=== PATIENT | female | born 1980 | race Caucasian/White ===

== ENCOUNTER 2023-06-18 09:52 | Outpatient (OUT) | payer BC, SELFPAY ==
[2023-06-18 10:30] LABS: Basophils Absolute Auto 0.1 10^3/uL (0.0-0.1); Basophils Percent Auto 0.7 % (0.2-2.0); Eosinophils Absolute Auto 0.2 10^3/uL (0.0-0.7); Eosinophils Percent Auto 1.9 % (0.9-7.0); Hematocrit 39.7 % (36.0-48.0); Immature Granulocytes Abs Auto 0.02 10^3/uL (0.00-0.03); Immature Granulocytes Pct Auto 0.2 % (0.0-0.5); Lymphocytes Absolute Auto 2.4 10^3/uL (1.2-3.8); Lymphocytes Percent Auto 27.5 % (20.5-60.0); Mean Corpuscular HGB Conc 32.7 g/dL (29.9-35.2); Mean Corpuscular Hemoglobin 30.2 pg (26.7-34.0); Mean Corpuscular Volume 92.1 fL (81.0-99.0); Mean Platelet Volume 9.2 fL (9.5-13.5); Monocytes Absolute Auto 0.5 10^3/uL (0.3-0.8); Monocytes Percent Auto 5.1 % (1.7-12.0); Neutrophils Absolute Auto 5.7 10^3/uL (1.4-6.5); Neutrophils Percent Auto 64.6 % (43.0-75.0); Platelet Count 315 10^3/uL (150-450); Red Blood Count 4.31 10^6/uL (4.20-5.40); Red Cell Distribution Width 12.8 % (11.0-15.0); White Blood Count 8.8 10^3/uL (4.0-11.0)
[2023-06-18 12:39] LABS: Estimated Average Glucose 126 mg/dL
[2023-06-18 12:45] LABS: Alanine Aminotransferase 23 U/L (14-59); Albumin Level 3.9 g/dL (3.4-5.0); Alkaline Phosphatase 63 U/L (46-116); Anion Gap 11.8; Aspartate Amino Transferase 15 U/L (15-37); BUN Creatinine Ratio 12.2; Bilirubin Total 0.3 mg/dL (0.2-1.0); Calcium 9.1 mg/dL (8.5-10.1); Carbon Dioxide 27.3 mmol/L (21.0-32.0); Chloride 104 mmol/L (98-107); Chol HDL Ratio 3.2; Cholesterol 210 mg/dL (<=200); Estimated GFR (African America >60 (>=60); Estimated GFR (Non-African Ame >60 (>=60); Globulin 3.8 g/dL; Glucose 105 mg/dL (74-106); HDL Cholesterol 66 mg/dL (40-60); Potassium 4.1 mmol/L (3.5-5.1); Sodium 139 mmol/L (136-145); Thyroid Stimulating Hormone 1.239 uIU/mL (0.358-3.740); Total Protein 7.7 g/dL (6.4-8.2); Triglycerides 95 mg/dL (<=150)
== END 2023-06-18 09:53 | disposition home or self-care (01) ==
PROVIDERS: PCP Family Medicine; Visit Provider Obstetrics & Gynecology
DX: Z00.00 Encounter for general adult medical examination without abnormal findings (principal)
CPT/HCPCS: 36415; 80053; 80061; 83036; 84443; 85025

== ENCOUNTER 2023-08-31 19:23 | Outpatient (REF) | payer BC, SELFPAY ==
[2023-09-04 19:07] LABS: Age Gdln ACOG Testing Note (.); HPV Aptima Negative (Negative); IGP, Aptima HPV, rfx 16/18,45 Note (.)
== END 2023-08-31 19:24 | disposition home or self-care (01) ==
LOC: LAB 19:23
PROVIDERS: PCP Family Medicine; Visit Provider Obstetrics & Gynecology
DX: Z01.419 Encounter for gynecological examination (general) (routine) without abnormal findings (principal)
CPT/HCPCS: 87624; G0145

== ENCOUNTER 2023-09-02 09:44 | Outpatient (OUT) | payer BC, SELFPAY ==
[2023-09-02 10:27] LABS: Estimated Average Glucose 120 mg/dL; Glycohemoglobin A1C 5.8 % (4.5-6.2)
== END 2023-09-02 09:45 | disposition home or self-care (01) ==
PROVIDERS: PCP Family Medicine; Visit Provider Obstetrics & Gynecology
DX: E08.9 Diabetes mellitus due to underlying condition without complications (principal)
CPT/HCPCS: 36415; 83036

== ENCOUNTER 2023-09-06 07:32 | Outpatient (OUT) | payer BC, SELFPAY ==
--- NOTE | 2023-09-06 07:36 | MM_ITS ---
Patient Name: PIOTR FREEMAN MR#: [id number] : 1980 Exam Date: 09/06/2023 Ordering Doctor: DR Mando Back . RADIOLOGY REPORT PROCEDURE: MM TOMOSYNTHESIS SCREENING BI COMPARISON: MG MAMM SCREEN 3D AMIRA CAD, 08/27/2021. MG MAMM SCREEN 3D AMIRA CAD, 09/02/2022. INDICATIONS: Screening Calculator Name NCI Breast Cancer Risk Assessment Tool 5 Year Breast Cancer Risk 1.50% Lifetime Breast Cancer Risk 11.10% Personal Breast Cancer No Personal Ovarian Cancer No Treatments None Family Cancers Grandmother-maternal with breast cancer at age ~63. LOCATION: [facility] BREAST COMPOSITION: Heterogeneously dense,which may obscure small masses. FINDINGS: DIAGNOSTIC CATEGORY 1--NEGATIVE. NO CHANGE FROM COMPARISON ASSESSMENT. Scattered benign-appearing calcifications are present. Scattered benign-appearing lymph nodes are present. RIGHT BREAST: No significant suspicious finding. LEFT BREAST: No significant suspicious finding. RECOMMENDATIONS: ROUTINE MAMMOGRAM AND CLINICAL EVALUATION IN 12 MONTHS. PLEASE NOTE: A NORMAL MAMMOGRAM DOES NOT EXCLUDE THE POSSIBILITY OF BREAST CANCER. A CLINICALLY SUSPICIOUS PALPABLE LUMP SHOULD BE BIOPSIED. Dictated by: Bam Deshpande MD on 09/06/2023 at 08:26 Approved by: Bam Deshpande MD on 09/06/2023 at 08:27
== END 2023-09-06 07:33 | disposition home or self-care (01) ==
LOC: MAMMO 07:32
PROVIDERS: PCP Family Medicine; Visit Provider Obstetrics & Gynecology
DX: Z12.31 Encounter for screening mammogram for malignant neoplasm of breast (principal); Z80.3 Family history of malignant neoplasm of breast
CPT/HCPCS: 77063; 77067

== ENCOUNTER 2024-02-15 09:34 | Outpatient (OUT) | payer BC, SELFPAY ==
[2024-02-15 11:03] LABS: Basophils Absolute Auto 0.1 10^3/uL (0.0-0.1); Basophils Percent Auto 0.6 % (0.2-2.0); Eosinophils Absolute Auto 0.3 10^3/uL (0.0-0.7); Eosinophils Percent Auto 3.8 % (0.9-7.0); Hematocrit 38.6 % (36.0-48.0); Hemoglobin 12.9 g/dL (12.0-16.0); Immature Granulocytes Abs Auto 0.05 10^3/uL (0.00-0.03); Immature Granulocytes Pct Auto 0.6 % (0.0-0.5); Lymphocytes Absolute Auto 2.8 10^3/uL (1.2-3.8); Mean Corpuscular HGB Conc 33.4 g/dL (29.9-35.2); Mean Corpuscular Hemoglobin 29.9 pg (26.7-34.0); Mean Corpuscular Volume 89.6 fL (81.0-99.0); Mean Platelet Volume 9.3 fL (9.5-13.5); Monocytes Absolute Auto 0.4 10^3/uL (0.3-0.8); Monocytes Percent Auto 5.1 % (1.7-12.0); Neutrophils Percent Auto 57.9 % (43.0-75.0); Platelet Count 365 10^3/uL (150-450); Red Blood Count 4.31 10^6/uL (4.20-5.40); Red Cell Distribution Width 12.9 % (11.0-15.0); White Blood Count 8.7 10^3/uL (4.0-11.0)
[2024-02-15 11:19] LABS: Estimated Average Glucose 131 mg/dL; Glycohemoglobin A1C 6.2 % (4.5-6.2)
[2024-02-15 11:57] LABS: Free T3 2.56 pg/mL (2.18-3.98)
[2024-02-15 12:31] LABS: Free T4 0.65 ng/dL (0.76-1.46)
[2024-02-16 04:09] LABS: FSH 7.5 mIU/mL (.); Luteinizing Hormone(LH) 11.1 mIU/mL (.); Prolactin 7.1 ng/mL (4.8-33.4)
== END 2024-02-15 09:35 | disposition home or self-care (01) ==
PROVIDERS: PCP Family Medicine; Visit Provider Obstetrics & Gynecology
DX: R53.83 Other fatigue (principal); R00.2 Palpitations; N64.52 Nipple discharge
CPT/HCPCS: 36415; 83001; 83002; 83036; 84146; 84439; 84481; 85025

== ENCOUNTER 2024-03-31 15:35 | Emergency (ER) | payer BC, SELFPAY ==
[2024-03-31 15:39] VITALS: BP 132/86; PULSE 108; TEMP 36.8; O2SAT 98; BMI 30.2
--- OUTSIDE RECORDS SUMMARY | 2024-03-31 15:43 | XMS_ITS | CCD ---
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 Graphics Designer Name Role Phone Bjorn BARBOSA Rudy Flores Primary Care Provider Terra Singh MD Unavailable MELITA RODRÍGUEZ Attending Unavailable HOY ., DR ELLISON Admitting Unavailable HOY ., DR ELLISON Primary Care Unavailable HOY ., DR ELLISON Consulting Unavailable HOY ., DR ELLISON Attending Unavailable KEVIN PAUL Attending Unavailable KEVIN PAUL Admitting Unavailable HOY ., DR ELLISON Primary Care Unavailable YAMILETH ., DR TOM Consulting Unavailable YAMILETH ., DR TOM Attending Unavailable HOY ., DR ELLISON Primary Care Unavailable YAMILETH ., DR TOM Admitting Unavailable YAMILETH ., DR TOM Admitting Unavailable YAMILETH ., DR TOM Consulting Unavailable YAMILETH ., DR TOM Attending Unavailable HOY ., DR ELLISON Primary Care Unavailable HOY ., DR ELLISON Admitting Unavailable HOY ., DR ELLISON Primary Care Unavailable HOY ., DR ELILSON Consulting Unavailable HOY ., DR ELLISON Attending Unavailable POLICARO, ANN MARIE Consulting Unavailable HOY ., DR ELLISON Primary Care Unavailable YAMILETH ., DR TOM Consulting Unavailable YAMILETH ., DR TOM Attending Unavailable YAMILETH ., DR TOM Admitting Unavailable HOY ., DR ELLISON Primary Care Unavailable YAMILETH ., DR TOM Attending Unavailable YAMILETH ., DR TOM Admitting Unavailable ALIA, DR BRANDY Staton Consulting Unavailable YAMILETH ., DR TOM Consulting Unavailable YAMILETH ., DR TOM Consulting Unavailable YAMILETH ., DR TOM Attending Unavailable YAMILETH ., DR TOM Admitting Unavailable HOY ., DR ELLISON Primary Care Unavailable KEVIN PAUL Attending Unavailable KEVIN PAUL Admitting Unavailable KEVIN PAUL Consulting Unavailable AMADEO ., DR ELLISON Primary Care Unavailable DOUG LOMAX Consulting Unavailable KEVIN PAUL Attending Unavailable KEVIN PAUL Admitting Unavailable AMADEO ., DR ELLISON Primary Care Unavailable RAMESH, DR JOB Santamaria Consulting Unavailable KEVIN PAUL Consulting Unavailable NEGRO CARSON Attending Unavailable Allergies Allergy Classification Reported Allergen(s) Allergy Type Date of Onset Reaction(s) Facility (4 sources) Amoxicillin; Translations: [AMOXICILLIN] Drug Allergy 7 Hives [facility] (3 sources) Benzalkonium Drug Allergy 7 Rash [facility] (3 sources) Meperidine Drug Allergy 7 Shortness of Breath [facility] (1 source) Meperidine; Translations: [MEPERIDINE] Drug Allergy 7 [facility] Repository (1 source) NEOMYCIN-BACITRA CNZN-POLYMYXNB; Translations: [NEOMYCIN-BACITR ACNZN-POLYMYXNB] Propensity to adverse reactions to drug (disorder) 3 [facility] Repository (1 source) Amoxicillin Drug Allergy 6 [facility] (1 source) Bacitracin / Neomycin / Polymyxin B Drug Allergy 6 [facility] (1 source) Meperidine Drug Allergy 6 [facility] Medications Completed/Discontinued Medications Medication Drug Class(es) Dates Sig (Normalized) Sig (Original) [id number] 200 actuat albuterol 0.09 mg/actuat metered dose inhaler (3 sources) beta2-Adrenergic Agonist albuterol HFA (PROVENTIL HFA, VENTOLIN HFA) 90 mcg/actuation inhaler albuterol sulfate HFA 90 mcg/actuation aerosol inhaler 0 Active Comment on above: albuterol sulfate HF A 90 mcg/actuation aerosol inhaler ascorbic acid 500 mg extended release oral capsule (3 sources) Vitamin C Ascorbic Acid (VITAMIN C) 500 mg cpER atorvastatin 20 mg oral tablet (3 sources) HMG-CoA Reductase Inhibitor Start: 09-01-2021 take 1 tablet by mouth once daily atorvastatin (LIPITOR) 20 mg tablet atorvastatin 20 mg tablet Take 1 tablet every day by oral route. 0 09/01/2021 Active Comment on above: atorvastatin 20 mg t ablet Take 1 tablet every day by oral route. citalopram 20 mg oral tablet (3 sources) Serotonin Reuptake Inhibitor Start: 10-06-2020 citalopram (CELEXA) 20 mg tablet q 24 HR. 0 10/06/2020 Active Comment on above: q 24 HR. 24 hr metoprolol succinate 25 mg extended release oral tablet (2 sources) beta-Adrenergic Manjula Start: 12-18-2021 take 1 tablet by mouth twice daily metoprolol succinate ER (TOPROL XL) 25 mg 24 hr tablet TAKE 1 TABLET BY MOUTH TWICE A DAY 60 tablet 11 12/18/2021 Active Comment on above: TAKE 1 TABLET BY ELY TH TWICE A DAY Problems Active Problems Problem Classification Problem Date Documented Da te Episodic/Chronic Abdominal pain (7 sources) Right upper quadrant pain; Translations: [Right upper quadrant pain] Onset: 03-03-2017 03-03-2017 Episodic Cardiac dysrhythmias (2 sources) Tachycardia, unspecified; Translations: [Tachycardia, unspecified] Onset: 12-16-2022 Episodic Conditions associated with dizziness or vertigo (1 source) Dizziness and giddiness; Translations: [DIZZINESS AND GIDDINESS] Onset: 02-03-2023 Episodic Congestive heart failure; nonhypertensive (1 source) Unspecified diastolic (congestive) heart failure; Translations: [UNSPECIFIED DIASTOLIC HEART FAILURE] Onset: 02-17-2022 Chronic Disorders of lipid metabolism (2 sources) Mixed hyperlipidemia; Translations: [Mixed hyperlipidemia] Onset: 12-16-2022 Chronic Hypertension with complications and secondary hypertension (1 source) Hypertensive heart disease with heart failure; Translations: [HTN HEART DISEASE W/HEART FAIL] Onset: 02-17-2022 Chronic Nonspecific chest pain (2 sources) Other chest pain; Translations: [Other chest pain] Onset: 12-16-2022 Episodic Other acquired deformities (1 source) Contracture, left foot; Translations: [CONTRACTURE LEFT FOOT] Onset: 07-20-2022 Chronic Other acquired deformities (1 source) Contracture, right foot; Translations: [CONTRACTURE RIGHT FOOT] Onset: 07-20-2022 Chronic Other lower respiratory disease (2 sources) Other forms of dyspnea; Translations: [Other forms of dyspnea] Onset: 12-16-2022 Episodic Unclassified (1 source) Personal history of COVID-19; Translations: [Personal history of COVID-19] Onset: 12-16-2022 Unclassified (3 sources) POST COVID-19 CONDITION UNSPECIFIED; Translations: [POST COVID-19 CONDITION UNSPECIFIED] Onset: 05-08-2022 Past or Other Problems Problem Classification Problem Date Documented Da te Episodic/Chronic Immunizations and screening for infectious disease (1 source) Encounter for screening for human papillomavirus (HPV); Translations: [ENC SCREENING HUMAN PAPILLOMAVIRUS] Onset: 08-29-2022 Episodic Other connective tissue disease (4 sources) Plantar fascial fibromatosis; Translations: [PLANTAR FASCIAL FIBROMATOSIS] Onset: 08-26-2022 Episodic Other connective tissue disease (1 source) Achilles tendinitis, right leg; Translations: [ACHILLES TENDINITIS RIGHT LEG] Onset: 08-29-2022 Episodic Other connective tissue disease (4 sources) Pain in right foot; Translations: [PAIN IN RIGHT FOOT] Onset: 06-30-2022 Episodic Other connective tissue disease (1 source) Pain in left foot; Translations: [PAIN IN LEFT FOOT] Onset: 07-02-2022 Episodic Other gastrointestinal disorders (3 sources) Diarrhea; Translations: [Diarrhea, unspecified] Onset: 03-03-2017 03-03-2017 Episodic Other lower respiratory disease (4 sources) Dyspnea, unspecified; Translations: [DYSPNEA UNSPECIFIED] Onset: 02-11-2022 Episodic Other screening for suspected conditions (not mental disorders or infectious disease) (8 sources) Encounter for screening mammogram for malignant neoplasm of breast; Translations: [Encounter for screening for malignant neoplasm of cervix] Onset: 08-27-2022 Episodic Residual codes; unclassified (1 source) Family history of malignant neoplasm of breast; Translations: [FAMILY HX MALIG NEOPLASM OF BREAST] Onset: 09-14-2022 Episodic Unclassified (1 source) Personal history of COVID-19; Translations: [Personal history of COVID-19] Onset: 12-16-2022 Unclassified (1 source) POST COVID-19 CONDITION UNSPECIFIED; Translations: [POST COVID-19 CONDITION UNSPECIFIED] Onset: 04-30-2022 Results Test Name Value Interpretation Reference Range Facility BUNon 01-28-2023 Urea nitrogen [Mass/Vol] 7.0 mg/dL Normal 7.0-18.0 [facility] Comment on above: Performed By: #### U AMIC #### [facility] [address] [place] [address] Dr. Jorge Sierra CALCIUMon 01-28-2023 Calcium [Mass/Vol] 9.4 mg/dL Normal 8.5-10.1 [facility] Comment on above: Performed By: #### U AMIC #### [facility] [address] [place] [address] Dr. Jorge Sierra CBC AUTO DIFFon 01-28-2023 BASO # 0.1 103/ul Normal 0.0-0.1 [facility] Comment on above: Performed By: #### C BC #### [facility] [address] [place] [address] Dr. Jorge Sierra Basophils/100 WBC (Bld) 0.5 % Normal 0.2-2.0 [facility] Comment on above: Performed By: #### C BC #### [facility] [address] [place] [address] Dr. Jorge Sierra EO # 0.2 103/ul Normal 0.0-0.7 [facility] Comment on above: Performed By: #### C BC #### [facility] [address] [place] [address] Dr. Jorge Sierra Eosinophils/100 WBC (Bld) 2.1 % Normal 0.9-7.0 [facility] Comment on above: Performed By: #### C BC #### [facility] [address] [place] [address] Dr. Jorge Sierra Erythrocyte distribution width (RBC) [Ratio] 13.1 % Normal 11.0-15.0 [facility] Comment on above: Performed By: #### C BC #### [facility] [address] [place] [address] Dr. Jorge Sierra Hematocrit (Bld) [Volume fraction] 39.9 % Normal 36.0-48.0 [facility] Comment on above: Performed By: #### C BC #### [facility] [address] [place] [address] Dr. Jorge Sierra Hemoglobin (Bld) [Mass/Vol] 13.4 g/dL Normal 12.0-16.0 [facility] Comment on above: Performed By: #### C BC #### [facility] [address] [place] [address] Dr. Jorge Sierra IG # 0.03 10e3/ul Normal 0.00-0.03 [facility] Comment on above: Performed By: #### C BC #### [facility] [address] [place] [address] Dr. Jorge Sierra IG % 0.3 % Normal 0.0-0.5 [facility] Comment on above: Performed By: #### C BC #### [facility] [address] [place] [address] Dr. Jorge Sierra LYMPH # 3.1 103/ul Normal 1.2-3.8 [facility] Comment on above: Performed By: #### C BC #### [facility] [address] [place] [address] Dr. Jorge Sierra Lymphocytes/100 WBC (Bld) 31.4 % Normal 20.5-60.0 [facility] Comment on above: Performed By: #### C BC #### [facility] [address] [place] [address] Dr. Jorge Sierra MANUAL DIFF REQ NO Normal [facility] Comment on above: Performed By: #### C BC #### [facility] [address] [place] [address] Dr. Jorge Sierra MCH (RBC) [Entitic mass] 30.4 pg Normal 26.7-34.0 [facility] Comment on above: Performed By: #### C BC #### [facility] [address] [place] [address] Dr. Jorge Sierra MCHC (RBC) [Mass/Vol] 33.6 g/dL Normal 29.9-35.2 [facility] Comment on above: Performed By: #### C BC #### [facility] [id number] Jorge Sierra MCV (RBC) [Entitic vol] 90.5 fL Normal 81.0-99.0 [facility] Comment on above: Performed By: #### C BC #### [facility] [address] [address] [address] Jorge Sierra MONO # 0.5 103/ul Normal 0.3-0.8 [facility] Comment on above: Performed By: #### C BC #### [facility] [address] [address] [address] Jorge Sierra Monocytes/100 WBC (Bld) 5.3 % Normal 1.7-12.0 [facility] Comment on above: Performed By: #### C BC #### [facility] [address] [place] [address] Dr. Jorge Sierra NEUT # 5.9 103/ul Normal 1.4-6.5 [facility] Comment on above: Performed By: #### C BC #### [facility] [address] [place] [address] Dr. Jorge Sierra Neutrophils/100 WBC (Bld) 60.4 % Normal 43.0-75.0 [facility] Comment on above: Performed By: #### C BC #### [facility] [address] [place] [address] Dr. Jorge Sierra Platelet mean volume (Bld) [Entitic vol] 8.9 fL Critically low 9.5-13.5 [facility] Comment on above: Performed By: #### C BC #### [facility] [address] [place] [address] Dr. Jorge Sierra PLT 340 103/ul Normal 150-450 [facility] Comment on above: Performed By: #### C BC #### [facility] [address] [place] [address] Dr. Jorge Sierra RBC 4.41 106/ul Normal 4.20-5.40 [facility] Comment on above: Performed By: #### C BC #### [facility] [address] [address] [address] Jorge Sierra WBC 9.8 103/ul Normal 4.0-11.0 [facility] Comment on above: Performed By: #### C BC #### [facility] [address] [place] [address] Dr. Jorge Sierra CREATININEon 01-28-2023 Creatinine [Mass/Vol] 0.81 mg/dL Normal 0.55-1.02 [facility] Comment on above: Performed By: #### C BC #### [facility] [address] [place] [address] Dr. Jorge Sierra EGFR-AF [place] >60 Normal >=60 [facility] Comment on above: Performed By: #### C BC #### [facility] [address] [place] [address] Dr. Jorge Sierra EGFR-NON AF [place] >60 Normal >=60 [facility] Comment on above: Performed By: #### C BC #### [facility] [address] [place] [address] Dr. Jorge Sierra ELECTROLYTESon 01-28-2023 Anion gap [Moles/Vol] 11.2 mmol/L Normal [facility] Comment on above: Performed By: #### U AMIC #### [facility] [address] [place] [address] Dr. Jorge Sierra Chloride [Moles/Vol] 103 mmol/L Normal 98-107 [facility] Comment on above: Performed By: #### U AMIC #### [facility] [address] [place] [address] Dr. Jorge Sierra CO2 [Moles/Vol] 27.4 mmol/L Normal 21.0-32.0 [facility] Comment on above: Performed By: #### U AMIC #### [facility] [address] [place] [address] Dr. Jorge Sierra Potassium [Moles/Vol] 3.6 mmol/L Normal 3.5-5.1 [facility] Comment on above: Performed By: #### U AMIC #### [facility] [address] [place] [address] Dr. Jorge Sierra Sodium [Moles/Vol] 138 mmol/L Normal 136-[address] [facility] Comment on above: Performed By: #### U AMIC #### [facility] [address] [place] [address] Dr. Jorge Sierra MAGNESIUMon 01-28-2023 Magnesium [Mass/Vol] 1.9 mg/dL Normal 1.8-2.4 [facility] Comment on above: Performed By: #### U AMIC #### [facility] [address] [place] [address] Dr. Jorge Sierra UA RANDOM W/MICROSCOPICon BACTERIA TRACE Abnormal NONE SEEN [facility] Comment on above: Performed By: #### U AMIC #### [facility] [address] [place] [address] Dr. Jorge Sierra Bilirubin Ql (U) Negative Normal NEGATIVE [facility] Comment on above: Performed By: #### U AMIC #### [facility] [address] [place] [address] Dr. Jorge Sierra CAST NONE SEEN Normal NONE SEEN [facility] Comment on above: Performed By: #### U AMIC #### [facility] [address] [place] [address] Dr. Jorge Sierra Clarity (U) CLEAR Normal CLEAR [facility] Comment on above: Performed By: #### U AMIC #### [facility] [address] [place] [address] Dr. Jorge Sierra Color (U) YELLOW Normal YELLOW [facility] Comment on above: Performed By: #### U AMIC #### [facility] [address] [place] [address] Dr. Jorge Sierra Crystals LM Nom (Urine sed) NONE SEEN Normal NONE SEEN [facility] Comment on above: Performed By: #### U AMIC #### [facility] [address] [place] [address] Dr. Jorge Sierra Epithelial cells LM Ql (Urine sed) MODERATE Abnormal NONE SEEN /RARE [facility] Comment on above: Performed By: #### U AMIC #### [facility] [address] [address] [address] Jorge Sierra Glucose Ql (U) Negative Normal NEGATIVE [facility] Comment on above: Performed By: #### U AMIC #### [facility] [address] [address] [address] Jorge Sierra Hemoglobin Ql (U) Negative Normal NEGATIVE [facility] Comment on above: Performed By: #### U AMIC #### [facility] [address] [address] [address] Jorge Sierra Ketones Ql (U) TRACE Abnormal NEGATIVE [facility] Comment on above: Performed By: #### U AMIC #### [facility] [address] [address] [address] Jorge Sierra LEUKOCYTES Negative Normal NEGATIVE [facility] Comment on above: Performed By: #### U AMIC #### [facility] [address] [place] [address] Dr. Jorge Sierra MUCOUS TRACE Abnormal NONE SEEN [facility] Comment on above: Performed By: #### U AMIC #### [facility] [address] [address] [address] Jorge Sierra Nitrite Ql (U) Negative Normal NEGATIVE [facility] Comment on above: Performed By: #### U AMIC #### [facility] [address] [place] [address] Dr. Jorge Sierra pH (U) 5.5 [pH] Normal 5-9 [facility] Comment on above: Performed By: #### U AMIC #### [facility] [address] [place] [address] Dr. Jorge Sierra RBC 0-2 Normal 0-2 [facility] Comment on above: Performed By: #### U AMIC #### [facility] [address] [place] [address] Dr. Jorge Sierra SPEC GRAVITY >=1.030 Abnormal 1.005-<=1.025 [facility] Comment on above: Performed By: #### U AMIC #### [facility] [address] [place] [address] Dr. Jorge Sierra UA PROTEIN TRACE Normal NEGATIVE/ TRACE [facility] Comment on above: Performed By: #### U AMIC #### [facility] [address] [address] [address] Jorge Sierra Urobilinogen Qn (U) 1.0 {Nya'U}/dL Normal 0.2 - 1. 0 [facility] Comment on above: Performed By: #### U AMIC #### [facility] [address] [address] [address] Jorge Sierra WBC NONE SEEN Normal NONE SEEN [facility] Comment on above: Performed By: #### U AMIC #### [facility] [address] [address] [address] Jorge Sierra Office Visiton 12-16-2022 Follow-up visit [id number] Piotr Freeman 1980 F Date Provider Department Center 12/16/2022 MELITA ELIZABETH [facility] No family history on file Level of Service:34076 CO OFFICE/OUTPATIENT ESTABLISHED MOD MDM 30-39 MIN Reason for Visit and Comments: Chest Pain [580163] Shortness of Breath [780702] Hyperlipidemia [182] sinus tachycardia [Other] Normal [facility] PAP ACOG PANEL 2: 30 to 65on 09-05-2022 . . Normal [facility] Comment on above: Result Comment: Perf ormed at: BA Performed By: #### U AMIC #### [facility] [address] [place] [address] Dr. Jorge Sierra Age Gdln ACOG Testing 30-65 Normal [facility] Comment on above: Performed By: #### U AMIC #### [facility] [id number] Jorge Sierra DIAGNOSIS: Comment Normal [facility] Comment on above: Result Comment: NEGA TIVE FOR INTRAEPITHELIAL LESION OR MALIGNANCY. FUNGAL ORGANISMS MORPHOLOGICALLY CONSISTENT WITH STONEY SPECIES ARE PRESENT. THIS SPECIMEN WAS RESCREENED PART OF OUR [employer] PROGRAM. Performed at: BA Performed By: #### U AMIC #### [facility] [address] [address] [address] Jorge Sierra HPV Aptima Negative Normal Negative [facility] Comment on above: Result Comment: This nucleic acid amplification test detects fourteen high-risk HPV types (16,18,31,33,35,39,45,51,52,56,58,59,66,68) without differentiation. Performed at: =G Performed By: #### U AMIC #### [facility] [address] [address] [address] Jorge Sierra HPV Genotype Reflex Comment Normal [facility] Comment on above: Result Comment: Crit ermuna not met, HPV Genotype not performed. Performed at: BA Performed By: #### U AMIC #### [facility] [address] [place] [address] Dr. Jorge Sierra Methodology: Comment Normal [facility] Comment on above: Result Comment: This liquid based ThinPrep(R) pap test was screened with the use of an image guided system. Performed at: WB Performed By: #### U AMIC #### [facility] [address] [place] [address] Dr. Jorge Sierra Note: Comment Normal [facility] Comment on above: Result Comment: The Pap smear is a screening test designed to aid in the detection of premalignant and malignant conditions of the uterine cervix. It is not a diagnostic procedure and should not be used as the sole means of detecting cervical cancer. Both false-positive and false-negative reports do occur. . Performed at: WB Performed By: #### U AMIC #### [facility] [address] [place] [address] Dr. Jorge Sierra Performed by: Comment Normal [facility] Comment on above: Result Comment: Trey Phillips, Feller Hand Performed at: BA Performed By: #### U AMIC #### [facility] [address] [place] [address] Dr. Jorge Sierra QC reviewed by: Comment Normal [facility] Comment on above: Result Comment: Anabela Bettencourt, Feller Hand (ASCP) Performed at: BA Performed By: #### U AMIC #### [facility] [address] [place] [address] Dr. Jorge Sierra Specimen adequacy: Comment Normal [facility] Comment on above: Result Comment: Sati sfactory for evaluation. No endocervical component is identified. The absence of an endocervical component was confirmed by an additional screening evaluation. Performed at: Performed By: #### U [facility] #### [facility] [address] [address] [address] Jorge Sierra MG MAMM SCREEN 3D AMIRA CADon 09-02-2022 MG MAMM SCREEN 3D AMIRA CAD Patient: PIOTR FREEMAN Exam Date: 09/02/2022 : 1980 Gender:F Ordering : DR NEGRO CARSON . Admission #: [id number] Family : Order #: [id number] CLICK HERE TO VIEW EXAM RADIOLOGY REPORT PROCEDURE: MAMMOGRAM SCREENING 3D BILATERAL CAD COMPARISON: MG MAMM LT DIAG FU, 03/06/2021. MG MAMM SCREEN 3D AMIRA CAD, 08/27/2021. INDICATIONS: Screening mammography Calculator Name NCI Breast Cancer Risk Assessment Tool 5 Year Breast Cancer Risk 1.40% Lifetime Breast Cancer Risk 11.30% Personal Breast Cancer No Personal Ovarian Cancer No Treatments None Family Cancers Grandmother-maternal with breast cancer at age 63. LOCATION: The [facility] BREAST COMPOSITION: Heterogeneously dense,which may obscure small masses. FINDINGS: DIAGNOSTIC CATEGORY 2--BENIGN FINDING. NO CHANGE FROM COMPARISON. Scattered benign-appearing calcifications are present. Scattered benign-appearing lymph nodes are present. RIGHT BREAST: No significant suspicious finding. LEFT BREAST: No significant suspicious finding. Asymmetrically small, stable. Micro clip marker posterior breast seen only on the MLO projection, stable RECOMMENDATIONS: ROUTINE MAMMOGRAM AND CLINICAL EVALUATION IN 12 MONTHS. PLEASE NOTE: A NORMAL MAMMOGRAM DOES NOT EXCLUDE THE POSSIBILITY OF BREAST CANCER. A CLINICALLY SUSPICIOUS PALPABLE LUMP SHOULD BE BIOPSIED. Dictated by: Brandy Deshpande MD on 09/02/2022 at 08:04 Approved by: Brandy Deshpande MD on 09/02/2022 at 09:22 Normal [facility] MRI ANKLE RT WO CONon 2021 MRI ANKLE RT WO CON EXAM: MRI ANKLE RT W O CON REASON FOR EXAM: Plantar fascial fibromatosis. TECHNIQUE: Multiplanar, multisequence imaging of the right ankle was performed without contrast COMPARISON: Plain radiograph 06/30/2022. FINDINGS: There is mild fusiform thickening and intermediate signal involving the Achilles tendon consistent with tendinosis. No definite tear identified. Trace amount of fluid is present in the retrocalcaneal bursa. There is thickening and intermediate signal involving the plantar fascia with possible mild reactive edema involving the subjacent calcaneus. There is a small focal low-grade tear of the medial cord at the calcaneus (series 14, image 9). Small inferior calcaneal spur is noted. No masslike thickening of the plantar fascia to suggest fibromatosis. Laterally, the peroneal tendons demonstrate normal thickness and signal without tendinosis or tear. The superficial peroneal retinaculum is intact. Mild thickening and intermediate signal involving the anterior talofibular and calcaneofibular ligament suggests prior lateral ligamentous injury. No evidence of acute lateral ligamentous injury identified. Medially, the medial flexor tendons demonstrate normal thickness and signal without tendinosis or tear. The deep deltoid ligament is intact. The spring ligament is intact. The partially imaged Lisfranc ligament is grossly intact. Anteriorly, the anterior extensor tendons demonstrate normal thickness and signal without tendinosis or tear. The bone marrow signal is without fracture or osteonecrosis. The talar dome is congruent. The subtalar joints intact. The sinus tarsi is nonedematous. The midfoot is congruent. Thickening and intermediate signal as well as a well-corticated ossific body along the dorsal margin of the talonavicular joint is consistent with prior capsular ligament sprain/ununited fracture. The plantar musculature demonstrates normal bulk and signal. Remaining soft tissues are unremarkable. IMPRESSION: 1. Acute plantar fasciitis with small focal low-grade partial tear of the medial cord at the level the calcaneus. 2. No masslike thickening of the plantar fascia to suggest fibromatosis. 3. Achilles tendinosis without tear. 4. Sequela of prior lateral ligamentous injury. 5. 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 Electronically authenticated by: DOUG LOMAX Date: 2022-08-27 13:28 Normal [facility] XR FOOT AMIRA MIN 3 VIEWSon XR FOOT AMIRA MIN 3 VIEWS EXAMINATION: XR FOOT AMIRA MIN 3 VIEWS HISTORY: Pain COMPARISON: No relevant comparison available. FINDINGS: RIGHT FINDINGS: BONES: No significant arthropathy or acute abnormality. SOFT TISSUES: No visible soft tissue swelling. OTHER: Negative. LEFT FINDINGS: BONES: No significant arthropathy or acute abnormality. SOFT TISSUES: No visible soft tissue swelling. OTHER: Negative. IMPRESSION: RIGHT CONCLUSION: No acute abnormality or significant degenerative changes. LEFT CONCLUSION: No acute abnormality or significant degenerative changes. Electronically authenticated by: JOB CHANDLER Date: 2022-06-30 16:22 Normal [facility] CBC AUTO DIFFon 05-21-2022 BASO # 0.0 103/ul Normal 0.0-0.1 [facility] Comment on above: Performed By: #### U AMIC #### [facility] [address] [address] [address] Jorge Sierra Basophils/100 WBC (Bld) 0.3 % Normal 0.2-2.0 [facility] Comment on above: Performed By: #### U AMIC #### [facility] [address] [address] [address] Jorge Sierra EO # 0.2 103/ul Normal 0.0-0.7 [facility] Comment on above: Performed By: #### U AMIC #### [facility] [address] [address] [address] Jorge Sierra Eosinophils/100 WBC (Bld) 2.2 % Normal 0.9-7.0 [facility] Comment on above: Performed By: #### U AMIC #### [facility] [address] [address] [address] Jorge Sierra Erythrocyte distribution width (RBC) [Ratio] 13.0 % Normal 11.0-15.0 [facility] Comment on above: Performed By: #### U AMIC #### [facility] [address] [address] [address] Jorge Sierra Hematocrit (Bld) [Volume fraction] 37.5 % Normal 36.0-48.0 [facility] Comment on above: Performed By: #### U AMIC #### [facility] [address] [place] [address] Dr. Jorge Sierra Hemoglobin (Bld) [Mass/Vol] 12.3 g/dL Normal 12.0-16.0 [facility] Comment on above: Performed By: #### U AMIC #### [facility] [address] [address] [address] Jorge Sierra IG # 0.04 10e3/ul Critically high 0.00-0.03 [facility] Comment on above: Performed By: #### U AMIC #### [facility] [address] [place] [address] Dr. Jorge Sierra IG % 0.4 % Normal 0.0-0.5 [facility] Comment on above: Performed By: #### U AMIC #### [facility] [address] [place] [address] Dr. Jorge Sierra LYMPH # 2.6 103/ul Normal 1.2-3.8 [facility] Comment on above: Performed By: #### U AMIC #### [facility] [address] [place] [address] Dr. Jorge Sierra Lymphocytes/100 WBC (Bld) 25.9 % Normal 20.5-60.0 [facility] Comment on above: Performed By: #### U AMIC #### [facility] [address] [place] [address] Dr. Jorge Sierra MANUAL DIFF REQ NO Normal [facility] Comment on above: Performed By: #### U AMIC #### [facility] [address] [address] [address] Jorge Sierra MCH (RBC) [Entitic mass] 30.2 pg Normal 26.7-34.0 [facility] Comment on above: Performed By: #### U AMIC #### [facility] [address] [place] [address] Dr. Jorge Sierra MCHC (RBC) [Mass/Vol] 32.8 g/dL Normal 29.9-35.2 [facility] Comment on above: Performed By: #### U AMIC #### [facility] [address] [place] [address] Dr. Jorge Sierra MCV (RBC) [Entitic vol] 92.1 fL Normal 81.0-99.0 [facility] Comment on above: Performed By: #### U AMIC #### [facility] [address] [address] [address] Jorge Sierra MONO # 0.6 103/ul Normal 0.3-0.8 [facility] Comment on above: Performed By: #### U AMIC #### [facility] [address] [address] [address] Jorge Sierra Monocytes/100 WBC (Bld) 5.7 % Normal 1.7-12.0 [facility] Comment on above: Performed By: #### U AMIC #### [facility] [address] [address] [address] Jorge Sierra NEUT # 6.6 103/ul Critically high 1.4-6.5 [facility] Comment on above: Performed By: #### U AMIC #### [facility] [address] [place] [address] Dr. Jorge Sierra Neutrophils/100 WBC (Bld) 65.5 % Normal 43.0-75.0 [facility] Comment on above: Performed By: #### U AMIC #### [facility] [address] [place] [address] Dr. Jorge Sierra Platelet mean volume (Bld) [Entitic vol] 8.7 fL Critically low 9.5-13.5 [facility] Comment on above: Performed By: #### U AMIC #### [facility] [address] [address] [address] Jorge Sierra PLT 292 103/ul Normal 150-450 [facility] Comment on above: Performed By: #### U AMIC #### [facility] [id number] Jorge Sierra RBC 4.07 106/ul Critically low 4.20-5.40 [facility] Comment on above: Performed By: #### U AMIC #### [facility] [address] [place] [address] Dr. Jorge Sierra WBC 10.1 103/ul Normal 4.0-11.0 [facility] Comment on above: Performed By: #### U AMIC #### [facility] [address] [address] [address] Jorge Sierra GLYCOHEMOGLOBIN A1Con 2021 ADA RECOMMENDATION SEE BELOW Normal [facility] Comment on above: Result Comment: ADA RECOMMENDED LIMIT 4.0 - 6.0 ADA THERAPEUTIC TARGET < 7.0 ACTION SUGGESTED > 7.0 Performed By: #### U AMIC #### [facility] [address] [address] [address] Jorge Sierra Glucose [Mass/Vol] 128 mg/dL Normal [facility] Comment on above: Performed By: #### U AMIC #### [facility] [address] [address] [address] Jorge Sierra HbA1c (Bld) [Mass fraction] 6.1 % Normal 4.5-6.2 [facility] Comment on above: Performed By: #### U AMIC #### [facility] [address] [address] [address] Jorge Sierra LIPID PROFILEon 05-21-2022 CHOL-HDL RATIO NORM SEE BELOW Normal [facility] Comment on above: Result Comment: 3.3 - 4.4 LOW RISK 4.4 - 7.1 AVERAGE RISK 7.1 - 11.0 MODERATE RISK >11.0 HIGH RISK Performed By: #### U AMIC #### [facility] [address] [address] [address] Jorge Sierra Cholesterol [Mass/Vol] 184 mg/dL Normal <=200 [facility] Comment on above: Performed By: #### U AMIC #### [facility] [address] [address] [address] Jorge Sierra Cholesterol in HDL [Mass/Vol] 53 mg/dL Normal 40-60 [facility] Comment on above: Performed By: #### U AMIC #### [facility] [address] [address] [address] Jorge Sierra Cholesterol in LDL [Mass/Vol] 101.8 mg/dL Normal [facility] Comment on above: Performed By: #### U AMIC #### [facility] [address] [address] [address] Jorge Sierra Cholesterol.total/Ch olesterol in HDL [Mass ratio] 3.5 {ratio} Normal [facility] Comment on above: Performed By: #### U AMIC #### [facility] [address] [address] [address] Jorge Sierra HDL NORMAL > or = 60 mg/dl - LO W CARDIOVASCULAR RISK <40 mg/dl - HIGH CARDIOVASCULAR RISK Normal [facility] Comment on above: Performed By: #### U AMIC #### [facility] [address] [address] [address] Jorge Sierra LDL CALC NORMAL SEE BELOW Normal [facility] Comment on above: Result Comment: <100 mg/dl OPTIMAL 100 - 129 mg/dl NEAR OR ABOVE OPTIMAL 130 - 159 mg/dl BORDERLINE HIGH 160 - 189 mg/dl HIGH >190 mg/dl VERY HIGH Performed By: #### U AMIC #### [facility] [address] [address] [address] Jorge Sierra Triglyceride [Mass/Vol] 146 mg/dL Normal <=150 [facility] Comment on above: Performed By: #### U AMIC #### [facility] [address] [address] [address] Jorge Sierra VLDL CALC 29.2 mg/dL Normal [facility] Comment on above: Performed By: #### U AMIC #### [facility] [address] [address] [address] Jorge Sierra PROF 14(COMP METB)on 022 Albumin [Mass/Vol] 3.7 g/dL Normal 3.4-5.0 [facility] Comment on above: Performed By: #### U AMIC #### [facility] [address] [address] [address] Jorge Sierra Albumin/Globulin [Mass ratio] 1.1 {ratio} Normal [facility] Comment on above: Performed By: #### U AMIC #### [facility] [address] [address] [address] Jorge Sierra ALP [Catalytic activity/Vol] 70 U/L Normal 46-116 [facility] Comment on above: Performed By: #### U AMIC #### [facility] [address] [place] [address] Dr. Jorge Sierra ALT [Catalytic activity/Vol] 29 U/L Normal 14-59 [facility] Comment on above: Performed By: #### U AMIC #### [facility] [address] [address] [address] Jorge Sierra Anion gap [Moles/Vol] 13.1 mmol/L Normal [facility] Comment on above: Performed By: #### U AMIC #### [facility] [address] [place] [address] Dr. Jorge Sierra AST [Catalytic activity/Vol] 18 U/L Normal 15-37 [facility] Comment on above: Performed By: #### U AMIC #### [facility] [address] [place] [address] Dr. Jorge Sierra Bilirubin [Mass/Vol] 0.3 mg/dL Normal 0.2-1.0 [facility] Comment on above: Performed By: #### U AMIC #### [facility] [address] [place] [address] Dr. Jorge Sierra Calcium [Mass/Vol] 9.2 mg/dL Normal 8.5-10.1 [facility] Comment on above: Performed By: #### U AMIC #### [facility] [address] [place] [address] Dr. Jorge Sierra Chloride [Moles/Vol] 104 mmol/L Normal 98-107 [facility] Comment on above: Performed By: #### U AMIC #### [facility] [address] [address] [address] Jorge Sierra CO2 [Moles/Vol] 27.7 mmol/L Normal 21.0-32.0 [facility] Comment on above: Performed By: #### U AMIC #### [facility] [address] [place] [address] Dr. Jorge Sierra Creatinine [Mass/Vol] 0.80 mg/dL Normal 0.55-1.02 [facility] Comment on above: Performed By: #### U AMIC #### [facility] [address] [address] [address] Jorge Sierra EGFR-AF S[place]TH [place] >60 Normal >=60 [facility] Comment on above: Performed By: #### U AMIC #### [facility] [address] [address] [address] Jorge Sierra EGFR-NON AF [place] >60 Normal >=60 [facility] Comment on above: Performed By: #### U AMIC #### [facility] [address] [address] [address] Jorge Sierra Globulin (S) [Mass/Vol] 3.4 g/dL Normal [facility] Comment on above: Performed By: #### U AMIC #### [facility] [address] [address] [address] Jorge Sierra Glucose [Mass/Vol] 124 mg/dL Critically high 74-106 [facility] Comment on above: Performed By: #### U AMIC #### [facility] [address] [address] [address] Jorge Sierra Potassium [Moles/Vol] 4.8 mmol/L Normal 3.5-5.1 [facility] Comment on above: Performed By: #### U AMIC #### [facility] [address] [address] [address] Jorge Sierra Protein [Mass/Vol] 7.1 g/dL Normal 6.4-8.[address] [facility] Comment on above: Performed By: #### U AMIC #### [facility] [address] [address] [address] Jorge Sierra Sodium [Moles/Vol] 140 mmol/L Normal 136-145 [facility] Comment on above: Performed By: #### U AMIC #### [facility] [address] [address] [address] Jorge Sierra Urea nitrogen [Mass/Vol] 10.0 mg/dL Normal 7.0-18.0 [facility] Comment on above: Performed By: #### U AMIC #### [facility] [address] [address] [address] Jorge Sierra Urea nitrogen/Creatinine [Mass ratio] 12.5 mg/mg Normal [facility] Comment on above: Performed By: #### U AMIC #### [facility] [address] [place], [place] [id number] Dr. Jorge Sierra TSHon 05-21-2022 TSH 1.454 uIU/mL Normal 0.358-3.740 [facility] Comment on above: Performed By: #### U AMIC #### [facility] [address] [place] [address] Dr. Jorge Sierra CORTISOL 24HR URINEon 2021 Cortisol,F,ug/24hr,U 18 ug/24 hr Normal 6-42 [facility] Comment on above: Performed By: #### C ORT24 #### [facility] [address] [place] [address] Dr. Jorge Sierra Cortisol,F,ug/L,U 6 ug/L Normal Undefined [facility] Comment on above: Performed By: #### C ORT24 #### [facility] [address] [place] [address] Dr. Jorge Sierra CORTISOL FREE, SERUMon 05-07 Cortisol, Free Dialysis, LCMS 0.695 ug/dL Normal [facility] Comment on above: Result Comment: Thes e tests were developed and their performance characteristics determined by [employer]. They have not been cleared or approved by the Food and Drug Administration. Reference Range: 8 AM 0.10 - 1.20 4 PM 0.042 - 0.872 Performed By: #### F RECORT #### [facility] [address] [place] [address] Dr. Jorge Barrera 02-13-2022 NATALIE Telephone ([employer]) PIOTR FREEMAN ([id number]) 1980 F Date Time Provider Department 02/13/22 BENY CHILDRESS During your visit today, we recorded the following information about you: Leon Lomax 02/13/2022 4:48 PM Signed On 02/13 fax was sent to [facility] [phone] for referral with office notes and lab results. Leon Lomax Allergies As of Date: 02/13/2022 Noted Allergy Reaction AMOXICILLIN 03/03/2017 4 - Hives DEMEROL (MEPERIDINE HCL) 03/03/2017 12 - Shortness of Breath NEOSPORIN (BENZALKONIUM CHLORIDE) 03/03/2017 2 - Rash Date Reviewed: 03/03/2017 Reviewed by: Love Matta - Fully Assessed Reason for Visit: Forms [913] Prescriptions as of 02/13/2022 - metoprolol succinate ER (TOPROL XL) 25 mg 24 hr tablet TAKE 1 TABLET BY MOUTH TWICE A DAY - albuterol HFA (PROVENTIL HFA, VENTOLIN HFA) 90 mcg/actuation inhaler albuterol sulfate HFA 90 mcg/actuation aerosol inhaler - Ascorbic Acid (VITAMIN C) 500 mg cpER - atorvastatin (LIPITOR) 20 mg tablet atorvastatin 20 mg tablet Take 1 tablet every day by oral route. - citalopram (CELEXA) 20 mg tablet q 24 HR. Problem List As Of Date 02/13/2022 Noted Resolved RUQ pain [R10.11] 03/03/2017 Diarrhea [R19.7] 03/03/2017 Encounter Status:Closed by LEON LOMAX on 02/13/22 [facility] Natriuretic peptide B (Bld) [Mass/Vol] 10.0 pg/mL Normal <=450.0 [facility] Comment on above: Performed By: #### C MP, BNP, CRP, CMADM #### [facility] [address] [place] [address] Dr. Jorge Sierra CARDIAC ADAM ADMITon 05-18-2 022 CK [Catalytic activity/Vol] 125 U/L Normal 26-192 [facility] Comment on above: Performed By: #### C MP, BNP, CRP, CMADM #### [facility] [address] [place] [address] Dr. Jorge Sierra CK.MB [Mass/Vol] ng/mL Normal <=3.60 [facility] Comment on above: Performed By: #### C MP, BNP, CRP, CMADM #### [facility] [address] [place] [address] Dr. Jorge Sierra HSTROP <4.0 Normal 4.0-51.3 [facility] Comment on above: Result Comment: CUT- OFF POINTS HAVE BEEN ESTABLISHED BASED ON THE FOURTH UNIVERSAL DEFINITIONS OF MYOCARDIAL INFARCTION. THE UPPER REFERENCE LIMIT (URL) OF TROPONIN, DEFINED THE 99TH PERCENTILE OF cTnI DISTRIBUTION IN A REFERENCE POPULATION, HAS BEEN CONFIRMED THE DECISION THRESHOLD FOR [place] DIAGNOSIS. Performed By: #### C MP, BNP, CRP, CMADM #### [facility] [address] [place] [address] Dr. Jorge Sierra EMERY 30 ng/mL Normal 9-82 [facility] Comment on above: Performed By: #### C MP, BNP, CRP, CMADM #### [facility] [address] [place] [address] Dr. Jorge Sierra CBC AUTO DIFFon 02-11-2022 BASO # 0.0 103/ul Normal 0.0-0.1 [facility] Comment on above: Performed By: #### C BC #### [facility] [address] [place] [address] Dr. Jorge Sierra Basophils/100 WBC (Bld) 0.4 % Normal 0.2-2.0 [facility] Comment on above: Performed By: #### C BC #### [facility] [address] [place] [address] Dr. Jorge Sierra EO # 0.2 103/ul Normal 0.0-0.7 [facility] Comment on above: Performed By: #### C BC #### [facility] [address] [place] [address] Dr. Jorge Sierra Eosinophils/100 WBC (Bld) 2.2 % Normal 0.9-7.0 [facility] Comment on above: Performed By: #### C BC #### [facility] [address] [place] [address] Dr. Jorge Sierra Erythrocyte distribution width (RBC) [Ratio] 12.3 % Normal 11.0-15.0 [facility] Comment on above: Performed By: #### C BC #### [facility] [address] [place] [address] Dr. Jorge Sierra Hematocrit (Bld) [Volume fraction] 39.2 % Normal 36.0-48.0 [facility] Comment on above: Performed By: #### C BC #### [facility] [address] [place] [address] Dr. Jorge Sierra Hemoglobin (Bld) [Mass/Vol] 12.9 g/dL Normal 12.0-16.0 [facility] Comment on above: Performed By: #### C BC #### [facility] [address] [place] [address] Dr. Jorge Sierra IG # 0.04 10e3/ul Critically high 0.00-0.03 [facility] Comment on above: Performed By: #### C BC #### [facility] [address] [place] [address] Dr. Jorge Sierra IG % 0.5 % Normal 0.0-0.5 [facility] Comment on above: Performed By: #### C BC #### [facility] [address] [place] [address] Dr. Jorge Sierra LYMPH # 2.2 103/ul Normal 1.2-3.8 [facility] Comment on above: Performed By: #### C BC #### [facility] [address] [place] [address] Dr. Jorge Sierra Lymphocytes/100 WBC (Bld) 27.5 % Normal 20.5-60.0 [facility] Comment on above: Performed By: #### C BC #### [facility] [address] [place] [address] Dr. Jorge Sierra MANUAL DIFF REQ NO Normal [facility] Comment on above: Performed By: #### C BC #### [facility] [address] [place] [address] Dr. Jorge Sierra MCH (RBC) [Entitic mass] 29.7 pg Normal 26.7-34.0 [facility] Comment on above: Performed By: #### C BC #### [facility] [address] [place] [address] Dr. Jorge Sierra MCHC (RBC) [Mass/Vol] 32.9 g/dL Normal 29.9-35.2 [facility] Comment on above: Performed By: #### C BC #### [facility] [address] [place] [address] Dr. Jorge Sierra MCV (RBC) [Entitic vol] 90.3 fL Normal 81.0-99.0 [facility] Comment on above: Performed By: #### C BC #### [facility] [address] [place] [address] Dr. Jorge Sierra MONO # 0.5 103/ul Normal 0.3-0.8 [facility] Comment on above: Performed By: #### C BC #### [facility] [address] [place] [address] Dr. Jorge Sierra Monocytes/100 WBC (Bld) 6.6 % Normal 1.7-12.0 [facility] Comment on above: Performed By: #### C BC #### [facility] [address] [place] [address] Dr. Jorge Sierra NEUT # 5.1 103/ul Normal 1.4-6.5 [facility] Comment on above: Performed By: #### C BC #### [facility] [address] [place] [address] Dr. Jorge Sierra Neutrophils/100 WBC (Bld) 62.8 % Normal 43.0-75.0 [facility] Comment on above: Performed By: #### C BC #### [facility] [address] [place] [address] Dr. Jorge Sierra Platelet mean volume (Bld) [Entitic vol] 8.6 fL Critically low 9.5-13.5 [facility] Comment on above: Performed By: #### C BC #### [facility] [address] [place] [address] Dr. Jorge Sierra PLT 331 103/ul Normal 150-450 [facility] Comment on above: Performed By: #### C BC #### [facility] [address] [place] [address] Dr. Jorge Sierra RBC 4.34 106/ul Normal 4.20-5.40 [facility] Comment on above: Performed By: #### C BC #### [facility] [address] [address] [address] Jorge Sierra WBC 8.1 103/ul Normal 4.0-11.0 [facility] Comment on above: Performed By: #### C BC #### [facility] [address] [place] [address] Dr. Jorge Sierra CRPon 02-11-2022 CRP [Mass/Vol] mg/L Normal <=1.0 [facility] Comment on above: Performed By: #### C MP, BNP, CRP, CMADM #### [facility] [address] [place] [address] Dr. Jorge Sierra CTA CHEST WO W CONon CTA CHEST WO W CON CTA OF THE CHEST HISTORY: Dyspnea COMPARISON: None. TECHNIQUE: CT angiography of the pulmonary arteries following the administration of intravenous contrast. Coronal and sagittal MIP images were performed. Dose reduction techniques were achieved by using automated exposure control and/or adjustment of mA and/or kV according to patient size and/or use of iterative reconstruction technique. FINDINGS: There is no acute pulmonary embolism. There is no evidence of aortic dissection. There are no enlarged mediastinal or hilar lymph nodes. There is no pericardial effusion. The lungs are clear. There are no pleural effusions. There is no pneumothorax. There are no acute bony abnormalities. IMPRESSION: No acute pulmonary embolism. No acute pulmonary disease. Electronically authenticated by: ANN MARIE JORDAN Date: 2022-02-11 18:56 Normal [facility] PROF 14(COMP METB)on Albumin [Mass/Vol] 3.6 g/dL Normal 3.4-5.0 [facility] Comment on above: Performed By: #### C MP, BNP, CRP, CMADM #### [facility] [address] [place] [address] Dr. Jorge Sierra Albumin/Globulin [Mass ratio] 1.0 {ratio} Normal [facility] Comment on above: Performed By: #### C MP, BNP, CRP, CMADM #### [facility] [address] [place] [address] Dr. Jorge Sierra ALP [Catalytic activity/Vol] 71 U/L Normal 46-116 [facility] Comment on above: Performed By: #### C MP, BNP, CRP, CMADM #### [facility] [address] [place] [address] Dr. Jorge Sierra ALT [Catalytic activity/Vol] 28 U/L Normal 14-59 [facility] Comment on above: Performed By: #### C MP, BNP, CRP, CMADM #### [facility] [address] [place] [address] Dr. Jorge Sierra Anion gap [Moles/Vol] 9.5 mmol/L Normal [facility] Comment on above: Performed By: #### C MP, BNP, CRP, CMADM #### [facility] [address] [place] [address] Dr. Jorge Sierra AST [Catalytic activity/Vol] 29 U/L Normal 15-37 [facility] Comment on above: Performed By: #### C MP, BNP, CRP, CMADM #### [facility] [address] [place] [address] Dr. Jorge Sierra Bilirubin [Mass/Vol] 0.5 mg/dL Normal 0.2-1.0 [facility] Comment on above: Performed By: #### C MP, BNP, CRP, CMADM #### [facility] [address] [place] [address] Dr. Jorge Sierra Calcium [Mass/Vol] 9.3 mg/dL Normal 8.5-10.[address] [facility] Comment on above: Performed By: #### C MP, BNP, CRP, CMADM #### [facility] [address] [address] [address] Jorge Sierra Chloride [Moles/Vol] 96 mmol/L Critically low 98-107 [facility] Comment on above: Performed By: #### C MP, BNP, CRP, CMADM #### [facility] [address] [address] [address] Jorge Sierra CO2 [Moles/Vol] 32.5 mmol/L Critically high 21.0-32.0 [facility] Comment on above: Performed By: #### C MP, BNP, CRP, CMADM #### [facility] [address] [address] [address] Jorge Sierra Creatinine [Mass/Vol] 0.73 mg/dL Normal 0.55-1.02 [facility] Comment on above: Performed By: #### C MP, BNP, CRP, CMADM #### [facility] [address] [place] [address] Dr. Jorge Sierra EGFR-AF SOUTH SUDANESE >60 Normal >=60 [facility] Comment on above: Performed By: #### C MP, BNP, CRP, CMADM #### [facility] [address] [place] [address] Dr. Jorge Sierra EGFR-NON AF SOU[place]UDANESE >60 Normal >=60 [facility] Comment on above: Performed By: #### C MP, BNP, CRP, CMADM #### [facility] [address] [address] [address] Jorge Sierra Globulin (S) [Mass/Vol] 3.6 g/dL Normal [facility] Comment on above: Performed By: #### C MP, BNP, CRP, CMADM #### [facility] [address] [address] [address] Jorge Sierra Glucose [Mass/Vol] 102 mg/dL Normal 74-106 [facility] Comment on above: Performed By: #### C MP, BNP, CRP, CMADM #### [facility] [address] [place] [address] Dr. Jorge Sierra Potassium [Moles/Vol] 4.0 mmol/L Normal 3.5-5.1 [facility] Comment on above: Performed By: #### C MP, BNP, CRP, CMADM #### [facility] [address] [place] [address] Dr. Jorge Sierra Protein [Mass/Vol] 7.2 g/dL Normal 6.4-8.2 [facility] Comment on above: Performed By: #### C MP, BNP, CRP, CMADM #### [facility] [address] [place] [address] Dr. Jorge Sierra Sodium [Moles/Vol] 134 mmol/L Critically low 136-145 [facility] Comment on above: Performed By: #### C MP, BNP, CRP, CMADM #### [facility] [address] [place] [address] Dr. Jorge Sierra Urea nitrogen [Mass/Vol] 13.0 mg/dL Normal 7.0-18.0 [facility] Comment on above: Performed By: #### C MP, BNP, CRP, CMADM #### [facility] [address] [place] [address] Dr. Jorge Sierra Urea nitrogen/Creatinine [Mass ratio] 17.8 mg/mg Normal [facility] Comment on above: Performed By: #### C MP, BNP, CRP, CMADM #### [facility] [address] [place] [address] Dr. Jorge Sierra SED RATE [facility] 2021 SED RATE 4 mm/hr Normal <=20 [facility] Comment on above: Performed By: #### S EDR #### [facility] [address] [place] [address] Dr. Jorge Barrera 12-31-2021 NATALIE Telephone ([facility]) PIOTR FREEMAN ([id number]) 1980 F Date Time Provider Department 12/31/21 FRANCIA YOUNG [facility] During your visit today, we recorded the following information about you: Francia Young MD 12/31/2021 8:56 AM Signed I spoke to the patient by telephone 12/30/2021 and reviewed her Home Sleep Test done 12/17/2021. ?Time ? JAMAL/AHI Supine ?246.5 min ? ?19.0 Off-Supine ? ?152.0 min ? ?6.3 Total ? 398.5 min ? ?14.2 With 1.7 minutes at oxygen saturation measured at or less than 88% (0.4% of recording time). It is consistent with mild if not moderate sleep apnea. Plan: Will ask Dr. Melodie Rosas's office to arrange for a consultation (virtual visit if possible) to determine next steps. Allergies As of Date: 12/31/2021 Noted Allergy Reaction AMOXICILLIN 03/03/2017 4 - Hives DEMEROL (MEPERIDINE HCL) 03/03/2017 12 - Shortness of Breath NEOSPORIN (BENZALKONIUM CHLORIDE) 03/03/2017 2 - Rash Date Reviewed: 03/03/2017 Reviewed by: Love Matta - Fully Assessed Reason for Visit: Results [95] Prescriptions as of 12/31/2021 - metoprolol succinate ER (TOPROL XL) 25 mg 24 hr tablet TAKE 1 TABLET BY MOUTH TWICE A DAY - albuterol HFA (PROVENTIL HFA, VENTOLIN HFA) 90 mcg/actuation inhaler albuterol sulfate HFA 90 mcg/actuation aerosol inhaler - Ascorbic Acid (VITAMIN C) 500 mg cpER - atorvastatin (LIPITOR) 20 mg tablet atorvastatin 20 mg tablet Take 1 tablet every day by oral route. - citalopram (CELEXA) 20 mg tablet q 24 HR. Problem List As Of Date 12/31/2021 Noted Resolved RUQ pain [R10.11] 03/03/2017 Diarrhea [R19.7] 03/03/2017 Encounter Status:Closed by FRANCIA YOUNG on 12/31/21 [facility] 11-04-2021 [facility] PIOTR FREEMAN ([id number]) 1980 F Date Time Provider Department 11/04/21 JEROME MONTANA During your visit today, we recorded the following information about you: Colt Cross 11/04/2021 7:44 AM Signed Uploaded CD images to pt chart Allergies As of Date: 11/04/2021 Noted Allergy Reaction AMOXICILLIN 03/03/2017 4 - Hives DEMEROL (MEPERIDINE HCL) 03/03/2017 12 - Shortness of Breath NEOSPORIN (BENZALKONIUM CHLORIDE) 03/03/2017 2 - Rash Date Reviewed: 03/03/2017 Reviewed by: Love Matta - Fully Assessed Reason for Visit: Received Outside Medical Records [[id number]] Prescriptions as of 11/04/2021 - COLESTIPOL HCL (COLESTIPOL ORAL) Take 200 mg by mouth. - sucralfate (CARAFATE) 1 gram tablet Take 1 g by mouth three times daily. - LACTOBACILLUS RHAMNOSUS GG (CULTURELLE ORAL) Take by mouth. - amitriptyline (ELAVIL) 25 mg tablet Take 1 tablet by mouth daily at bedtime. Problem List As Of Date 11/04/2021 Noted Resolved RUQ pain [R10.11] 03/03/2017 Diarrhea [R19.7] 03/03/2017 Encounter Status:Closed [facility] PIOTR FREEMAN ([id number]) 1980 F Date Time Provider Department 10/20/21 JEROME MONTANA During your visit today, we recorded the following information about you: Colt Cross 10/20/2021 1:21 PM Signed Uploaded scanned med recs pt faxed over into their chart and routed to Dr. Jermain Cruz As of Date: 10/20/2021 Noted Allergy Reaction AMOXICILLIN 03/03/2017 4 - Hives DEMEROL (MEPERIDINE HCL) 03/03/2017 12 - Shortness of Breath NEOSPORIN (BENZALKONIUM CHLORIDE) 03/03/2017 2 - Rash Date Reviewed: 03/03/2017 Reviewed by: Lvoe Matta - Fully Assessed Reason for Visit: Received Outside Medical Records [[id number]] Prescriptions as of 10/20/2021 - COLESTIPOL HCL (COLESTIPOL ORAL) Take 200 mg by mouth. - sucralfate (CARAFATE) 1 gram tablet Take 1 g by mouth three times daily. - LACTOBACILLUS RHAMNOSUS GG (CULTURELLE ORAL) Take by mouth. - amitriptyline (ELAVIL) 25 mg tablet Take 1 tablet by mouth daily at bedtime. Problem List As Of Date 10/20/2021 Noted Resolved RUQ pain [R10.11] 03/03/2017 Diarrhea [R19.7] 03/03/2017 Encounter Status:Closed by COLT CROSS on 10/20/21 [facility] 10-06-2021 NATALIE Telephone ([facility]) PIOTR FREEMAN ([id number]) 1980 F Date Time Provider Department 10/06/21 JEROME MONTANA During your visit today, we recorded the following information about you: Colt Cross 10/06/2021 11:04 AM Signed Put in req to change to VV as pt is covid positive Allergies As of Date: 10/06/2021 Noted Allergy Reaction AMOXICILLIN 03/03/2017 4 - Hives DEMEROL (MEPERIDINE HCL) 03/03/2017 12 - Shortness of Breath NEOSPORIN (BENZALKONIUM CHLORIDE) 03/03/2017 2 - Rash Date Reviewed: 03/03/2017 Reviewed by: Love Matta - Fully Assessed Reason for Visit: Appointment [186] Prescriptions as of 10/06/2021 - COLESTIPOL HCL (COLESTIPOL ORAL) Take 200 mg by mouth. - sucralfate (CARAFATE) 1 gram tablet Take 1 g by mouth three times daily. - LACTOBACILLUS RHAMNOSUS GG (CULTURELLE ORAL) Take by mouth. - amitriptyline (ELAVIL) 25 mg tablet Take 1 tablet by mouth daily at bedtime. Problem List As Of Date 10/06/2021 Noted Resolved RUQ pain [R10.11] 03/03/2017 Diarrhea [R19.7] 03/03/2017 Encounter Status:Closed by TAY COLT on 10/06/21 Normal [facility] Cardiovascular Lab Reporton 09-17-2021 Cardiovascular Lab Report [facility] Patient Name: Piotr Freeman [facility] MR #: [id number] Physician: Mark Waterman M.D. Medicine Service Date: 09/17/2021 Division of Birthdate: 1980 Cardiology Room #: Adult Cardiovascular Services [address] [address] Cardiovascular Laboratory Report INDICATION: The patient is a 41-year-old woman who was evaluated in Cardiology Clinic because of symptoms of chest pain and shortness of breath. A stress test showed ischemia by ECG, but no perfusion abnormalities by nuclear imaging. Because of that, she was referred for cardiac catheterization. PROCEDURE: 1. Right heart catheterization. 2. Access into right internal jugular vein under ultrasound guidance. 3. Bilateral selective coronary angiography from the left radial access. 4. Access into left radial artery under ultrasound guidance. METHODS: Procedure was explained to the patient with risks and benefits. She signed informed consent. She was brought to medical lab technologist in a fasting state. The right neck area was prepped and draped in usual fashion. A micropuncture technique and ultrasound guidance was used for access in the right internal jugular vein. A 6-Gibraltarian x 11 cm sheath was placed. A 6-Gibraltarian Chinchilla catheter was used for right heart catheterization with measurement pressures and calculation of cardiac output using the estimated Valorie method. Chinchilla catheter was removed. Modified Adrian's test was favorable on the left. Access in the left radial artery was obtained using micropuncture technique and ultrasound guidance. A 6-Gibraltarian x 11 cm Hydrophilic sheath was advanced. Verapamil was given through the sheath and heparin was administered intravenously. Bilateral selective coronary angiography was then performed using 6-Gibraltarian JL3.5 and JR4 diagnostic catheters. Catheters were removed. Procedure was concluded. A TR band was used for hemostasis in the left radial artery. Manual compression was used for hemostasis in the right internal jugular vein. She tolerated the procedure well. She will be observed for 2-3 hours and then discharged to home. TOTAL SEDATION TIME: 36 minutes. TOTAL FLUORO TIME: 4.17 minutes. TOTAL AIR KERMA: 163 mGy. TOTAL CONTRAST VOLUME: 18 mL. HEMODYNAMICS: RA 4, RV 27/2, 9, PA 23/9, mean 15. Pulmonary capillary wedge pressure 9. AO 110/68, mean 88. Cardiac output 5.14, cardiac index 2.9. PA saturation 69%, AO saturation 96%. CORONARY ANGIOGRAPHY: This is a right dominant circulation. Left main: This arises from left coronary cusp. It is a very short vessel. It is free of disease. Left anterior descending: This is angiographically normal. Circumflex vessel: This is angiographically normal. Right coronary artery: This arises from the right coronary cusp. It is a large and dominant vessel. It is angiographically normal. SUMMARY OF FINDINGS: 1. Normal coronary angiogram. 2. Normal filling pressures. 3. Normal pulmonary arterial pressures. 4. Preserved cardiac output and cardiac index. RECOMMENDATIONS: 1. Continue risk factor control with atorvastatin due to hyperlipidemia. 2. The patient may stop aspirin and metoprolol. 3. Follow up in Cardiology Clinic. Electronically Signed by: Mark Johnson M.D. 09/18/2021 05:47 P Mark Johnson M.D. Date Dict: 09/17/2021/11:59 A/Mark Johnson M.D. Date Trans: 09/17/2021 12:37 P/mmo [id number] cc: Terra Singh M.D. [address], [facility] [address] [facility] Encounters Encounter Date Encounter Type Care Provider Facility Start: 08-31-2023 End: 08-31-2023 ambulatory NEGRO CARSON Not Available Start: 01-28-2023 End: 01-29-[address] TERRA SINGH . Facility:[facility] Start: 12-16-2022 End: 12-18-2022 ambulatory MELITA [facility] Start: 09-02-2022 End: 09-03-[address] TERRA SINGH . Facility[facility] Start: 08-27-2022 End: 08-27-[address] NEGRO CARSON . Facility:[facility] Start: 08-26-2022 End: 08-27-2022 ambulatory KEVIN PAUL Facility:[facility] Start: 07-17-2022 End: 08-18-2022 ambulatory KEVIN PAUL Facility:[facility] Start: 06-30-2022 End: 07-01-2022 ambulatory KEVIN PAUL Facility:[facility] Start: 05-22-2022 Encounter for genera l adult medical examination without abnormal findings DR TERRA SINGH . [facility] Start: 05-21-2022 End: 05-22-[address] TERRA SINGH . Facility:[facility] Start: 05-21-2022 End: 05-22-2022 Encounter for general adult medical examination without abnormal findings DR TERRA SINGH . Facility:[facility] Start: 04-30-2022 End: 04-30-[address] NEGRO CARSON . Facility:[facility] Start: 04-29-2022 End: 04-30-[address] NEGRO CARSON . Facility:[facility] Start: 02-13-2022 Telephone encounter Beny styles MD Work Phone: Endocrinology Comment on above: Forms Start: 02-11-2022 End: 02-12-[address] TERRA SINGH . Facility:[facility] Start: 12-31-2021 Telephone encounter Francia soriano MD Work Phone: Pulmonary Medicine Comment on above: Results Start: 11-21-2021 [facility] Work Phone: Neurology Comment on above: HSAT Check In (Adult ) Plan of Treatment Date Care Activity Detail Author Start: 05-28-2022 Influenza vaccination INFLUENZA (Sea son Ended) [facility] Start: 05-28-2021 Influenza vaccination INFLUENZA (#1) [facility] Start: 03-30-2021 COVID-19 VACCINE (3 - Booster for Moderna series) COVID-19 VACCINE (3 - Booster for Moderna series) [facility] Start: 2019 Mammography MAMMOGRAM [facility] Start: 2009 HPV TESTING HPV TESTING [facility] Start: 2000 PAP TESTING PAP TESTING [facility] Start: 1998 Urine microalbumin profile DTAP,TDAP ,TD (1 - Tdap) [facility] Start: 1997 HEPATITIS C SCREENING HEPATITIS C SC REENING [facility] Start: 1997 HIV SCREENING HIV SCREENING [facility] Start: 1991 Adult depression scr eening assessment DEPRESSION SCREENING [facility] Payers Date Payer Category Payer Unknown [id number] 2020 Unknown MMO MMO [employer] [id number] 2020-Present [phone] [address] [place] [address] PPO [id number] 2019 Unknown [id number] 1980 Unknown [id number] 1980 Unknown [id number] 1980 Unknown [id number] 1980 Unknown [id number] 1980 Unknown [id number] 1980 Unknown [id number] 1980 Unknown [id number] 1980 Unknown [id number] 1980 Unknown [id number] 1980 Unknown [id number] 1980 Unknown [id number] Social History Date Type Detail Facility Start: 03-03-2017 Tobacco smoking stat NHIS Never smoked tobacco [facility] Start: 03-03-2017 Tobacco use and exposure Smoke less tobacco non-user [facility] Start: 1980 Sex Assigned At Not on file C [facility] Clinical Notes 10-08-2021 to 12-16-2022 Telephone Encounter - Leon Lomax - 02/13/2022 4:45 PM EDTTelephone Encounter - Francia Young MD - 12/31/2021 8:49 AM Carlita Davis - 12/22/2021 3:55 PM EDT Note Date & Type Note Facility 12-16-2022 Note [facility]ovascular [facility] SUBJECTIVE Chief Complaint Patient presents with Chest Pain Shortness of Breath Hyperlipidemia sinus tachycardia Piotr Freeman is a 42 y.o. female here for follow-up. HPI She denies any changes since last seen. She still gets elevated heart rates when she tries to exercise or exert herself. HR will elevate in the 180s and she gets palpitations, chest pain, dyspnea, dizziness/LH. She is not currently taking metoprolol. She notes her resting HR at times will be in the mid 50s. At times her HR will elevate to 110s at rest. Last HPI per Dr. Johnson: Piotr is seen in follow-up. 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 In June 2020 she was admitted to the [facility] with the COVID-19 infection. At that time she had significant shortness of breath and chest pain. Her initial evaluation showed a normal ventricular and valvular function by echocardiogram. She was having episodes of bradycardia and tachycardia. Following discharge she was seen in our office on August 15, 2020 and she had persistent symptoms of shortness of breath on mild exertion and atypical right-sided chest pain. She also had episodes of tachycardia. Follow-up cardiac testing included a limited echocardiogram that showed preserved left ventricular systolic function, a normal BNP level, and a Holter monitor that showed sinus tachycardia but no arrhythmias. I saw her on December 30, 2020. She continues to have the same symptoms of shortness of breath on mild exertion. She initially had right-sided sharp chest pain. Currently she reports chest pressure has started to happen on the left side of the chest. She reports that the symptoms have accelerated and now they're happening on minimal exertion. Recently she was investigated by an echocardiogram and an EKG both were normal. A stress test showed evidence of ischemia by ECG but nuclear perfusion was normal. Visit of 12/08/2021: Following last visit I proceeded with cardiac catheterization. This was performed on 09/17/2021 and showed normal coronary arteries with normal filling and pulmonary trigger pressures and preserved cardiac output and cardiac index. Today she reports that she has been doing better. She did have Covid another time after the cardiac catheterization but this time it was less severe than the first episode. She reports that she did have the vaccine after the first time she got Covid. After the cardiac authorization I recommended stopping aspirin and stopping metoprolol. However she reports that she continued metoprolol since she felt better on it. Today she reports that she still has occasional chest discomfort and shortness of breath. No significant symptoms compared to before. Patient Active Problem List Diagnosis Bradycardia Chest pain Diarrhea Dyspnea History of severe acute respiratory syndrome coronavirus 2 (SARS-CoV-2) disease RUQ pain Sinus tachycardia No past medical history on file. No family history on file. Allergies Allergen Reactions Meperidine Shortness of breath and Unknown Amoxicillin Hives Rrtfslex-Bvqfekyiygi-Oerjtscgi ROS Cardiovascular: Positive for chest pain, dyspnea on exertion and palpitations. Neurological: Positive for light-headedness. All other systems reviewed and are negative. OBJECTIVE Visit Vitals BP 116/84 (BP Location: Right arm, Patient Position: Sitting) Pulse 78 Ht 1.575 m (5' 2 ) Wt 77.6 kg (171 lb) SpO2 98% BMI 31.28 kg/m??? BSA 1.84 m??? Medications: Current Outpatient Medications: albuterol 90 mcg/actuation inhaler, Inhale 1 puff every 4 (four) hours if needed., Disp: , Rfl: atorvastatin (Lipitor) 20 mg tablet, TAKE 1 TABLET BY MOUTH EVERY DAY, Disp: 90 tablet, Rfl: 3 citalopram (CeleXA) 20 mg tablet, Take 20 mg by mouth at bedtime., Disp: , Rfl: semaglutide (Ozempic) 1 mg/dose (4 mg/3 mL) pen injector, as directed Subcutaneous, Disp: , Rfl: metoprolol tartrate (Lopressor) 25 mg tablet, Take 1 tablet (25 mg) by mouth if needed in the morning and at bedtime (as needed before planned exercise/exertion)., Disp: 60 tablet, Rfl: 11 Physical Exam Vitals reviewed. Constitutional: Appearance: Normal appearance. She is normal weight. HENT: Head: Normocephalic and atraumatic. Right Ear: External ear normal. Left Ear: External ear normal. Eyes: Extraocular Movements: Extraocular movements intact. Conjunctiva/sclera: Conjunctivae normal. Pupils: Pupils are equal, round, and reactive to light. Neck: Vascular: No carotid bruit. Comments: No JVD Cardiovascular: Rate and Rhythm: Normal rate and regular rhythm. Pulses: Normal pulses. Heart sounds: Normal heart sounds. Pulmonary: Effort: Pulmonary effort is normal. Breath sounds: Normal breath sounds. Abdominal: Gen (more content not included)... [facility] 12-16-2022 Note Patient here for 1 y ear follow up sinus tachycardia, chest pain, GARCIA, and palpitations s/p Covid-19 infection in Jun 2020. Still has symptoms with exertion. Sometimes HR does go up to 110 at rest. Review of Systems Cardiovascular: Positive for chest pain, dyspnea on exertion and palpitations. Neurological: Positive for light-headedness. All other systems reviewed and are negative. [facility] 02-13-2022 Miscellaneous Notes On 02/13 fax was sent to [facility] [phone] for referral with office notes and lab results. Leon Lomax documented in this encounter [facility] 12-31-2021 Miscellaneous Notes I spoke to the patient by telephone 12/30/2021 and reviewed her Home Sleep Test done 12/17/2021. Time JAMAL/AHI Supine 246.5 min 19.0 Off-Supine 152.0 min 6.3 Total 398.5 min 14.2 With 1.7 minutes at oxygen saturation measured at or less than 88% (0.4% of recording time). It is consistent with mild if not moderate sleep apnea. Plan: Will ask Dr. Melodie Rsoas's office to arrange for a consultation (virtual visit if possible) to determine next steps. documented in this encounter [facility] 12-22-2021 Note HNO ID: [id number] Author: Ina Davis Service: ? Author Type: ? Type: Progress Notes Filed: 12/22/2021 3:55 PM Note Text: Sleep Study Check-In Documentation Date: December 22, 2021 Name: Piotr Freeman Comments: HST was returned in working order with all sleep questionnaires Ina Davis [facility] 12-22-2021 History of Presen t illness Narrative Sleep Study Check-In Documentation Date: December 22, 2021 Name: Piotr Freeman Comments: HST was returned in working order with all sleep questionnaires Ina Davis Nomad: [id number] Date: 12/16/21 [employer] Mailout Tracking Number: [id number] [employer] Return Tracking Number: [id number] November 24, 2021 Standing PSG Orders signed in the last 90 days None Future PSG Orders signed in the last 90 days Ordered Auth. provider HOME SLEEP APNEA TEST (HSAT) [[id number]] 11/18/21 Francia Young MD Assoc. diagnoses: Hypersomnolence [G47.10], Snores [R06.83] Q: Indications: A: Obstructive sleep apnea Q: STOP-BANG conditions - Select All That Apply: A: SNORING that is loud or disruptive A2: TIREDNESS, fatigue or sleepiness during the day Q: Current use of supplemental oxygen during sleep period?: A: No Comment: The patient snores and has hypersomnolence. She also is post Covid 19. All Prior Sleep Studies (past 365 days) Some values may be hidden. Unless noted otherwise, only the newest values recorded on each date are displayed. Sleep Studies HOME SLEEP APNEA TEST (HSAT) Future Expected: Expires: 11/18/22 BMI Readings from Last 2 Encounters: 03/03/17 : 27.44 kg/m PAST MEDICAL HISTORY Diagnosis Date Cholelithiasis The medical record was reviewed to determine if the proposed sleep study conforms to the AASM Practice Parameters for the Indications for Polysomnography and Related Procedures, or if the sleep study is indicated for other reasons. Indications for study: VLADIMIR suspected without comorbid medical or sleep disorders Sleep study to be performed: Home Sleep Apnea Test (HSAT) Special instructions: None-follow laboratory protocol Abhishek Rogershart Poly-T --- Sleep Medicine Staff Note: I have read the above protocol, edited as needed, and agree to the plan. Howard Ware III, PhD 1:37 PM, 11/24/2021 November 21, 2021 An order has been received for Home Sleep Apnea Test (HSAT) from Dr. Francia Young MD, a B. [facility] Staff. Visit prep complete. Comments :No The sleep study is scheduled for 12/17. Insurance: Payor: MMO / Plan: MMO SUPERMED PLUS / Product Type: PPO / Payor/Plan Subscr Sex Relation Sub. Ins. ID Effective Group Num 1. MMO - MMO SUP* PAMELA FREEMAN* 1980 Female Self [id number] [birth year] [address] Hernán Cronin documented in this encounter [facility] 12-16-2021 Note HNO ID: [id number] Author: Ina Davis Service: ? Author Type: ? Type: Progress Notes Filed: 12/22/2021 3:55 PM Note Text: Nomad: [id number] Date: 12/16/21 [employer] Mailout Tracking Number: [id number] [employer] Return Tracking Number: [id number] [facility] 11-24-2021 Note HNO ID: [id number] Author: Howard Ware III, PhD Service: ? Author Type: Physician Type: Progress Notes Filed: 12/22/2021 3:55 PM Note Text: November 24, 2021 Standing PSG Orders signed in the last 90 days None Future PSG Orders signed in the last 90 days Ordered Auth. provider HOME SLEEP APNEA TEST (HSAT) [[id number]] 11/18/21 Francia Young MD Assoc. diagnoses: Hypersomnolence [G47.10], Snores [R06.83] Q: Indications: A: Obstructive sleep apnea Q: STOP-BANG conditions - Select All That Apply: A: SNORING that is loud or disruptive A2: TIREDNESS, fatigue or sleepiness during the day Q: Current use of supplemental oxygen during sleep period?: A: No Comment: The patient snores and has hypersomnolence. She also is post Covid 19. All Prior Sleep Studies (past 365 days) Some values may be hidden. Unless noted otherwise, only the newest values recorded on each date are displayed. Sleep Studies HOME SLEEP APNEA TEST (HSAT) Future Expected: Expires: 11/18/22 BMI Readings from Last 2 Encounters: 03/03/17 : 27.44 kg/m? PAST MEDICAL HISTORY Diagnosis Date - Cholelithiasis The medical record was reviewed to determine if the proposed sleep study conforms to the AASM Practice Parameters for the Indications for Polysomnography and Related Procedures, or if the sleep study is indicated for other reasons. Indications for study: VLADIMIR suspected without comorbid medical or sleep disorders Sleep study to be performed: Home Sleep Apnea Test (HSAT) Special instructions: None-follow laboratory protocol Abhishek Ling Poly-T --- Sleep Medicine Staff Note: I have read the above protocol, edited as needed, and agree to the plan. Howard Ware III, PhD 1:37 PM, 11/24/2021 [facility] 11-21-2021 Note HNO ID: [id number] Author: Hernán Cronin Service: ? Author Type: ? Type: Progress Notes Filed: 12/22/2021 3:55 PM Note Text: November 21, 2021 An order has been received for Home Sleep Apnea Test (HSAT) from Dr. Francia Young MD, a B. [facility] Staff. Visit prep complete. Comments :No The sleep study is scheduled for 12/17. Insurance: Payor: MMO / Plan: MMO SUPERMED PLUS / Product Type: PPO / Payor/Plan Subscr Sex Relation Sub. Ins. ID Effective Group Num 1. MMO - MMO SUP* PAMELA FREEMAN* 1980 Female Self [id number] [birth year] [address] Hernán Cronin [facility] 11-18-2021 Note HNO ID: [id number] Author: Francia Young MD Service: ? Author Type: Physician Type: Progress Notes Filed: 11/21/2021 11:12 AM Note Text: VIRTUAL VISIT PROGRESS NOTE November 18, 2021 This is a virtual visit using [employer] video visit. The patient is a 41-year-old female who is a non-smoker. The patient has been previously seen in the pulmonary department by Dr. Jerome Montana. She was diagnosed with COVID-19 infection in June 2020 but also had similar symptoms in November 2019. The patient continues to have big swings in her heart rate with exertion however this has improved somewhat. Her resting heart rate is between 60-70. When she stands up it can go up to anywhere between 90-100. She does not have dizziness when she stands up. Her heart rate with walking on a treadmill does not go as high as 180 or 190 as it did before. She also has found it beneficial to take metoprolol twice a day. She is running out of her prescription. Overall she is feeling a little more energetic since starting a vitamin regimen. The patient continues to complain of exhaustion described as fatigue in addition to brain fog. She has hypersomnolence. She tells me that she falls asleep while she is helping her daughter with her homework in the evening. Her reports that she snores. These are all symptoms that have started after her COVID-19 infection. She does have shortness of breath with activities and uses the example of going upstairs. She walks on a treadmill for 30 minutes but slows down if she is feeling dizzy or if her heart rate increases. The patient has a cough which will awaken her from sleep 5 nights a week. There is no phlegm. It started in June 2020. It has been treated with steroids and inhalers to little benefit. She will use albuterol when it is severe. She does not hear herself wheezing. The patient's current airways regimen is: Albuterol 2 x prn HISTORY REVIEWED (electronic chart updated): PAST MEDICAL HISTORY Diagnosis Date - Cholelithiasis PAST SURGICAL HISTORY Procedure Laterality Date - CHOLECYSTECTOMY 1998 lap gail - ERCP 06/1999 for CBD stone after lap gail - PAST SURGICAL HISTORY OF C-sections x2 - TUBAL LIGATION HX 2007 ALLERGIES Allergen Reactions - Amoxicillin Hives - Demerol [Meperidine* Shortness of Breath - Neosporin [Benzalko* Rash ROS GENERAL: No weight loss, malaise or fevers. DERM:No rash, no pruritis HEENT: No nasal congestion, post nasal drip, no headaches RESPIRATORY: See HPI CARDIOVASCULAR: Negative for chest pain, leg swelling, orthopnea or palpitations. GI: Negative for nausea, vomiting, diarrhea, blood in stools or black stools or change in bowel habits : No dysuria, nocturia or hematuria MUSCULOSKELETAL: Negative for joint pain or swelling, back pain or muscle pain. BEHAV: no anxiety NEURO: no headache, no weakness The remainder of the review of systems is negative VIDEO EXAM: (performed via video enabled technology) General: alert and appropriate, in no distress Skin: no rash noted Head: normocephalic, no abnormality or lesion noted Eyes: visual acuity is grossly normal Ears: normal outward appearance Nose: external nose normal without rhinorrhea Respiratory: breathing non-labored and no grunting/flaring/retractions Chest: equal chest rise with normal respiratory effort Neurologic: no obvious deficit DATA: Chest x-ray 08/30/2020 No opacities reported VQ scan 08/30/[address] chest 07/20/2020 Negative for PE No pulmonary infiltrate reported CT chest 01/19/2020 Negative for pulmonary emboli A few faint small patchy opacities within the posterior right lower lobe Echocardiogram 07/18/2020 EF 55 to 60% Spirometry: 08/26/2020 measured % pred % ch FVC 3.05 87 FEV1 2.71 94 FEV1/FVC 82 TLC - 4.25 87 DLco 21 95 Normal flow volume loop on my review ASSESSMENT: Hypersomnia, snores; rule out sleep apnea (incidence about 7% post Covid) Postural and exertional tachycardia - autonomic dysfunction 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 Montana [facility] 10-08-2021 Note HNO ID: [id number] Author: Jerome Montana MD Service: ? 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 However, during November 2019 she suffered with similar symptoms; high grade fever, fatigue, chest pressure, difficulty in communication etc. Her symtoms lasted for a month and had to stay off the work. Incidentally her CoVID-PCR was negative during the episode. During June 2020, she also experienced sinus pressure, loss of taste and smell, chest pain and dry cough. She also experienced low heart rate as well as palpitations and tachycardia with slightest exertion. Her heart rate could go as high as 190 within 5 min on a treadmill. She was admitted to the hospital 10 days later with cardiac arrythmias She was hospitalized for 4 days. She was treated with Remdesivir, Torodol, Albuterol and Flovent inhalers and oral steroids at [facility] near [place], [place] CXR revealed RLL pneumonia. Her D-Dimers were elevated but there was no evidence of PE. Normal V-Q scan. PFTS performed during Aug 2020 were unremarkable. 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 She had a thorough cardiac evaluation including cardiac catheterization and it was all unremarkable yet, her EKG revealed ST abnormalities. Metoprolol was bit beneficial but it was discontinued following the cath. [2020] ECHO was unremarkable. There was no evidence of PAH. She was placed on Lipitor. Incidentally, CoVID-PCR was once again positive on Oct 01, 2021! Does 30 min of walking on Qvolve Able to climb a flight of stairs. REVIEW OF SYSTEMS: PAIN ASSESSMENT: Negative for pain, history of chronic pain, or current treatment for a chronic pain condition. GENERAL: No weight loss, malaise or fevers HEENT: Negative for frequent or significant headaches, No changes in hearing or vision, no nose bleeds or other nasal problems NECK: Negative for lumps, goiter, pain and significant neck swelling CARDIOVASCULAR: Negative for chest pain, leg swelling, hypertension, CHF or palpitations GI: No nausea, vomiting, or diarrhea SKIN: Negative for lesions, rash, and itching PSYCH: Negative for sleep disturbance, mood disorder and recent psychosocial stressors HEMATOLOGY/LYMPHOLOGY: Negative for prolonged bleeding, bruising easily or swollen nodes ENDOCRINE: Negative for cold or heat intolerance, polyuria, polydipsia and goiter NEURO: No history of headaches, syncope, paralysis, seizures or tremors PAST MEDICAL HISTORY Diagnosis Date - Cholelithiasis PAST SURGICAL HISTORY Procedure Laterality Date - CHOLECYSTECTOMY 1998 lap gail - ERCP 06/1999 for CBD stone after lap gail - PAST SURGICAL HISTORY OF C-sections x2 - TUBAL LIGATION HX 2007 [place] at 51 with cardiac illness, lung Ca Grand Mother: (m)- Breast cancer Grand Mother: (p)- Colon cancer Social History Tobacco Use - Smoking status: Never Smoker - Smokeless tobacco: Never Used Substance Use Topics - Alcohol use: Not on file - Drug use: Not on file RN: 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 5 mg BID, skip the dose below 50. Patient to mail me PFTs and a CD of the CT of the chest. Continue to do as much physical activity as possible. VV in 4 weeks, if there is no improvement, she will pito face to face visit. Reassured Total time > 45 min Jerome Montana MD [facility] Summary Purpose Family History No Family History Records FoundNo Family History Records FoundNo Family History Records FoundNo Family History Records FoundNo Family History Records Found Advance Directives No Advanced Directives Records FoundNo Advanced Directives Records FoundNo Advanced Directives Records FoundNo Advanced Directives Records FoundNo Advanced Directives Records Found Additional Source Comments INFORMATION SOURCE (unrecogn ized section and content) DATE CREATED AUTHOR 09/24/2021 [facility] [place] [facility] DATE CREATED AUTHOR AUTHOR'S ORGANIZ ATION 02/15/2022 [facility] DATE CREATED AUTHOR AUTHOR'S ORGANIZ ATION 12/19/2022 [facility] DATE CREATED AUTHOR AUTHOR'S ORGANIZ ATION 02/04/2023 [facility] DATE CREATED AUTHOR AUTHOR'S ORGANIZ ATION 09/02/2023 [facility] EPIC Source Comments (unrecognize d section and content) In the event this informatio n is protected by the Federal Confidentiality of Alcohol and Drug Abuse Patient Records regulations: The Federal rules restrict any use of the information to criminally investigate or prosecute any alcohol or drug abuse patient[facility] the event this information is protected by the Federal Confidentiality of Alcohol and Drug Abuse Patient Records regulations: The Federal rules restrict any use of the information to criminally investigate or prosecute any alcohol or drug abuse patient.[facility] the event this information is protected by the Federal Confidentiality of Alcohol and Drug Abuse Patient Records regulations: The Federal rules restrict any use of the information to criminally investigate or prosecute any alcohol or drug abuse patient.[facility] Reason for Visit (unrecogniz ed section and content) Reason Comments HSAT Check In (Adult) Reason Comments Results Reason Comments Forms Care Teams (unrecognized sec tion and content) 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 This clinical summary was aggregated from multiple sources. Caution should be exercised in using it in the provision of clinical care. This summary normalizes information from multiple sources, and as a consequence, information in this document may materially change the coding, format and clinical context of patient data. In addition, data may be omitted in some cases. CLINICAL DECISIONS SHOULD BE BASED ON THE PRIMARY CLINICAL RECORDS. [facility]. provides no warranty or guarantee of the accuracy or completeness of information in this document.
[2024-03-31 15:52] LABS: Glucometer 146 mg/dL (74-106)
--- NOTE | 2024-03-31 15:57 | CT_ITS ---
The [address] [address] Patient Name: PIOTR FREEMAN MRN: [id number] date: 1980 Sex: F Assigned Patient Location: ER Current Patient Location: Accession/Order Number: [id number] Exam Date: 03/31/2024 16:10 Report Date: 03/31/2024 16:25 At the request of: MABEL BOWERS Procedure: CT head/brain wo con EXAM: CT scan of the head without contrast. Dose reduction technique used: Automated exposure control and/or adjustment of the mA and/or kV according to patient size and/or use of iterative reconstruction technique. REASON FOR EXAM: Left facial arm and leg paresthesias COMPARISON: CT scan dated 07/20/2020 FINDINGS: No intracranial hemorrhage, mass effect, midline shift, fractures or evidence of acute ischemic infarct. No hydrocephalus. Paranasal sinuses and mastoid air cells are clear. Remainder unremarkable. CT/CT head/brain wo con IMPRESSION: Negative head CT. Electronically authenticated by: LUPIS LOPEZ Date: 03/31/2024 16:25
--- NOTE | 2024-03-31 15:57 | ED.NEUROSD1 ---
HPI - Neuro Symptoms/Deficit General Chief Complaint: Neuro Symptoms/Deficit Stated Complaint: Left side Numbness Time Seen by Provider: 03/31/24 15:37 Source: patient Mode of arrival: walk-in Limitations: no limitations History of Present Illness HPI Narrative: 43-year-old here with left facial arm and leg numbness and tingling. She has not noticed any motor or strength problems. She has a low-grade headache. The symptoms been developing over the last couple days. She has had a heart cath in the past that was normal. They believe that she has had some sequela I of long COVID with history of tachycardia. She is not known to have any atrial fibrillation. She is not known to have any carotid disease, connective tissue disease or vertebral disease. She has not had a recent head or neck trauma or injury. She does not have diplopia dysarthria or dysphagia. She has no visual field loss. Does not have any neck pain or fever. She was recently told that her hemoglobin A1c is mildly elevated. She is also on a statin. Has not noticed any muscle weakness per se. No confusion or altered mental status. Related Data Home Medications ?Medication ?Instructions ?Recorded ?Confirmed atorvastatin 20 mg tablet 20 mg PO DAILY 03/31/24 03/31/24 citalopram 20 mg tablet 20 mg PO DAILY 03/31/24 03/31/24 semaglutide 0.25 mg or 0.5 mg (2 0.25 mg subcut .weekly 03/31/24 03/31/24 mg/1.5 mL) subcutaneous pen injector (Ozempic) Allergies Allergy/AdvReac Type Severity Reaction Status Date / Time amoxicillin AdvReac Mild Rash Verified 03/31/24 15:45 meperidine [From Demerol] AdvReac Mild shortness Verified 03/31/24 15:45 of breath Exam Narrative Exam Narrative: Patient was seen shortly after arrival she is awake alert normal cognition no evidence of memory loss, she is not repeating herself. GCS is 15. Neurological examination shows no neurological deficits with NIH stroke score 0. Specifically cranial nerves II through XII are normal. Finger-nose is normal proprioception is normal sensory examination light touch and pinprick are normal. There is no nuchal rigidity or meningeal irritation. Motor strength in the upper and lower limbs is normal. Her neck examination shows no carotid bruits. Heart examination shows no arrhythmia or murmur. Joint examination shows no evidence of arthropathy or connective tissue disease or symptomatology. Constitutional Vital Signs, click to edit/add: Last Vital Signs Temp 98.3 F 03/31/24 15:39 Pulse 108 H 03/31/24 15:39 Resp 18 03/31/24 15:39 BP 132/86 03/31/24 15:39 Pulse Ox 98 03/31/24 15:39 O2 Del Method Room Air 03/31/24 15:39 Course Vital Signs Vital signs: Vital Signs Temperature 98.3 F 03/31/24 15:39 Pulse Rate 108 H 03/31/24 15:39 Respiratory Rate 18 03/31/24 15:39 Blood Pressure 132/86 03/31/24 15:39 Pulse Oximetry 98 03/31/24 15:39 Oxygen Delivery Method Room Air 03/31/24 15:39 Temperature 98.3 F 03/31/24 15:39 Pulse Rate 108 H 03/31/24 15:39 Respiratory Rate 18 03/31/24 15:39 Blood Pressure 132/86 03/31/24 15:39 Pulse Oximetry 98 03/31/24 15:39 Oxygen Delivery Method Room Air 03/31/24 15:39 MDM - Neuro Symptoms/Deficit MDM Narrative Medical decision making narrative: Patient did have CT imaging without IV contrast initially. It is a normal study. The patient has no objective findings and symptomatology consistent with a migraine variant. I discussed this with her primary care physician. We agreed mutually that she does not need contrast imaging or CTA. 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 I have asked her if she wants any treatment at this stage for the headache and she says she would just rather go home and rest. Lab Data Labs: Lab Results 03/31/24 Range/Units 15:41 POC Glucose 146 H (74-106) mg/dL Discharge Plan Discharge Stand Alone Forms: Portal Instructions Chief Complaint: Neuro Symptoms/Deficit Clinical Impression: Headache, variant migraine Patient Disposition: Home, Self-Care Time of Disposition Decision: 17:05 Prescriptions / Home Meds: No Action atorvastatin 20 mg tablet 20 mg PO DAILY citalopram 20 mg tablet 20 mg PO DAILY Ozempic 0.25 mg or 0.5 mg(2 mg/1.5 mL) pen injector 0.25 mg SUBCUT .weekly Print Language: Hungarian Additional Instructions: Referre return to ER for any change in her symptoms. Follow-up with Dr. Singh as needed Referrals: Micky Singh MD [Primary Care Provider] - 1 week
[2024-03-31 16:10] LABS: Basophils Absolute Auto 0.1 10^3/uL (0.0-0.1); Basophils Percent Auto 0.5 % (0.2-2.0); Eosinophils Absolute Auto 0.2 10^3/uL (0.0-0.7); Eosinophils Percent Auto 1.5 % (0.9-7.0); Hematocrit 39.3 % (36.0-48.0); Hemoglobin 13.5 g/dL (12.0-16.0); Immature Granulocytes Abs Auto 0.02 10^3/uL (0.00-0.03); Immature Granulocytes Pct Auto 0.2 % (0.0-0.5); Lymphocytes Absolute Auto 3.3 10^3/uL (1.2-3.8); Lymphocytes Percent Auto 31.2 % (20.5-60.0); Mean Corpuscular HGB Conc 34.4 g/dL (29.9-35.2); Mean Corpuscular Volume 90.3 fL (81.0-99.0); Mean Platelet Volume 9.1 fL (9.5-13.5); Monocytes Absolute Auto 0.6 10^3/uL (0.3-0.8); Monocytes Percent Auto 5.2 % (1.7-12.0); Neutrophils Absolute Auto 6.5 10^3/uL (1.4-6.5); Neutrophils Percent Auto 61.4 % (43.0-75.0); Platelet Count 338 10^3/uL (150-450); Red Blood Count 4.35 10^6/uL (4.20-5.40); Red Cell Distribution Width 12.6 % (11.0-15.0); White Blood Count 10.6 10^3/uL (4.0-11.0)
[2024-03-31 16:13] LABS: Anion Gap 9.3; Calcium 9.8 mg/dL (8.5-10.1); Chloride 102 mmol/L (98-107); Estimated GFR (African America >60 (>=60); Estimated GFR (Non-African Ame >60 (>=60); Glucose 129 mg/dL (74-106); Potassium 3.3 mmol/L (3.5-5.1); Sodium 138 mmol/L (136-145)
--- NOTE | 2024-03-31 16:26 | ECG_ITS ---
[facility] Test Date: 2024-03-31 Pat Name: PIOTR FREEMAN Department: Room: - Gender: Female [employer]: : 1980 Requested By: [id number] Order Number: [id number] Reading MD: TERRA CHILDS Measurements Intervals [place] Rate: 102 P: 44 [place]: 126 QRS: 45 QRSD: 76 T: 38 QT: 316 QTc: 375 Interpretive Statements 1120 Sinus tachycardia 4068 Nonspecific [place] abnormality 9140 abnormal rhythm ECG Compared to ECG 07/16/2020 04:59:50 Sinus rhythm no longer present Short [place] interval no longer present ST (T wave) deviation no longer present Electronically Signed On 04-03-2024 7:45:28 EDT by TERRA CHILDS
[2024-03-31 16:28] LABS: Erythrocyte Sedimentation Rate 34 mm/hr (<=20)
== END 2024-03-31 17:14 | disposition home or self-care (01) ==
PROVIDERS: Emergency Provider Emergency Medicine Emergency Medical Services; PCP Family Medicine
DX: G43.909 Migraine, unspecified, not intractable, without status migrainosus (principal); Z79.899 Other long term (current) drug therapy
CPT/HCPCS: 36415; 70450; 80048; 85025; 85652; 93005; 99285

== ENCOUNTER 2024-08-01 09:32 | Outpatient (OUT) | payer BC, SELFPAY ==
--- OUTSIDE RECORDS SUMMARY | 2024-08-01 09:46 | XMS_ITS | CCD ---
Author Organization [facility] Care Team Providers Care Delivery Driver Name Role Phone Bjorn BARBOSA Rudy Flores [...] ELLISON Primary Care Unavailable HOY ., DR ELLIOSN Consulting Unavailable HOY ., DR ELLISON Attending [...] Primary Care Unavailable DOUG LOMAX Consulting Unavailable KVEIN PAUL Attending Unavailable KEVIN PAUL Admitting Unavailable AMADEO ., DR ELLISON Primary Care Unavailable RAMESH, DR JOB Santamaria Consulting Unavailable KEVIN PAUL Consulting Unavailable NEGRO CARSON Attending Unavailable Allergies Allergy Classification Reported Allergen(s) Allergy Type Date of Onset Reaction(s) Facility (4 sources) Amoxicillin; Translations: [AMOXICILLIN] Drug Allergy 7 Hives [facility] (3 sources) Benzalkonium Drug Allergy 7 Rash [facility] (3 sources) Meperidine Drug Allergy 7 Shortness of Breath [facility] (1 source) Meperidine; Translations: [MEPERIDINE] Drug Allergy 7 [facility] Repository (1 source) NEOMYCIN-BACITRA CNZN-POLYMYXNB; Translations: [NEOMYCIN-BACITR ACNZN-POLYMYXNB] Propensity to adverse reactions to drug (disorder) 3 [facility] Repository (1 source) Amoxicillin Drug Allergy 6 [facility] (1 source) Bacitracin / Neomycin / Polymyxin B Drug Allergy 6 [facility] (1 source) Meperidine Drug Allergy 6 [facility] Rep[facility] Medications Completed/Discontinued Medications Medication Drug Class(es) Dates Sig (Normalized) Sig (Original) [id number] 200 actuat albuterol 0.09 mg/actuat metered dose [...] Urea nitrogen [Mass/Vol] 7.0 mg/dL Normal 7.0-18.0 [facility] Comment on above: Performed By: #### U AMIC #### [facility] [address] [place] [address] Dr. Jorge Sierra CALCIUMon 01-28-2023 Calcium [Mass/Vol] 9.4 mg/dL Normal 8.5-10.1 [facility] Comment on above: Performed By: #### U AMIC #### [facility] [address] [place] [address] Dr. Jorge Sierra CBC AUTO DIFFon 01-28-2023 BASO # 0.1 103/ul Normal 0.0-0.1 [facility] Comment on above: Performed By: #### C BC #### [facility] [address] [place] [address] Dr. Jorge Sierra Basophils/100 WBC (Bld) 0.5 % Normal 0.2-2.0 [facility] Comment on above: Performed By: #### C BC #### [facility] [address] [place] [address] Dr. Jorge Sierra EO # 0.2 103/ul Normal 0.0-0.7 [facility] Comment on above: Performed By: #### C BC #### [facility] [address] [place] [address] Dr. Jorge Sierra Eosinophils/100 WBC (Bld) 2.1 % Normal 0.9-7.0 [facility] Comment on above: Performed By: #### C BC #### [facility] [address] [place] [address] Dr. Jorge Sierra Erythrocyte distribution width (RBC) [Ratio] 13.1 % Normal 11.0-15.0 [facility] Comment on above: Performed By: #### C BC #### [facility] [address] [place] [address] Dr. Jorge Sierra Hematocrit (Bld) [Volume fraction] 39.9 % Normal 36.0-48.0 [facility] Comment on above: Performed By: #### C BC #### [facility] [address] [place] [address] Dr. Jorge Sierra Hemoglobin (Bld) [Mass/Vol] 13.4 g/dL Normal 12.0-16.0 [facility] Comment on above: Performed By: #### C BC #### [facility] [address] [place] [address] Dr. Jorge Sierra IG # 0.03 10e3/ul Normal 0.00-0.03 [facility] Comment on above: Performed By: #### C BC #### [facility] [address] [place] [address] Dr. Jorge Sierra IG % 0.3 % Normal 0.0-0.5 [facility] Comment on above: Performed By: #### C BC #### [facility] [address] [place] [address] Dr. Jorge Sierra LYMPH # 3.1 103/ul Normal 1.2-3.8 [facility] Comment on above: Performed By: #### C BC #### [facility] [address] [place] [address] Dr. Jorge Sierra Lymphocytes/100 WBC (Bld) 31.4 % Normal 20.5-60.0 [facility] Comment on above: Performed By: #### C BC #### [facility] [address] [place] [address] Dr. Jorge Sierra MANUAL DIFF REQ NO Normal [facility] Comment on above: Performed By: #### C BC #### [facility] [address] [place] [address] Dr. Jorge Sierra MCH (RBC) [Entitic mass] 30.4 pg Normal 26.7-34.0 [facility] Comment on above: Performed By: #### C BC #### [facility] [address] [place] [address] Dr. Jorge Sierra MCHC (RBC) [Mass/Vol] 33.6 g/dL Normal 29.9-35.2 [facility] Comment on above: Performed By: #### C BC #### [facility] [address] [id number] Jorge Sierra MCV (RBC) [Entitic vol] 90.5 fL Normal 81.0-99.0 [facility] Comment on above: Performed By: #### C BC #### [facility] [address] [address] [address] Jorge Sierra MONO # 0.5 103/ul Normal 0.3-0.8 [facility] Comment on above: Performed By: #### C BC #### [facility] [address] [address] [address] Jorge Sierra Monocytes/100 WBC (Bld) 5.3 % Normal 1.7-12.0 [facility] Comment on above: Performed By: #### C BC #### [facility] [address] [place] [address] Dr. Jorge Sierra NEUT # 5.9 103/ul Normal 1.4-6.5 [facility] Comment on above: Performed By: #### C BC #### [facility] [address] [place] [address] Dr. Jorge Sierra Neutrophils/100 WBC (Bld) 60.4 % Normal 43.0-75.0 [facility] Comment on above: Performed By: #### C BC #### [facility] [address] [place] [address] Dr. Jorge Sierra Platelet mean volume (Bld) [Entitic vol] 8.9 fL Critically low 9.5-13.5 [facility] Comment on above: Performed By: #### C BC #### [facility] [address] [place] [address] Dr. Jorge Sierra PLT 340 103/ul Normal 150-450 [facility] Comment on above: Performed By: #### C BC #### [facility] [address] [place] [address] Dr. Jorge Sierra RBC 4.41 106/ul Normal 4.20-5.40 [facility] Comment on above: Performed By: #### C BC #### [facility] [address] [address] [address] Jorge Sierra WBC 9.8 103/ul Normal 4.0-11.0 [facility] Comment on above: Performed By: #### C BC #### [facility] [address] [place] [address] Dr. Jroge Sierra CREATININEon 01-28-2023 Creatinine [Mass/Vol] 0.81 mg/dL Normal 0.55-1.02 [facility] Comment on above: Performed By: #### C BC #### [facility] [address] [place] [address] Dr. Jorge Sierra EGFR-AF SALVADOREAN >60 Normal >=60 [facility] Comment on above: Performed By: #### C BC #### [facility] [address] [place] [address] Dr. Jorge Sierra EGFR-NON AF SALVADOREAN >60 Normal >=60 [facility] Comment on above: Performed By: #### C BC #### [facility] [address] [place] [address] Dr. Jorge Sierra ELECTROLYTESon 01-28-2023 Anion gap [Moles/Vol] 11.2 mmol/L Normal [facility] Comment on above: Performed By: #### U AMIC #### [facility] [address] [place] [address] Dr. Jorge Sierra Chloride [Moles/Vol] 103 mmol/L Normal 98-107 [facility] Comment on above: Performed By: #### U AMIC #### [facility] [address] [place] [address] Dr. Jorge Sierra CO2 [Moles/Vol] 27.4 mmol/L Normal 21.0-32.0 [facility] Comment on above: Performed By: #### U AMIC #### [facility] [address] [place] [address] Dr. Jorge Sierra Potassium [Moles/Vol] 3.6 mmol/L Normal 3.5-5.1 [facility] Comment on above: Performed By: #### U AMIC #### [facility] [address] [place] [address] Dr. Jorge Sierra Sodium [Moles/Vol] 138 mmol/L Normal 136-145 [facility] Comment on above: Performed By: #### U AMIC #### [facility] [address] [place] [address] Dr. Jorge Sierra MAGNESIUMon 01-28-2023 Magnesium [Mass/Vol] 1.9 mg/dL Normal 1.8-2.4 [facility] Comment on above: Performed By: #### U AMIC #### [facility] [address] [place] [address] Dr. Jorge Sierra UA RANDOM W/MICROSCOPICon BACTERIA TRACE Abnormal NONE SEEN [facility] Comment on above: Performed By: #### U AMIC #### [facility] [address] [place] [address] Dr. Jorge Sierra Bilirubin Ql (U) Negative Normal NEGATIVE [facility] Comment on above: Performed By: #### U AMIC #### [facility] [address] [place] [address] Dr. Jorge Sierra CAST NONE SEEN Normal NONE SEEN [facility] Comment on above: Performed By: #### U AMIC #### [facility] [address] [place] [address] Dr. Jorge Sierra Clarity (U) CLEAR Normal CLEAR [facility] Comment on above: Performed By: #### U AMIC #### [facility] [address] [place] [address] Dr. Jorge Sierra Color (U) YELLOW Normal YELLOW [facility] Comment on above: Performed By: #### U AMIC #### [facility] [address] [place] [address] Dr. Jorge Sierra Crystals LM Nom (Urine sed) NONE SEEN Normal NONE SEEN [facility] Comment on above: Performed By: #### U AMIC #### [facility] [address] [place] [address] Dr. Jorge Sierra Epithelial cells LM Ql (Urine sed) MODERATE Abnormal NONE SEEN /RARE [facility] Comment on above: Performed By: #### U AMIC #### [facility] [address] [address] [address] Jorge Sierra Glucose Ql (U) Negative Normal NEGATIVE [facility] Comment on above: Performed By: #### U AMIC #### [facility] [address] [address] [address] Jorge Sierra Hemoglobin Ql (U) Negative Normal NEGATIVE [facility] Comment on above: Performed By: #### U AMIC #### [facility] [address] [address] [address] Jorge Sierra Ketones Ql (U) TRACE Abnormal NEGATIVE [facility] Comment on above: Performed By: #### U AMIC #### [facility] [address] [address] [address] Jorge Sierra LEUKOCYTES Negative Normal NEGATIVE [facility] Comment on above: Performed By: #### U AMIC #### [facility] [address] [place] [address] Dr. Jorge Sierra MUCOUS TRACE Abnormal NONE SEEN [facility] Comment on above: Performed By: #### U AMIC #### [facility] [address] [address] [address] Jorge Sierra Nitrite Ql (U) Negative Normal NEGATIVE [facility] Comment on above: Performed By: #### U AMIC #### [facility] [address] [place] [address] Dr. Jorge Sierra pH (U) 5.5 [pH] Normal 5-9 [facility] Comment on above: Performed By: #### U AMIC #### [facility] [address] [place] [address] Dr. Jorge Sierra RBC 0-2 Normal 0-2 [facility] Comment on above: Performed By: #### U AMIC #### [facility] [address] [place] [address] Dr. Jorge Sierra SPEC GRAVITY >=1.030 Abnormal 1.005-<=1.025 [facility] Comment on above: Performed By: #### U AMIC #### [facility] [address] [place] [address] Dr. Jorge Sierra UA PROTEIN TRACE Normal NEGATIVE/ TRACE [facility] Comment on above: Performed By: #### U AMIC #### [facility] [address] [address] [address] Jorge Sierra Urobilinogen Qn (U) 1.0 {Nya'U}/dL Normal 0.2 - 1. 0 [facility] Comment on above: Performed By: #### U AMIC #### [facility] [address] [address] [address] Jorge Sierra WBC NONE SEEN Normal NONE SEEN [facility] Comment on above: Performed By: #### U AMIC #### [facility] [address] [address] [address] Jorge Sierra Office Visiton 12-16-2022 Follow-up visit [id number] Piotr Freeman 1980 F Date Provider Department Center 12/16/2022 MELITA ELIZABETH [facility] No family history on file Level of Service:00671 IN OFFICE/OUTPATIENT ESTABLISHED MOD MDM 30-39 MIN Reason for Visit and Comments: Chest Pain [304763] Shortness of Breath [616102] Hyperlipidemia [182] sinus tachycardia [Other] Normal [facility] PAP ACOG PANEL 2: 30 to 65on 09-05-2022 . . Normal [facility] Comment on above: Result Comment: Perf ormed at: BA Performed By: #### U AMIC #### [facility] [address] [place] [address] Dr. Jorge Sierra Age Gdln ACOG Testing 30-65 Normal [facility] Comment on above: Performed By: #### U AMIC #### [facility] [address] [id number] Jorge Sierra DIAGNOSIS: Comment Normal [facility] Comment on above: Result Comment: NEGA TIVE FOR INTRAEPITHELIAL LESION OR MALIGNANCY. FUNGAL ORGANISMS MORPHOLOGICALLY CONSISTENT WITH STONEY SPECIES ARE PRESENT. THIS SPECIMEN WAS RESCREENED PART OF OUR UNDERWRITING INTERN PROGRAM. Performed at: BA Performed By: #### U AMIC #### [facility] [address] [address] [address] Jorge Sierra HPV Aptima Negative Normal Negative [facility] Comment on above: Result Comment: This nucleic acid amplification test detects fourteen high-risk HPV types (16,18,31,33,35,39,45,51,52,56,58,59,66,68) without differentiation. Performed at: =G Performed By: #### U AMIC #### [facility] [address] [address] [address] Jorge Sierra HPV Genotype Reflex Comment Normal [facility] Comment on above: Result Comment: Crit ermuna not met, HPV Genotype not performed. Performed at: BA Performed By: #### U AMIC #### [facility] [address] [place] [address] Dr. Jorge Sierra Methodology: Comment Normal [facility] Comment on above: Result Comment: This liquid based ThinPrep(R) pap test was screened with the use of an image guided system. Performed at: WB Performed By: #### U AMIC #### [facility] [address] [place] [address] Dr. Jroge Sirera Note: Comment Normal [facility] Comment on above: Result Comment: The [...] WB Performed By: #### U AMIC #### [facility] [address] [place] [address] Dr. Jorge Sierra Performed by: Comment Normal [facility] Comment on above: Result Comment: Trey Phillips, Side Sawyer Performed at: BA Performed By: #### U AMIC #### [facility] [address] [place] [address] Dr. Jorge Sierra QC reviewed by: Comment Normal [facility] Comment on above: Result Comment: Anabela Bettencourt, Side Sawyer (ASCP) Performed at: BA Performed By: #### U AMIC #### [facility] [address] [place] [address] Dr. Jorge Sierra Specimen adequacy: Comment Normal [facility] Comment on above: Result Comment: Sati sfactory for evaluation. No endocervical component is identified. The absence of an endocervical component was confirmed by an additional screening evaluation. Performed at: Performed By: #### U [facility] #### [facility] [address] [address] [address] Jorge Sierra MG MAMM SCREEN 3D AMIRA CADon 09-02-2022 MG MAMM SCREEN 3D AMIRA CAD Patient: PIOTR FREEMAN Exam Date: 09/02/2022 : 1980 Gender:F Ordering : DR NEGRO CARSON . Admission #: [id number] Family : Order #: [id number] CLICK HERE TO VIEW EXAM RADIOLOGY REPORT [...] breast cancer at age 62. LOCATION: [facility] BREAST COMPOSITION: Heterogeneously dense,which may obscure small [...] Deshpande MD on 09/02/2022 at 09:22 Normal [facility] MRI ANKLE RT WO CONon 2021 [...] by: DOUG LOMAX Date: 2022-08-27 13:28 Normal [facility] XR FOOT AMIRA MIN 3 VIEWSon [...] JOB CHANDLER Date: 2022-06-30 16:22 Normal [facility] CBC AUTO DIFFon 05-21-2022 BASO # 0.0 103/ul Normal 0.0-0.1 [facility] Comment on above: Performed By: #### U AMIC #### [facility] [address] [address] [address] Jorge Sierra Basophils/100 WBC (Bld) 0.3 % Normal 0.2-2.0 [facility] Comment on above: Performed By: #### U AMIC #### [facility] [address] [address] [address] Jorge Sierra EO # 0.2 103/ul Normal 0.0-0.7 [facility] Comment on above: Performed By: #### U AMIC #### [facility] [address] [address] [address] Jorge Sierra Eosinophils/100 WBC (Bld) 2.2 % Normal 0.9-7.0 [facility] Comment on above: Performed By: #### U AMIC #### [facility] [address] [address] [address] Jorge Sierra Erythrocyte distribution width (RBC) [Ratio] 13.0 % Normal 11.0-15.0 [facility] Comment on above: Performed By: #### U AMIC #### [facility] [address] [address] [address] Jorge Sierra Hematocrit (Bld) [Volume fraction] 37.5 % Normal 36.0-48.0 [facility] Comment on above: Performed By: #### U AMIC #### [facility] [address] [place] [address] Dr. Jorge Sierra Hemoglobin (Bld) [Mass/Vol] 12.3 g/dL Normal 12.0-16.0 [facility] Comment on above: Performed By: #### U AMIC #### [facility] [address] [address] [address] Jorge Sierra IG # 0.04 10e3/ul Critically high 0.00-0.03 [facility] Comment on above: Performed By: #### U AMIC #### [facility] [address] [place] [address] Dr. Jorge Sierra IG % 0.4 % Normal 0.0-0.5 [facility] Comment on above: Performed By: #### U AMIC #### [facility] [address] [place] [address] Dr. Jorge Sierra LYMPH # 2.6 103/ul Normal 1.2-3.8 [facility] Comment on above: Performed By: #### U AMIC #### [facility] [address] [place] [address] Dr. Jorge Sierra Lymphocytes/100 WBC (Bld) 25.9 % Normal 20.5-60.0 [facility] Comment on above: Performed By: #### U AMIC #### [facility] [address] [place] [address] Dr. Jorge Sierra MANUAL DIFF REQ NO Normal [facility] Comment on above: Performed By: #### U AMIC #### [facility] [address] [address] [address] Jorge Sierra MCH (RBC) [Entitic mass] 30.2 pg Normal 26.7-34.0 [facility] Comment on above: Performed By: #### U AMIC #### [facility] [address] [place] [address] Dr. Jorge Sierra MCHC (RBC) [Mass/Vol] 32.8 g/dL Normal 29.9-35.2 [facility] Comment on above: Performed By: #### U AMIC #### [facility] [address] [place] [address] Dr. Jorge Sierra MCV (RBC) [Entitic vol] 92.1 fL Normal 81.0-99.0 [facility] Comment on above: Performed By: #### U AMIC #### [facility] [address] [address] [address] Jorge Sierra MONO # 0.6 103/ul Normal 0.3-0.8 [facility] Comment on above: Performed By: #### U AMIC #### [facility] [address] [address] [address] Jorge Sierra Monocytes/100 WBC (Bld) 5.7 % Normal 1.7-12.0 [facility] Comment on above: Performed By: #### U AMIC #### [facility] [address] [address] [address] Jorge Sierra NEUT # 6.6 103/ul Critically high 1.4-6.5 [facility] Comment on above: Performed By: #### U AMIC #### [facility] [address] [place] [address] Dr. Jorge Sierra Neutrophils/100 WBC (Bld) 65.5 % Normal 43.0-75.0 [facility] Comment on above: Performed By: #### U AMIC #### [facility] [address] [place] [address] Dr. Jorge Sierra Platelet mean volume (Bld) [Entitic vol] 8.7 fL Critically low 9.5-13.5 [facility] Comment on above: Performed By: #### U AMIC #### [facility] [address] [address] [address] Jorge Sierra PLT 292 103/ul Normal 150-450 [facility] Comment on above: Performed By: #### U AMIC #### [facility] [address] [id number] Jorge Sierra RBC 4.07 106/ul Critically low 4.20-5.40 [facility] Comment on above: Performed By: #### U AMIC #### [facility] [address] [place] [address] Dr. Jorge Sierra WBC 10.1 103/ul Normal 4.0-11.0 [facility] Comment on above: Performed By: #### U AMIC #### [facility] [address] [address] [address] Jorge Sierra GLYCOHEMOGLOBIN A1Con 2021 ADA RECOMMENDATION SEE BELOW Normal [facility] Comment on above: Result Comment: ADA RECOMMENDED LIMIT 4.0 - 6.0 ADA THERAPEUTIC TARGET < 7.0 ACTION SUGGESTED > 7.0 Performed By: #### U AMIC #### [facility] [address] [address] [address] Jorge Sierra Glucose [Mass/Vol] 128 mg/dL Normal [facility] Comment on above: Performed By: #### U AMIC #### [facility] [address] [address] [address] Jorge Sierra HbA1c (Bld) [Mass fraction] 6.1 % Normal 4.5-6.2 [facility] Comment on above: Performed By: #### U AMIC #### [facility] [address] [address] [address] Jorge Sierra LIPID PROFILEon 05-21-2022 CHOL-HDL RATIO NORM SEE BELOW Normal [facility] Comment on above: Result Comment: 3.3 - 4.4 LOW RISK 4.4 - 7.1 AVERAGE RISK 7.1 - 11.0 MODERATE RISK >11.0 HIGH RISK Performed By: #### U AMIC #### [facility] [address] [address] [address] Jorge Sierra Cholesterol [Mass/Vol] 184 mg/dL Normal <=200 [facility] Comment on above: Performed By: #### U AMIC #### [facility] [address] [address] [address] Jorge Sierra Cholesterol in HDL [Mass/Vol] 53 mg/dL Normal 40-60 [facility] Comment on above: Performed By: #### U AMIC #### [facility] [address] [address] [address] Jorge Sierra Cholesterol in LDL [Mass/Vol] 101.8 mg/dL Normal [facility] Comment on above: Performed By: #### U AMIC #### [facility] [address] [address] [address] Jorge Sierra Cholesterol.total/Ch olesterol in HDL [Mass ratio] 3.5 {ratio} Normal [facility] Comment on above: Performed By: #### U AMIC #### [facility] [address] [address] [address] Jorge Sierra HDL NORMAL > or = 60 mg/dl - LO W CARDIOVASCULAR RISK <40 mg/dl - HIGH CARDIOVASCULAR RISK Normal [facility] Comment on above: Performed By: #### U AMIC #### [facility] [address] [address] [address] Jorge Sierra LDL CALC NORMAL SEE BELOW Normal [facility] Comment on above: Result Comment: <100 mg/dl OPTIMAL 100 - 129 mg/dl NEAR OR ABOVE OPTIMAL 130 - 159 mg/dl BORDERLINE HIGH 160 - 189 mg/dl HIGH >190 mg/dl VERY HIGH Performed By: #### U AMIC #### [facility] [address] [address] [address] Jorge Sierra Triglyceride [Mass/Vol] 146 mg/dL Normal <=150 [facility] Comment on above: Performed By: #### U AMIC #### [facility] [address] [address] [address] Jorge Sierra VLDL CALC 29.2 mg/dL Normal [facility] Comment on above: Performed By: #### U AMIC #### [facility] [address] [address] [address] Jroge Sierra PROF 14(COMP METB)on 022 Albumin [Mass/Vol] 3.7 g/dL Normal 3.4-5.0 [facility] Comment on above: Performed By: #### U AMIC #### [facility] [address] [address] [address] Jorge Sierra Albumin/Globulin [Mass ratio] 1.1 {ratio} Normal [facility] Comment on above: Performed By: #### U AMIC #### [facility] [address] [address] [address] Jorge Sierra ALP [Catalytic activity/Vol] 70 U/L Normal 46-116 [facility] Comment on above: Performed By: #### U AMIC #### [facility] [address] [place] [address] Dr. Jorge Sierra ALT [Catalytic activity/Vol] 29 U/L Normal 14-59 [facility] Comment on above: Performed By: #### U AMIC #### [facility] [address] [address] [address] Jorge Sierra Anion gap [Moles/Vol] 13.1 mmol/L Normal [facility] Comment on above: Performed By: #### U AMIC #### [facility] [address] [place] [address] Dr. Jorge Sierra AST [Catalytic activity/Vol] 18 U/L Normal 15-37 [facility] Comment on above: Performed By: #### U AMIC #### [facility] [address] [place] [address] Dr. Jorge Sierra Bilirubin [Mass/Vol] 0.3 mg/dL Normal 0.2-1.0 [facility] Comment on above: Performed By: #### U AMIC #### [facility] [address] [place] [address] Dr. Jorge Sierra Calcium [Mass/Vol] 9.2 mg/dL Normal 8.5-10.1 [facility] Comment on above: Performed By: #### U AMIC #### [facility] [address] [place] [address] Dr. Jorge Sierra Chloride [Moles/Vol] 104 mmol/L Normal 98-107 [facility] Comment on above: Performed By: #### U AMIC #### [facility] [address] [address] [address] Jorge Sierra CO2 [Moles/Vol] 27.7 mmol/L Normal 21.0-32.0 [facility] Comment on above: Performed By: #### U AMIC #### [facility] [address] [place] [address] Dr. Jorge Sierra Creatinine [Mass/Vol] 0.80 mg/dL Normal 0.55-1.02 [facility] Comment on above: Performed By: #### U AMIC #### [facility] [address] [address] [address] Jorge Sierra EGFR-AF SALVADOREAN >60 Normal >=60 [facility] Comment on above: Performed By: #### U AMIC #### [facility] [address] [address] [address] Jorge Sierra EGFR-NON AF SALVADOREAN >60 Normal >=60 [facility] Comment on above: Performed By: #### U AMIC #### [facility] [address] [address] [address] Jorge Sierra Globulin (S) [Mass/Vol] 3.4 g/dL Normal [facility] Comment on above: Performed By: #### U AMIC #### [facility] [address] [address] [address] Jorge Sierra Glucose [Mass/Vol] 124 mg/dL Critically high 74-106 [facility] Comment on above: Performed By: #### U AMIC #### [facility] [address] [address] [address] Jorge Sierra Potassium [Moles/Vol] 4.8 mmol/L Normal 3.5-5.1 [facility] Comment on above: Performed By: #### U AMIC #### [facility] [address] [address] [address] Jorge Sierra Protein [Mass/Vol] 7.1 g/dL Normal 6.4-8.2 [facility] Comment on above: Performed By: #### U AMIC #### [facility] [address] [address] [address] Jorge Sierra Sodium [Moles/Vol] 140 mmol/L Normal 136-145 [facility] Comment on above: Performed By: #### U AMIC #### [facility] [address] [address] [address] Jorge Sierra Urea nitrogen [Mass/Vol] 10.0 mg/dL Normal 7.0-18.0 [facility] Comment on above: Performed By: #### U AMIC #### [facility] [address] [address] [address] Jorge Sierra Urea nitrogen/Creatinine [Mass ratio] 12.5 mg/mg Normal [facility] Comment on above: Performed By: #### U AMIC #### [facility] [address] [place], [place] [address] Dr. Jorge Sierra TSHon 05-21-2022 TSH 1.454 uIU/mL Normal 0.358-3.740 [facility] Comment on above: Performed By: #### U AMIC #### [facility] [address] [place] [address] Dr. Jorge Sierra CORTISOL 24HR URINEon 2021 Cortisol,F,ug/24hr,U 18 ug/24 hr Normal 6-42 [facility] Comment on above: Performed By: #### C ORT24 #### [facility] [address] [place] [address] Dr. Jorge Sierra Cortisol,F,ug/L,U 6 ug/L Normal Undefined [facility] Comment on above: Performed By: #### C ORT24 #### [facility] [address] [place] [address] Dr. Jorge Sierra CORTISOL FREE, SERUMon 05-07 Cortisol, Free Dialysis, LCMS 0.695 ug/dL Normal [facility] Comment on above: Result Comment: Thes e tests were developed and their performance characteristics determined by [employer]. They have not been cleared or approved by the Food and Drug Administration. Reference Range: 8 AM 0.10 - 1.20 4 PM 0.042 - 0.872 Performed By: #### F RECORT #### [facility] [address] [place] [address] Dr. Jorge Barrera 02-13-2022 NATALIE Telephone ([facility]) PIOTR FREEMAN ([id number]) 1980 F Date Time Provider Department 02/13/22 BENY CHILDRESS During your visit today, we recorded the following information about you: Leon Lomax 02/13/2022 4:48 PM Signed On 02/13 fax was sent to [facility] [phone] for referral with office notes and lab [...] Status:Closed by LEON LOMAX on 02/13/22 [facility]22 Natriuretic peptide B (Bld) [Mass/Vol] 10.0 pg/mL Normal <=450.0 [facility] Comment on above: Performed By: #### C MP, BNP, CRP, CMADM #### [facility] [address] [place] [address] Dr. Jorge Sierra CARDIAC ADAM ADMITon 05-18-2 022 CK [Catalytic activity/Vol] 125 U/L Normal 26-192 [facility] Comment on above: Performed By: #### C MP, BNP, CRP, CMADM #### [facility] [address] [place] [address] Dr. Jorge Sierra CK.MB [Mass/Vol] ng/mL Normal <=3.60 [facility] Comment on above: Performed By: #### C MP, BNP, CRP, CMADM #### [facility] [address] [place] [address] Dr. Jorge Sierra HSTROP <4.0 Normal 4.0-51.3 [facility] Comment on above: Result Comment: CUT- OFF POINTS HAVE BEEN ESTABLISHED BASED ON THE FOURTH UNIVERSAL DEFINITIONS OF MYOCARDIAL INFARCTION. THE UPPER REFERENCE LIMIT (URL) OF TROPONIN, DEFINED THE 99TH PERCENTILE OF cTnI DISTRIBUTION IN A REFERENCE POPULATION, HAS BEEN CONFIRMED THE DECISION THRESHOLD FOR MS DIAGNOSIS. Performed By: #### C MP, BNP, CRP, CMADM #### [facility] [address] [place] [address] Dr. Jorge Sierra EMERY 30 ng/mL Normal 9-82 [facility] Comment on above: Performed By: #### C MP, BNP, CRP, CMADM #### [facility] [address] [place] [address] Dr. Jorge Sierra CBC AUTO DIFFon 02-11-2022 BASO # 0.0 103/ul Normal 0.0-0.1 [facility] Comment on above: Performed By: #### C BC #### [facility] [address] [place] [address] Dr. Jorge Sierra Basophils/100 WBC (Bld) 0.4 % Normal 0.2-2.0 [facility] Comment on above: Performed By: #### C BC #### [facility] [address] [place] [address] Dr. Jorge Sierra EO # 0.2 103/ul Normal 0.0-0.7 [facility] Comment on above: Performed By: #### C BC #### [facility] [address] [place] [address] Dr. Jorge Sierra Eosinophils/100 WBC (Bld) 2.2 % Normal 0.9-7.0 [facility] Comment on above: Performed By: #### C BC #### [facility] [address] [place] [address] Dr. Jorge Sierra Erythrocyte distribution width (RBC) [Ratio] 12.3 % Normal 11.0-15.0 [facility] Comment on above: Performed By: #### C BC #### [facility] [address] [place] [address] Dr. Jorge Sierra Hematocrit (Bld) [Volume fraction] 39.2 % Normal 36.0-48.0 [facility] Comment on above: Performed By: #### C BC #### [facility] [address] [place] [address] Dr. Jorge Sierra Hemoglobin (Bld) [Mass/Vol] 12.9 g/dL Normal 12.0-16.0 [facility] Comment on above: Performed By: #### C BC #### [facility] [address] [place] [address] Dr. Jorge Sierra IG # 0.04 10e3/ul Critically high 0.00-0.03 [facility] Comment on above: Performed By: #### C BC #### [facility] [address] [place] [address] Dr. Jorge Sierra IG % 0.5 % Normal 0.0-0.5 [facility] Comment on above: Performed By: #### C BC #### [facility] [address] [place] [address] Dr. Jorge Sierra LYMPH # 2.2 103/ul Normal 1.2-3.8 [facility] Comment on above: Performed By: #### C BC #### [facility] [address] [place] [address] Dr. Jorge Sierra Lymphocytes/100 WBC (Bld) 27.5 % Normal 20.5-60.0 [facility] Comment on above: Performed By: #### C BC #### [facility] [address] [place] [address] Dr. Jorge Sierra MANUAL DIFF REQ NO Normal [facility] Comment on above: Performed By: #### C BC #### [facility] [address] [place] [address] Dr. Jorge Sierra MCH (RBC) [Entitic mass] 29.7 pg Normal 26.7-34.0 [facility] Comment on above: Performed By: #### C BC #### [facility] [address] [place] [address] Dr. Jorge Sierra MCHC (RBC) [Mass/Vol] 32.9 g/dL Normal 29.9-35.2 [facility] Comment on above: Performed By: #### C BC #### [facility] [address] [place] [address] Dr. Jorge Sierra MCV (RBC) [Entitic vol] 90.3 fL Normal 81.0-99.0 [facility] Comment on above: Performed By: #### C BC #### [facility] [address] [place] [address] Dr. Jorge Sierra MONO # 0.5 103/ul Normal 0.3-0.8 [facility] Comment on above: Performed By: #### C BC #### [facility] [address] [place] [address] Dr. Jorge Sierra Monocytes/100 WBC (Bld) 6.6 % Normal 1.7-12.0 [facility] Comment on above: Performed By: #### C BC #### [facility] [address] [place] [address] Dr. Jorge Sierra NEUT # 5.1 103/ul Normal 1.4-6.5 [facility] Comment on above: Performed By: #### C BC #### [facility] [address] [place] [address] Dr. Jorge Sierra Neutrophils/100 WBC (Bld) 62.8 % Normal 43.0-75.0 [facility] Comment on above: Performed By: #### C BC #### [facility] [address] [place] [address] Dr. Jorge Sierra Platelet mean volume (Bld) [Entitic vol] 8.6 fL Critically low 9.5-13.5 [facility] Comment on above: Performed By: #### C BC #### [facility] [address] [place] [address] Dr. Jorge Sierra PLT 331 103/ul Normal 150-450 [facility] Comment on above: Performed By: #### C BC #### [facility] [address] [place] [address] Dr. Jorge Sierra RBC 4.34 106/ul Normal 4.20-5.40 [facility] Comment on above: Performed By: #### C BC #### [facility] [address] [address] [address] Jorge Sierra WBC 8.1 103/ul Normal 4.0-11.0 [facility] Comment on above: Performed By: #### C BC #### [facility] [address] [place] [address] Dr. Jorge Sierra CRPon 02-11-2022 CRP [Mass/Vol] mg/L Normal <=1.0 [facility] Comment on above: Performed By: #### C MP, BNP, CRP, CMADM #### [facility] [address] [place] [address] Dr. Jorge Sierra CTA CHEST WO W [...] MARIE JORDAN Date: 2022-02-11 18:56 Normal [facility] 14(COMP METB)on Albumin [Mass/Vol] 3.6 g/dL Normal 3.4-5.0 [facility] Comment on above: Performed By: #### C MP, BNP, CRP, CMADM #### [facility] [address] [place] [address] Dr. Jorge Sierra Albumin/Globulin [Mass ratio] 1.0 {ratio} Normal [facility] Comment on above: Performed By: #### C MP, BNP, CRP, CMADM #### [facility] [address] [place] [address] Dr. Jorge Sierra ALP [Catalytic activity/Vol] 71 U/L Normal 46-116 [facility] Comment on above: Performed By: #### C MP, BNP, CRP, CMADM #### [facility] [address] [place] [address] Dr. Jorge Sierra ALT [Catalytic activity/Vol] 28 U/L Normal 14-59 [facility] Comment on above: Performed By: #### C MP, BNP, CRP, CMADM #### [facility] [address] [place] [address] Dr. Jorge Sierra Anion gap [Moles/Vol] 9.5 mmol/L Normal [facility] Comment on above: Performed By: #### C MP, BNP, CRP, CMADM #### [facility] [address] [place] [address] Dr. Jorge Sierra AST [Catalytic activity/Vol] 29 U/L Normal 15-37 [facility] Comment on above: Performed By: #### C MP, BNP, CRP, CMADM #### [facility] [address] [place] [address] Dr. Jorge Sierra Bilirubin [Mass/Vol] 0.5 mg/dL Normal 0.2-1.0 [facility] Comment on above: Performed By: #### C MP, BNP, CRP, CMADM #### [facility] [address] [place] [address] Dr. Jorge Sierra Calcium [Mass/Vol] 9.3 mg/dL Normal 8.5-10.1 [facility] Comment on above: Performed By: #### C MP, BNP, CRP, CMADM #### [facility] [address] [address] [address] Jorge Sierra Chloride [Moles/Vol] 96 mmol/L Critically low 98-107 [facility] Comment on above: Performed By: #### C MP, BNP, CRP, CMADM #### [facility] [address] [address] [address] Jorge Sierra CO2 [Moles/Vol] 32.5 mmol/L Critically high 21.0-32.0 [facility] Comment on above: Performed By: #### C MP, BNP, CRP, CMADM #### [facility] [address] [address] [address] Jorge Sierra Creatinine [Mass/Vol] 0.73 mg/dL Normal 0.55-1.02 [facility] Comment on above: Performed By: #### C MP, BNP, CRP, CMADM #### [facility] [address] [place] [address] Dr. Jorge Sierra EGFR-AF SALVADOREAN >60 Normal >=60 [facility] Comment on above: Performed By: #### C MP, BNP, CRP, CMADM #### [facility] [address] [place] [address] Dr. Jorge Sierra EGFR-NON AF SALVADOREAN >60 Normal >=60 [facility] Comment on above: Performed By: #### C MP, BNP, CRP, CMADM #### [facility] [address] [address] [address] Jorge Sierra Globulin (S) [Mass/Vol] 3.6 g/dL Normal [facility] Comment on above: Performed By: #### C MP, BNP, CRP, CMADM #### [facility] [address] [address] [address] Jorge Sierra Glucose [Mass/Vol] 102 mg/dL Normal 74-106 [facility] Comment on above: Performed By: #### C MP, BNP, CRP, CMADM #### [facility] [address] [place] [address] Dr. Jorge Sierra Potassium [Moles/Vol] 4.0 mmol/L Normal 3.5-5.1 [facility] Comment on above: Performed By: #### C MP, BNP, CRP, CMADM #### [facility] [address] [place] [address] Dr. Jorge Sierra Protein [Mass/Vol] 7.2 g/dL Normal 6.4-8.2 [facility] Comment on above: Performed By: #### C MP, BNP, CRP, CMADM #### [facility] [address] [place] [address] Dr. Jorge Sierra Sodium [Moles/Vol] 134 mmol/L Critically low 136-145 [facility] Comment on above: Performed By: #### C MP, BNP, CRP, CMADM #### [facility] [address] [place] [address] Dr. Jorge Sierra Urea nitrogen [Mass/Vol] 13.0 mg/dL Normal 7.0-18.0 [facility] Comment on above: Performed By: #### C MP, BNP, CRP, CMADM #### [facility] [address] [place] [address] Dr. Jorge Sierra Urea nitrogen/Creatinine [Mass ratio] 17.8 mg/mg Normal [facility] Comment on above: Performed By: #### C MP, BNP, CRP, CMADM #### [facility] [address] [place] [address] Dr. Jorge Sierra SED RATE [facility] 2021 SED RATE 4 mm/hr Normal <=20 [facility] Comment on above: Performed By: #### S EDR #### [facility] [address] [place] [address] Dr. Jorge Barrera 12-31-2021 NATALIE Telephone ([facility]) PIOTR FREEMAN ([id number]) 1980 F Date Time Provider Department 12/31/21 FRANCIA YOUNG [facility] During your visit today, we recorded [...] Encounter Status:Closed by FRANCIA YOUNG on 12/31/21 [facility] 11-04-2021 [facility] PIOTR FREEMAN ([id number]) 1980 F Date Time Provider Department 11/04/21 [...] Encounter Status:Closed [facility]) PIOTR FREEMAN ([id number]) 1980 F Date Time Provider Department 10/20/21 [...] Encounter Status:Closed by COLT CROSS on 10/20/21 [facility] 10-06-2021 NATALIE Telephone ([facility]) PIOTR FREEMAN ([id number]) 1980 F Date Time Provider Department 10/06/21 [...] Status:Closed by TAY COLT on 10/06/21 Normal [facility] Lab Reporton 09-17-2021 Cardiovascular Lab Report [facility] Patient Name: Piotr [facility] MR #: [id number] Physician: Mark Waterman M.D. Medicine Service Date: 09/17/2021 Division of Birthdate: 1980 Cardiology Room #: Adult Cardiovascular Services [address] [address] Cardiovascular Laboratory Report INDICATION: The patient is [...] signed informed consent. She was brought to dentures lab technician in a fasting state. The right neck area was prepped and draped in usual fashion. A micropuncture technique and ultrasound guidance was used for access in the right internal jugular vein. A 6-Malian x 11 cm sheath was placed. A 6-Malian Chinchilla catheter was used for right heart catheterization with measurement pressures and calculation of cardiac output using the estimated Valorie method. Chinchilla catheter was removed. Modified Adrian's test was favorable on the left. Access in the left radial artery was obtained using micropuncture technique and ultrasound guidance. A 6-Malian x 11 cm Hydrophilic sheath was advanced. Verapamil was given through the sheath and heparin was administered intravenously. Bilateral selective coronary angiography was then performed using 6-Malian JL3.5 and JR4 diagnostic catheters. Catheters were [...] Johnson M.D. Date Trans: 09/17/2021 12:37 P/mmo [id number] cc: Terra Singh M.D. [address], [facility] [id number] [facility] Encounters Encounter Date Encounter Type Care Provider Facility Start: 08-31-2023 End: 08-31-2023 ambulatory NEGRO CARSON Not Available Start: 01-28-2023 End: 01-29-[address] TERRA SINGH . Facility:[facility] Start: 12-16-2022 End: 12-18-2022 ambulatory MELITA [facility] Start: 09-02-2022 End: 09-03-[address] TERRA SINGH . Facility:[facility] Start: 08-27-2022 End: 08-27-[address] NEGRO CARSON . Facility:[facility] Start: 08-26-2022 End: 08-27-2022 ambulatory KEVIN PAUL Facility:[facility] Start: 07-17-2022 End: 08-18-2022 ambulatory KEVIN PAUL Facility:[facility] Start: 06-30-2022 End: 07-01-2022 ambulatory KEVIN PAUL Facility:[facility] Start: 05-22-2022 Encounter for genera l adult medical examination without abnormal findings DR TERRA SINGH . [facility] Start: 05-21-2022 End: 05-22-[address] [...] 05-28-2022 Influenza vaccination INFLUENZA (Sea son Ended) [facility] Start: 05-28-2021 Influenza vaccination INFLUENZA (#1) [facility] Start: 03-30-2021 COVID-19 VACCINE (3 - Booster for Moderna series) COVID-19 VACCINE (3 - Booster for Moderna series) [facility] Start: 2019 Mammography MAMMOGRAM [facility] Start: 2009 HPV TESTING HPV TESTING [facility] Start: 2000 PAP TESTING PAP TESTING [facility] Start: 1998 Urine microalbumin profile DTAP,TDAP ,TD (1 - Tdap) [facility] Start: 1997 HEPATITIS C SCREENING HEPATITIS C SC REENING [facility] Start: 1997 HIV SCREENING HIV SCREENING [facility] Start: 1991 Adult depression scr eening assessment DEPRESSION SCREENING [facility] Payers Date Payer Category Payer Unknown [id number] 2020 Unknown MMO MMO [employer] PLUS [id number] 2020-Present [phone] [address] [place] [address] PPO [id number] 2019 Unknown [id number] 1980 Unknown [id number] 1980 Unknown [id number] 1980 Unknown [id number] 1980 Unknown [id number] 1980 Unknown [id number] 1979 Unknown [id number] [id number] 1980 Unknown [id number] [id number] 1980 Unknown [id number] [id number] 1980 Unknown [id number] 1980 Unknown [id number] [id number] 1980 Unknown [id number] Social History Date Type Detail Facility Start: 03-03-2017 Tobacco smoking stat NHIS Never smoked tobacco [facility] Start: 03-03-2017 Tobacco use and exposure Smoke less tobacco non-user [facility] Start: 1980 Sex Assigned At Not on file [facility] Clinical Notes 10-08-2021 to 12-16-2022 Telephone Encounter - Leon Lomax - 02/13/2022 4:45 PM EDTTelephone Encounter - Francia Young MD - 12/31/2021 8:49 AM Carlita Davis - 12/22/2021 3:55 PM EDT Note Date & Type Note Facility 12-16-2022 Note Cardiovascular Medic [facility] SUBJECTIVE Chief Complaint Patient presents with [...] 41-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 In June 2020 she was admitted to the [facility] with the COVID-19 infection. At that time [...] Shortness of breath and Unknown Amoxicillin Hives Svztztkm-Oledtfypoaw-Jlnxiyxgm ROS Cardiovascular: Positive for chest pain, dyspnea [...] sounds. Abdominal: Gen (more content not included)... [facility] 12-16-2022 Note Patient here for 1 y ear follow up sinus tachycardia, chest pain, GARCIA, and palpitations s/p Covid-19 infection in Jun 2020. Still has symptoms with exertion. Sometimes HR does go up to 110 at rest. Review of Systems Cardiovascular: Positive for chest pain, dyspnea on exertion and palpitations. Neurological: Positive for light-headedness. All other systems reviewed and are negative. [facility] 02-13-2022 Miscellaneous Notes On 02/13 fax was sent to [facility] [phone] for referral with office notes and lab results. Leon Lomax documented in this encounter [facility] 12-31-2021 Miscellaneous Notes I spoke to the [...] determine next steps. documented in this encounter [facility] 12-22-2021 Note HNO ID: [id number] Author: Ina Davis Service: ? Author Type: ? Type: Progress Notes Filed: 12/22/2021 3:55 PM Note Text: Sleep Study Check-In Documentation Date: December 22, 2021 Name: Piotr Freeman Comments: HST was returned in working order with all sleep questionnaires Ina Davis [facility] 12-22-2021 History of Presen t illness Narrative Sleep Study Check-In Documentation Date: December 22, 2021 Name: Piotr Freeman Comments: HST was returned in working order with all sleep questionnaires Ina Davis Nomad: [id number] Date: 12/16/21 [employer] Mailout Tracking Number: [id number] [employer] Return Tracking Number: [id number] November 24, 2021 Standing PSG Orders signed in the last 90 days None Future PSG Orders signed in the last 90 days Ordered Auth. provider HOME SLEEP APNEA TEST (HSAT) [[id number]] 11/18/21 Francia Young MD Assoc. diagnoses: Hypersomnolence [...] from Dr. Francia Young MD, a [facility] Staff. Visit prep complete. Comments :No The sleep study is scheduled for 12/17. Insurance: Payor: MMO / Plan: MMO [employer]US / Product Type: PPO / Payor/Plan Subscr Sex Relation Sub. Ins. ID Effective Group Num 1. MMO - MMO SUP* PAMELA FREEMAN* 1980 Female Self [id number] 09/[birth year]20 [address] Hernán Cronin documented in this encounter [facility] 12-16-2021 Note HNO ID: [id number] Author: Ina Davis Service: ? Author Type: ? Type: Progress Notes Filed: 12/22/2021 3:55 PM Note Text: Nomad: [id number] Date: 12/16/21 [employer] Mailout Tracking Number: [id number] [employer] Return Tracking Number: [id number] [facility] 11-24-2021 Note HNO ID: [id number] Author: Howard Ware III, PhD Service: ? Author Type: Physician Type: Progress Notes Filed: 12/22/2021 3:55 PM Note Text: November 24, 2021 Standing PSG Orders signed in the last 90 days None Future PSG Orders signed in the last 90 days Ordered Auth. provider HOME SLEEP APNEA TEST (HSAT) [[id number]] 11/18/21 Francia Young MD Assoc. diagnoses: Hypersomnolence [...] Howard Ware III, PhD 1:37 PM, 11/24/2021 [facility] 11-21-2021 Note HNO ID: [id number] Author: Hernán Cronin Service: ? Author Type: ? Type: Progress Notes Filed: 12/22/2021 3:55 PM Note Text: November 21, 2021 An order has been received for Home Sleep Apnea Test (HSAT) from Dr. Francia Young MD, a [facility] Staff. Visit prep complete. Comments :No The sleep study is scheduled for 12/17. Insurance: Payor: MMO / Plan: MMO [employer]US / Product Type: PPO / Payor/Plan Subscr Sex Relation Sub. Ins. ID Effective Group Num 1. MMO - MMO SUP* PAMELA FREEMAN* 1980 Female Self [id number] 09[birth year]20 [address] Hernán Cronin [facility] 11-18-2021 Note HNO ID: [id number] Author: Francia Young MD Service: ? Author Type: Physician Type: Progress Notes Filed: 11/21/2021 11:12 AM Note Text: VIRTUAL VISIT PROGRESS NOTE November 18, 2021 This is a virtual visit using [employer] video visit. The patient is a 41-year-old [...] patient after the visit with Dr. Montana [facility] 10-08-2021 Note HNO ID: [id number] Author: Jerome Montana MD Service: ? Author [...] and Flovent inhalers and oral steroids at [facility] near [place], [place] CXR revealed RLL pneumonia. Her D-Dimers [...] 2021! Does 30 min of walking on [employer] Able to climb a flight of stairs. [...] visit] No CXR or PFTs available. 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 Doubt PAH [...] time > 45 min Jerome Montana MD [facility] Summary Purpose Family History No Family History Records FoundNo Family History Records FoundNo Family History Records FoundNo Family History Records FoundNo Family History Records Found Advance Directives No Advanced Directives Records FoundNo Advanced Directives Records FoundNo Advanced Directives Records FoundNo Advanced Directives Records FoundNo Advanced Directives Records Found Additional Source Comments INFORMATION SOURCE (unrecogn ized section and content) DATE CREATED AUTHOR 09/24/2021 [facility] DATE CREATED AUTHOR AUTHOR'S ORGANIZ ATION 02/15/2022 [facility] DATE CREATED AUTHOR AUTHOR'S ORGANIZ ATION 12/19/2022 [facility] DATE CREATED AUTHOR AUTHOR'S ORGANIZ ATION 02/04/2023 [facility] DATE CREATED AUTHOR AUTHOR'S ORGANIZ ATION 09/02/2023 [facility] EPIC Source Comments (unrecognize d section and content) In the event this informatio n is protected by the Federal Confidentiality of Alcohol and Drug Abuse Patient Records regulations: The Federal rules restrict any use of the information to criminally investigate or prosecute any alcohol or drug abuse patient.[facility] event this information is protected by the Federal Confidentiality of Alcohol and Drug Abuse Patient Records regulations: The Federal rules restrict any use of the information to criminally investigate or prosecute any alcohol or drug abuse patient.[facility] the event this information is protected by the Federal Confidentiality of Alcohol and Drug Abuse Patient Records regulations: The Federal rules restrict any use of the information to criminally investigate or prosecute any alcohol or drug abuse patient.[facility] Reason for Visit (unrecogniz ed section and content) Reason Comments HSAT Check In (Adult) Reason Comments Results Reason Comments Forms Care Teams (unrecognized sec tion and content) Delivery Driver Relationship Specialty Start Date End Date Rudy Milan DO PCP - General Internal Medicine 01/28/17 Terra Singh MD [address] [place] [address] Referring [facility] 07/30/21 Delivery Driver Relationship Specialty Start Date End Date Rudy Milan DO PCP - General Internal Medicine 01/28/17 Terra Singh MD [address] [place] [address] Referring [facility] 07/30/21 FOR RECORDS PERTAINING TO PATIENTS [...] BE BASED ON THE PRIMARY CLINICAL RECORDS. [employer] [facility]. provides no warranty or guarantee of the accuracy or completeness of information in this document.
[2024-08-01 09:52] LABS: Basophils Percent Auto 0.5 % (0.2-2.0); Eosinophils Absolute Auto 0.2 10^3/uL (0.0-0.7); Hematocrit 40.3 % (36.0-48.0); Hemoglobin 13.3 g/dL (12.0-16.0); Immature Granulocytes Abs Auto 0.01 10^3/uL (0.00-0.03); Immature Granulocytes Pct Auto 0.1 % (0.0-0.5); Lymphocytes Absolute Auto 2.7 10^3/uL (1.2-3.8); Lymphocytes Percent Auto 32.3 % (20.5-60.0); Mean Corpuscular Hemoglobin 29.7 pg (26.7-34.0); Mean Platelet Volume 9.1 fL (9.5-13.5); Monocytes Absolute Auto 0.5 10^3/uL (0.3-0.8); Monocytes Percent Auto 6.3 % (1.7-12.0); Neutrophils Absolute Auto 4.9 10^3/uL (1.4-6.5); Neutrophils Percent Auto 58.8 % (43.0-75.0); Platelet Count 337 10^3/uL (150-450); Red Blood Count 4.48 10^6/uL (4.20-5.40); Red Cell Distribution Width 12.4 % (11.0-15.0); White Blood Count 8.4 10^3/uL (4.0-11.0)
[2024-08-01 11:56] LABS: Alanine Aminotransferase 16 U/L (14-59); Albumin Globulin Ratio 1.1; Albumin Level 3.8 g/dL (3.4-5.0); Alkaline Phosphatase 62 U/L (46-116); Anion Gap 14.1; Aspartate Amino Transferase 14 U/L (15-37); BUN Creatinine Ratio 8.2; Bilirubin Total 0.6 mg/dL (0.2-1.0); Calcium 9.9 mg/dL (8.5-10.1); Carbon Dioxide 28.3 mmol/L (21.0-32.0); Chloride 103 mmol/L (98-107); Chol HDL Ratio 3.8; Cholesterol 219 mg/dL (<=200); Estimated GFR (African America >60 (>=60 mL/min/1.73m^2); Estimated GFR (Non-African Ame >60 (>=60 mL/min/1.73m^2); Globulin 3.5 g/dL; Glucose 103 mg/dL (74-106); HDL Cholesterol 58 mg/dL (40-60); Potassium 4.4 mmol/L (3.5-5.1); Sodium 141 mmol/L (136-145); Thyroid Stimulating Hormone 1.172 uIU/mL (0.358-3.740); Total Protein 7.3 g/dL (6.4-8.2); Triglycerides 121 mg/dL (<=150); VLDL CHOLESTEROL 24.2 mg/dL
[2024-08-02 02:16] LABS: Estimated Average Glucose 103 mg/dL; Glycohemoglobin A1C 5.2 % (4.5-6.2)
== END 2024-08-01 09:33 | disposition home or self-care (01) ==
LOC: LAB 09:33
PROVIDERS: PCP Family Medicine; Visit Provider Obstetrics & Gynecology
DX: Z00.00 Encounter for general adult medical examination without abnormal findings (principal)
CPT/HCPCS: 36415; 80053; 80061; 83036; 84443; 85025

== ENCOUNTER 2024-09-07 15:01 | Outpatient (OUT) | payer BC, SELFPAY ==
--- NOTE | 2024-09-07 15:25 | MM_ITS ---
Patient Name: PIOTR FREEMAN MR#: [id number] : 1980 Exam Date: 09/07/2024 Ordering Doctor: DR Mando Back . RADIOLOGY REPORT PROCEDURE: MM TOMOSYNTHESIS SCREENING BI COMPARISON: MG MAMM SCREEN 3D AMIRA CAD, 09/02/2022. MM TOMOSYNTHESIS SCREENING BI, 09/06/2023. INDICATIONS: Screening Calculator Name NCI Breast Cancer Risk Assessment Tool 5 Year Breast Cancer Risk 1.60% Lifetime Breast Cancer Risk 11.00% Personal Breast Cancer No Personal Ovarian Cancer No Treatments None Family Cancers Grandmother-maternal with breast cancer at age ~63. LOCATION: [facility] BREAST COMPOSITION: The breasts are heterogeneously dense,which may obscure small masses. FINDINGS: DIAGNOSTIC CATEGORY 1--NEGATIVE. NO CHANGE FROM COMPARISON ASSESSMENT. Scattered benign-appearing lymph nodes are present. RIGHT BREAST: No significant suspicious finding. LEFT BREAST: No significant suspicious finding. Micro clip marker upper outer quadrant, posterior breast, stable RECOMMENDATIONS: ROUTINE MAMMOGRAM AND CLINICAL EVALUATION IN 12 MONTHS. PLEASE NOTE: A NORMAL MAMMOGRAM DOES NOT EXCLUDE THE POSSIBILITY OF BREAST CANCER. A CLINICALLY SUSPICIOUS PALPABLE LUMP SHOULD BE BIOPSIED. Dictated by: Bam Deshpande MD on 09/08/2024 at 10:08 Approved by: Bam Deshpande MD on 09/08/2024 at 10:09
== END 2024-09-07 15:02 | disposition home or self-care (01) ==
LOC: MAMMO 15:01
PROVIDERS: PCP Obstetrics & Gynecology; Visit Provider Obstetrics & Gynecology
DX: Z12.31 Encounter for screening mammogram for malignant neoplasm of breast (principal); Z80.3 Family history of malignant neoplasm of breast
CPT/HCPCS: 77063; 77067

== ENCOUNTER 2024-09-14 19:01 | Outpatient (REF) | payer BC, SELFPAY ==
--- OUTSIDE RECORDS SUMMARY | 2024-09-14 19:05 | XMS_ITS | CCD ---
Author Organization [facility] Care Team Providers Care Valve Technician Name Role Phone Rudy Milan DO Primary Care Provider Terra Singh MD Unavailable MELITA RODRÍGUEZ Attending Unavailable HOY ., DR ELLISON Admitting Unavailable HOY ., DR ELLISON Primary Care Unavailable HOY ., DR ELLISON Consulting Unavailable HOY ., DR ELLISON Attending Unavailable BEVERLY, KEVIN Attending Unavailable BEVERLY, KEVIN Admitting Unavailable HOY ., DR ELLISON Primary Care Unavailable NAZANIN ., DR TOM Consulting Unavailable NAZANIN ., DR TOM Attending Unavailable HOY ., DR ELLISON Primary Care Unavailable NAZANIN ., DR TOM Admitting Unavailable NAZANIN ., DR TOM Admitting Unavailable NAZANIN ., DR TOM Consulting Unavailable NAZANIN ., DR TOM Attending Unavailable HOY ., DR ELLISON Primary Care Unavailable HOY ., DR ELLISON Admitting Unavailable HOY ., DR ELLISON Primary Care Unavailable HOY ., DR ELLISON Consulting Unavailable HOY ., DR ELLISON Attending Unavailable POLICARO, ANN MARIE Consulting Unavailable HOY ., DR ELLISON Primary Care Unavailable NAZANIN ., DR TOM Consulting Unavailable NAZANIN ., DR TOM Attending Unavailable NAZNAIN ., DR TOM Admitting Unavailable HOY ., DR ELLISON Primary Care Unavailable NAZANIN ., DR TOM Attending Unavailable NAZANIN ., DR TOM Admitting Unavailable BOSS, DR BRANDY Stat[place] Consulting Unavailable NAZANIN ., DR TOM Consulting Unavailable NAZANIN ., DR TOM Consulting Unavailable NAZANIN ., DR TOM Attending Unavailable NAZANIN ., DR TOM Admitting Unavailable HOY ., DR ELLISON Primary Care Unavailable BEVERLY, KEVIN Attending Unavailable BEVERLY, KEVIN Admitting Unavailable BEVERLY, KEVIN Consulting Unavailable DR TERRA PRITCHARD Primary Care Unavailable DOUG LOMAX Consulting Unavailable KEVIN PAUL Attending Unavailable KEVIN PAUL Admitting Unavailable DR TERRA PRITCHARD Primary Care Unavailable DR JOB CHANDLER Consulting Unavailable KEVIN PAUL Consulting Unavailable NEGRO BACK Attending Unavailable Terra Singh MD Primary Care Provider [phone] Allergies Allergy Classification Reported Allergen(s) Allergy Type Date of Onset Reaction(s) Facility (4 sources) Amoxicillin; Translations: [AMOXICILLIN] Drug Allergy 7 Hives [facility] (3 sources) Benzalkonium Drug Allergy 7 Rash [facility] (4 sources) Meperidine Drug Allergy 7 Shortness of Breath, Other, Unknown [facility] (2 sources) Meperidine; Translations: [MEPERIDINE] Drug Allergy 7 Shortness of breath, Unknown [facility] (1 source) NEOMYCIN-BACITRA CNZN-POLYMYXNB; Translations: [NEOMYCIN-BACITR ACNZN-POLYMYXNB] Propensity to adverse reactions to drug (disorder) 3 [facility] (1 source) Amoxicillin Drug Allergy 6 [facility] (1 source) Bacitracin / Neomycin / Polymyxin B Drug Allergy 6 [facility] (1 source) Meperidine Drug Allergy 6 [facility] (1 source) Bacitracin / Polymyxin B Drug Allergy 3 Rash, Unknown [facility] (1 source) Benzalkonium Drug Allergy 7 Rash [facility] (1 source) Other Allergy to substance 3 [facility] Medications Current Medications Medication Drug Class(es) Dates Sig (Normalized) Sig (Original) [id number] 200 actuat albuterol 0.09 mg/actuat metered dose inhaler (4 sources) beta2-Adrenergic Agonist albuterol HFA 90 mcg/act inhaler Active albuterol HFA (P ROVENTIL HFA, VENTOLIN HFA) 90 mcg/actuation inhaler albuterol sulfate HFA 90 mcg/actuation aerosol inhaler 0 Active Comment on above: albuterol sulfate HF A 90 mcg/actuation aerosol inhaler ascorbic acid 500 mg extended release oral capsule (4 sources) Vitamin C ascorbic acid (V itamin C) 500 MG ER capsule Active Ascorbic Acid (V ITAMIN C) 500 mg cpER cholecalciferol 0.05 mg oral capsule (1 source) Vitamin D cholecalciferol (Vitamin D-3) 50 MCG (2000 UT) capsule Vitamin D Active citalopram 20 mg oral tablet (5 sources) Serotonin Reuptake Inhibitor Start: 03-09-20 take 1 tablet by mouth once daily citalopram (CeleXA) 20 MG tablet Indications: Mood changes TAKE 1 TABLET BY MOUTH EVERY DAY 90 tablet 1 03/09/2024 Active Start: 08-31-2023 End: 08-30-2024 take 1 tablet by mouth in the morning citalopram (CeleXA) 10 MG tablet Indications: Mood changes Take 1 tablet (10 mg) by mouth in the morning. Pt combining 10mg and 20 mg for a 30mg celexa. 30 tablet 11 08/31/2023 08/30/2024 Active Start: 10-06-2020 citalopram (CE TOO) 20 mg tablet q 24 HR. 0 10/06/2020 Active Comment on above: q 24 HR. 0.25 mg, 0.5 mg dose 1.5 ml semaglutide 1.34 mg/ml pen injector (3 sources) Start: 02-17-2024 inject 0.5 mg by subcutaneous injection every week semaglutide (Ozempic) 2 MG/1.5ML solution pen-injector Indications: Diabetes mellitus due to underlying condition without complication, unspecified whether emt intermediate insulin use (CMS/HCC) , Type II diabetes mellitus with complication (CMS/[facility]) inject 0.5 mg under the skin 1 (one) time per week for 4 doses 1 each 1 02/17/2024 Active Start: 02-01-2024 semaglutide (O zempic) 2 MG/1.5ML solution pen-injector Indications: Insulin resistance Inject 0.63mL (2.268mg) once weekly as directed. 2.52 mL 02/01/2024 Active Start: 08-31-2023 inject 1 mg by subcu taneous injection every week semaglutide (Ozempic, 0.25 or 0.5 MG/DOSE,) 2 MG/1.5ML solution pen-injector Indications: Diabetes mellitus due to underlying condition without complication, unspecified whether fpc insulin use ([facility]) Inject 1 mg under the skin 1 (one) time per week 4 mL 1 08/31/2023 Active zinc gluconate 77 mg oral lo zenge (1 source) Zinc 10 MG lozen ge Zinc Active Completed/Discontinued Medications Medication Drug Class(es) Dates Sig (Normalized) Sig (Original) atorvastatin 20 mg oral tablet (4 sources) HMG-CoA Reductase Inhibitor Start: 09-01-2021 take 1 tablet by mouth once daily atorvastatin (LIPITOR) 20 mg tablet atorvastatin 20 mg tablet Take 1 tablet every day by oral route. 0 09/01/2021 Active Comment on above: atorvastatin 20 mg t ablet Take 1 tablet every day by oral route. 24 hr metoprolol succinate 25 mg extended [...] Test Name Value Interpretation Reference Range Facility ALL CBC WITH AUTO DIFFon BASOPHILS ABSOLUTE AUTO 0 [facility] Basophils/100 WBC (Bld) 0.5 % 0.2 - 2.0 % [facility] Eosinophils/100 WBC (Bld) 2 % 0.9 - 7.0 % [facility] Erythrocyte distribution width (RBC) [Ratio] 12.4 % 11.0 - 15.0 % [facility] Hematocrit (Bld) [Volume fraction] 40.3 % 36.0 - 48.0 % [facility] Hemoglobin (Bld) [Mass/Vol] 13.3 g/dL 12.0 - 16.0 g/dL [facility] IMMATURE GRANULOCYTES ABS AUTO 0.01 [facility] Immature granulocytes/100 WBC (Bld) 0.1 % 0.0 - 0.5 % [facility] Interpretation and review of laboratory results Abnormal [facility] LYMPHOCYTES ABSOLUTE AUTO 2.7 [facility] Lymphocytes/100 WBC (Bld) 32.3 % 20.5 - 60.0 % [facility] MCH (RBC) [Entitic mass] 29.7 pg 26.7 - 34.0 pg [facility] MCHC (RBC) [Mass/Vol] 33 g/dL 29.9 - 35.2 g/dL [facility] MCV (RBC) [Entitic vol] 90 fL 81.0 - 99.0 fL [facility] MONOCYTES ABSOLUTE AUTO 0.5 [facility] Monocytes/100 WBC (Bld) 6.3 % 1.7 - 12.0 % [facility] NEUTROPHILS ABSOLUTE AUTO 4.9 [facility] Neutrophils/100 WBC (Bld) 58.8 % 43.0 - 75.0 % [facility] Platelet mean volume (Bld) [Entitic vol] 9.1 fL Low 9.5 - 13.5 fL [facility] TBH EO # 0.2 [facility] TB PLT [address] [facility] RBC 4.48 [facility] TB WBC 8.4 [facility] BUNon 01-28-2023 Urea nitrogen [Mass/Vol] 7.0 mg/dL Normal 7.0-18.0 [facility] Comment on above: Performed By: #### U AMIC #### [facility] [address] [place] [address] Dr. Jorge Sierra CALCIUMon 01-28-2023 Calcium [Mass/Vol] 9.4 mg/dL Normal 8.5-10.1 [facility] Comment on above: Performed By: #### U AMIC #### [facility] [address] [place] [address] Dr. Jorge Sierra CBC AUTO DIFFon 01-28-2023 BASO # 0.1 103/ul Normal 0.0-0.1 [facility] Comment on above: Performed By: #### C BC #### [facility] [address] [place] [address] Dr. Jorge Sierra Basophils/100 WBC (Bld) 0.5 % Normal 0.2-2.0 [facility] Comment on above: Performed By: #### C BC #### [facility] [address] [place] [address] Dr. Jorge Sierra EO # 0.2 103/ul Normal 0.0-0.7 [facility] Comment on above: Performed By: #### C BC #### [facility] [address] [place] [address] Dr. Jorge Sierra Eosinophils/100 WBC (Bld) 2.1 % Normal 0.9-7.0 [facility] Comment on above: Performed By: #### C BC #### [facility] [address] [place] [address] Dr. Jorge Sierra Erythrocyte distribution width (RBC) [Ratio] 13.1 % Normal 11.0-15.0 [facility] Comment on above: Performed By: #### C BC #### [facility] [address] [place] [address] Dr. Jorge Sierra Hematocrit (Bld) [Volume fraction] 39.9 % Normal 36.0-48.0 [facility] Comment on above: Performed By: #### C BC #### [facility] [address] [place] [address] Dr. Jorge Sierra Hemoglobin (Bld) [Mass/Vol] 13.4 g/dL Normal 12.0-16.0 [facility] Comment on above: Performed By: #### C BC #### [facility] [address] [place] [address] Dr. Jorge Sierra IG # 0.03 10e3/ul Normal 0.00-0.03 [facility] Comment on above: Performed By: #### C BC #### [facility] [address] [place] [address] Dr. Jorge Sierra IG % 0.3 % Normal 0.0-0.5 [facility] Comment on above: Performed By: #### C BC #### [facility] [address] [place] [address] Dr. Jorge Sierra LYMPH # 3.1 103/ul Normal 1.2-3.8 [facility] Comment on above: Performed By: #### C BC #### [facility] [address] [place] [address] Dr. Jorge Sierra Lymphocytes/100 WBC (Bld) 31.4 % Normal 20.5-60.0 [facility] Comment on above: Performed By: #### C BC #### [facility] [address] [place] [address] Dr. Jorge Sierra MANUAL DIFF REQ NO Normal [facility] Comment on above: Performed By: #### C BC #### [facility] [address] [place] [address] Dr. Jorge Sierra MCH (RBC) [Entitic mass] 30.4 pg Normal 26.7-34.0 [facility] Comment on above: Performed By: #### C BC #### [facility] [address] [place] [address] Dr. Jorge Sierra MCHC (RBC) [Mass/Vol] 33.6 g/dL Normal 29.9-35.2 [facility] Comment on above: Performed By: #### C BC #### [facility] [address] [address] [address] Jorge Sierra MCV (RBC) [Entitic vol] 90.5 fL Normal 81.0-99.0 [facility] Comment on above: Performed By: #### C BC #### [facility] [address] [address] [address] Jorge Sierra MONO # 0.5 103/ul Normal 0.3-0.8 [facility] Comment on above: Performed By: #### C BC #### [facility] [address] [address] [address] Jorge Sierra Monocytes/100 WBC (Bld) 5.3 % Normal 1.7-12.0 [facility] Comment on above: Performed By: #### C BC #### [facility] [address] [place] [address] Dr. Jorge Sierra NEUT # 5.9 103/ul Normal 1.4-6.5 [facility] Comment on above: Performed By: #### C BC #### [facility] [address] [place] [address] Dr. Jorge Sierra Neutrophils/100 WBC (Bld) 60.4 % Normal 43.0-75.0 [facility] Comment on above: Performed By: #### C BC #### [facility] [address] [place] [address] Dr. Jorge Sierra Platelet mean volume (Bld) [Entitic vol] 8.9 fL Critically low 9.5-13.5 [facility] Comment on above: Performed By: #### C BC #### [facility] [address] [place] [address] Dr. Jorge Sierra PLT 340 103/ul Normal 150-450 [facility] Comment on above: Performed By: #### C BC #### [facility] [address] [place] [address] Dr. Jorge Sierra RBC 4.41 106/ul Normal 4.20-5.40 [facility] Comment on above: Performed By: #### C BC #### [facility] [address] [address] [address] Jorge Sierra WBC 9.8 103/ul Normal 4.0-11.0 [facility] Comment on above: Performed By: #### C BC #### [facility] [address] [place] [address] Dr. Jorge Sierra CREATININEon 01-28-2023 Creatinine [Mass/Vol] 0.81 mg/dL Normal 0.55-1.02 [facility] Comment on above: Performed By: #### C BC #### [facility] [address] [place] [address] Dr. Jorge Sierra EGFR-AF GIBRALTARIAN >60 Normal >=60 [facility] Comment on above: Performed By: #### C BC #### [facility] [address] [place] [address] Dr. Jorge Sierra EGFR-NON AF GIBRALTARIAN >60 Normal >=60 [facility] Comment on above: Performed By: #### C BC #### [facility] [address] [place] [address] Dr. Jorge Sierra ELECTROLYTESon 01-28-2023 Anion gap [Moles/Vol] 11.2 mmol/L Normal [facility] Comment on above: Performed By: #### U AMIC #### [facility] [address] [place] [address] Dr. Jorge Sierra Chloride [Moles/Vol] 103 mmol/L Normal 98-107 [facility] Comment on above: Performed By: #### U AMIC #### [facility] [address] [place] [address] Dr. Jorge Sierra CO2 [Moles/Vol] 27.4 mmol/L Normal 21.0-32.0 [facility] Comment on above: Performed By: #### U AMIC #### [facility] [address] [place] [address] Dr. Jorge Sierra Potassium [Moles/Vol] 3.6 mmol/L Normal 3.5-5.1 [facility] Comment on above: Performed By: #### U AMIC #### [facility] [address] [place] [address] Dr. Jorge Sierra Sodium [Moles/Vol] 138 mmol/L Normal 136-145 [facility] Comment on above: Performed By: #### U AMIC #### [facility] [address] [place] [address] Dr. Jorge Sierra MAGNESIUMon 01-28-2023 Magnesium [Mass/Vol] 1.9 mg/dL Normal 1.8-2.4 [facility] Comment on above: Performed By: #### U AMIC #### [facility] [address] [place] [address] Dr. Jorge Sierra UA RANDOM W/MICROSCOPICon BACTERIA TRACE Abnormal NONE SEEN [facility] Comment on above: Performed By: #### U AMIC #### [facility] [address] [place] [address] Dr. Jorge Sierra Bilirubin Ql (U) Negative Normal NEGATIVE [facility] Comment on above: Performed By: #### U AMIC #### [facility] [address] [place] [address] Dr. Jorge Sierra CAST NONE SEEN Normal NONE SEEN [facility] Comment on above: Performed By: #### U AMIC #### [facility] [address] [place] [address] Dr. Jorge Sierra Clarity (U) CLEAR Normal CLEAR [facility] Comment on above: Performed By: #### U AMIC #### [facility] [address] [place] [address] Dr. Jorge Sierra Color (U) YELLOW Normal YELLOW [facility] Comment on above: Performed By: #### U AMIC #### [facility] [address] [place] [address] Dr. Jorge Sierra Crystals LM Nom (Urine sed) NONE SEEN Normal NONE SEEN [facility] Comment on above: Performed By: #### U AMIC #### [facility] [address] [place] [address] Dr. Jorge Sierra Epithelial cells LM Ql (Urine sed) MODERATE Abnormal NONE SEEN /RARE [facility] Comment on above: Performed By: #### U AMIC #### [facility] [address] [address] [address] Jorge Sierra Glucose Ql (U) Negative Normal NEGATIVE [facility] Comment on above: Performed By: #### U AMIC #### [facility] [address] [address] [address] Jorge Sierra Hemoglobin Ql (U) Negative Normal NEGATIVE [facility] Comment on above: Performed By: #### U AMIC #### [facility] [address] [address] [address] Jorge Sierra Ketones Ql (U) TRACE Abnormal NEGATIVE [facility] Comment on above: Performed By: #### U AMIC #### [facility] [address] [address] [address] Jorge Sierra LEUKOCYTES Negative Normal NEGATIVE [facility] Comment on above: Performed By: #### U AMIC #### [facility] [address] [address] [address] Jorge Sierra MUCOUS TRACE Abnormal NONE SEEN [facility] Comment on above: Performed By: #### U AMIC #### [facility] [address] [address] [address] Jorge Sierra Nitrite Ql (U) Negative Normal NEGATIVE [facility] Comment on above: Performed By: #### U AMIC #### [facility] [address] [address] [address] Jorge Sierra pH (U) 5.5 [pH] Normal 5-9 [facility] Comment on above: Performed By: #### U AMIC #### [facility] [address] [address] [address] Joreg Sierra RBC 0-2 Normal 0-2 [facility] Comment on above: Performed By: #### U AMIC #### [facility] [address] [address] [address] Jorge Sierra SPEC GRAVITY >=1.030 Abnormal 1.005-<=1.025 [facility] Comment on above: Performed By: #### U AMIC #### [facility] [address] [address] [address] Jorge Sierra UA PROTEIN TRACE Normal NEGATIVE/ TRACE [facility] Comment on above: Performed By: #### U AMIC #### [facility] [address] [address] [address] Jorge Sierra Urobilinogen Qn (U) 1.0 {Nya'U}/dL Normal 0.2 - 1. 0 [facility] Comment on above: Performed By: #### U AMIC #### [facility] [address] [address] [address] Jorge Sierra WBC NONE SEEN Normal NONE SEEN [facility] Comment on above: Performed By: #### U AMIC #### [facility] [address] [place] [address] Dr. Jorge Sierra Office Visiton 12-16-2022 Follow-up visit [id number] Piotr Freeman 1980 F Date Provider Department Center 12/16/2022 MELITA ELIZABETH [facility] No family history on file Level of Service:65303 LA OFFICE/OUTPATIENT ESTABLISHED MOD MDM 30-39 MIN Reason for Visit and Comments: Chest Pain [657550] Shortness of Breath [409609] Hyperlipidemia [182] sinus tachycardia [Other] Normal [facility] PAP ACOG PANEL 2: 30 to 65on 09-05-2022 . . Normal [facility] Comment on above: Result Comment: Perf ormed at: BA Performed By: #### U AMIC #### [facility] [address] [place] [address] Dr. Jorge Sierra Age Gdln ACOG Testing 30-65 Normal [facility] Comment on above: Performed By: #### U AMIC #### [facility] [id number] Jorge Sierra DIAGNOSIS: Comment Normal [facility] Comment on above: Result Comment: NEGA TIVE FOR INTRAEPITHELIAL LESION OR MALIGNANCY. FUNGAL ORGANISMS MORPHOLOGICALLY CONSISTENT WITH STONEY SPECIES ARE PRESENT. THIS SPECIMEN WAS RESCREENED PART OF OUR STUDIO DATA ANALYST PROGRAM. Performed at: BA Performed By: #### U AMIC #### [facility] [address] [place] [address] Dr. Jorge Sierra HPV Aptima Negative Normal Negative [facility] Comment on above: Result Comment: This nucleic acid amplification test detects fourteen high-risk HPV types (16,18,31,33,35,39,45,51,52,56,58,59,66,68) without differentiation. Performed at: =G Performed By: #### U AMIC #### [facility] [address] [place] [address] Dr. Jorge Sierra HPV Genotype Reflex Comment Normal [facility] Comment on above: Result Comment: Crit eria not met, HPV Genotype not performed. Performed at: BA Performed By: #### U AMIC #### [facility] [address] [place] [address] Dr. Jorge Sierra Methodology: Comment Normal [facility] Comment on above: Result Comment: This liquid based ThinPrep(R) pap test was screened with the use of an image guided system. Performed at: WB Performed By: #### U AMIC #### [facility] [address] [place] [address] Dr. Jorge Seirra Note: Comment Normal [facility] Comment on above: Result Comment: The Pap smear is a screening test designed to aid in the detection of premalignant and malignant conditions of the uterine cervix. It is not a diagnostic procedure and should not be used as the sole means of detecting cervical cancer. Both false-positive and false-negative reports do occur. . Performed at: WB Performed By: #### U AMIC #### [facility] [address] [place] [address] Dr. Jorge Sierra Performed by: Comment Normal [facility] Comment on above: Result Comment: Trey Phillips, Property Man Performed at: BA Performed By: #### U AMIC #### [facility] [address] [place] [address] Dr. Jorge Sierra QC reviewed by: Comment Normal [facility] Comment on above: Result Comment: Anabela Bettencourt, Property Man (ASCP) Performed at: BA Performed By: #### U AMIC #### [facility] [address] [place], [place] [address] Dr. Jorge Sierra Specimen adequacy: Comment Normal [facility] Comment on above: Result Comment: Sati sfactory for evaluation. No endocervical component is identified. The absence of an endocervical component was confirmed by an additional screening evaluation. Performed at: Performed By: #### U AMIC #### [facility] [address] [address] [address] Jorge Sierra MG MAMM SCREEN 3D AMIRA CADon 09-02-2022 MG MAMM SCREEN 3D AMIRA CAD Patient: PIOTR FREEMAN Exam Date: 09/02/2022 : 1980 Gender:F Ordering : DR NEGRO BACK . Admission #: [id number] Family : Order #: [id number] CLICK HERE TO VIEW EXAM RADIOLOGY REPORT [...] breast cancer at age 62. LOCATION: [facility] BREAST COMPOSITION: Heterogeneously dense,which may obscure small [...] Deshpande MD on 09/02/2022 at 09:22 Normal [facility] MRI ANKLE RT WO CONon 2021 MRI [...] by: DOUG LOMAX Date: 2022-08-27 13:28 Normal [facility] XR FOOT AMIRA MIN 3 VIEWSon XR [...] JOB CHANDLER Date: 2022-06-30 16:22 Normal [facility] CBC AUTO DIFFon 05-21-2022 BASO # 0.0 103/ul Normal 0.0-0.1 [facility] Comment on above: Performed By: #### U AMIC #### [facility] [address] [place] [address] Dr. Jorge Sierra Basophils/100 WBC (Bld) 0.3 % Normal 0.2-2.0 [facility] Comment on above: Performed By: #### U AMIC #### [facility] [address] [place] [address] Dr. Jorge Sierra EO # 0.2 103/ul Normal 0.0-0.7 [facility] Comment on above: Performed By: #### U AMIC #### [facility] [address] [place] [address] Dr. Jorge Sierra Eosinophils/100 WBC (Bld) 2.2 % Normal 0.9-7.0 [facility] Comment on above: Performed By: #### U AMIC #### [facility] [address] [place] [address] Dr. Jorge Sierra Erythrocyte distribution width (RBC) [Ratio] 13.0 % Normal 11.0-15.0 [facility] Comment on above: Performed By: #### U AMIC #### [facility] [address] [place] [address] Dr. Jorge Sierra Hematocrit (Bld) [Volume fraction] 37.5 % Normal 36.0-48.0 [facility] Comment on above: Performed By: #### U AMIC #### [facility] [address] [place] [address] Dr. Jorge Sierra Hemoglobin (Bld) [Mass/Vol] 12.3 g/dL Normal 12.0-16.0 [facility] Comment on above: Performed By: #### U AMIC #### [facility] [address] [address] [address] Jorge Sierra IG # 0.04 10e3/ul Critically high 0.00-0.03 [facility] Comment on above: Performed By: #### U AMIC #### [facility] [address] [address] [address] Jorge Sierra IG % 0.4 % Normal 0.0-0.5 [facility] Comment on above: Performed By: #### U AMIC #### [facility] [address] [place] [address] Dr. Jorge Sierra LYMPH # 2.6 103/ul Normal 1.2-3.8 [facility] Comment on above: Performed By: #### U AMIC #### [facility] [address] [place] [address] Dr. Jorge Sierra Lymphocytes/100 WBC (Bld) 25.9 % Normal 20.5-60.0 [facility] Comment on above: Performed By: #### U AMIC #### [facility] [address] [place] [address] Dr. Jorge Sierra MANUAL DIFF REQ NO Normal [facility] Comment on above: Performed By: #### U AMIC #### [facility] [address] [address] [address] Jorge Sierra MCH (RBC) [Entitic mass] 30.2 pg Normal 26.7-34.0 [facility] Comment on above: Performed By: #### U AMIC #### [facility] [address] [address] [address] Jorge Sierra MCHC (RBC) [Mass/Vol] 32.8 g/dL Normal 29.9-35.2 [facility] Comment on above: Performed By: #### U AMIC #### [facility] [address] [place] [address] Dr. Jorge Sierra MCV (RBC) [Entitic vol] 92.1 fL Normal 81.0-99.0 [facility] Comment on above: Performed By: #### U AMIC #### [facility] [address] [place] [address] Dr. Jorge Sierra MONO # 0.6 103/ul Normal 0.3-0.8 [facility] Comment on above: Performed By: #### U AMIC #### [facility] [address] [address] [address] Jorge Sierra Monocytes/100 WBC (Bld) 5.7 % Normal 1.7-12.0 [facility] Comment on above: Performed By: #### U AMIC #### [facility] [address] [place] [address] Dr. Jorge Sierra NEUT # 6.6 103/ul Critically high 1.4-6.5 [facility] Comment on above: Performed By: #### U AMIC #### [facility] [address] [place] [address] Dr. Jorge Sierra Neutrophils/100 WBC (Bld) 65.5 % Normal 43.0-75.0 [facility] Comment on above: Performed By: #### U AMIC #### [facility] [address] [place] [address] Dr. Jorge Sierra Platelet mean volume (Bld) [Entitic vol] 8.7 fL Critically low 9.5-13.5 [facility] Comment on above: Performed By: #### U AMIC #### [facility] [address] [place] [address] Dr. Jorge Sierra PLT 292 103/ul Normal 150-450 [facility] Comment on above: Performed By: #### U AMIC #### [facility] [address] [place] [address] Dr. Jorge Sierra RBC 4.07 106/ul Critically low 4.20-5.40 [facility] Comment on above: Performed By: #### U AMIC #### [facility] [address] [place] [address] Dr. Jorge Sierra WBC 10.1 103/ul Normal 4.0-11.0 [facility] Comment on above: Performed By: #### U AMIC #### [facility] [address] [address] [address] Jorge Sierra GLYCOHEMOGLOBIN A1Con 2021 ADA RECOMMENDATION SEE BELOW Normal [facility] Comment on above: Result Comment: ADA RECOMMENDED LIMIT 4.0 - 6.0 ADA THERAPEUTIC TARGET < 7.0 ACTION SUGGESTED > 7.0 Performed By: #### U AMIC #### [facility] [address] [address] [address] Jorge Sierra Glucose [Mass/Vol] 128 mg/dL Normal [facility] Comment on above: Performed By: #### U AMIC #### [facility] [address] [place] [address] Dr. Jorge Sierra HbA1c (Bld) [Mass fraction] 6.1 % Normal 4.5-6.2 [facility] Comment on above: Performed By: #### U AMIC #### [facility] [address] [place] [address] Dr. Jorge Sierra LIPID PROFILEon 05-21-2022 CHOL-HDL RATIO NORM SEE BELOW Normal [facility] Comment on above: Result Comment: 3.3 - 4.4 LOW RISK 4.4 - 7.1 AVERAGE RISK 7.1 - 11.0 MODERATE RISK >11.0 HIGH RISK Performed By: #### U AMIC #### [facility] [address] [address] [address] Jorge Sierra Cholesterol [Mass/Vol] 184 mg/dL Normal <=200 [facility] Comment on above: Performed By: #### U AMIC #### [facility] [address] [address] [address] Jorge Sierra Cholesterol in HDL [Mass/Vol] 53 mg/dL Normal 40-60 [facility] Comment on above: Performed By: #### U AMIC #### [facility] [address] [address] [address] Jorge Sierra Cholesterol in LDL [Mass/Vol] 101.8 mg/dL Normal [facility] Comment on above: Performed By: #### U AMIC #### [facility] [address] [address] [address] Jorge Sierra Cholesterol.total/Ch olesterol in HDL [Mass ratio] 3.5 {ratio} Normal [facility] Comment on above: Performed By: #### U AMIC #### [facility] [address] [address] [address] Jorge Sierra HDL NORMAL > or = 60 mg/dl - LO W CARDIOVASCULAR RISK <40 mg/dl - HIGH CARDIOVASCULAR RISK Normal [facility] Comment on above: Performed By: #### U AMIC #### [facility] [address] [address] [address] Jorge Sierra LDL CALC NORMAL SEE BELOW Normal [facility] Comment on above: Result Comment: <100 mg/dl OPTIMAL 100 - 129 mg/dl NEAR OR ABOVE OPTIMAL 130 - 159 mg/dl BORDERLINE HIGH 160 - 189 mg/dl HIGH >190 mg/dl VERY HIGH Performed By: #### U AMIC #### [facility] [address] [address] [address] Jorge Sierra Triglyceride [Mass/Vol] 146 mg/dL Normal <=150 [facility] Comment on above: Performed By: #### U AMIC #### [facility] [address] [address] [address] Jorge Sierra VLDL CALC 29.2 mg/dL Normal [facility] Comment on above: Performed By: #### U AMIC #### [facility] [address] [address] [address] Jorge Sierra PROF 14(COMP METB)on 022 Albumin [Mass/Vol] 3.7 g/dL Normal 3.4-5.0 [facility] Comment on above: Performed By: #### U AMIC #### [facility] [address] [address] [address] Jorge Sierra Albumin/Globulin [Mass ratio] 1.1 {ratio} Normal [facility] Comment on above: Performed By: #### U AMIC #### [facility] [address] [address] [address] Jorge Sierra ALP [Catalytic activity/Vol] 70 U/L Normal 46-116 [facility] Comment on above: Performed By: #### U AMIC #### [facility] [address] [address] [address] Jorge Sierra ALT [Catalytic activity/Vol] 29 U/L Normal 14-59 [facility] Comment on above: Performed By: #### U AMIC #### [facility] [address] [address] [address] Jorge Sierra Anion gap [Moles/Vol] 13.1 mmol/L Normal [facility] Comment on above: Performed By: #### U AMIC #### [facility] [address] [address] [address] Jorge Sierra AST [Catalytic activity/Vol] 18 U/L Normal 15-37 [facility] Comment on above: Performed By: #### U AMIC #### [facility] [address] [address] [address] Jorge Sierra Bilirubin [Mass/Vol] 0.3 mg/dL Normal 0.2-1.0 [facility] Comment on above: Performed By: #### U AMIC #### [facility] [address] [address] [address] Jorge Sierra Calcium [Mass/Vol] 9.2 mg/dL Normal 8.5-10.1 [facility] Comment on above: Performed By: #### U AMIC #### [facility] [address] [address] [address] Jorge Sierra Chloride [Moles/Vol] 104 mmol/L Normal 98-107 [facility] Comment on above: Performed By: #### U AMIC #### [facility] [address] [address] [address] Jorge Sierra CO2 [Moles/Vol] 27.7 mmol/L Normal 21.0-32.0 [facility] Comment on above: Performed By: #### U AMIC #### [facility] [address] [address] [address] Jorge Sierra Creatinine [Mass/Vol] 0.80 mg/dL Normal 0.55-1.02 [facility] Comment on above: Performed By: #### U AMIC #### [facility] [address] [address] [address] Jorge Sierra EGFR-AF GIBRALTARIAN >60 Normal >=60 [facility] Comment on above: Performed By: #### U AMIC #### [facility] [address] [address] [address] Jorge Sierra EGFR-NON AF GIBRALTARIAN >60 Normal >=60 [facility] Comment on above: Performed By: #### U AMIC #### [facility] [address] [address] [address] Jorge Sierra Globulin (S) [Mass/Vol] 3.4 g/dL Normal [facility] Comment on above: Performed By: #### U AMIC #### [facility] [address] [address] [address] Jorge Sierra Glucose [Mass/Vol] 124 mg/dL Critically high 74-106 [facility] Comment on above: Performed By: #### U AMIC #### [facility] [address] [address] [address] Jorge Sierra Potassium [Moles/Vol] 4.8 mmol/L Normal 3.5-5.1 [facility] Comment on above: Performed By: #### U AMIC #### [facility] [address] [address] [address] Jorge Sierra Protein [Mass/Vol] 7.1 g/dL Normal 6.4-8.2 [facility] Comment on above: Performed By: #### U AMIC #### [facility] [address] [address] [address] Jorge Sierra Sodium [Moles/Vol] 140 mmol/L Normal 136-145 [facility] Comment on above: Performed By: #### U AMIC #### [facility] [address] [address] [address] Jorge Sierra Urea nitrogen [Mass/Vol] 10.0 mg/dL Normal 7.0-18.0 [facility] Comment on above: Performed By: #### U AMIC #### [facility] [address] [place] [address] Dr. Jorge Sierra Urea nitrogen/Creatinine [Mass ratio] 12.5 mg/mg Normal [facility] Comment on above: Performed By: #### U AMIC #### [facility] [address] [place], [place] [id number] Dr. Jorge Sierra TSHon 05-21-2022 TSH 1.454 uIU/mL Normal 0.358-3.740 [facility] Comment on above: Performed By: #### U AMIC #### [facility] [address] [place] [address] Dr. Jorge Sierra CORTISOL 24HR URINEon 2021 Cortisol,F,ug/24hr,U 18 ug/24 hr Normal 6-42 [facility] Comment on above: Performed By: #### C ORT24 #### [facility] [address] [place] [address] Dr. Jorge Sierra Cortisol,F,ug/L,U 6 ug/L Normal [facility] Comment on above: Performed By: #### C ORT24 #### [facility] [address] [place] [address] Dr. Jorge Sierra CORTISOL FREE, SERUMon 05-07 Cortisol, Free Dialysis, LCMS 0.695 ug/dL Normal [facility] Comment on above: Result Comment: Thes e tests were developed and their performance characteristics determined by [facility]. They have not been cleared or approved by the Food and Drug Administration. Reference Range: 8 AM 0.10 - 1.20 4 PM 0.042 - 0.872 Performed By: #### F RECORT #### [facility] [address] [place] [address] Dr. [facility] PIOTR FREEMAN ([id number]) 1980 F Date Time Provider Department 02/13/22 BENY CHILDRESS During your visit today, we recorded the following information about you: Leon Lomax 02/13/2022 4:48 PM Signed On 02/13 fax was sent to [facility] [phone] for referral with office notes and lab [...] Status:Closed by LEON LOMAX on 02/13/22 [facility]22 Natriuretic peptide B (Bld) [Mass/Vol] 10.0 pg/mL Normal <=450.0 [facility] Comment on above: Performed By: #### C MP, BNP, CRP, CMADM #### [facility] [address] [place] [address] Dr. Jorge Sierra CARDIAC ADAM ADMITon 022 CK [Catalytic activity/Vol] 125 U/L Normal 26-192 [facility] Comment on above: Performed By: #### C MP, BNP, CRP, CMADM #### [facility] [address] [address] [address] Jorge Sierra CK.MB [Mass/Vol] ng/mL Normal <=3.60 [facility] Comment on above: Performed By: #### C MP, BNP, CRP, CMADM #### [facility] [address] [place] [address] Dr. Jorge Sierra HSTROP <4.0 Normal 4.0-51.3 [facility] Comment on above: Result Comment: CUT- OFF POINTS HAVE BEEN ESTABLISHED BASED ON THE FOURTH UNIVERSAL DEFINITIONS OF MYOCARDIAL INFARCTION. THE UPPER REFERENCE LIMIT (URL) OF TROPONIN, DEFINED THE 99TH PERCENTILE OF cTnI DISTRIBUTION IN A REFERENCE POPULATION, HAS BEEN CONFIRMED THE DECISION THRESHOLD FOR OR DIAGNOSIS. Performed By: #### C MP, BNP, CRP, CMADM #### [facility] [address] [place] [address] Dr. Jorge Sierra EMERY 30 ng/mL Normal 9-82 [facility] Comment on above: Performed By: #### C MP, BNP, CRP, CMADM #### [facility] [address] [place] [address] Dr. Jorge Sierra CBC AUTO DIFFon 02-11-2022 BASO # 0.0 103/ul Normal 0.0-0.1 [facility] Comment on above: Performed By: #### C BC #### [facility] [address] [place] [address] Dr. Jorge Sierra Basophils/100 WBC (Bld) 0.4 % Normal 0.2-2.0 [facility] Comment on above: Performed By: #### C BC #### [facility] [address] [place] [address] Dr. Jorge Sierra EO # 0.2 103/ul Normal 0.0-0.7 [facility] Comment on above: Performed By: #### C BC #### [facility] [address] [place] [address] Dr. Jorge Sierra Eosinophils/100 WBC (Bld) 2.2 % Normal 0.9-7.0 [facility] Comment on above: Performed By: #### C BC #### [facility] [address] [place] [address] Dr. Jorge Sierra Erythrocyte distribution width (RBC) [Ratio] 12.3 % Normal 11.0-15.0 [facility] Comment on above: Performed By: #### C BC #### [facility] [address] [place] [address] Dr. Jorge Sierra Hematocrit (Bld) [Volume fraction] 39.2 % Normal 36.0-48.0 [facility] Comment on above: Performed By: #### C BC #### [facility] [address] [place] [address] Dr. Jorge Sierra Hemoglobin (Bld) [Mass/Vol] 12.9 g/dL Normal 12.0-16.0 [facility] Comment on above: Performed By: #### C BC #### [facility] [address] [place] [address] Dr. Jorge Sierra IG # 0.04 10e3/ul Critically high 0.00-0.03 [facility] Comment on above: Performed By: #### C BC #### [facility] [address] [place] [address] Dr. Jorge Sierra IG % 0.5 % Normal 0.0-0.5 [facility] Comment on above: Performed By: #### C BC #### [facility] [address] [place] [address] Dr. Jorge Sierra LYMPH # 2.2 103/ul Normal 1.2-3.8 [facility] Comment on above: Performed By: #### C BC #### [facility] [address] [place] [address] Dr. Jorge Sierra Lymphocytes/100 WBC (Bld) 27.5 % Normal 20.5-60.0 [facility] Comment on above: Performed By: #### C BC #### [facility] [address] [place] [address] Dr. Jorge Sierra MANUAL DIFF REQ NO Normal [facility] Comment on above: Performed By: #### C BC #### [facility] [address] [place] [address] Dr. Jorge Sierra MCH (RBC) [Entitic mass] 29.7 pg Normal 26.7-34.0 [facility] Comment on above: Performed By: #### C BC #### [facility] [address] [place] [address] Dr. Jorge Sierra MCHC (RBC) [Mass/Vol] 32.9 g/dL Normal 29.9-35.2 [facility] Comment on above: Performed By: #### C BC #### [facility] [address] [place] [address] Dr. Jorge Sierra MCV (RBC) [Entitic vol] 90.3 fL Normal 81.0-99.0 [facility] Comment on above: Performed By: #### C BC #### [facility] [address] [place] [address] Dr. Jorge Sierra MONO # 0.5 103/ul Normal 0.3-0.8 [facility] Comment on above: Performed By: #### C BC #### [facility] [address] [place] [address] Dr. Jorge Sierra Monocytes/100 WBC (Bld) 6.6 % Normal 1.7-12.0 [facility] Comment on above: Performed By: #### C BC #### [facility] [address] [place] [address] Dr. Jorge Sierra NEUT # 5.1 103/ul Normal 1.4-6.5 [facility] Comment on above: Performed By: #### C BC #### [facility] [address] [place] [address] Dr. Jorge Sierra Neutrophils/100 WBC (Bld) 62.8 % Normal 43.0-75.0 [facility] Comment on above: Performed By: #### C BC #### [facility] [address] [place] [address] Dr. Jorge Sierra Platelet mean volume (Bld) [Entitic vol] 8.6 fL Critically low 9.5-13.5 [facility] Comment on above: Performed By: #### C BC #### [facility] [address] [place] [address] Dr. Jorge Sierra PLT 331 103/ul Normal 150-450 [facility] Comment on above: Performed By: #### C BC #### [facility] [address] [place] [address] Dr. Jorge Sierra RBC 4.34 106/ul Normal 4.20-5.40 [facility] Comment on above: Performed By: #### C BC #### [facility] [address] [place] [address] Dr. Jorge Sierra WBC 8.1 103/ul Normal 4.0-11.0 [facility] Comment on above: Performed By: #### C BC #### [facility] [address] [place] [address] Dr. Jorge Sierra CRPon 02-11-2022 CRP [Mass/Vol] mg/L Normal <=1.0 [facility] Comment on above: Performed By: #### C MP, BNP, CRP, CMADM #### [facility] [address] [place] [address] Dr. Jorge Sierra CTA CHEST WO W [...] MARIE JORDAN Date: 2022-02-11 18:56 Normal [facility] PROF 14(COMP METB)on 05-18-2 022 Albumin [Mass/Vol] 3.6 g/dL Normal 3.4-5.0 [facility] Comment on above: Performed By: #### C MP, BNP, CRP, CMADM #### [facility] [address] [place] [address] Dr. Jorge Sierra Albumin/Globulin [Mass ratio] 1.0 {ratio} Normal [facility] Comment on above: Performed By: #### C MP, BNP, CRP, CMADM #### [facility] [address] [place] [address] Dr. Jorge Sierra ALP [Catalytic activity/Vol] 71 U/L Normal 46-116 [facility] Comment on above: Performed By: #### C MP, BNP, CRP, CMADM #### [facility] [address] [place] [address] Dr. Jorge Sierra ALT [Catalytic activity/Vol] 28 U/L Normal 14-59 [facility] Comment on above: Performed By: #### C MP, BNP, CRP, CMADM #### [facility] [address] [place] [address] Dr. Jorge Sierra Anion gap [Moles/Vol] 9.5 mmol/L Normal [facility] Comment on above: Performed By: #### C MP, BNP, CRP, CMADM #### [facility] [address] [place] [address] Dr. Jorge Sierra AST [Catalytic activity/Vol] 29 U/L Normal 15-37 [facility] Comment on above: Performed By: #### C MP, BNP, CRP, CMADM #### [facility] [address] [place] [address] Dr. Jorge Sierra Bilirubin [Mass/Vol] 0.5 mg/dL Normal 0.2-1.0 [facility] Comment on above: Performed By: #### C MP, BNP, CRP, CMADM #### [facility] [address] [place] [address] Dr. Jorge Sierra Calcium [Mass/Vol] 9.3 mg/dL Normal 8.5-10.1 [facility] Comment on above: Performed By: #### C MP, BNP, CRP, CMADM #### [facility] [address] [address] [address] Jorge Sierra Chloride [Moles/Vol] 96 mmol/L Critically low 98-107 [facility] Comment on above: Performed By: #### C MP, BNP, CRP, CMADM #### [facility] [address] [place] [address] Dr. Jorge Sierra CO2 [Moles/Vol] 32.5 mmol/L Critically high 21.0-32.0 [facility] Comment on above: Performed By: #### C MP, BNP, CRP, CMADM #### [facility] [address] [place] [address] Dr. Jorge Sierra Creatinine [Mass/Vol] 0.73 mg/dL Normal 0.55-1.02 [facility] Comment on above: Performed By: #### C MP, BNP, CRP, CMADM #### [facility] [address] [place] [address] Dr. Jorge Sierra EGFR-AF GIBRALTARIAN >60 Normal >=60 [facility] Comment on above: Performed By: #### C MP, BNP, CRP, CMADM #### [facility] [address] [place] [address] Dr. Jorge Sierra EGFR-NON AF GIBRALTARIAN >60 Normal >=60 [facility] Comment on above: Performed By: #### C MP, BNP, CRP, CMADM #### [facility] [address] [place] [address] Dr. Jorge Sierra Globulin (S) [Mass/Vol] 3.6 g/dL Normal [facility] Comment on above: Performed By: #### C MP, BNP, CRP, CMADM #### [facility] [address] [place] [address] Dr. Jorge Sierra Glucose [Mass/Vol] 102 mg/dL Normal 74-106 [facility] Comment on above: Performed By: #### C MP, BNP, CRP, CMADM #### [facility] [address] [place] [address] Dr. Jorge Sierra Potassium [Moles/Vol] 4.0 mmol/L Normal 3.5-5.1 [facility] Comment on above: Performed By: #### C MP, BNP, CRP, CMADM #### [facility] [address] [place] [address] Dr. Jorge Sierra Protein [Mass/Vol] 7.2 g/dL Normal 6.4-8.2 [facility] Comment on above: Performed By: #### C MP, BNP, CRP, CMADM #### [facility] [address] [place] [address] Dr. Jorge Sierra Sodium [Moles/Vol] 134 mmol/L Critically low 136-145 [facility] Comment on above: Performed By: #### C MP, BNP, CRP, CMADM #### [facility] [address] [place] [address] Dr. Jorge Sierra Urea nitrogen [Mass/Vol] 13.0 mg/dL Normal 7.0-18.0 [facility] Comment on above: Performed By: #### C MP, BNP, CRP, CMADM #### [facility] [address] [place] [address] Dr. Jorge Sierra Urea nitrogen/Creatinine [Mass ratio] 17.8 mg/mg Normal [facility] Comment on above: Performed By: #### C MP, BNP, CRP, CMADM #### [facility] [address] [place] [address] Dr. Jorge Sierra SED RATE [facility] 2021 SED RATE 4 mm/hr Normal <=20 [facility] Comment on above: Performed By: #### S EDR #### [facility] [address] [place] [address] Dr. Jorge Barrera 12-31-2021 NATALIE Telephone ([facility]) PIOTR FREEMAN ([id number]) 1980 F Date Time Provider Department 12/31/21 FRANCIA YOUNG During your visit today, we recorded the [...] Encounter Status:Closed by [facility] PIOTR [facility] ([id number]) 1980 F Date Time Provider Department 11/04/21 [place] JEROMEMIA SANDY During your visit today, we recorded the [...] Encounter Status:Closed by COLT CROSS [facility]04[facility] [place] [facility] ([facility]) PIOTR FREEMAN ([id number]) 1980 F Date Time Provider Department 10/20/21 JEROME [place] During your visit today, we recorded the following information about you: Colt Cross 10/20/2021 1:21 PM Signed Uploaded scanned [facility] recs pt faxed over into their chart [...] Encounter Status:Closed by COLT CROSS on 10/20/21 [facility] 10-06-2021 [facility] PIOTR FREEMAN ([id number]) 1980 F Date Time Provider Department 10/06/21 JEROME [place] During your visit today, we recorded the following information about you: Colt Jewelstania 10/06/2021 11:04 AM Signed Put in req [...] 03/03/2017 Encounter Status:Closed by COLT CROSS on 10/06/21 Normal [facility] Cardiovascular Lab Reporton 09-17-2021 Cardiovascular Lab Report [facility] Patient Name: [facility] MR #: 01-11-89-34 Physician: Mark Burnett of [facility] Service Date: 09/17/2021 Division of Birthdate: 1980 Cardiology Room #: [facility] Cardiovascular Services [place] [address] Cardiovascular Laboratory Report INDICATION: The patient is [...] signed informed consent. 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 The right neck area was prepped and draped in usual fashion. A micropuncture technique and ultrasound guidance was used for access in the right internal jugular vein. A 6-Angolan x 11 cm sheath was placed. A 6-Angolan Chinchilla catheter was used for right heart catheterization with measurement pressures and calculation of cardiac output using the estimated Valorie method. Chinchilla catheter was removed. Modified Adrian's test was favorable on the left. Access in the left radial artery was obtained using micropuncture technique and ultrasound guidance. A 6-Angolan x 11 cm Hydrophilic sheath was advanced. Verapamil was given through the sheath and heparin was administered intravenously. Bilateral selective coronary angiography was then performed using 6-Angolan JL3.5 and JR4 diagnostic catheters. Catheters were [...] Johnson M.D. Date Trans: 09/17/2021 12:37 P/mmo [id number] cc: Terra Singh M.D. [address], [facility] [address] [facility] Encounters Encounter Date Encounter Type Care Provider Facility Start: 08-01-2024 End: 08-01-2024 Clinisync Result Encounter Negro Back DO Work Phone: [facility] Unsolicited Start: 08-01-2024 End: 08-01-2024 Clinisync Result Encounter Negro Back DO Work Phone: [facility] Unsolicited Start: 08-31-2023 End: 08-31-2023 ambulatory NEGRO BACK Not Available Start: 01-28-2023 End: 01-29-[address] TERRA SINGH . Facility:[facility] Start: 12-16-2022 End: 12-18-2022 ambulatory [facility] Start: 09-02-2022 End: 09-03-[address] TERRA SINGH . Facility:[facility] Start: 08-27-2022 End: 08-27-[address] NEGRO BACK . Facility:[facility] Start: 08-26-2022 End: 08-27-2022 ambulatory KEVIN PAUL Facility:[facility] Start: 07-17-2022 End: 08-18-2022 ambulatory KEVIN PAUL Facility:[facility] Start: 06-30-2022 End: 07-01-2022 ambulatory KEVIN PAUL Facility:[facility] Start: 05-22-2022 Encounter for genera l adult medical examination without abnormal findings DR TERRA SINGH . [facility] Start: 05-21-2022 End: 05-22-[address] TERAR SINGH . Facility:[facility] Start: 05-21-2022 End: 05-22-2022 Encounter for general adult medical examination without abnormal findings DR TERRA SINGH . Facility:[facility] Start: 04-30-2022 End: 04-30-[address] NEGRO BACK . Facility:[facility] Start: 04-29-2022 End: 04-30-[address] NEGRO BACK . Facility:[facility] Start: 02-13-2022 Telephone encounter Beny styles MD Work Phone: Endocrinology Comment on above: Forms Start: 02-11-2022 End: 02-12-[address] TERRA SINGH . Facility:[facility] Start: 12-31-2021 Telephone encounter Fracnia soriano MD Work Phone: Pulmonary Medicine Comment on above: Results Start: 11-21-2021 [facility] Work Phone: Neurology Comment on above: HSAT Check In (Adult ) Procedures Date Procedure Procedure Detail Performing Clinician Start: 08-01-2024 ALL CBC WITH AUTO DIFF Negro Back DO Work Phone: Start: 09-06-2023 Mammography Negro pacheco DO Work Phone: Start: 08-27-2022 Microscopic observat ion [Identifier] in Cervix by Cyto stain Negro Back DO Work Phone: Plan of Treatment Date Care Activity Detail Author Start: 08-27-2027 Screening for malign ant neoplasm of cervix [facility] Start: 09-14-2024 End: 09-14-2024 Patient encounter procedure 09/14/2024 8:50 AM EST Office Visit [facility] [address] [place] [address] Negro Back, DO [address] [place], [place] [id number] [facility] Start: 09-06-2024 Screening for malign ant neoplasm of breast Mammogram [facility] Start: 05-28-2024 Influenza vaccination Influenza Vacc ine (#1) [facility] Start: 05-28-2022 Influenza vaccination INFLUENZA (Sea son Ended) [facility] Start: 05-28-2021 Influenza vaccination INFLUENZA (#1) [facility] Start: 03-30-2021 COVID-19 VACCINE (3 - Booster for Moderna series) COVID-19 VACCINE (3 - Booster for Moderna series) [facility] Start: 2019 Mammography MAMMOGRAM [facility] Start: 2009 HPV TESTING HPV TESTING [facility] Start: 2000 PAP TESTING PAP TESTING [facility] Start: 1998 Urine microalbumin profile DTAP,TDAP ,TD (1 - Tdap) [facility] Start: 1997 HEPATITIS C SCREENING HEPATITIS C SC REENING [facility] Start: 1997 HIV SCREENING HIV SCREENING [facility] Start: 1991 Adult depression scr eening assessment DEPRESSION SCREENING [facility] Start: 1979 Screening for malign ant neoplasm of colon [facility] Immunizations Immunization Date Immunization Notes Care Provider Thuy daniels 07-11-2019 influenza virus vacc ine, unspecified formulation Negro Nazanin DO Work Phone: [facility] Payers Date Payer Category Payer [facility] BCBS [id number] 2022 Unknown [id number] 2020 Unknown MMO MMO SUPERMED PLUS [id number] 2020-Present [phone] [address] [place] [address] O [id number] 2019 Unknown [id number] 1980 Unknown [id number] [id number]. 593 1980 Unknown [id number] 2.16.840.1.843462.3.579.2. 593 1979 Unknown [id number] 2.16.840.1.401236.3.579.2. 593 1979 Unknown [id number] 2.16.840.1.868893.3.579.2. 593 1979 Unknown [id number] 2.16.840.1.141759.3.579.2. 593 1979 Unknown [id number] 2.16.840.1.022414.3.579.2. 593 1979 Unknown [id number] 2.16.840.1.375706.3.579.2. 593 1979 Unknown [id number] 2.16.840.1.043686.3.579.2. 593 1979 Unknown [id number] 2.16.840.1.850142.3.579.2. 593 1979 Unknown [id number] 2.16.840.1.478354.3.579.2. 593 1979 Unknown [id number] [id number]. 1259 Social History Date Type Detail Facility Start: 03-03-2017 End: 08-18-2023 Tobacco smoking status MIIS Never smoked tobacco [facility] Start: 03-03-2017 Tobacco use and exposure Smoke less tobacco non-user [facility] Start: 1980 Sex Assigned At Not on file [facility] Start: 08-31-2023 Alcoholic beverage intake Curr ent drinker of alcohol (finding) [facility] Start: 08-31-2023 History of Social function [facility] Start: 08-31-2023 Tobacco use panel [facility] Start: 08-18-2023 Alcohol Comment Occasional alcohol u se [facility] Clinical Notes 10-08-2021 to 12-16-2022 Telephone Encounter - Leon Lomax - 02/13/2022 4:45 PM EDTTelephone Encounter - Francia Young MD - 12/31/2021 8:49 AM EDJanna Davis - 12/22/2021 3:55 PM EDT Note Date & Type Note Facility 12-16-2022 Note Cardiovascular Medic ine [facility] SUBJECTIVE Chief Complaint Patient presents with Chest [...] 41-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 In June 2020 she was admitted to the [facility] with the COVID-19 infection. At that time [...] Shortness of breath and Unknown Amoxicillin Hives Tqivifkl-Cpbaruymlhb-Lwiokmgkq ROS Cardiovascular: Positive for chest pain, dyspnea [...] sounds. Abdominal: Gen (more content not included)... [facility] 12-16-2022 Note Patient here for 1 y ear follow up sinus tachycardia, chest pain, GARCIA, and palpitations s/p Covid-19 infection in Jun 2020. Still has symptoms with exertion. Sometimes HR does go up to 110 at rest. Review of Systems Cardiovascular: Positive for chest pain, dyspnea on exertion and palpitations. Neurological: Positive for light-headedness. All other systems reviewed and are negative. [facility] 02-13-2022 Miscellaneous Notes On 02/13 fax was sent to [facility] [phone] for referral with office notes and lab results. Leon Lomax documented in this encounter [facility] 12-31-2021 Miscellaneous Notes I spoke to the [...] determine next steps. documented in this encounter [facility] 12-22-2021 Note HNO ID: [id number] Author: Ina Davis Service: ? Author Type: ? Type: Progress Notes Filed: 12/22/2021 3:55 PM Note Text: Sleep Study Check-In Documentation Date: December 22, 2021 Name: Piotr Freeman Comments: HST was returned in working order with all sleep questionnaires [facility] 12-22-2021 History of Presen t illness Narrative Sleep Study Check-In Documentation Date: December 22, 2021 Name: Piotr Freeman Comments: HST was returned in working order with all sleep questionnaires [facility] Nomad: [id number] Date: 12/16/21 [employer] Mailout Tracking Number: [id number] [employer] Return Tracking Number: [id number] November 24, 2021 Standing PSG Orders signed in the last 90 days None Future PSG Orders signed in the last 90 days Ordered Auth. provider HOME SLEEP APNEA TEST (HSAT) [[id number]] 11/18/21 Francia Young MD Assoc. diagnoses: Hypersomnolence [...] from Dr. Francia Young MD, a [facility] Staff. Visit prep complete. Comments :No The sleep study is scheduled for 12/17. Insurance: Payor: MMO / Plan: MMO SUPERMED PLUS / Product Type: PPO / Payor/Plan Subscr Sex Relation Sub. Ins. ID Effective Group Num 1. MMO - MMO SUP* SOLOMONMAXFAVIANPAMELA* 1980 Female Self [id number] 09[birth year]20 [address] Hernán Cronin documented in this encounter [facility] 12-16-2021 Note HNO ID: [id number] Author: Ina Davis Service: ? Author Type: ? Type: Progress Notes Filed: 12/22/2021 3:55 PM Note Text: Nomad: [id number] Date: 12/16/21 [employer] Mailout Tracking Number: [id number] [employer] Return Tracking Number: [id number] [facility] 11-24-2021 Note HNO ID: [id number] Author: Howard Ware III, PhD Service: ? Author Type: Physician Type: Progress Notes Filed: 12/22/2021 3:55 PM Note Text: November 24, 2021 Standing PSG Orders signed in the last 90 days None Future PSG Orders signed in the last 90 days Ordered Auth. provider HOME SLEEP APNEA TEST (HSAT) [[id number]] 11/18/21 Francia Young MD Assoc. diagnoses: Hypersomnolence [...] Howard Ware III, PhD 1:37 PM, 11/24/2021 [facility] 11-21-2021 Note HNO ID: [id number] Author: Hernán Cronin Service: ? Author Type: ? Type: Progress Notes Filed: 12/22/2021 3:55 PM Note Text: November 21, 2021 An order has been received for Home Sleep Apnea Test (HSAT) from Dr. Francia Young MD, a [facility] Staff. Visit prep complete. Comments :No The sleep study is scheduled for 12/17. Insurance: Payor: MMO / Plan: MMO SUPERMED PLUS / Product Type: PPO / Payor/Plan Subscr Sex Relation Sub. Ins. ID Effective Group Num 1. MMO - MMO SUP* PAMELA FREEMAN* 1980 Female Self [id number] 09[birth year]20 [address] Hernán Cronin [facility] 11-18-2021 Note HNO ID: [id number] Author: Francia Young MD Service: ? Author Type: Physician Type: Progress Notes Filed: 11/21/2021 11:12 AM Note Text: VIRTUAL VISIT PROGRESS NOTE November 18, 2021 This is a virtual visit using [employer] video visit. The patient is a 41-year-old [...] patient after the visit with Dr. Montana [facility] 10-08-2021 Note HNO ID: [id number] Author: Jerome Montana MD Service: ? Author [...] and Flovent inhalers and oral steroids at [facility] near [place], [place] CXR revealed RLL pneumonia. Her D-Dimers [...] 2021! Does 30 min of walking on [place] Able to climb a flight of stairs. [...] x2 - TUBAL LIGATION HX 2007 [place] at 51 with cardiac illness, lung Ca [...] visit] No CXR or PFTs available. 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 Doubt PAH [...] time > 45 min Jerome Montana MD [facility] Summary Purpose Family History No Family History Records FoundNo Family History Records FoundNo Family History Records FoundNo Family History Records FoundNo Family History Records Found Advance Directives No Advanced Directives Records FoundNo Advanced Directives Records FoundNo Advanced Directives Records FoundNo Advanced Directives Records FoundNo Advanced Directives Records Found Additional Source Comments INFORMATION SOURCE (unrecogn ized section and content) DATE CREATED AUTHOR 09/24/2021 [facility] DATE CREATED AUTHOR AUTHOR'S ORGANIZ ATION 02/15/2022 [facility] DATE CREATED AUTHOR AUTHOR'S ORGANIZ ATION 12/19/2022 [facility] DATE CREATED AUTHOR AUTHOR'S ORGANIZ ATION 02/04/2023 [facility] DATE CREATED AUTHOR AUTHOR'S ORGANIZ ATION 09/02/[address] [facility] EPIC Source Comments (unrecognize d section and content) In the event this informatio n is protected by the Federal Confidentiality of Alcohol and Drug Abuse Patient Records regulations: The Federal rules restrict any use of the information to criminally investigate or prosecute any alcohol or drug abuse patient.[facility] the event this information is protected by the Federal Confidentiality of Alcohol and Drug Abuse Patient Records regulations: The Federal rules restrict any use of the information to criminally investigate or prosecute any alcohol or drug abuse patient.[facility] the event this information is protected by the Federal Confidentiality of Alcohol and Drug Abuse Patient Records regulations: The Federal rules restrict any use of the information to criminally investigate or prosecute any alcohol or drug abuse patient.[facility] Reason for Visit (unrecogniz ed section and content) Reason Comments HSAT Check In (Adult) Reason Comments Results Reason Comments Forms Care Teams (unrecognized sec tion and content) Valve Technician Relationship Specialty Start Date End Date Rudy Milan DO PCP - General Internal Medicine 01/28/17 Terra Singh MD [address] [place] [address] Referring Family Practice 07/30/21 Valve Technician Relationship Specialty Start Date End Date Rudy Milan DO PCP - General Internal Medicine 01/28/17 Terra Singh MD [address] [place] [address] Referring Family Practice 07/30/21 Valve Technician Relationship Specialty Start Date End Date Terra Singh MD [address] [place] [id number] PCP - General 08/30/23 FOR RECORDS PERTAINING TO PATIENTS WHO ARE [...] BE BASED ON THE PRIMARY CLINICAL RECORDS. [employer] [facility]. provides no warranty or guarantee of the accuracy or completeness of information in this document.
[2024-09-22 16:08] LABS: Age Gdln ACOG Testing Note (.); HPV Aptima Negative (Negative); IGP, Aptima HPV, rfx 16/18,45 Note (.)
== END 2024-09-14 19:02 | disposition home or self-care (01) ==
LOC: LAB 19:01
PROVIDERS: PCP Obstetrics & Gynecology; Visit Provider Obstetrics & Gynecology
DX: Z01.419 Encounter for gynecological examination (general) (routine) without abnormal findings (principal)
CPT/HCPCS: 87624; 88175

== ENCOUNTER 2024-11-23 09:22 | Outpatient (OUT) | payer BC, SELFPAY ==
--- OUTSIDE RECORDS SUMMARY | 2024-11-23 09:37 | XMS_ITS | CCD ---
Author Organization [facility] Care Team Providers Care Die Barber Name Role Phone Rudy Milan DO Primary [...] Unavailable NAZANIN ., DR TOM Admitting Unavailable R[place], DR BRANDY Staton Consult[employer] Unavailable NAZANIN ., [...] CHANDLER Consulting Unavailable KEVIN PAUL Consulting Unavailable Terra Singh MD Primary Care Provider [phone] MANDO BACK Attending Unavailable Allergies Allergy Classification Reported Allergen(s) Allergy Type Date of Onset Reaction(s) Facility (4 sources) Amoxicillin; Translations: [AMOXICILLIN] Drug Allergy 7 Hives [facility] (3 sources) Benzalkonium Drug Allergy 7 Rash [facility] (8 sources) Meperidine Drug Allergy 7 Shortness of Breath, Other, Unknown [facility] (6 sources) Meperidine; Translations: [MEPERIDINE] Drug Allergy 7 Shortness of breath, Unknown [facility] (1 source) NEOMYCIN-BACITRA CNZN-POLYMYXNB; Translations: [NEOMYCIN-BACITR ACNZN-POLYMYXNB] Propensity to adverse reactions to drug (disorder) 3 [facility] (1 source) Amoxicillin Drug Allergy 6 [facility] (1 source) Bacitracin / Neomycin / Polymyxin B Drug Allergy 6 [facility] (1 source) Meperidine Drug Allergy 6 [facility] (5 sources) Bacitracin / Polymyxin B Drug Allergy 3 Rash, Unknown [facility] (5 sources) Benzalkonium Drug Allergy 7 Rash [facility] (5 sources) Other Allergy to substance 3 Other [facility] Medications Current Medications Medication Drug Class(es) Dates Sig (Normalized) Sig (Original) [id number] 200 actuat albuterol 0.09 mg/actuat metered dose inhaler (8 sources) beta2-Adrenergic Agonist albuterol HFA 90 mcg/act inhaler Active albuterol HFA (P ROVENTIL HFA, VENTOLIN HFA) 90 mcg/actuation inhaler albuterol sulfate HFA 90 mcg/actuation aerosol inhaler 0 Active Comment on above: albuterol sulfate HF A 90 mcg/actuation aerosol inhaler ascorbic acid 500 mg extended release oral capsule (8 sources) Vitamin C ascorbic acid (V itamin C) 500 MG ER capsule Active Ascorbic Acid (V ITAMIN C) 500 mg cpER azithromycin 250 mg oral tablet (3 sources) Macrolide Antimicrobial Start: 09-14-2024 azithromycin (Zithromax Z-Tavo) 250 MG tablet Indications: Acute non-recurrent frontal sinusitis As directed 6 tablet 09/14/2024 Active cholecalciferol 0.05 mg oral capsule (5 sources) Vitamin D cholecalciferol (Vitamin D-3) 50 MCG (1999) capsule Vitamin D Active citalopram 20 mg oral tablet (12 sources) Serotonin Reuptake Inhibitor Start: 08-30-2024 take 1 tablet by mouth once daily citalopram (CeleXA) 20 MG tablet Indications: Mood changes TAKE 1 TABLET BY MOUTH EVERY DAY 90 tablet 3 08/30/2024 Active Start: 03-09-2024 take 1 tablet by ely th once daily citalopram (CeleXA) 20 MG tablet [...] a 30mg celexa. 30 tablet 11 08/31/2023 Active Start: 10-06-2020 citalopram (CE TOO) 20 mg tablet q 24 HR. 0 10/06/2020 Active Comment on above: q 24 HR. 0.25 mg, 0.5 mg dose 1.5 ml semaglutide 1.34 mg/ml pen injector (14 sources) Start: 02-17-2024 inject 0.5 mg by subcutaneous injection every week semaglutide (Ozempic) 2 MG/1.5ML solution pen-injector Indications: Diabetes mellitus due to underlying condition without complication, unspecified whether assisted insulin use (CMS/HCC) , Type II diabetes mellitus with complication ([facility]) inject 0.5 mg under the skin 1 [...] to underlying condition without complication, unspecified whether terminal operations manager insulin use (CMS/HCC) Inject 1 mg under the skin 1 (one) time per week 4 mL 1 08/31/2023 Active zinc gluconate 77 mg oral lo zenge (5 sources) Zinc 10 MG lozen ge Zinc Active Completed/Discontinued Medications Medication Drug Class(es) Dates Sig (Normalized) Sig (Original) atorvastatin 20 mg oral tablet (8 sources) HMG-CoA Reductase Inhibitor Start: 09-01-2021 take [...] [Other forms of dyspnea] Onset: 12-16-2022 Episodic Other screening for suspected conditions (not mental disorders or infectious disease) (12 sources) Encounter for screening mammogram for malignant neoplasm of breast; Translations: [Encounter for screening for malignant neoplasm of cervix] Onset: 08-27-2022 Episodic Other upper respiratory infections (2 sources) Acute frontal sinusitis; Translations: [Acute frontal sinusitis, unspecified] 09-14-2024 Episodic Unclassified (1 source) Personal history of [...] unspecified; Translations: [DYSPNEA UNSPECIFIED] Onset: 02-11-2022 Episodic Residual codes; unclassified (1 source) Family history of malignant neoplasm of breast; Translations: [FAMILY HX MALIG NEOPLASM OF BREAST] Onset: 09-14-2022 Episodic Unclassified (1 source) Personal history of COVID-19; Translations: [Personal history of COVID-19] Onset: 12-16-2022 Unclassified (1 source) POST COVID-19 CONDITION UNSPECIFIED; Translations: [POST COVID-19 CONDITION UNSPECIFIED] Onset: 04-30-2022 Results Test Name Value Interpretation Reference Range Facility IGP,APTIMA HPV,AGE GDLNon AGE GDLN ACOG TESTING Note . [facility] Comment on above: TESTS RESULT FLAG UN ITS REF RANGE LAB Clinician Provided Cytology Information Source.............Cervix;Endocervix No. of containers..01 ThinPrep Vial Age Algo ACOG Veronique... 29 FLAG LEGEND: L-Low Normal,H-High Normal,LL-Alert Low,HH-Alert High <-Panic Low,>-Panic High,A-Abnormal,AA-Critical Abnormal Performed at: 01 =[address] [id number] Astrid Brock MD, HPV APTIMA Negative Negative [facility] Comment on above: This nucleic acid am plification test detects fourteen high- risk HPV types (16,18,31,33,35,39,45,51,52,56,58,59,66,68) without differentiation. Performed at: =[address] [id number] [employer] Cable Jointer: Astrid Brock MD, Phone: [phone] Performed at: [address] [id number] [employer]inter: Astrid Brock MD, Phone: [phone] IGP, APTIMA HPV, RFX 16/18,[address] [facility] Comment on above: TESTS RESULT FLAG U NITS REF RANGE LAB DIAGNOSIS: 02 NEGATIVE FOR INTRAEPITHELIAL LESION OR MALIGNANCY. FUNGAL ORGANISMS MORPHOLOGICALLY CONSISTENT WITH STONEY SPECIES ARE PRESENT. CELLULAR CHANGES ASSOCIATED WITH INFLAMMATION ARE PRESENT. Specimen adequacy: 02 Satisfactory for evaluation. Endocervical and/or squamous metaplastic cells (endocervical component) are present. Performed by: Millie Zaldivar, Whiteprinting Machine Operator (ASCP) . 02 Note: Note 02 The Pap smear is a screening test designed to aid in the detection of premalignant and malignant conditions of the uterine cervix. It is not a diagnostic procedure and should not be used as the sole means of detecting cervical cancer. Both false-positive and false-negative reports do occur. Test Methodology: Note 02 This liquid based ThinPrep(R) pap test was screened with the use of an image guided system. HPV Genotype Reflex Note 02 Criteria not met, HPV Genotype not performed. FLAG LEGEND: L-Low Normal,H-High Normal,LL-Alert Low,HH-Alert High <-Panic Low,>-Panic High,A-Abnormal,AA-Critical Abnormal Performed at: [address] [address] Astrid Brock MD, BRUSH-SPATULA CERVIX ENDOCERVIX CLINISYNC [facility] ALL CBC WITH AUTO DIFFon BASOPHILS ABSOLUTE AUTO 0 [facility] Basophils/100 WBC (Bld) 0.5 % 0.2 - 2.0 % [facility] Eosinophils/100 WBC (Bld) 2 % 0.9 - 7.0 % [facility] Erythrocyte distribution width (RBC) [Ratio] 12.4 % 11.0 - 15.0 % [facility] Hematocrit (Bld) [Volume fraction] 40.3 % 36.0 - 48.0 % [facility] Hemoglobin (Bld) [Mass/Vol] 13.3 g/dL 12.0 - 16.0 g/dL [facility] IMMATURE GRANULOCYTES ABS AUTO 0.01 [facility] Immature granulocytes/100 WBC (Bld) 0.1 % 0.0 - 0.5 % [facility] Interpretation and review of laboratory results Abnormal [facility] LYMPHOCYTES ABSOLUTE AUTO 2.7 [facility] Lymphocytes/100 WBC (Bld) 32.3 % 20.5 - 60.0 % [facility] MCH (RBC) [Entitic mass] 29.7 pg 26.7 - 34.[address] [facility] MCHC (RBC) [Mass/Vol] 33 g/dL 29.9 - 35.2 g/dL [facility] MCV (RBC) [Entitic vol] 90 fL 81.0 - 99.[address] [facility] MONOCYTES ABSOLUTE AUTO 0.5 [facility] Monocytes/100 WBC (Bld) 6.3 % 1.7 - 12.0 % [facility] NEUTROPHILS ABSOLUTE AUTO 4.9 [facility] Neutrophils/100 WBC (Bld) 58.8 % 43.0 - 75.0 % [facility] Platelet mean volume (Bld) [Entitic vol] 9.1 fL Low 9.5 - 13.[address] [facility] TBH EO # 0.2 [facility] PLT 337 [facility] RBC 4.48 [facility] WBC 8.4 [facility] Cytology Cervical or vaginal smear or scraping studyon 08-31-2023 [facility] BUNon 01-28-2023 Urea nitrogen [Mass/Vol] 7.0 mg/dL Normal 7.0-18.[address] [facility] Comment on above: Performed By: #### U AMIC #### [facility] [address] [place] [address] Dr. Jorge Sierra CALCIUMon 01-28-2023 Calcium [Mass/Vol] 9.4 mg/dL Normal 8.5-10.1 [facility] Comment on above: Performed By: #### U AMIC #### [facility] [address] [place] [address] Dr. Jorge Sierra CBC AUTO DIFFon 01-28-2023 BASO # 0.1 103/ul Normal 0.0-0.[address] [facility] Comment on above: Performed By: #### C BC #### [facility] [address] [place] [address] Dr. Jorge Sierra Basophils/100 WBC (Bld) 0.5 % Normal 0.2-2.[address] [facility] Comment on above: Performed By: #### C BC #### [facility] [address] [place] [address] Dr. Jorge Sierra EO # 0.2 103/ul Normal 0.0-0.[address] [facility] Comment on above: Performed By: #### C BC #### [facility] [address] [place] [address] Dr. Jorge Sierra Eosinophils/100 WBC (Bld) 2.1 % Normal 0.9-7.0 [facility] Comment on above: Performed By: #### C BC #### [facility] [address] [place] [address] Dr. Jorge Sierra Erythrocyte distribution width (RBC) [Ratio] 13.1 % Normal 11.0-15.[address] [facility] Comment on above: Performed By: #### C BC #### [facility] [address] [place] [address] Dr. Jorge Sierra Hematocrit (Bld) [Volume fraction] 39.9 % Normal 36.0-48.[address] [facility] Comment on above: Performed By: #### C BC #### [facility] [address] [place] [address] Dr. Jorge Sierra Hemoglobin (Bld) [Mass/Vol] 13.4 g/dL Normal 12.0-16.[address] [facility] Comment on above: Performed By: #### C BC #### [facility] [address] [place] [address] Dr. Jorge Sierra IG # 0.03 10e3/ul Normal 0.00-0.[address] [facility] Comment on above: Performed By: #### C BC #### [facility] [address] [place] [address] Dr. Jorge Sierra IG % 0.3 % Normal 0.0-0.[address] [facility] Comment on above: Performed By: #### C BC #### [facility] [address] [place] [address] Dr. Jorge Sierra LYMPH # 3.1 103/ul Normal 1.2-3.[address] [facility] Comment on above: Performed By: #### C BC #### [facility] [address] [place] [address] Dr. Jorge Sierra Lymphocytes/100 WBC (Bld) 31.4 % Normal 20.5-60.[address] [facility] Comment on above: Performed By: #### C BC #### [facility] [address] [place] [address] Dr. Jorge Sierra MANUAL DIFF REQ NO Normal [facility] Comment on above: Performed By: #### C BC #### [facility] [address] [place] [address] Dr. Jorge Sierra MCH (RBC) [Entitic mass] 30.4 pg Normal 26.7-34.0 [facility] Comment on above: Performed By: #### C BC #### [facility] [address] [place] [address] Dr. Jorge Sierra MCHC (RBC) [Mass/Vol] 33.6 g/dL Normal 29.9-35.2 [facility] Comment on above: Performed By: #### C BC #### [facility] [address] [place] [address] Dr. Jorge Sierra MCV (RBC) [Entitic vol] 90.5 fL Normal 81.0-99.[address] [facility] Comment on above: Performed By: #### C BC #### [facility] [address] [place] [address] Dr. Jorge Sierra MONO # 0.5 103/ul Normal 0.3-0.8 [facility] Comment on above: Performed By: #### C BC #### [facility] [address] [place] [address] Dr. Jorge Sierra Monocytes/100 WBC (Bld) 5.3 % Normal 1.7-12.[address] [facility] Comment on above: Performed By: #### C BC #### [facility] [address] [place] [address] Dr. Jorge Sierra NEUT # 5.9 103/ul Normal 1.4-6.5 [facility] Comment on above: Performed By: #### C BC #### [facility] [address] [place] [address] Dr. Jorge Sierra Neutrophils/100 WBC (Bld) 60.4 % Normal 43.0-75.0 [facility] Comment on above: Performed By: #### C BC #### [facility] [address] [place] [address] Dr. Jorge Sierra Platelet mean volume (Bld) [Entitic vol] 8.9 fL Critically low 9.5-13.5 [facility] Comment on above: Performed By: #### C BC #### [facility] [address] [address] [address] Jorge Sierra PLT 340 103/ul Normal 150-450 [facility] Comment on above: Performed By: #### C BC #### [facility] [address] [place] [address] Dr. Jorge Sierra RBC 4.41 106/ul Normal 4.20-5.40 [facility] Comment on above: Performed By: #### C BC #### [facility] [address] [place] [address] Dr. Jorge Sierra WBC 9.8 103/ul Normal 4.0-11.0 [facility] Comment on above: Performed By: #### C BC #### [facility] [address] [place] [address] Dr. Jorge Sierra CREATININEon 01-28-2023 Creatinine [Mass/Vol] 0.81 mg/dL Normal 0.55-1.02 [facility] Comment on above: Performed By: #### C BC #### [facility] [address] [place] [address] Dr. Jorge Sierra EGFR-AF ANGUILLAN >60 Normal >=60 [facility] Comment on above: Performed By: #### C BC #### [facility] [address] [place] [address] Dr. Jorge Sierra EGFR-NON AF ANGUILLAN >60 Normal >=60 [facility] Comment on above: Performed By: #### C BC #### [facility] [address] [place] [address] Dr. Jorge Sierra ELECTROLYTESon 01-28-2023 Anion gap [Moles/Vol] 11.2 mmol/L Normal [facility] Comment on above: Performed By: #### U AMIC #### [facility] [address] [place] [address] Dr. Jorge Sierra Chloride [Moles/Vol] 103 mmol/L Normal 98-107 [facility] Comment on above: Performed By: #### U AMIC #### [facility] [address] [place] [address] Dr. Jorge Sierra CO2 [Moles/Vol] 27.4 mmol/L Normal 21.0-32.0 [facility] Comment on above: Performed By: #### U AMIC #### [facility] [address] [place] [address] Dr. Jorge Sierra Potassium [Moles/Vol] 3.6 mmol/L Normal 3.5-5.[address] [facility] Comment on above: Performed By: #### U AMIC #### [facility] [address] [place] [address] Dr. Jorge Sierra Sodium [Moles/Vol] 138 mmol/L Normal 136-145 [facility] Comment on above: Performed By: #### U AMIC #### [facility] [address] [place] [address] Dr. Jorge Sierra MAGNESIUMon 01-28-2023 Magnesium [Mass/Vol] 1.9 mg/dL Normal 1.8-2.[address] [facility] Comment on above: Performed By: #### U AMIC #### [facility] [address] [place] [address] Dr. Jorge Sierra UA RANDOM W/MICROSCOPICon BACTERIA TRACE Abnormal NONE SEEN [facility] Comment on above: Performed By: #### U AMIC #### [facility] [address] [place] [address] Dr. Jorge Sierra Bilirubin Ql (U) Negative Normal NEGATIVE [facility] Comment on above: Performed By: #### U AMIC #### [facility] [address] [place] [address] Dr. Jorge Sierra CAST NONE SEEN Normal NONE SEEN [facility] Comment on above: Performed By: #### U AMIC #### [facility] [address] [place] [address] Dr. Jorge Sierra Clarity (U) CLEAR Normal CLEAR [facility] Comment on above: Performed By: #### U AMIC #### [facility] [address] [place] [address] Dr. Jorge Sierra Color (U) YELLOW Normal YELLOW [facility] Comment on above: Performed By: #### U AMIC #### [facility] [address] [address] [address] Jorge Sierra Crystals LM Nom (Urine sed) NONE SEEN Normal NONE SEEN [facility] Comment on above: Performed By: #### U AMIC #### [facility] [address] [address] [address] Jorge Sierra Epithelial cells LM Ql (Urine sed) MODERATE Abnormal NONE SEEN /RARE [facility] Comment on above: Performed By: #### U AMIC #### [facility] [address] [address] [address] Jorge Sierra Glucose Ql (U) Negative Normal NEGATIVE [facility] Comment on above: Performed By: #### U AMIC #### [facility] [address] [place] [address] Dr. Jorge Sierra Hemoglobin Ql (U) Negative Normal NEGATIVE [facility] Comment on above: Performed By: #### U AMIC #### [facility] [address] [address] [address] Jorge Sierra Ketones Ql (U) TRACE Abnormal NEGATIVE [facility] Comment on above: Performed By: #### U AMIC #### [facility] [address] [address] [address] Jorge Sierra LEUKOCYTES Negative Normal NEGATIVE [facility] Comment on above: Performed By: #### U AMIC #### [facility] [address] [address] [address] Jorge Sierra MUCOUS TRACE Abnormal NONE SEEN [facility] Comment on above: Performed By: #### U AMIC #### [facility] [address] [address] [address] Jorge Sierra Nitrite Ql (U) Negative Normal NEGATIVE [facility] Comment on above: Performed By: #### U AMIC #### [facility] [address] [place] [address] Dr. Jorge Sierra pH (U) 5.5 [pH] Normal 5-9 [facility] Comment on above: Performed By: #### U AMIC #### [facility] [address] [address] [address] Jorge Sierra RBC 0-2 Normal 0-[address] [facility] Comment on above: Performed By: #### U AMIC #### [facility] [address] [id number] [address] Jorge Sierra SPEC GRAVITY >=1.030 Abnormal 1.005-<=1.025 [facility] Comment on above: Performed By: #### U AMIC #### [facility] [address] [address] [address] Jorge Sierra UA PROTEIN TRACE Normal NEGATIVE/ TRACE [facility] Comment on above: Performed By: #### U AMIC #### [facility] [address] [address] [address] Jorge Sierra Urobilinogen Qn (U) 1.0 {Nya'U}/dL Normal 0.2 - 1. [address] [facility] Comment on above: Performed By: #### U AMIC #### [facility] [address] [address] [address] Jorge Sierra WBC NONE SEEN Normal NONE SEEN [facility] Comment on above: Performed By: #### U AMIC #### [facility] [address] [place] [address] Dr. Jorge Sierra Office Visiton 12-16-2022 Follow-up visit [id number] Piotr Freeman 1980 F Date Provider Department Center 12/16/2022 MELITA ELIZABETH [facility] No family history on file Level of Service:02959 [place] OFFICE/OUTPATIENT ESTABLISHED MOD MDM 30-39 MIN Reason for Visit and Comments: Chest Pain [519876] Shortness of Breath [405761] Hyperlipidemia [182] sinus tachycardia [Other] Normal [facility] PAP ACOG PANEL 2: 30 to 65on 09-05-2022 . . Normal [facility] Comment on above: Result Comment: Perf ormed at: BA Performed By: #### U AMIC #### [facility] [address] [address] [address] Jorge Sierra Age Gdln ACOG Testing 30-[address] [facility] Comment on above: Performed By: #### U AMIC #### [facility] [address] [address] [address] Jorge Sierra DIAGNOSIS: Comment Normal [facility] Comment on above: Result Comment: NEGA TIVE FOR INTRAEPITHELIAL LESION OR MALIGNANCY. FUNGAL ORGANISMS MORPHOLOGICALLY CONSISTENT WITH STONEY SPECIES ARE PRESENT. THIS SPECIMEN WAS RESCREENED PART OF OUR PHARMACIST IN CHARGE PROGRAM. Performed at: BA Performed By: #### U AMIC #### [facility] [address] [address] [address] Jorge Sierra HPV Aptima Negative Normal Negative [facility] Comment on above: Result Comment: This nucleic acid amplification test detects fourteen high-risk HPV types (16,18,31,33,35,39,45,51,52,56,58,59,66,68) without differentiation. Performed at: =G Performed By: #### U AMIC #### [facility] [address] [address] [address] Jorge Sierra HPV Genotype Reflex Comment Normal [facility] Comment on above: Result Comment: Crit eria not met, HPV Genotype not performed. Performed at: BA Performed By: #### U AMIC #### [facility] [address] [place] [address] Dr. Jorge Sierra Methodology: Comment Normal [facility] Comment on above: Result Comment: This liquid based ThinPrep(R) pap test was screened with the use of an image guided system. Performed at: WB Performed By: #### U AMIC #### [facility] [address] [address] [address] Jorge Sierra Note: Comment Normal [facility] Comment on above: Result Comment: The [...] WB Performed By: #### U AMIC #### [facility] [address] [address] [address] Jorge Sierra Performed by: Comment Normal [facility] Comment on above: Result Comment: Trey Phillips, Whiteprinting Machine Operator Performed at: BA Performed By: #### U AMIC #### [facility] [address] [place], [place] [address] Dr. Jorge Sierra QC reviewed by: Comment Normal [facility] Comment on above: Result Comment: Anabela Bettencourt, Whiteprinting Machine Operator (ASCP) Performed at: BA Performed By: #### U AMIC #### [facility] [address] [place], [place] [address] Dr. Jorge Sierra Specimen adequacy: Comment Normal [facility] Comment on above: Result Comment: Sati sfactory for evaluation. No endocervical component is identified. The absence of an endocervical component was confirmed by an additional screening evaluation. Performed at: BA Performed By: #### U AMIC #### [facility] [address] [place], [place] [address] Dr. Jorge Sierra MG MAMM SCREEN 3D AMIRA CADon 09-02-2022 MG MAMM SCREEN 3D AMIRA CAD Patient: PIOTR FREEMAN Exam Date: 09/02/2022 : 1980 Gender:F Ordering : DR AMNDO BACK . Admission #: [id number] Family : Order #: [id number] CLICK HERE TO VIEW EXAM RADIOLOGY REPORT [...] breast cancer at age 62. LOCATION: [facility] BREAST COMPOSITION: Heterogeneously dense,which may obscure small [...] Deshpande MD on 09/02/2022 at 09:[address] [facility] MRI ANKLE RT WO CONon 2021 [...] DOUG LOMAX Date: 2022-08-27 13:28 Normal [facility] XR FOOT AMIRA MIN 3 VIEWSon XR [...] JOB CHANDLER Date: 2022-06-30 16:22 Normal [facility] CBC AUTO DIFFon 05-21-2022 BASO # 0.0 103/ul Normal 0.0-0.[address] [facility] Comment on above: Performed By: #### U AMIC #### [facility] [address] [place] [address] Dr. Jorge Sierra Basophils/100 WBC (Bld) 0.3 % Normal 0.2-2.[address] [facility] Comment on above: Performed By: #### U AMIC #### [facility] [address] [address] [address] Jorge Sierra EO # 0.2 103/ul Normal 0.0-0.[address] [facility] Comment on above: Performed By: #### U AMIC #### [facility] [address] [address] [address] Jorge Sierra Eosinophils/100 WBC (Bld) 2.2 % Normal 0.9-7.[address] [facility] Comment on above: Performed By: #### U AMIC #### [facility] [address] [address] [address] Jorge Sierra Erythrocyte distribution width (RBC) [Ratio] 13.0 % Normal 11.0-15.[address] [facility] Comment on above: Performed By: #### U AMIC #### [facility] [address] [place] [address] Dr. Jorge Sierra Hematocrit (Bld) [Volume fraction] 37.5 % Normal 36.0-48.[address] [facility] Comment on above: Performed By: #### U AMIC #### [facility] [address] [place] [address] Dr. Jorge Sierra Hemoglobin (Bld) [Mass/Vol] 12.3 g/dL Normal 12.0-16.[address] [facility] Comment on above: Performed By: #### U AMIC #### [facility] [address] [place] [address] Dr. Jorge Sierra IG # 0.04 10e3/ul Critically high 0.00-0.03 [facility] Comment on above: Performed By: #### U AMIC #### [facility] [address] [place] [address] Dr. Jorge Sierra IG % 0.4 % Normal 0.0-0.[address] [facility] Comment on above: Performed By: #### U AMIC #### [facility] [address] [place] [address] Dr. Jorge Sierra LYMPH # 2.6 103/ul Normal 1.2-3.[address] [facility] Comment on above: Performed By: #### U AMIC #### [facility] [address] [place] [address] Dr. Jorge Sierra Lymphocytes/100 WBC (Bld) 25.9 % Normal 20.5-60.[address] [facility] Comment on above: Performed By: #### U AMIC #### [facility] [address] [place] [address] Dr. Jorge Sierra MANUAL DIFF REQ NO Normal [facility] Comment on above: Performed By: #### U AMIC #### [facility] [address] [place] [address] Dr. Jorge Sierra MCH (RBC) [Entitic mass] 30.2 pg Normal 26.7-34.[address] [facility] Comment on above: Performed By: #### U AMIC #### [facility] [address] [address] [address] Jorge Sierra MCHC (RBC) [Mass/Vol] 32.8 g/dL Normal 29.9-35.2 [facility] Comment on above: Performed By: #### U AMIC #### [facility] [address] [place] [address] Dr. Jorge Sierra MCV (RBC) [Entitic vol] 92.1 fL Normal 81.0-99.[address] [facility] Comment on above: Performed By: #### U AMIC #### [facility] [address] [place] [address] Dr. Jorge Sierra MONO # 0.6 103/ul Normal 0.3-0.8 [facility] Comment on above: Performed By: #### U AMIC #### [facility] [address] [place] [address] Dr. Jorge Sierra Monocytes/100 WBC (Bld) 5.7 % Normal 1.7-12.[address] [facility] Comment on above: Performed By: #### U AMIC #### [facility] [address] [place] [address] Dr. Jorge Sierra NEUT # 6.6 103/ul Critically high 1.4-6.5 [facility] Comment on above: Performed By: #### U AMIC #### [facility] [address] [place] [address] Dr. Jorge Sierra Neutrophils/100 WBC (Bld) 65.5 % Normal 43.0-75.0 [facility] Comment on above: Performed By: #### U AMIC #### [facility] [address] [place] [address] Dr. Jorge Sierra Platelet mean volume (Bld) [Entitic vol] 8.7 fL Critically low 9.5-13.5 [facility] Comment on above: Performed By: #### U AMIC #### [facility] [address] [place] [address] Dr. Jorge Sierra PLT 292 103/ul Normal 150-[address] [facility] Comment on above: Performed By: #### U AMIC #### [facility] [address] [address] [address] Jorge Sierra RBC 4.07 106/ul Critically low 4.20-5.40 [facility] Comment on above: Performed By: #### U AMIC #### [facility] [address] [address] [address] Jorge Sierra WBC 10.1 103/ul Normal 4.0-11.[address] [facility] Comment on above: Performed By: #### U AMIC #### [facility] [address] [address] [address] Jorge Sierra GLYCOHEMOGLOBIN A1Con 2021 ADA RECOMMENDATION SEE BELOW Normal [facility] Comment on above: Result Comment: ADA RECOMMENDED LIMIT 4.0 - 6.0 ADA THERAPEUTIC TARGET < 7.0 ACTION SUGGESTED > 7.0 Performed By: #### U AMIC #### [facility] [address] [address] [address] Jorge Sierra Glucose [Mass/Vol] 128 mg/dL Normal [facility] Comment on above: Performed By: #### U AMIC #### [facility] [address] [place] [address] Dr. Jorge Sierra HbA1c (Bld) [Mass fraction] 6.1 % Normal 4.5-6.[address] [facility] Comment on above: Performed By: #### U AMIC #### [facility] [address] [place] [address] Dr. Jorge Sierra LIPID PROFILEon 05-21-2022 CHOL-HDL RATIO NORM SEE BELOW Normal [facility] Comment on above: Result Comment: 3.3 - 4.4 LOW RISK 4.4 - 7.1 AVERAGE RISK 7.1 - 11.0 MODERATE RISK >11.0 HIGH RISK Performed By: #### U AMIC #### [facility] [address] [place] [address] Dr. Jorge Sierra Cholesterol [Mass/Vol] 184 mg/dL Normal <=[address] [facility] Comment on above: Performed By: #### U AMIC #### [facility] [address] [address] [address] Jorge Sierra Cholesterol in HDL [Mass/Vol] 53 mg/dL Normal 40-[address] [facility] Comment on above: Performed By: #### U AMIC #### [facility] [address] [address] [address] Jorge Sierra Cholesterol in LDL [Mass/Vol] 101.8 mg/dL Normal [facility] Comment on above: Performed By: #### U AMIC #### [facility] [address] [address] [address] Jorge Sierra Cholesterol.total/Ch olesterol in HDL [Mass ratio] 3.5 {ratio} Normal [facility] Comment on above: Performed By: #### U AMIC #### [facility] [address] [address] [address] Jorge Sierra HDL NORMAL > or = 60 mg/dl - LO W CARDIOVASCULAR RISK <40 mg/dl - HIGH CARDIOVASCULAR RISK Normal [facility] Comment on above: Performed By: #### U AMIC #### [facility] [address] [address] [address] Jorge Sierra LDL CALC NORMAL SEE BELOW Normal [facility] Comment on above: Result Comment: <100 mg/dl OPTIMAL 100 - 129 mg/dl NEAR OR ABOVE OPTIMAL 130 - 159 mg/dl BORDERLINE HIGH 160 - 189 mg/dl HIGH >190 mg/dl VERY HIGH Performed By: #### U AMIC #### [facility] [address] [address] [address] Jorge Sierra Triglyceride [Mass/Vol] 146 mg/dL Normal <=150 [facility] Comment on above: Performed By: #### U AMIC #### [facility] [address] [address] [address] Jorge Sierra VLDL CALC 29.2 mg/dL Normal [facility] Comment on above: Performed By: #### U AMIC #### [facility] [address] [address] [address] Jorge Sierra PROF 14(COMP METB)on 022 Albumin [Mass/Vol] 3.7 g/dL Normal 3.4-5.0 [facility] Comment on above: Performed By: #### U AMIC #### [facility] [address] [place] [address] Dr. Jorge Sierra Albumin/Globulin [Mass ratio] 1.1 {ratio} Normal [facility] Comment on above: Performed By: #### U AMIC #### [facility] [address] [place] [address] Dr. Jorge Sierra ALP [Catalytic activity/Vol] 70 U/L Normal 46-[address] [facility] Comment on above: Performed By: #### U AMIC #### [facility] [address] [place] [address] Dr. Jorge Sierra ALT [Catalytic activity/Vol] 29 U/L Normal 14-[address] [facility] Comment on above: Performed By: #### U AMIC #### [facility] [address] [place] [address] Dr. Jorge Sierra Anion gap [Moles/Vol] 13.1 mmol/L Normal [facility] Comment on above: Performed By: #### U AMIC #### [facility] [address] [place] [address] Dr. Jorge Sierra AST [Catalytic activity/Vol] 18 U/L Normal 15-[address] [facility] Comment on above: Performed By: #### U AMIC #### [facility] [address] [place] [address] Dr. Jorge Sierra Bilirubin [Mass/Vol] 0.3 mg/dL Normal 0.2-1.[address] [facility] Comment on above: Performed By: #### U AMIC #### [facility] [address] [place] [address] Dr. Jorge Sierra Calcium [Mass/Vol] 9.2 mg/dL Normal 8.5-10.1 [facility] Comment on above: Performed By: #### U AMIC #### [facility] [address] [place] [address] Dr. Jorge Sierra Chloride [Moles/Vol] 104 mmol/L Normal 98-[address] [facility] Comment on above: Performed By: #### U AMIC #### [facility] [address] [address] [address] Jorge Sierra CO2 [Moles/Vol] 27.7 mmol/L Normal 21.0-32.0 [facility] Comment on above: Performed By: #### U AMIC #### [facility] [address] [address] [address] Jorge Sierra Creatinine [Mass/Vol] 0.80 mg/dL Normal 0.55-1.[address] [facility] Comment on above: Performed By: #### U AMIC #### [facility] [address] [address] [address] Jorge Sierra EGFR-AF ANGUILLAN >60 Normal >=60 [facility] Comment on above: Performed By: #### U AMIC #### [facility] [address] [address] [address] Jorge Sierra EGFR-NON AF ANGUILLAN >60 Normal >=[address] [facility] Comment on above: Performed By: #### U AMIC #### [facility] [address] [address] [address] Jorge Sierra Globulin (S) [Mass/Vol] 3.4 g/dL Normal [facility] Comment on above: Performed By: #### U AMIC #### [facility] [address] [address] [address] Jorge Sierra Glucose [Mass/Vol] 124 mg/dL Critically high 74-106 [facility] Comment on above: Performed By: #### U AMIC #### [facility] [address] [address] [address] Jorge Sierra Potassium [Moles/Vol] 4.8 mmol/L Normal 3.5-5.[address] [facility] Comment on above: Performed By: #### U AMIC #### [facility] [address] [address] [address] Jorge Sierra Protein [Mass/Vol] 7.1 g/dL Normal 6.4-8.2 [facility] Comment on above: Performed By: #### U AMIC #### [facility] [address] [address] [address] Jorge Sierra Sodium [Moles/Vol] 140 mmol/L Normal 136-145 [facility] Comment on above: Performed By: #### U AMIC #### [facility] [address] [place] [address] Dr. Jorge Sierra Urea nitrogen [Mass/Vol] 10.0 mg/dL Normal 7.0-18.[address] [facility] Comment on above: Performed By: #### U AMIC #### [facility] [address] [place] [address] Dr. Jorge Sierra Urea nitrogen/Creatinine [Mass ratio] 12.5 mg/mg Normal [facility] Comment on above: Performed By: #### U AMIC #### [facility] [address] [place] [address] Dr. Jorge Sierra TSHon 05-21-2022 TSH 1.454 uIU/mL Normal 0.358-3.740 [facility] Comment on above: Performed By: #### U AMIC #### [facility] [address] [place] [address] Dr. oJrge Sierra CORTISOL 24HR URINEon 2021 Cortisol,F,ug/24hr,U 18 ug/24 hr Normal 6-[address] [facility] Comment on above: Performed By: #### C ORT24 #### [facility] [address] [place] [address] Dr. Jorge Sierra Cortisol,F,ug/L,U 6 ug/L Normal Undefined [facility] Comment on above: Performed By: #### C ORT24 #### [facility] [address] [place] [address] Dr. Jorge Sierra CORTISOL FREE, SERUMon 05-07 Cortisol, Free Dialysis, LCMS 0.695 ug/dL Normal [facility] Comment on above: Result Comment: Thes e tests were developed and their performance characteristics determined by [employer]. They have not been cleared or approved by the Food and Drug Administration. Reference Range: 8 AM 0.10 - 1.20 4 PM 0.042 - 0.872 Performed By: #### F RECORT #### [facility] [address] [place] [address] Dr. Jorge Barrera 02-13-2022 CNPN Telephone ([place]) PIOTR FREEMAN ([id number]) 1980 F Date Time Provider Department 02/13/22 BENY CHILDRESS During your visit today, we recorded the following information about you: Leon Lomax 02/13/2022 4:48 PM Signed On 02/13 fax was sent to [facility] [phone] for referral with office notes and lab [...] Status:Closed by LEON LOMAX on 02/13/22 Normal [facility] BNPon 02-11-2022 Natriuretic peptide B (Bld) [Mass/Vol] 10.0 pg/mL Normal <=450.[address] [facility] Comment on above: Performed By: #### C MP, BNP, CRP, CMADM #### [facility] [address] [place] [address] Dr. Jorge Sierra CARDIAC ADAM ADMITon 022 CK [Catalytic activity/Vol] 125 U/L Normal 26-192 [facility] Comment on above: Performed By: #### C MP, BNP, CRP, CMADM #### [facility] [address] [place] [address] Dr. Jorge Sierra CK.MB [Mass/Vol] ng/mL Normal <=3.60 [facility] Comment on above: Performed By: #### C MP, BNP, CRP, CMADM #### [facility] [address] [place] [address] Dr. Jorge Sierra HSTROP <4.0 Normal 4.0-51.3 [facility] Comment on above: Result Comment: CUT- OFF POINTS HAVE BEEN ESTABLISHED BASED ON THE FOURTH UNIVERSAL DEFINITIONS OF MYOCARDIAL INFARCTION. THE UPPER REFERENCE LIMIT (URL) OF TROPONIN, DEFINED THE 99TH PERCENTILE OF cTnI DISTRIBUTION IN A REFERENCE POPULATION, HAS BEEN CONFIRMED THE DECISION THRESHOLD FOR ID DIAGNOSIS. Performed By: #### C MP, BNP, CRP, CMADM #### [facility] [address] [place] [address] Dr. Jorge Sierra EMERY 30 ng/mL Normal 9-82 [facility] Comment on above: Performed By: #### C MP, BNP, CRP, CMADM #### [facility] [address] [place] [address] Dr. Jorge Sierra CBC AUTO DIFFon 02-11-2022 BASO # 0.0 103/ul Normal 0.0-0.[address] [facility] Comment on above: Performed By: #### C BC #### [facility] [address] [place] [address] Dr. Jorge Sierra Basophils/100 WBC (Bld) 0.4 % Normal 0.2-2.[address] [facility] Comment on above: Performed By: #### C BC #### [facility] [address] [place] [address] Dr. Jorge Sierra EO # 0.2 103/ul Normal 0.0-0.7 [facility] Comment on above: Performed By: #### C BC #### [facility] [address] [place] [address] Dr. Jorge Sierra Eosinophils/100 WBC (Bld) 2.2 % Normal 0.9-7.[address] [facility] Comment on above: Performed By: #### C BC #### [facility] [address] [place] [address] Dr. Jorge Sierra Erythrocyte distribution width (RBC) [Ratio] 12.3 % Normal 11.0-15.[address] [facility] Comment on above: Performed By: #### C BC #### [facility] [address] [place] [address] Dr. Jorge Sierra Hematocrit (Bld) [Volume fraction] 39.2 % Normal 36.0-48.[address] [facility] Comment on above: Performed By: #### C BC #### [facility] [address] [place] [address] Dr. Jorge Sierra Hemoglobin (Bld) [Mass/Vol] 12.9 g/dL Normal 12.0-16.[address] [facility] Comment on above: Performed By: #### C BC #### [facility] [address] [place] [address] Dr. Jorge Sierra IG # 0.04 10e3/ul Critically high 0.00-0.03 [facility] Comment on above: Performed By: #### C BC #### [facility] [address] [place] [address] Dr. Jorge Sierra IG % 0.5 % Normal 0.0-0.[address] [facility] Comment on above: Performed By: #### C BC #### [facility] [address] [place] [address] Dr. Jorge Sierra LYMPH # 2.2 103/ul Normal 1.2-3.8 [facility] Comment on above: Performed By: #### C BC #### [facility] [address] [place] [address] Dr. Jorge Sierra Lymphocytes/100 WBC (Bld) 27.5 % Normal 20.5-60.[address] [facility] Comment on above: Performed By: #### C BC #### [facility] [address] [place] [address] Dr. Jorge Sierra MANUAL DIFF REQ NO Normal [facility] Comment on above: Performed By: #### C BC #### [facility] [address] [place] [address] Dr. Jorge Sierra MCH (RBC) [Entitic mass] 29.7 pg Normal 26.7-34.[address] [facility] Comment on above: Performed By: #### C BC #### [facility] [address] [place] [address] Dr. Jorge Sierra MCHC (RBC) [Mass/Vol] 32.9 g/dL Normal 29.9-35.2 [facility] Comment on above: Performed By: #### C BC #### [facility] [address] [place] [address] Dr. Jorge Sierra MCV (RBC) [Entitic vol] 90.3 fL Normal 81.0-99.[address] [facility] Comment on above: Performed By: #### C BC #### [facility] [address] [place] [address] Dr. Jorge Sierra MONO # 0.5 103/ul Normal 0.3-0.8 [facility] Comment on above: Performed By: #### C BC #### [facility] [address] [place] [address] Dr. Jorge Sierra Monocytes/100 WBC (Bld) 6.6 % Normal 1.7-12.0 [facility] Comment on above: Performed By: #### C BC #### [facility] [address] [place] [address] Dr. Jorge Sierra NEUT # 5.1 103/ul Normal 1.4-6.[address] [facility] Comment on above: Performed By: #### C BC #### [facility] [address] [place] [address] Dr. Jorge Sierra Neutrophils/100 WBC (Bld) 62.8 % Normal 43.0-75.[address] [facility] Comment on above: Performed By: #### C BC #### [facility] [address] [place] [address] Dr. Jorge Sierra Platelet mean volume (Bld) [Entitic vol] 8.6 fL Critically low 9.5-13.[address] [facility] Comment on above: Performed By: #### C BC #### [facility] [address] [place] [address] Dr. Jorge Sierra PLT 331 103/ul Normal 150-450 [facility] Comment on above: Performed By: #### C BC #### [facility] [address] [place] [address] Dr. Jorge Sierra RBC 4.34 106/ul Normal 4.20-5.40 [facility] Comment on above: Performed By: #### C BC #### [facility] [address] [place] [address] Dr. Jorge Sierra WBC 8.1 103/ul Normal 4.0-11.[address] [facility] Comment on above: Performed By: #### C BC #### [facility] [address] [place] [address] Dr. Jorge Sierra CRPon 02-11-2022 CRP [Mass/Vol] mg/L Normal <=1.0 [facility] Comment on above: Performed By: #### C MP, BNP, CRP, CMADM #### [facility] [address] [place] [address] Dr. Jorge Sierra CTA CHEST WO W CONon 022 CTA CHEST WO W CON CTA OF [...] MARIE JORDAN Date: 2022-02-11 18:56 Normal [facility] PROF 14(COMP METB)on 022 Albumin [Mass/Vol] 3.6 g/dL Normal 3.4-5.0 [facility] Comment on above: Performed By: #### C MP, BNP, CRP, CMADM #### [facility] [address] [place] [address] Dr. Jorge Sierra Albumin/Globulin [Mass ratio] 1.0 {ratio} Normal [facility] Comment on above: Performed By: #### C MP, BNP, CRP, CMADM #### [facility] [address] [address] [address] Jorge Sierra ALP [Catalytic activity/Vol] 71 U/L Normal 46-[address] [facility] Comment on above: Performed By: #### C MP, BNP, CRP, CMADM #### [facility] [address] [place] [address] Dr. Jorge Sierra ALT [Catalytic activity/Vol] 28 U/L Normal 14-[address] [facility] Comment on above: Performed By: #### C MP, BNP, CRP, CMADM #### [facility] [address] [address] [address] Jorge Sierra Anion gap [Moles/Vol] 9.5 mmol/L Normal [facility] Comment on above: Performed By: #### C MP, BNP, CRP, CMADM #### [facility] [address] [address] [address] Jorge Sierra AST [Catalytic activity/Vol] 29 U/L Normal 15-[address] [facility] Comment on above: Performed By: #### C MP, BNP, CRP, CMADM #### [facility] [address] [place] [address] Dr. Jorge Sierra Bilirubin [Mass/Vol] 0.5 mg/dL Normal 0.2-1.[address] [facility] Comment on above: Performed By: #### C MP, BNP, CRP, CMADM #### [facility] [address] [place] [address] Dr. Jorge Sierra Calcium [Mass/Vol] 9.3 mg/dL Normal 8.5-10.1 [facility] Comment on above: Performed By: #### C MP, BNP, CRP, CMADM #### [facility] [address] [place] [address] Dr. Jorge Sierra Chloride [Moles/Vol] 96 mmol/L Critically low 98-[address] [facility] Comment on above: Performed By: #### C MP, BNP, CRP, CMADM #### [facility] [address] [place] [address] Dr. Jorge Sierra CO2 [Moles/Vol] 32.5 mmol/L Critically high 21.0-32.[address] [facility] Comment on above: Performed By: #### C MP, BNP, CRP, CMADM #### [facility] [address] [place] [address] Dr. Jorge Sierra Creatinine [Mass/Vol] 0.73 mg/dL Normal 0.55-1.[address] [facility] Comment on above: Performed By: #### C MP, BNP, CRP, CMADM #### [facility] [address] [place] [address] Dr. Jorge Sierra EGFR-AF ANGUILLAN >60 Normal >=60 [facility] Comment on above: Performed By: #### C MP, BNP, CRP, CMADM #### [facility] [address] [place] [address] Dr. Jorge Sierra EGFR-NON AF ANGUILLAN >60 Normal >=[address] [facility] Comment on above: Performed By: #### C MP, BNP, CRP, CMADM #### [facility] [address] [place] [address] Dr. Jorge Sierra Globulin (S) [Mass/Vol] 3.6 g/dL Normal [facility] Comment on above: Performed By: #### C MP, BNP, CRP, CMADM #### [facility] [address] [address] [address] Jorge Sierra Glucose [Mass/Vol] 102 mg/dL Normal 74-106 [facility] Comment on above: Performed By: #### C MP, BNP, CRP, CMADM #### [facility] [address] [place] [address] Dr. Jorge Sierra Potassium [Moles/Vol] 4.0 mmol/L Normal 3.5-5.[address] [facility] Comment on above: Performed By: #### C MP, BNP, CRP, CMADM #### [facility] [address] [place] [address] Dr. Jorge Sierra Protein [Mass/Vol] 7.2 g/dL Normal 6.4-8.2 [facility] Comment on above: Performed By: #### C MP, BNP, CRP, CMADM #### [facility] [address] [place] [address] Dr. Jorge Sierra Sodium [Moles/Vol] 134 mmol/L Critically low 136-145 [facility] Comment on above: Performed By: #### C MP, BNP, CRP, CMADM #### [facility] [address] [place] [address] Dr. Jorge Sierra Urea nitrogen [Mass/Vol] 13.0 mg/dL Normal 7.0-18.[address] [facility] Comment on above: Performed By: #### C MP, BNP, CRP, CMADM #### [facility] [address] [place] [address] Dr. Jorge Sierra Urea nitrogen/Creatinine [Mass ratio] 17.8 mg/mg Normal [facility] Comment on above: Performed By: #### C MP, BNP, CRP, CMADM #### [facility] [address] [place] [address] Dr. Jorge Sierra SED RATE [facility] 2021 SED RATE 4 mm/hr Normal <=[address] [facility] Comment on above: Performed By: #### S EDR #### [facility] [address] [place] [address] Dr. Jorge Barrera 12-31-2021 CNPN Telephone (PULI) PIOTR FREEMAN ([id number]) 1980 F Date Time Provider Department 12/31/21 [...] Encounter Status:Closed by FRANCIA YOUNG on 12/31/21 Normal [facility] 11-04-2021 CNPN Telephone (PULMMN) PIOTR FREEMAN ([id number]) 1980 F Date Time Provider Department 11/04/21 JEROME MONTANA During your visit today, we recorded the following information about you: Colt Lenora 11/04/2021 7:44 AM Signed Uploaded CD images to pt chart Allergies As of Date: 11/04/2021 Noted Allergy Reaction AMOXICILLIN 03/03/2017 4 - Hives DEMEROL (MEPERIDINE HCL) 03/03/2017 12 - Shortness of Breath NEOSPORIN (BENZALKONIUM CHLORIDE) 03/03/2017 2 - Rash Date Reviewed: 03/03/2017 Reviewed by: Love Matta - Fully Assessed Reason for Visit: Received Outside Medical Records [[id number]] Prescriptions as of 11/04/2021 - COLESTIPOL HCL [...] Encounter Status:Closed by COLT CROSS on 11/04/21 [facility] 10-20-2021 [facility] Telephone (RIQ) PIOTR FREEMAN ([id number]) 1980 F Date Time Provider Department 10/20/21 [...] Encounter Status:Closed by COLT CROSS on 10/20/21 [facility] 10-06-2021 CNPN Telephone (RIQ) PIOTR FREEMAN ([id number]) 1980 F Date Time Provider Department 10/06/21 JEROME MONTANA RIEzra During your visit today, we recorded the [...] Encounter Status:Closed by COLT CROSS on 10/06/21 [facility] Cardiovascular Lab Reporton 09-17-2021 Cardiovascular Lab Report [facility]: [id number] Physician: Mark Burnett of Piero Johnson Medicine Service Date: 09/17/2021 Division of Birthdate: 1980 Cardiology Room #: [facility] Cardiovascular Services [facility] [address] [id number] Cardiovascular Laboratory Report INDICATION: The patient is [...] informed consent. She was brought to laborer orchard in a fasting state. The right neck area was prepped and draped in usual fashion. A micropuncture technique and ultrasound guidance was used for access in the right internal jugular vein. A 6-Nauruan x 11 cm sheath was placed. A 6-Nauruan Chinchilla catheter was used for right heart catheterization with measurement pressures and calculation of cardiac output using the estimated Valorie method. Chinchilla catheter was removed. Modified Adrian's test was favorable on the left. Access in the left radial artery was obtained using micropuncture technique and ultrasound guidance. A 6-Nauruan x 11 cm Hydrophilic sheath was advanced. Verapamil was given through the sheath and heparin was administered intravenously. Bilateral selective coronary angiography was then performed using 6-Nauruan JL3.5 and JR4 diagnostic catheters. Catheters were [...] A/Mark Johnson M.D. Date Trans: 09/17/2021 12:37 P/genesiso [id number] cc: Terra Singh M.D. [address], [facility] [address] [place] [facility] Vital Signs Date Time Vital Sign Value Performing Clinician Sayra ren 09-14-2024 09:01-0500 Body mass index (BMI) [Ratio] 26.34 kg/m2 [employer] Work Phone: [facility] 09-14-2024 09:01-0500 Body weight 65.32 kg [employer] Work Phone: [facility] 09-14-2024 09:01-0500 Diastolic blood pressure 68 mm[Hg] [employer] Work Phone: [facility] 09-14-2024 09:01-0500 Systolic blood pressure 118 mm[Hg] Mando Nazanin DO Work Phone: [facility] Encounters Encounter Date Encounter Type Care Provider Facility Start: 09-14-2024 End: 09-14-2024 Bamboo flowsheet Mando Nazanin DO Work Phone: [facility] Start: 09-14-2024 End: 09-22-2024 Bamboo flowsheet Mando Nazanin DO Work Phone: [facility] Start: 09-14-2024 End: 09-22-2024 Clinisync Result Encounter Mando Nazanin DO Work Phone: [facility] Unsolicited Start: 09-14-2024 End: 09-14-2024 ambulatory MANDO LENNONO Not Available Start: 09-14-2024 End: 09-14-2024 Patient encounter procedure Mando Nazanin DO Work Phone: [facility] Start: 09-14-2024 End: 09-14-2024 Periodic preventive med est patient 40-64yrs Mando Nazanin DO Work Phone: [facility] Comment on above: Well woman exam with routine gynecological exam; Acute non-recurrent frontal sinusitis Start: 08-01-2024 End: 08-01-2024 Clinisync Result Encounter Mando Nazanin DO Work Phone: [facility] Unsolicited Start: 08-01-2024 End: 08-01-2024 Clinisync Result Encounter Mando Nazanin DO Work Phone: [facility] Unsolicited Start: 01-28-2023 End: 01-29-[address] TERRA SINGH . Facility:[facility] Start: 12-16-2022 End: 12-18-2022 ambulatory [facility] Start: 09-02-2022 End: 09-03-[address] TERRA SINGH . Facility:[facility] Start: 08-27-2022 End: 08-27-[address] MANDO BACK . Facility:[facility] Start: 08-26-2022 End: 08-27-2022 ambulatory KEVIN PAUL Facility:[facility] Start: 07-17-2022 End: 08-18-2022 ambulatory KEVIN PAUL Facility:[facility] Start: 06-30-2022 End: 07-01-2022 ambulatory KEVIN PAUL Facility:[facility] Start: 05-22-2022 Encounter for genera l adult medical examination without abnormal findings DR TERRA SINGH . [facility] Start: 05-21-2022 End: 05-22-[address] TERRA SINGH . Facility:[facility] Start: 05-21-2022 End: 05-22-2022 Encounter for general adult medical examination without abnormal findings DR TERRA SINGH . Facility:[facility] Start: 04-30-2022 End: 04-30-[address] MANDO BACK . Facility:[facility] Start: 04-29-2022 End: 04-30-[address] MANDO BACK . Facility:[facility] Start: 02-13-2022 Telephone encounter [...] Date Procedure Procedure Detail Performing Clinician Start: 09-14-2024 IGP,APTIMA HPV,AGE GDLN Mando Nazanin DO Work Phone: Start: 09-08-2024 Mammography Mando Fazi o DO Work Phone: Start: 08-01-2024 ALL CBC WITH AUTO DIFF Mando Nazanin DO Work Phone: Start: 09-06-2023 Mammography Mando Fazi o DO Work Phone: Start: 08-31-2023 Microscopic observat ion [Identifier] in Cervix by Cyto stain Mando Nazanin DO Work Phone: Start: 12-05-2023 Cytp cerv/vag auto t hin layer prep mnl screen Mando Back DO Work Phone: Start: 08-27-2022 Microscopic observat ion [Identifier] in Cervix by Cyto stain Mando Nazanin DO Work Phone: Plan of Treatment Date Care Activity Detail Author Start: 08-31-2028 Screening for malign ant neoplasm of cervix [facility] Start: 08-27-2027 Screening for malign ant neoplasm of cervix [facility] Start: 09-24-2025 End: 09-24-2025 Patient encounter procedure 09/24/2025 8:30 AM EST Office Visit [facility] [address] [place] [address] Mando Back, DO [address] [place] [address] [facility] Start: 09-08-2025 Screening for malign ant neoplasm of breast Mammogram [facility] Start: 09-14-2024 End: 09-14-2024 Patient encounter procedure 09/14/2024 8:50 AM EST Office Visit [facility] [address] [place] [address] Mando Back, DO [address] [place] [address] [facility] Start: 09-06-2024 Screening for malign ant neoplasm of breast Mammogram [facility] Start: 05-28-2024 Influenza vaccination Influenza Vacc ine (#1) [facility] Start: 05-28-2022 Influenza vaccination INFLUENZA (Sea son Ended) [facility] Start: 05-28-2021 Influenza vaccination INFLUENZA (#1) [facility] Start: 03-30-2021 COVID-19 VACCINE (3 - Booster for Moderna series) COVID-19 VACCINE (3 - Booster for Moderna series) [facility] Start: 2019 Mammography MAMMOGRAM [facility] Start: 2009 HPV TESTING HPV TESTING [facility] Start: 2000 PAP TESTING PAP TESTING [facility] Start: 1998 Urine microalbumin profile DTAP,TDAP,TD (1 - Tdap) [facility] Start: 1997 HEPATITIS C SCREENING HEPATITIS C SC RAJNI [facility] Start: 1997 HIV SCREENING HIV SCREENING [facility] Start: 1991 Adult depression screening assessment DEPRESSION SCREENING [facility] Start: 1980 Screening for malign ant neoplasm of colon [facility] THIN PREP TIS PAP AN D HR HPV DNA THIN PREP TIS PAP AND HR HPV DNA Pathology and Cytology Routine Well woman exam with routine gynecological exam Ordered: 09/14/2024 [facility] Work Phone: Comment on above: Ordered: 09/14/2024 Immunizations Immunization Date Immunization Notes Care Provider Thuy daniels 07-11-2019 influenza virus vacc ine, unspecified formulation Mando Back DO Work Phone: [facility] Payers Date Payer Category Payer [facility] BCBS [id number] 2022 Unknown [id number] 2020 Unknown MMO MMO [employer] [id number] 2020-Present [phone] [address] [place] [address] PPO [id number] 2019 Unknown [id number] 1980 Unknown [id number] [id number]. 593 1980 Unknown [id number] [id number]. 593 1979 Unknown [id number] [id number]. 593 1979 Unknown [id number] 2.16.840.1.067672.3.579.2. 593 1979 Unknown [id number] 2.16.840.1.422718.3.579.2. 593 1979 Unknown [id number] 2.16.840.1.384458.3.579.2. 593 1979 Unknown [id number] 2.16.840.1.586600.3.579.2. 593 1979 Unknown [id number] 2.16.840.1.510555.3.579.2. 593 1979 Unknown [id number] 2.16.840.1.469011.3.579.2. 593 1979 Unknown [id number] 2.16.840.1.099570.3.579.2. 593 1980 Unknown [id number] [id number]. 1259 Social History Date Type Detail Facility Start: 03-03-2017 End: 08-18-2023 Tobacco smoking status MOIS Never smoked tobacco [facility] Start: 03-03-2017 Tobacco use and exposure Smoke less tobacco non-user [facility] Start: 1980 Sex Assigned At Not on file [facility] Start: 08-31-2023 Alcoholic beverage intake Curr ent drinker of alcohol (finding) [facility] Start: 08-31-2023 History of Social function [facility] Start: 08-31-2023 Tobacco use panel [facility] Start: 08-18-2023 Alcohol Comment Occasional alcohol u se [facility] Clinical Notes 10-08-2021 to 09-14-2024 Nini Romero LPN - 09/14/2024 8:50 AM ESTTelejelena Lomax - 02/13/2022 4:45 PM EDTTelephone Encounter - Francia Young MD - 12/31/2021 8:49 AM EDT Note Date & Type Note Facility 09-14-2024 History of Presen t illness Narrative Reason for Appointment: Patient ID: Piotr Freeman is a 44 y.o. female who presents for Abnormal Pap Smear Patient presents today for Annual Exam. MEDICATIONS Current Outpatient Medications Medication Instructions albuterol HFA 90 mcg/act inhaler ascorbic acid (Vitamin C) 500 MG ER capsule atorvastatin (Lipitor) 20 MG tablet 1 tablet, Oral, Daily cholecalciferol (Vitamin D-3) 50 MCG (1999 UT) capsule Vitamin D citalopram (CELEXA) 10 mg, Oral, Daily, Pt combining 10mg and 20 mg for a 30mg celexa citalopram (CELEXA) 20 mg, Oral, Daily Ozempic (0.25 or 0.5 MG/DOSE) 1 mg, Subcutaneous, Weekly semaglutide (Ozempic) 2 MG/1.5ML solution pen-injector Inject 0.63mL (2.268mg) once weekly as directed. semaglutide (Ozempic) 2 MG/1.5ML solution pen-injector inject 0.5 mg under the skin 1 (one) time per week for 4 doses Zinc 10 MG lozenge Zinc ALLERGIES Allergies Allergen Reactions Meperidine Shortness of breath and Unknown Meperidine Hcl Other, Shortness of breath and Unknown Other Other Bacitracin-Polymyxin B Rash and Unknown Benzalkonium Chloride Rash PROBLEMS Active Ambulatory Problems Diagnosis Date Noted Breast cancer screening by mammogram 08/28/2024 Resolved Ambulatory Problems Diagnosis Date Noted No Resolved Ambulatory Problems Past Medical History: Diagnosis Date Depression screening Encounter for gynecological examination (general) (routine) without abnormal findings Obesity (BMI 30-39.9) Shortness of breath Sinus bradycardia-tachycardia syndrome (CMS/HCC) HISTORY PAST MEDICAL HISTORY SOCIAL HISTORY Past Medical History: Diagnosis Date Breast cancer screening by mammogram Depression screening Encounter for gynecological examination (general) (routine) without abnormal findings Obesity (BMI 30-39.9) Shortness of breath Sinus bradycardia-tachycardia syndrome (CMS/HCC) Social History Tobacco Use Smoking status: Never Smokeless tobacco: Not on file Substance Use Topics Alcohol use: Yes Comment: Occasional alcohol use Drug use: Never FAMILY HISTORY Family History Problem Relation Name Age of Onset Mental illness Brother Cancer Maternal Grandmother Cancer Maternal Grandfather Diabetes Maternal Grandfather Diabetes Paternal Grandmother Cancer Paternal Grandmother SURGICAL HISTORY Past Surgical History: Procedure Laterality Date SECTION, LOW TRANSVERSE CHOLECYSTECTOMY 1998 COLONOSCOPY 2016 TUBAL LIGATION 2007 REVIEW OF SYSTEMS Review of Systems: Review of Systems All other systems reviewed and are negative. OBJECTIVE Objective: Physical Exam Constitutional: Appearance: Normal appearance. She is well-developed. Genitourinary: Vulva normal. Breasts: Breasts are soft. Right: Normal. Left: Normal. Cardiovascular: Rate and Rhythm: Normal rate and regular rhythm. Pulmonary: Effort: Pulmonary effort is normal. Breath sounds: Normal breath sounds. Abdominal: General: Bowel sounds are normal. There is no distension. Palpations: Abdomen is soft. Tenderness: There is no abdominal tenderness. There is no guarding or rebound. Musculoskeletal: General: No swelling. Normal range of motion. Right lower leg: No edema. Left lower leg: No edema. Neurological: Mental Status: She is alert and oriented to person, place, and time. Skin: General: Skin is warm and dry. Psychiatric: Mood and Affect: Mood normal. Behavior: Behavior normal. Vitals and nursing note reviewed. Exam conducted with a geneticist present. Vitals: Estimated body mass index is 26.34 kg/m as calculated from the following: Height as of 08/27/22: 5' 2 . Weight as of this encounter: 144 lb. BP: 118/68 Patient's last menstrual period was 08/16/2024 (approximate). ASSESSMENT & PLAN ICD-10-CM 1. Well woman exam with routine gynecological exam Z01.419 THIN PREP TIS PAP AND HR HPV DNA Annual: Patient presents today for an annual exam. Patient states she is doing well and has no complaints. Pap was obtained without difficulty and patient given mammogram order to have scheduled/obtained. Follow Up: Patient is to return in one year for annual unless needed otherwise. Documented by Nini Romero LPN on behalf of: Mando Back DO documented in this encounter 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 In June 2020 she was admitted to the [facility] with the COVID-19 infection. At that time [...] Shortness of breath and Unknown Amoxicillin Hives Tnxgbpfz-Jcmqxtomnuw-Fryignrfc ROS Cardiovascular: Positive for chest pain, dyspnea [...] sounds. Abdominal: Gen (more content not included)... [facility] 12-16-2022 Note Patient here for 1 y ear follow up sinus tachycardia, chest pain, GARCIA, and palpitations s/p Covid-19 infection in Jun 2020. Still has symptoms with exertion. Sometimes HR does go up to 110 at rest. Review of Systems Cardiovascular: Positive for chest pain, dyspnea on exertion and palpitations. Neurological: Positive for light-headedness. All other systems reviewed and are negative. [facility] 02-13-2022 Miscellaneous Notes On 02/13 fax was sent to [facility] [phone] for referral with office notes and lab results. Leon Lomax documented in this encounter [facility] 12-31-2021 Miscellaneous Notes I spoke to [...] determine next steps. documented in this encounter [facility] 12-22-2021 Note HNO ID: [id number] Author: Ina Davis Service: ? Author Type: ? Type: Progress Notes Filed: 12/22/2021 3:55 PM Note Text: Sleep Study Check-In Documentation Date: December 22, 2021 Name: Piotr Freeman Comments: HST was returned in working order with all sleep questionnaires Ina Whitley Pss [facility] 12-22-2021 History of Presen t illness Narrative Sleep Study Check-In Documentation Date: December 22, 2021 Name: Piotr Freeman Comments: HST was returned in working order with all sleep questionnaires Ina Whitley Pss Nom[employer]: [id number] Date: 12/16/21 [employer] Mailout Tracking Number: [id number] [employer] Return Tracking Number: [id number] November 24, 2021 Standing PSG Orders signed in the last 90 days None Future PSG Orders signed in the last 90 days Ordered Auth. provider HOME SLEEP APNEA TEST (HSAT) [[id number]] 11/18/21 Francia Young MD Assoc. diagnoses: Hypersomnolence [...] from Dr. Francia Young MD, a B. [facility] Staff. Visit prep complete. Comments :No The sleep study is scheduled for 12/17. Insurance: Payor: MMO / Plan: MMO SUPER[employer] PLUS / Product Type: PPO / Payor/Plan Subscr Sex Relation Sub. Ins. ID Effective Group Num 1. MMO - MMO SUP* LYDIAPAMELA* 1980 Female Self [id number] 09/27/20 [address] Hernán Cronin documented in this encounter [facility] 12-16-2021 Note HNO ID: [id number] Author: Ina Davis Service: ? Author Type: ? Type: Progress Notes Filed: 12/22/2021 3:55 PM Note Text: Nomad: [id number] Date: 12/16/21 [employer] Mailout Tracking Number: [id number] [employer] Return Tracking Number: [id number] [facility] 11-24-2021 Note HNO ID: [id number] Author: Howard Ware III, PhD Service: ? Author Type: Physician Type: Progress Notes Filed: 12/22/2021 3:55 PM Note Text: November 24, 2021 Standing PSG Orders signed in the last 90 days None Future PSG Orders signed in the last 90 days Ordered Auth. provider HOME SLEEP APNEA TEST (HSAT) [[id number]] 11/18/21 Francia Young MD Assoc. diagnoses: Hypersomnolence [...] Howard Ware III, PhD 1:37 PM, 11/24/2021 [facility] 11-21-2021 Note HNO ID: [id number] Author: Hernán Cronin Service: ? Author Type: ? Type: Progress Notes Filed: 12/22/2021 3:55 PM Note Text: November 21, 2021 An order has been received for Home Sleep Apnea Test (HSAT) from Dr. Francia Young MD, a [place]. [facility] Staff. Visit prep complete. Comments :No The sleep study is scheduled for 12/17. Insurance: Payor: MMO / Plan: MMO [employer]US / Product Type: PPO / Payor/Plan Subscr Sex Relation Sub. Ins. ID Effective Group Num 1. MMO - MMO SUP* PAMELA FREEMAN* 1980 Female Self [id number] 09/27/20 [address] Hernán Cronin [facility] 11-18-2021 Note HNO ID: [id number] Author: Francia Young MD Service: ? Author Type: Physician Type: Progress Notes Filed: 11/21/2021 11:12 AM Note Text: VIRTUAL VISIT PROGRESS NOTE November 18, 2021 This is a virtual visit using Keemotion video visit. The patient is a 41-year-old [...] OF C-sections x2 - TUBAL LIGATION HX 2008 ALLERGIES Allergen Reactions - Amoxicillin Hives - [...] patient after the visit with Dr. Montana [facility] 10-08-2021 Note HNO ID: [id number] Author: Jerome Montana MD Service: ? Author [...] and Flovent inhalers and oral steroids at [facility] near [place], [place] CXR revealed RLL pneumonia. Her D-Dimers [...] 2021! Does 30 min of walking on [employer] Able to climb a flight of stairs. [...] x2 - TUBAL LIGATION HX 2007 [place] at 51 with cardiac illness, lung Ca [...] visit] No CXR or PFTs available. 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 Possible Myocarditis Doubt PAH [...] time > 45 min Jerome Montana MD [facility] Evaluation note Diagnosis Well woman exam with routine gynecological exam Routine gynecological examination Acute non-recurrent frontal sinusitis documented in this encounter [facility] Summary Purpose Family History No Family History Records FoundNo Family History Records FoundNo Family History Records FoundNo Family History Records FoundNo Family History Records Found Advance Directives No Advanced Directives Records FoundNo Advanced Directives Records FoundNo Advanced Directives Records FoundNo Advanced Directives Records FoundNo Advanced Directives Records Found Additional Source Comments INFORMATION SOURCE (unrecogn ized section and content) DATE CREATED AUTHOR 09/24/2021 [facility] DATE CREATED AUTHOR AUTHOR'S ORGANIZ ATION 02/15/2022 [facility] DATE CREATED AUTHOR AUTHOR'S ORGANIZ ATION 12/19/2022 [facility] DATE CREATED AUTHOR AUTHOR'S ORGANIZ ATION 02/04/2023 [facility] DATE CREATED AUTHOR AUTHOR'S ORGANIZ ATION 09/17/2024 [facility] [facility] EPIC Source Comments (unrecognize d section and content) In the event this informatio n is protected by the Federal Confidentiality of Alcohol and Drug Abuse Patient Records regulations: The Federal rules restrict any use of the information to criminally investigate or prosecute any alcohol or drug abuse patient.[facility] the event this information is protected by the Federal Confidentiality of Alcohol and Drug Abuse Patient Records regulations: The Federal rules restrict any use of the information to criminally investigate or prosecute any alcohol or drug abuse patient.[facility] the event this information is protected by the Federal Confidentiality of Alcohol and Drug Abuse Patient Records regulations: The Federal rules restrict any use of the information to criminally investigate or prosecute any alcohol or drug abuse patient.[facility] Reason for Visit (unrecogniz ed section and content) Reason Comments HSAT Check In (Adult) Reason Comments Results Reason Comments Forms Reason Comments Abnormal Pap Smear Care Teams (unrecognized sec tion and content) Die Barber Relationship Specialty Start Date End Date Rudy Milan DO PCP - General Internal Medicine 01/28/17 Terra Singh MD [address] [phone] Referring Family Practice 07/30/21 Die Barber Relationship Specialty Start Date End Date Rudy Milan DO PCP - General Internal Medicine 01/28/17 Terra Singh MD [address] [place] [address] Referring Family Practice 07/30/21 Die Barber Relationship Specialty Start Date End Date Terra Singh MD [address] [place] [address] PCP - General 08/30/23 Die Barber Relationship Specialty Start Date End Date Terra Singh MD [address] [place] [address] PCP - General 08/30/23 Die Barber Relationship Specialty Start Date End Date Terra Singh MD [address] [place] [address] PCP - General 08/30/23 Die Barber Relationship Specialty Start Date End Date Terra Singh MD [address] [place] [address] PCP - General 08/30/23 FOR RECORDS PERTAINING [...] BE BASED ON THE PRIMARY CLINICAL RECORDS. [facility]. provides no warranty or guarantee of the accuracy or completeness of information in this document.
[2024-11-23 11:40] LABS: Alanine Aminotransferase 26 U/L (14-59); Albumin Globulin Ratio 1.1; Albumin Level 3.9 g/dL (3.4-5.0); Alkaline Phosphatase 62 U/L (46-116); Aspartate Amino Transferase 16 U/L (15-37); BUN Creatinine Ratio 12.3; Bilirubin Total 0.5 mg/dL (0.2-1.0); Calcium 9.4 mg/dL (8.5-10.1); Carbon Dioxide 30.2 mmol/L (21.0-32.0); Chloride 102 mmol/L (98-107); Estimated GFR (African America >60 (>=60 mL/min/1.73m^2); Estimated GFR (Non-African Ame >60 (>=60 mL/min/1.73m^2); Globulin 3.4 g/dL; Glucose 90 mg/dL (74-106); Potassium 4.2 mmol/L (3.5-5.1); Sodium 139 mmol/L (136-145); Total Protein 7.3 g/dL (6.4-8.2)
== END 2024-11-23 09:23 | disposition home or self-care (01) ==
LOC: LAB 09:25
PROVIDERS: PCP Family Medicine; Visit Provider Obstetrics & Gynecology
DX: Z79.899 Other long term (current) drug therapy (principal)
CPT/HCPCS: 36415; 80053

== ENCOUNTER 2025-06-07 09:36 | Outpatient (OUT) | payer BC, SELFPAY ==
--- OUTSIDE RECORDS SUMMARY | 2025-06-07 09:42 | XMS_ITS | Encounter Summary ---
Author Organization [facility] Address [address] [facility] [place] [address] Care Team Providers Care Wax Ball Molder Name Role Phone Micky Singh MD Primary Care Provider +- Encounter Details Date Type Department Care Team (Late st Contact Info) Description 10/11/2024 Abstract [facility] [address] [place] [address] Nini Romero LPN Social History Tobacco Use Types Packs/Day Years Used Date Smoking Tobacco: Never Alcohol Use Standard Drinks/Week Comments Yes 0 (1 standard drink = 0.6 oz pur e alcohol) Occasional alcohol use Comments No Sex and Gender Information Value Date Recorded Sex Assigned at Not on file Legal Sex Female 7:17 PM EDT Gender Identity Not on file Sexual Orientation Not on file documented as of this encounter Plan of Treatment Upcoming Encounters Date Type Department Care Team (Late st Contact Info) Description 09/17/2025 9:20 AM EST Office Visit [facility] [address] [place] [address] Mando Back DO [address] [place], [place] [phone] documented as of this encounter Visit Diagnoses Not on filedocumented in this encounter Care Teams Wax Ball Molder Relationship Specialty Start Date End Date Micky Singh MD PCP - General 08/30/23 documented as of this encounter
--- OUTSIDE RECORDS SUMMARY | 2025-06-07 09:42 | XMS_ITS | Clinical Summary ---
Author Organization [facility] Address [address] [place] [address] Care Team Providers Care Lay Out Carpenter Name Role Phone Micky Singh MD Primary Care Provider [phone] Allergies Active Allergy Reactions Criticality Noted Date Comments Amoxicillin Hives 03/03/2017 Bacitracin-Polymyxin B Rash,Unknown Low 08/31/2023 Benzalkonium Chloride Rash Low 03/03/2017 Meperidine Shortness of breath,Unknown High 03/03/2017 Axulsjvz-Jhiktfkzxzc-Ovlwbya nb 12/16/2022 Other Other 08/31/2023 Medications citalopram (CeleXA) 20 mg tablet Take 20 mg by mouth at bedtime. 09/03/20 22 Active metoprolol tartrate (Lopressor) 25 mg tabletIndications: Sinus tachycardia,Other chest pain Take 1 tablet (25 mg) by mouth if needed in the morning and at bedtime (as needed before planned exercise/exertio n). 60 tablet 11 12/17/19 23 Active Additional Information Patient not taking.Reported on 12/31/2023 albuterol 90 mcg/actuation inhaler Inhale 1 puff in the morning, afternoon, and at bedtime. Active cholecalciferol (Vitamin D-3) 50 MCG (1999 UT) tablet Take 2,000 Units by mouth in the morning. Active levalbuterol (Xopenex) 1.25 mg/3 mL nebulizer solution Take 1 ampule by nebulization in the morning, afternoon, and at bedtime. 11/29/19 21 Active montelukast (Singulair) 10 mg tablet Take 10 mg by mouth at bedtime. Active ondansetron ODT (Zofran-ODT) 4 mg disintegrating tablet Take 4 mg by mouth every 8 (eight) hours if needed. 09/08/20 24 Active semaglutide (Ozempic) 0.25 mg or 0.5 mg(2 mg/1.5 mL) pen injector Inject 1.8 mg under the skin. 02/01/20 24 Active atorvastatin (Lipitor) 40 mg tabletIndications: Mixed hyperlipidemia Take 1 tablet (40 mg) by mouth in the morning. 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 Vitamin D deficiency 01/12/2025 Breast cancer screening by mammogram 08/28/2024 Sinus tachycardia 07/25/2021 Bradycardia 08/15/2020 Chest pain 08/15/2020 Dyspnea 08/15/2020 History of severe acute resp iratory syndrome coronavirus 2 (SARS-CoV-2) disease 07/18/2020 Diarrhea 03/03/2017 RUQ pain 03/03/2017 Encounters Date Type Department Care Team Description 06/04/2025 Orders Only [facility] [address] [place] [phone] Shamika Chavez MA Palpitations (Primary Dx) 06/04/2025 Telephone [facility] [address] [place] [phone] Shamika Chavez MA 03/08/2025 Orders Only [facility] [address] [place] [phone] Provider, MD Tiana 03/08/2025 Telephone [facility] [address] [place] [phone] Shamika Chavez MA from Last 3 Months Family History Relation Name Status Comments Brother Father Mother Alive Sister Alive Social History Tobacco Use Types Packs/Day Years Used Date Smoking Tobacco: Never Smokeless Tobacco: Never Tobacco Cessation:Counseling Given: Not Answered Alcohol Use Standard Drinks/Week Comments Yes 0 (1 standard drink = 0.6 oz pur e alcohol) occasional 1 per week [place] Safety & Environment Answer Date Rec orded Fear of Current or Ex-Partner Not on file Emotionally Abused Not on file 11/18/2023 Physically Abused Not on file 11/18/2023 Sexually Abused Not on file 11/18/2023 Physically or Sexually Abused Not on file Comments Unknown Sex and Gender Information Value Date Recorded Sex Assigned at Not on file Legal Sex Female 11:50 PM EDT Gender Identity Not on file Sexual Orientation Not on file Last Filed Vital Signs Vital Sign Reading Time Taken Comments Blood Pressure 98/73 01/12/2025 9:32 AM EDT Pulse 86 01/12/2025 9:32 AM EDT Temperature 36.9 C (98.4 F) 09/16/2020 10:51 AM EST Respiratory Rate 11 12/31/2023 9:56 AM EDT Oxygen Saturation 98% 01/12/2025 9:32 AM EDT Inhaled Oxygen Concentration - - Weight 60.3 kg (133 lb) 01/12/2025 9:32 AM EDT Height 157.5 cm (5' 2 ) 01/12/2025 9:32 AM EDT Body Mass Index 24.33 01/12/2025 9:32 AM EDT Plan of Treatment Upcoming Encounters Date Type Department Care Team (Late st Contact Info) Description 07/24/2025 11:30 AM EDT Office Visit [facility] [address] [place] [address] Vazquez iPerre MD [address] [place] [address] Health Maintenance Due Date Last Done Comments CT Colonography 1979 Colonoscopy 1979 Colorectal Cancer Screening 1979 Diabetes: Hemoglobin A1C 1979 FIT-DNA 1979 FIT 1979 FOBT 1979 Sigmoidoscopy 1979 Meningococcal Vaccine (1 - Risk 2-dose series) 1981 Diabetes: Retinopathy Screening 1989 Meningococcal B Vaccine (1 o f 5 - Increased Risk) 1989 Depression Screening 1991 Diabetes: Urine Protein Screening 1998 Hepatitis B Vaccines (1 of 3 - 19+ 3-dose series) 1998 Pneumococcal Vaccine: Pediatrics (0 to 5 Years) and At-Risk Patients (6 to 64 Years) (1 of 2 - PCV) 1998 Zoster Vaccines (1 of 2) 1998 HPV/Cotest 2009 Mammogram 2019 Adult Tetanus 05/18/2025 05/18/2015 Influenza Vaccine (#1) 2025 , 07/11/2019, 07/21/2009 Cervical Cancer Screening 09/14/2027 Pap Smear 09/14/2027 09/14/2024, 08/27/2022 HIB Vaccines Aged Out No longer eligi ble based on patient's age to complete this topic HPV Vaccines Aged Out No longer eligi ble based on patient's age to complete this topic IPV Vaccines Aged Out No longer eligi ble based on patient's age to complete this topic Rotavirus Vaccines Aged Out No longer eligible based on patient's age to complete this topic Insurance [facility] Care Teams Lay Out Carpenter Relationship Specialty Start Date End Date Micky Singh MD [address] [facility] [place] [phone] PCP - General 12/16/22
--- OUTSIDE RECORDS SUMMARY | 2025-06-07 09:42 | XMS_ITS | Encounter Summary ---
Author Organization [facility] Address [address] [facility] [place] [address] Care Team Providers Care Segment Assembler Name Role Phone Micky Singh MD Primary Care Provider +- Encounter Details Date Type Department Care Team (Late st Contact Info) Description 08/09/2024 Abstract [facility] [address] [place] [address] Nini Romero LPN Social History Tobacco [...] EST Office Visit [facility] [address] [facility] [place] [address] Mando Back DO [address] [place], [place] [phone] documented as of this encounter Visit Diagnoses Not on filedocumented in this encounter Care Teams Segment Assembler Relationship Specialty Start Date End Date Micky Singh MD PCP - General 08/30/23 documented as of this encounter
--- OUTSIDE RECORDS SUMMARY | 2025-06-07 09:42 | XMS_ITS | Encounter Summary ---
Author Organization [facility] Address [address] [place] [address] Care Team Providers Care Paint Tester Name Role Phone Micky Singh MD Primary Care Provider [phone] Reason for Referral * Cardiac Stress Testing (Routine) - Pending Review Specialty Diagnoses / Procedures Referred By Contac t Referred To Contact Cardiology Diagnoses Palpitations Procedures Holter monitor - 48 hour Mark Johnson MD [address] [facility] [address] [facility] [place] [address] Phone: tel: fax: Referral ID Status Reason Start Date Expiration Date V isits Requested Visits Authorized [id number] Pending Review 06/06/2025 06/06/2026 1 1 Encounter Details Date Type Department Care Team (Late st Contact Info) Description 06/04/2025 Telephone [facility] [address] [place] [address] Kathy, BERNARDINO Wick Social History Tobacco Use Types Packs/Day Years Used Date Smoking Tobacco: Never Smokeless Tobacco: Never Alcohol Use Standard Drinks/Week Comments [...] on file documented as of this encounter Miscellaneous Notes * Telephone Encounter - Shamika Chavez MA - 06/06/2025 11:38 AM EDT Patient agrees to Holter monitor and will stop at the office this afternoon for placement. * Telephone Encounter - Shamika Chavez MA - 06/04/2025 2:21 PM EDT She just left the office and I did an EKG. She was feeling palpitations but I did not see anything on EKG. I emailed you result. If you'd like to read/sign, feel free. Otherwise I will have the papercopy for you to read/sign when you're back in the office on 06/18. * Telephone Encounter - Shamika Chavez MA - 06/04/2025 1:12 PM EDT Patient called me to report the past 2 weeks she's had chest pressure (sometimes radiating through to her shoulders/back) and SOB with bothersome palpitations. She is not on a beta nathaniel due to resting HR sometimes going into the 40's. I did advise her to go to ED if chest pressure returns. Also asked her to come to the office for EKG when she feels the palpitations again. She used to feel them when her HR was elevated. Now the palpitations are occurring when HR is 80-90. I also scheduled herto see Dr. Pierre next available, which is 07/24/2025. Any recommendations until then? Please advise. Thanks. documented in this encounter Plan of Treatment Upcoming Encounters Date Type Department Care Team (Late st Contact Info) Description 07/24/2025 11:30 AM EDT Office Visit [facility] [address] [place] [phone] Vazquez Pierre MD [address] [place] [address] Scheduled Orders Name Type Priority Associated Diagnoses Orde r Schedule Holter monitor - 48 hour Cardiac Services Routine Palpitations Expected: 06/06/2025 (Approximate), Expires: 06/06/2027 documented as of this encounter Visit Diagnoses Diagnosis Palpitations- Primary documented in this encounter Care Teams Paint Tester Relationship Specialty Start Date End Date Micky Singh MD [address] [facility] [address] PCP - General 12/16/22 documented as of this encounter
--- OUTSIDE RECORDS SUMMARY | 2025-06-07 09:42 | XMS_ITS | Encounter Summary ---
Author Organization [facility] Address [address] [facility] [place] [address] Care Team Providers Care Electric Pile Driver Operator Name Role Phone Micky Singh MD Primary Care Provider + Encounter Details Date Type Department Care Team (Late Contact Info) Description 03/17/2023 Abstract [facility] [place] [address] Mando Back DO [facility] [address], [place] [address] Social History Tobacco Use Types Packs/Day Years Used Date Smoking Tobacco: Never Assessed Comments Unknown Sex and Gender Information Value Date Recorded Sex Assigned at Not on file Legal Sex Female 7:17 PM EDT Gender Identity Not on file Sexual Orientation Not on file documented as of this encounter Plan of Treatment Upcoming Encounters Date Type Department Care Team (Late Contact Info) Description 09/17/2025 9:20 AM EST Office Visit [facility] [place] [address] Mando Back DO [address] [place] [address] documented as of this encounter Visit Diagnoses Not on filedocumented in this encounter Care Teams Electric Pile Driver Operator Relationship Specialty Start Date End Date Micky iSngh MD PCP - General 08/30/23 documented as of this encounter
--- OUTSIDE RECORDS SUMMARY | 2025-06-07 09:42 | XMS_ITS | Clinical Summary ---
Author Organization [facility] Address [address] [place] [address] Care Team Providers Care Technical Sales Director Name Role Phone Micky Singh MD Primary Care Provider [phone] Allergies Active Allergy Reactions Criticality Noted Date Comments Bacitracin-Polymyxin B Rash,Unknown Low 08/31/2023 Benzalkonium Chloride Rash Low 03/03/2017 Meperidine Shortness of breath,Unknown High 03/03/20 17 Meperidine Hcl Other,Shortness of breath,Unknown High 08/31/2023 Other Other 08/31/2023 Medications cholecalciferol (Vitamin D-3) 50 MCG (1999) capsule Vitamin D Active atorvastatin (Lipitor) 20 MG tablet Take 1 tablet by mouth in the morning. Active ascorbic acid (Vitamin C) 500 MG ER capsule Active albuterol HFA 90 mcg/act inhaler Acti ve Zinc 10 MG lozenge Zinc Active citalopram (CeleXA) 10 MG tabletIndications :Mood changes Take 1 tablet (10 mg) by mouth in the morning. Pt combining 10mg and 20 mg for a 30mg celexa. 30 tablet 11 3 Active semaglutide (Ozempic) 2 MG/1.5ML solution pen-injectorIndic ations:Insulin resistance Inject 0.63mL (2.268mg) once weekly as directed. 2.52 mL 4 Active semaglutide (Ozempic) 2 MG/1.5ML solution pen-injectorIndic ations:Diabetes mellitus due to underlying condition without complication, unspecified whether long term care pharmacist insulin use (HCC),Type II diabetes mellitus with complication (HCC) inject 0.5 mg under the skin 1 (one) time per week for 4 doses 1 each 1 4 Active citalopram (CeleXA) 20 MG tabletIndications :Mood changes TAKE 1 TABLET BY MOUTH EVERY DAY 90 tablet 3 4 Active azithromycin (Zithromax Z-Tavo) 250 MG tabletIndications :Acute non-recurrent frontal sinusitis As directed 6 tablet 4 Active Active Problems Problem Noted Date Diagnosed Date Breast cancer screening by mammogram 08/28/2024 Encounters Date Type Department Care Team Description 06/04/2025 Orders Only [facility] [address] [place], [place] [address] [address] Mando Back DO Encounter for long-term (current) use of medications; Diabetes mellitus due to underlying condition without complication, unspecified whether long-term insulin use (HCC); Insulin resistance 04/20/2025 Abstract [facility] [address] [place] [address] [place] [phone] Nini Romero, HIGH DENSITY PRESS LABORER 04/03/2025 Telephone [facility] [address] [place], [place] [address] [address] Christen Sloan, [facility] 03/16/2025 Abstract [facility] [address] [place] [address] Mando Back DO from Last 3 Months Family History Medical History Relation Name Comments Mental illness Brother Cancer Maternal Grandfather Diabetes Maternal Grandfather Cancer Maternal Grandmother Cancer Paternal Grandmother Diabetes Paternal Grandmother Relation Name Status Comments Brother x1 Daughter Alive Maternal Grandfather Maternal Grandmother Paternal Grandmother Son 1 Alive Son 2 Alive Social History Tobacco Use Types Packs/Day Years Used Date Smoking Tobacco: Never Tobacco Cessation:Counseling Given: Not Answered [...] Sign Reading Time Taken Comments Blood Pressure 118/68 09/14/2024 9:01 AM EST Pulse - - Temperature - - Respiratory Rate - - Oxygen Saturation - - Inhaled Oxygen Concentration - - Weight 65.3 kg (144 lb) 09/14/2024 9:01 AM EST Height 157.5 cm (5' 2 ) 08/27/2022 12:00 PM EST Body Mass Index 26.34 08/27/2022 12:00 PM EST Plan of Treatment Upcoming Encounters Date Type Department Care Team (Late st Contact Info) Description 09/17/2025 9:20 AM EST Office Visit [facility] [address] [facility] [place] [phone] Mando Back DO [address] [facility] [place] [address] Health Maintenance Due Date Last Done Comments CT Colonography 1979 Colonoscopy 1979 Colorectal Cancer Screening 1979 FIT-DNA 1979 FIT 1979 FOBT 1979 Sigmoidoscopy 1979 Influenza Vaccine (#1) 2025 06/23/2024, 2018 Mammogram 09/08/2025 09/08/2024, 08/27, 09/02/2022, Additional history exists Pap Smear 09/14/2027 09/14/2024, 08/31/2023, 09/2021 Cervical Cancer Screening 08/31/2028 HPV/Cotest 08/31/2028 Procedures Procedure Name Priority Date/Time Associated Diagnosis Comments PAP SMEAR Routine 09/14/2024 12:00 AM EST MM TOMOSYNTHESIS SCREENING BI 09/08/2024 10:09 AM EST from Last 3 Months or Most Recently Relevant to Health Maintenance Results * Pap Smear (09/14/2024 12:00 AM EST) Swab Cervical swab / Unknown Nazanin Nurse [facility] LAB CYTOLOGY ORDERABLES Final Result EXTERNAL LAB * MM TOMOSYNTHESIS SCREENING BI (09/08/2024 10:09 AM EST) Anatomical Region Laterality Modality Other 09/08/2024 10:0 9 AM EST Narrative 09/08/2024 10:10 [place] [address] Mammography Report Signed Patient: PIOTR FREEMAN MR#: [id number] : 1980 Acct:[id number] Age/Sex: 44 / F ADM Date: 09/07/24 Loc: MAMMO Attending Dr: Mando Back D.O. Ordering Physician: Mando Back D.O. Results: Date of Service: 09/07/24 Follow Up: Procedure(s): MM tomosynthesis screening BI Accession Number(s): [id number] cc: Mando Back D.O. Patient Name: PIOTR FREEMAN MR#: [id number] : 1980 Exam Date: 09/07/2024 Ordering Doctor: DR Mando Back . RADIOLOGY REPORT PROCEDURE: MM TOMOSYNTHESIS SCREENING BI COMPARISON: MG MAMM SCREEN 3D AMIRA CAD, 09/02/2022. MM TOMOSYNTHESIS SCREENING BI, 09/06/2023. INDICATIONS: Screening Calculator Name NCI Breast Cancer Risk Assessment Tool 5 Year Breast Cancer Risk 1.60% Lifetime Breast Cancer Risk 11.00% Personal Breast Cancer No Personal Ovarian Cancer No Treatments None Family Cancers Grandmother-maternal with breast cancer at age 63. LOCATION: [facility] BREAST COMPOSITION: The breasts are heterogeneously dense,which may obscure small masses. FINDINGS: DIAGNOSTIC CATEGORY 1--NEGATIVE. NO CHANGE FROM COMPARISON ASSESSMENT. Scattered benign-appearing lymph nodes are present. RIGHT BREAST: No significant suspicious finding. LEFT BREAST: No significant suspicious finding. Micro clip marker upper outer quadrant, posterior breast, stable RECOMMENDATIONS: ROUTINE MAMMOGRAM AND CLINICAL EVALUATION IN 12 MONTHS. PLEASE NOTE: A NORMAL MAMMOGRAM DOES NOT EXCLUDE THE POSSIBILITY OF BREAST CANCER. A CLINICALLY SUSPICIOUS PALPABLE LUMP SHOULD BE BIOPSIED. Dictated by: Bam Deshpande MD on 09/08/2024 at 10:08 Approved by: Bam Deshpande MD on 09/08/2024 at 10:09 Dictated By: Bam Deshpande M.D. Signed By: 09/08/24 1010 DD/ 1009 TD/TT: Funeral Pre Arrangement Specialist: Procedure Note Radiology, Radiologist, - 09/08/2024 [place] [address] Mammography Report Signed Patient: PIOTR FREEMAN DMR#: [id number] : 1980Acct:[id number] Age/Sex: 44 / FADM Date: 09/07/24 Loc: MAMMO Attending Dr: Mando Back D.O. Ordering Physician: Mando Back D.O.Results: Date of Service: 09/07/24Follow Up: Procedure(s): MM tomosynthesis screening BI Accession Number(s): [id number] cc: Mando Back D.O. Patient Name: PIOTR FREEMAN MR#: [id number] : 1980 Exam Date: 09/07/2024 Ordering Doctor: DR Mando Back . RADIOLOGY REPORT PROCEDURE: MM TOMOSYNTHESIS SCREENING BI COMPARISON: MG MAMM SCREEN 3D AMIRA CAD, 09/02/2022. MM TOMOSYNTHESIS SCREENING BI, 09/06/2023. INDICATIONS: Screening Calculator Name NCI Breast Cancer Risk Assessment Tool 5 Year Breast Cancer Risk 1.60% Lifetime Breast Cancer Risk 11.00% Personal Breast Cancer No Personal Ovarian Cancer No Treatments None Family Cancers Grandmother-maternal with breast cancer at age 63. LOCATION: [facility] BREAST COMPOSITION: The breasts are heterogeneously dense,which may obscure small masses. FINDINGS: DIAGNOSTIC CATEGORY 1--NEGATIVE. NO CHANGE FROM COMPARISON ASSESSMENT. Scattered benign-appearing lymph nodes are present. RIGHT BREAST: No significant suspicious finding. LEFT BREAST: No significant suspicious finding. Micro clip marker upper outer quadrant, posterior breast, stable RECOMMENDATIONS: ROUTINE MAMMOGRAM AND CLINICAL EVALUATION IN 12 MONTHS. PLEASE NOTE: A NORMAL MAMMOGRAM DOES NOT EXCLUDE THE POSSIBILITY OFBREAST CANCER. A CLINICALLY SUSPICIOUS PALPABLE LUMP SHOULD BE BIOPSIED. Dictated by: Bam Deshpande MD on 09/08/2024 at 10:08 Approved by: Bam Deshpande MD on 09/08/2024 at 10:09 Dictated By: Bam Deshpande M.D. Signed By:09/08/24 1010 DD/ 1009 TD/TT: Funeral Pre Arrangement Specialist: Mando Nazanin DO [facility] Final Result from Last 3 Months or Most Recently Relevant to Health Maintenance Insurance [facility] Care Teams Technical Sales Director Relationship Specialty Start Date End Date Micky Singh MD PCP - General 08/30/23
--- OUTSIDE RECORDS SUMMARY | 2025-06-07 09:42 | XMS_ITS | Encounter Summary ---
Author Organization [facility] Address [address] [facility] [address] Care Team Providers Care Thread Trimmer Name Role Phone Micky Singh MD Primary Care Provider [phone] Encounter Details Date Type Department Care Team (Late Contact Info) Description 09/26/2024 Orders Only [facility] MARTINEZ [address] [place] [address] Hillary Darnell LPN [address] [place] Jonathan [place] [address] Social History Tobacco Use Types Packs/Day Years [...] 9:20 AM EST Office Visit [facility] ASENCIOGYDeepak [address] [place] [address] Mando Back DO [address] [place], [place] [address] documented as of this encounter Procedures Procedure Name Priority Date/Time Associated Diagnosis Comments PAP SMEAR Routine 09/14/2024 12:00 AM EST documented in this encounter Results * Pap Smear (09/14/2024 12:00 AM EST) Swab Cervical swab / Unknown us Nazanin Nurse [facility] CYTOLOGY ORDERABLES Final Result EXTERNAL LAB documented in this encounter Visit Diagnoses Not on filedocumented in this encounter Care Teams Thread Trimmer Relationship Specialty Start Date End Date Micky Singh MD PCP - General 08/30/23 documented as of this encounter
--- OUTSIDE RECORDS SUMMARY | 2025-06-07 09:42 | XMS_ITS | Encounter Summary ---
Author Organization [facility] Address [address] [place] [address] Care Team Providers Care Boring Inspector Name Role Phone Rudy Milan Primary Care Provider [phone] Micky Singh MD Unavailable [phone] Source Comments In the event this information is protected by the Federal Confidentiality of Alcohol and Drug AbusePatient Records regulations: The Federal rules restrict any use of the information to criminally investigate or prosecute any alcohol or drug abuse patient.[facility] Encounter Details Date Type Department Care Team (Late st Contact Info) Description 10/10/2021 Get Medical Advice Pulmonary Medicine [address] [address] Kunal Mabry MD [address] [place] [address] Vitamins Social History Tobacco Use Types Packs/Day Years Used Date Smoking Tobacco: Never Smokeless Tobacco: Never Comments Unknown Sex and Gender Information Value Date Recorded Sex Assigned at Not on file Legal Sex Female 2:24 PM EDT Gender Identity Not on file Sexual Orientation Not on file COVID-19 Exposure Response Date Recorded In the last month, have you been in contact with someone who was confirmed or suspected to have Coronavirus / COVID-19? Unable to assess 10/10/2021 11:04 AM EST documented as of this encounter Plan of Treatment Not on file documented as of this encounter Visit Diagnoses Not on filedocumented in this encounter Care Teams Boring Inspector Relationship Specialty Start Date End Date Rudy Milan DO PCP - General Internal Medicine 01/28/17 Micky Singh MD Referring Family Medicine 07/30/21 documented as of this encounter
--- OUTSIDE RECORDS SUMMARY | 2025-06-07 09:42 | XMS_ITS | Encounter Summary ---
Author Organization [facility] Address [address] [facility] [place] [address] Care Team Providers Care Microsoft Infrastructure Consultant Name Role Phone Micky Singh MD Primary Care Provider +- Encounter Details Date Type Department Care Team (Late st Contact Info) Description 12/12/2024 Abstract [facility] MARTINEZ [address] [place] [address] Nini Romero LPN Social History Tobacco [...] EST Office Visit [facility] [address] [facility] [place] [address] Mando Back DO [address] [place], [place] [address] documented as of this encounter Visit Diagnoses Not on filedocumented in this encounter Care Teams Microsoft Infrastructure Consultant Relationship Specialty Start Date End Date Micky Singh MD PCP - General 08/30/23 documented as of this encounter
--- OUTSIDE RECORDS SUMMARY | 2025-06-07 09:42 | XMS_ITS | Encounter Summary ---
Author Organization [facility] Address [address] [facility] [place] [address] Care Team Providers Care Medical Assembly Name Role Phone Micky Singh MD Primary Care Provider +- Encounter Details Date Type Department Care Team (Late st Contact Info) Description 12/12/2024 Abstract [facility] MARTINEZ [address] [place] [address] Nini Romero LPN Social History Tobacco [...] EST Office Visit [facility]ARTINE[facility] [address] [facility] [place] [address] Mando Back DO [address] [place], [place] [phone] documented as of this encounter Visit Diagnoses Not on filedocumented in this encounter Care Teams Medical Assembly Relationship Specialty Start Date End Date Micky Singh MD PCP - General 08/30/23 documented as of this encounter
--- OUTSIDE RECORDS SUMMARY | 2025-06-07 09:42 | XMS_ITS | Encounter Summary ---
Author Organization [facility] Address [address] [place] [address] Care Team Providers Care Flag Signalman Name Role Phone Micky Singh MD Primary Care Provider Reason for Referral * (Routine) - Pending Review Specialty Diagnoses / Procedures Referred By Contac t Referred To Contact Diagnoses Palpitations Procedures ECG 12 lead Mark Johnson MD [address] [facility] [place] [address] [facility] [place] [address] Phone: tel: fax: Referral ID Status Reason Start Date Expiration Date V isits Requested Visits Authorized [id number] Pending Review 06/04/2025 06/04/2026 1 1 Encounter Details Date Type Department Care Team (Late st Contact Info) Description 06/04/2025 Orders Only [facility] [address] [place] [address] Kathy, Shamika HI Palpitations (Primary Dx) Social History Tobacco Use Types Packs/Day Years [...] Upcoming Encounters Date Type Department Care Team ([facility] st Contact Info) Description 07/24/2025 11:30 AM EDT Office Visit [facility] Heart [facility] [address] [place] [address] Vazquez Pierre MD [address] [place] [address] Scheduled Orders Name Type Priority Associated Diagnoses Orde r Schedule ECG 12 lead ECG Routine Palpitations Ordered: 06/04/2025 documented as of this encounter Visit Diagnoses Diagnosis Palpitations- Primary documented in this encounter Care Teams Flag Signalman Relationship Specialty Start Date End Date Micky Singh MD [address] [facility] [address] [address] PCP - General 12/16/22 documented as of this encounter
--- OUTSIDE RECORDS SUMMARY | 2025-06-07 09:42 | XMS_ITS | Encounter Summary ---
Author Organization [facility] Address [address] [facility] [place] [address] Care Team Providers Care Event Executive Name Role Phone Micky Singh MD Primary Care Provider [phone] Encounter Details Date Type Department Care Team (Late Contact Info) Description 03/06/2024 Abstract [facility] MARTINEZ [address] [place] [address] Mando Back DO [facility] Yanick Mendoza, [place] [address] Social History Tobacco Use Types Packs/Day Years [...] EST Office Visit [facility] MARTINEZ [address] [place] [address] Mando Back DO [address] [place], [place] [address] documented as of this encounter Visit Diagnoses Not on filedocumented in this encounter Care Teams Event Executive Relationship Specialty Start Date End Date Micky Singh MD PCP - General 08/30/23 documented as of this encounter
--- OUTSIDE RECORDS SUMMARY | 2025-06-07 09:42 | XMS_ITS | Encounter Summary ---
Author Organization [facility] Address [address] [facility] [place] [address] Care Team Providers Care Electroplater Automatic Name Role Phone Micky Singh MD Primary Care Provider +- Encounter Details Date Type Department Care Team (Late st Contact Info) Description 06/20/2024 Abstract [facility] MARTINEZ [address] [place] [address] Nini Romero LPN Social History Tobacco [...] EST Office Visit [facility]ART[facility] [address] [facility] [place] [address] Mando Back DO [address] [place], [place] [address] documented as of this encounter Visit Diagnoses Not on filedocumented in this encounter Care Teams Electroplater Automatic Relationship Specialty Start Date End Date Micky Singh MD PCP - General 08/30/23 documented as of this encounter
--- OUTSIDE RECORDS SUMMARY | 2025-06-07 09:42 | XMS_ITS | Encounter Summary ---
Author Organization [facility] Address [address] [facility] [place] [address] Care Team Providers Care Batterboard Setter Name Role Phone Micky Singh MD Primary Care Provider +- Encounter Details Date Type Department Care Team (Late st Contact Info) Description 04/20/2025 Abstract [facility] MARTINEZ [address] [place] [address] Nini Romero LPN Social History Tobacco [...] EST Office Visit [facility]ARTINEZ [address] [place] [address] Mando Back DO [address] [place], [place] [address] documented as of this encounter Visit Diagnoses Not on filedocumented in this encounter Care Teams Batterboard Setter Relationship Specialty Start Date End Date Micky Singh MD PCP - General 08/30/23 documented as of this encounter
--- OUTSIDE RECORDS SUMMARY | 2025-06-07 09:42 | XMS_ITS | Encounter Summary ---
Author Organization [facility] Address [address] [facility] [place] [address] Care Team Providers Care Service Coordinator Name Role Phone Micky Sinhg MD Primary Care Provider + Encounter Details Date Type Department Care Team (Late Contact Info) Description 03/25/2023 Abstract [facility] [place] [address] Mando Back DO [facility] Yanick Mendoza, [place] [address] Social History Tobacco Use Types Packs/Day Years [...] 9:20 AM EST Office Visit [facility] MARTINEZ [address] [place], [place] [address] [address] Mando Back DO [address] [place] [address] documented as of this encounter Visit Diagnoses Not on filedocumented in this encounter Care Teams Service Coordinator Relationship Specialty Start Date End Date Micky Singh MD PCP - General 08/30/23 documented as of this encounter
--- OUTSIDE RECORDS SUMMARY | 2025-06-07 09:42 | XMS_ITS | Clinical Summary ---
Author Organization [facility] Address [address] [place] [address] Care Team Providers Care Technical Architect Name Role Phone Rudy Milan [place] Primary Care Provider [phone] Micky Singh MD Unavailable Allergies Active Allergy Reactions Criticality Noted Date Comments Amoxicillin Hives 03/03/2017 Meperidine Hcl Shortness of Breath 03/03/2017 Benzalkonium Chloride Rash 03/03/2017 Medications albuterol HFA (PROVENTIL HFA, VENTOLIN HFA) 90 mcg/actuation inhaler albuterol sulfate HFA 90 mcg/actuation aerosol inhaler Active Ascorbic Acid (VITAMIN C) 500 mg cpER Active atorvastatin (LIPITOR) 20 mg tablet atorvastatin 20 mg tablet Take 1 tablet every day by oral route. 1 Active citalopram (CELEXA) 20 mg tablet q 24 HR. 1 Active metoprolol succinate ER (TOPROL XL) 25 mg 24 hr tablet TAKE 1 TABLET BY MOUTH TWICE A DAY 60 tablet 11 2 Active Active Problems Problem Noted Date Diagnosed Date RUQ pain 03/03/2017 Diarrhea 03/03/2017 Social History Tobacco Use Types Packs/Day Years Used Date Smoking Tobacco: Never Smokeless Tobacco: Never Comments Unknown Sex and Gender Information Value Date Recorded Sex Assigned at Not on file Legal Sex Female 2:24 PM EDT Gender Identity Not on file Sexual Orientation Not on file Last Filed Vital Signs Vital Sign Reading Time Taken Comments Blood Pressure 119/80 03/03/2017 8:49 AM EDT Pulse 83 03/03/2017 8:49 AM EDT Temperature - - Respiratory Rate - - Oxygen Saturation - - Inhaled Oxygen Concentration - - Weight 68 kg (150 lb) 03/03/2017 8:49 AM EDT Height 157.5 cm (5' 2 ) 03/03/2017 8:49 AM EDT Body Mass Index 27.44 03/03/2017 8:49 AM EDT Plan of Treatment Health Maintenance Due Date Last Done Comments Anxiety Screening 1997 Depression Screening 1997 HIV Screening 1997 Hepatitis C Screening 1997 Hepatitis B Vaccine (1 of 3 - 19+ 3-dose series) 1998 Cervical Cancer Screening [address] Colonography 2024 Cologuard (FIT-DNA) 2024 Colonoscopy 2024 Colorectal Cancer Screening 2024 Diabetes Screening 2024 Fecal Occult Blood 2024 Lipid Screening 2024 Sigmoidoscopy 2024 DTaP,Tdap,Td Vaccine (2 - Td or Tdap) 05/18/2025 Influenza Vaccine (#1) 2025 07/11/2019, [address] [place] [address] [address] PPO Care Teams Technical Architect Relationship Specialty Start Date End Date Rudy Milan DO PCP - General Internal Medicine 01/28/17 Micky Singh MD Referring Family Medicine 07/30/21
--- OUTSIDE RECORDS SUMMARY | 2025-06-07 09:42 | XMS_ITS | Encounter Summary ---
Author Organization [facility] Address [address] [facility] [place] [address] Care Team Providers Care Print Production Coordinator Name Role Phone Micky Singh MD Primary Care Provider +- Encounter Details Date Type Department Care Team (Late st Contact Info) Description 07/13/2024 Abstract [facility] MARTINEZ [address] [place] [address] Nini Romero LPN Social History Tobacco [...] Office Visit [facility] [address] [facility] [place] [address] Mando Back DO [address] [place], [place] [address] documented as of this encounter Visit Diagnoses Not on filedocumented in this encounter Care Teams Print Production Coordinator Relationship Specialty Start Date End Date Micky Singh MD PCP - General 08/30/23 documented as of this encounter
--- OUTSIDE RECORDS SUMMARY | 2025-06-07 09:42 | XMS_ITS | Encounter Summary ---
Author Organization [facility] Address [address] [place] [address] Care Team Providers Care Biomass Power Plant Manager Name Role Phone Rudy Milan Primary Care Provider Micky Singh MD Unavailable [phone] Source Comments In the event this information is protected by the Federal Confidentiality of Alcohol and Drug AbusePatient Records regulations: The Federal rules restrict any use of the information to criminally investigate or prosecute any alcohol or drug abuse patient.[facility] Encounter Details Date Type Department Care Team (Late st Contact Info) Description 11/05/2021 Get Medical Advice Pulmonary Medicine [address] [address] Kunal Mabry MD [address] [place] [address] Lab results Social History Tobacco Use Types Packs/Day Years [...] have Coronavirus / COVID-19? Unable to assess 10/20/2021 8:56 AM EST documented as of this encounter Plan of Treatment Not on file documented as of this encounter Visit Diagnoses Not on filedocumented in this encounter Care Teams Biomass Power Plant Manager Relationship Specialty Start Date End Date Rudy Milan DO PCP - General Internal Medicine 01/28/17 Micky Singh MD Referring Family Medicine 07/30/21 documented as of this encounter
--- OUTSIDE RECORDS SUMMARY | 2025-06-07 09:42 | XMS_ITS | Encounter Summary ---
Author Organization [facility] Address [address] [place] [address] Care Team Providers Care Final Inspector Truck Trailer Name Role Phone Rudy Milan Primary Care Provider [phone] Micky Singh MD Unavailable [phone] Source Comments In the event this information is protected by the Federal Confidentiality of Alcohol and Drug AbusePatient Records regulations: The Federal rules restrict any use of the information to criminally investigate or prosecute any alcohol or drug abuse patient.[facility] Encounter Details Date Type Department Care Team (Late st Contact Info) Description 10/20/2021 Get Medical Advice Pulmonary Medicine [address] [address] Kunal Mabry MD [address] [place] [address] Labs, films, and PFT results Social History Tobacco Use Types Packs/Day [...] on filedocumented in this encounter Care Teams Final Inspector Truck Trailer Relationship Specialty Start Date End Date Rudy Milan DO PCP - General Internal Medicine 01/28/17 Micky Singh MD Referring Family Medicine 07/30/21 documented as of this encounter
--- OUTSIDE RECORDS SUMMARY | 2025-06-07 09:42 | XMS_ITS | Encounter Summary ---
Author Organization [facility] Address [address] [place] [address] Care Team Providers Care Plugman Name Role Phone Rudy Milan Primary Care Provider [phone] Micky Singh MD Unavailable [phone] Source Comments In the event this information is protected by the Federal Confidentiality of Alcohol and Drug AbusePatient Records regulations: The Federal rules restrict any use of the information to criminally investigate or prosecute any alcohol or drug abuse patient.[facility] Encounter Details Date Type Department Care Team (Late st Contact Info) Description 05/28/2022 Patient Msg Endocrinology [address] [place] [phone] Beny Weeks MD [address] [place] [address] Appointment Cancellation Request Social History Tobacco Use Types Packs/Day Years [...] on filedocumented in this encounter Care Teams Plugman Relationship Specialty Start Date End Date Rudy Milan DO PCP - General Internal Medicine 01/28/17 Micky Singh MD Referring Family Medicine 07/30/21 documented as of this encounter
--- OUTSIDE RECORDS SUMMARY | 2025-06-07 09:42 | XMS_ITS | Encounter Summary ---
Author Organization [facility] Address [address] [facility] [place] [address] Care Team Providers Care Wheel Cutter Name Role Phone Micky Singh MD Primary Care Provider +- Encounter Details Date Type Department Care Team (Late st Contact Info) Description 04/12/2024 Abstract [facility] MARTINEZ [address] [place] [address] Nini Romero LPN Social History Tobacco [...] 9:20 AM EST Office Visit [facility]ARTINZE [address] [facility] [place] [address] Mando Back DO [address] [place], [place] [address] documented as of this encounter Visit Diagnoses Not on filedocumented in this encounter Care Teams Wheel Cutter Relationship Specialty Start Date End Date Micky Singh MD PCP - General 08/30/23 documented as of this encounter
--- OUTSIDE RECORDS SUMMARY | 2025-06-07 09:42 | XMS_ITS | Encounter Summary ---
Author Organization [facility] Address [address] [facility] [place] [address] Care Team Providers Care Mysql Dba Name Role Phone Micky Singh MD Primary Care Provider [phone] Encounter Details Date Type Department Care Team (Late st Contact Info) Description 09/08/2024 Clinisync Result Encounter N[facility] External Department Unsolicited Mando Back DO [address], [facility] Social History Tobacco Use Types Packs/Day Years [...] Description 09/17/2025 9:20 AM EST Office Visit [facility] [address] [place] [address] Mando Back DO [address] [place] [address] documented as of this encounter Procedures Procedure Name Priority Date/Time Associated Diagnosis Comments MM TOMOSYNTHESIS SCREENING BI 09/08/2024 10:09 AM EST documented in this encounter Results * MM TOMOSYNTHESIS SCREENING BI (09/08/2024 10:09 AM EST) Anatomical Region Laterality Modality Other 09/08/2024 10:0 9 AM EST Narrative 09/08/2024 10:10 AM EST The [address] [address] Mammography Report Signed Patient: PIOTR FREEMAN MR#: [id number] : 1980 Acct:[id number] Age/Sex: 44 / F ADM Date: 09/07/24 Loc: MAMMO Attending Dr: Mando Back D.O. Ordering Physician: Mando Back D.O. Results: Date of Service: 09/07/24 Follow Up: Procedure(s): MM tomosynthesis screening BI Accession Number(s): [id number] cc: Mando Back D.O. Patient Name: PIOTR FREEMAN MR#: [id number] : 1980 Exam Date: 09/07/2024 Ordering Doctor: [...] cancer at age 62. LOCATION: The [facility] BREAST COMPOSITION: The breasts are heterogeneously [...] Signed By: 09/08/24 1010 DD/ 1009 TD/TT: Production Manufacturing Worker: Procedure Note Radiology, Radiologist, - 09/08/2024 [place] [address] Mammography Report Signed Patient: PIOTR FREEMAN DMR#: [id number] : 1980Acct:[id number] Age/Sex: 44 / FADM Date: 09/07/24 Loc: MAMMO Attending Dr: Mando Back D.O. Ordering Physician: Mando Back D.O.Results: Date of Service: 09/07/24Follow Up: Procedure(s): MM tomosynthesis screening BI Accession Number(s): [id number] cc: Mando Back D.O. Patient Name: PIOTR FREEMAN MR#: [id number] : 1980 Exam Date: 09/07/2024 Ordering Doctor: [...] cancer at age 62. LOCATION: [facility] BREAST COMPOSITION: The breasts are heterogeneously [...] M.D. Signed By:09/08/24 1010 DD/ 1009 TD/TT: Production Manufacturing Worker: us Mando Nazanin DO [facility] Final Result documented in this encounter Visit Diagnoses Not on filedocumented in this encounter Care Teams Mysql Dba Relationship Specialty Start Date End Date Micky Singh MD PCP - General 08/30/23 documented as of this encounter
--- OUTSIDE RECORDS SUMMARY | 2025-06-07 09:42 | XMS_ITS | Encounter Summary ---
Author Organization [facility] Address [address] [facility] [place] [address] Care Team Providers Care Buffing Wheel Former Automatic Name Role Phone Micky Singh MD Primary Care Provider [phone] Encounter Details Date Type Department Care Team (Late st Contact Info) Description 06/04/2025 Orders Only [facility] [address] [place] [address] Mando Back DO [address] [place], [place] [address] Encounter for long-term (current) use of medications; Diabetes mellitus due to underlying condition without complication, unspecified whether parts counterman insulin use (HCC); Insulin resistance Social History Tobacco Use Types Packs/Day Years [...] on file documented as of this encounter Progress Notes * Nini Romero LPN - 06/04/2025 8:14 AM EDT Verbal orders to order labs and send to [facility] for patient to have drawn.--Nini Ospina LPN documented in this encounter Plan of Treatment Upcoming Encounters Date Type Department Care Team (Late st Contact Info) Description 09/17/2025 9:20 AM EST Office Visit [facility] [address] [place] [phone] aMndo Back DO [address] [place] [address] Scheduled Orders Name Type Priority Associated Diagnoses Orde r Schedule CBC and differential Lab Routine Encounter for long-term (current) use of medications Diabetes mellitus due to underlying condition without complication, unspecified whether parts counterman insulin use (HCC) Insulin resistance Expected: 06/04/2025 (Approximate), Expires: 06/04/2026 Comprehensive metabolic panel Lab Routine Encounter for long-term (current) use of medications Diabetes mellitus due to underlying condition without complication, unspecified whether parts counterman insulin use (HCC) Insulin resistance Expected: 06/04/2025, Expires: 06/04/2026 Lipid panel Lab Routine Encounter for long-term (current) use of medications Diabetes mellitus due to underlying condition without complication, unspecified whether fdc insulin use (HCC) Insulin resistance Expected: 06/04/2025, Expires: 06/04/2026 TSH Lab Routine Encounter for long-term (current) use of medications Diabetes mellitus due to underlying condition without complication, unspecified whether fdc insulin use (HCC) Insulin resistance Expected: 06/04/2025 (Approximate), Expires: 06/04/2026 Hemoglobin A1c Lab Routine Encounter for long-term (current) use of medications Diabetes mellitus due to underlying condition without complication, unspecified whether parts counterman insulin use (HCC) Insulin resistance Expected: 06/04/2025 (Approximate), Expires: 06/04/2026 documented as of this encounter Visit Diagnoses Diagnosis Encounter for long-term (current) use of medications Encounter for long-term (current) use of other medications Diabetes mellitus due to underlying condition without complication, unspecified whether fdc insulin use (HCC) Insulin resistance Other abnormal glucose documented in this encounter Care Teams Buffing Wheel Former Automatic Relationship Specialty Start Date End Date Micky Singh MD PCP - General 08/30/23 documented as of this encounter
--- OUTSIDE RECORDS SUMMARY | 2025-06-07 09:42 | XMS_ITS | Encounter Summary ---
Author Organization [facility] Address [address] [place] [facility] [place] [address] Care Team Providers Care Survey Questionnaire Designer Name Role Phone Micky Singh MD Primary Care Provider [phone] Encounter Details Date Type Department Care Team (Late st Contact Info) Description 09/06/2023 Clinisync Result Encounter [facility] Department Unsolicited Mando Back DO [address], [place] [phone] Social History Tobacco Use Types Packs/Day Years [...] Exposure Response Date Recorded In the last 10 days, have yo u been in contact with someone who was confirmed or suspected to have Coronavirus/COVID-19? No / Unsure 08/30/2023 10:45 AM EST documented as of this encounter Plan of Treatment Upcoming Encounters Date Type Department Care Team (Late st Contact Info) Description 09/17/2025 9:20 AM EST Office Visit [facility] [address] [place] [phone] Mando Back DO [address] [place] [address] documented as of this encounter Procedures Procedure Name Priority Date/Time Associated Diagnosis Comments MM TOMOSYNTHESIS SCREENING BI 09/06/2023 8:28 AM EST documented in this encounter Results * MM TOMOSYNTHESIS SCREENING BI (09/06/2023 8:28 AM EST) Anatomical Region Laterality Modality Other 09/06/2023 8:28 AM EST Narrative 09/06/2023 8:29 [place] [address] Mammography Report Signed Patient: PIOTR FREEMAN MR#: [id number] : 1980 Acct:[id number] Age/Sex: 43 / F ADM Date: 09/06/23 Loc: MAMMO Attending Dr: Mando Back D.O. Ordering Physician: Mando Back D.O. Results: Date of Service: 09/06/23 Follow Up: Procedure(s): MM tomosynthesis screening BI Accession Number(s): [id number] cc: Mando Back D.O.; Micky Singh M.D. Patient Name: PIOTR FREEMAN MR#: [id number] : 1980 Exam Date: 09/06/2023 Ordering Doctor: DR Mando Back . RADIOLOGY REPORT PROCEDURE: MM TOMOSYNTHESIS SCREENING BI COMPARISON: MG MAMM SCREEN 3D AMIRA CAD, 08/27/2021. MG MAMM SCREEN 3D AMIRA CAD, 09/02/2022. INDICATIONS: Screening Calculator Name NCI Breast Cancer Risk Assessment Tool 5 Year Breast Cancer Risk 1.50% Lifetime Breast Cancer Risk 11.10% Personal Breast Cancer No Personal Ovarian Cancer No Treatments None Family Cancers Grandmother-maternal with breast cancer at age 63. LOCATION: [facility] BREAST COMPOSITION: Heterogeneously dense,which may obscure small masses. FINDINGS: DIAGNOSTIC CATEGORY 1--NEGATIVE. NO CHANGE FROM COMPARISON ASSESSMENT. Scattered benign-appearing calcifications are present. Scattered benign-appearing lymph nodes are present. RIGHT BREAST: No significant suspicious finding. LEFT BREAST: No significant suspicious finding. RECOMMENDATIONS: ROUTINE MAMMOGRAM AND CLINICAL EVALUATION IN 12 MONTHS. PLEASE NOTE: A NORMAL MAMMOGRAM DOES NOT EXCLUDE THE POSSIBILITY OF BREAST CANCER. A CLINICALLY SUSPICIOUS PALPABLE LUMP SHOULD BE BIOPSIED. Dictated by: Bam Deshpande MD on 09/06/2023 at 08:26 Approved by: Bam Deshpande MD on 09/06/2023 at 08:27 Dictated By: Bam Deshpande M.D. Signed By: 09/06/23828 DD/ 7 TD/TT: Group Product Manager: Procedure Note Radiology, Radiologist, MD - 09/06/20[address] [place] [address] Mammography Report Signed Patient: PIOTR FREEMAN DMR#: [id number] : 1980Acct:[id number] Age/Sex: 43 / FADM Date: 09/06/23 Loc: MAMMO Attending Dr: Mando Back D.O. Ordering Physician: Mando Back D.O.Results: Date of Service: 09/06/23Follow Up: Procedure(s): MM tomosynthesis screening BI Accession Number(s): [id number] cc: Mando Back D.O.; Micky Singh M.D. Patient Name: PIOTR FREEMAN MR#: [id number] : 1980 Exam Date: 09/06/2023 Ordering Doctor: DR Mando Back . RADIOLOGY REPORT PROCEDURE: MM TOMOSYNTHESIS SCREENING BI COMPARISON: MG MAMM SCREEN 3D AMIRA CAD, 08/27/2021. MG MAMM SCREEN 3DBIL CAD, 09/02/2022. INDICATIONS: Screening Calculator Name NCI Breast Cancer Risk Assessment Tool 5 Year Breast Cancer Risk 1.50% Lifetime Breast Cancer Risk 11.10% Personal Breast Cancer No Personal Ovarian Cancer No Treatments None Family Cancers Grandmother-maternal with breast cancer at age 63. LOCATION: [facility] BREAST COMPOSITION: Heterogeneously dense,which may obscure smallmasses. FINDINGS: DIAGNOSTIC CATEGORY 1--NEGATIVE. NO CHANGE FROM COMPARISON ASSESSMENT. Scattered benign-appearing calcifications are present. Scattered benign-appearing lymph nodes are present. RIGHT BREAST: No significant suspicious finding. LEFT BREAST: No significant suspicious finding. RECOMMENDATIONS: ROUTINE MAMMOGRAM AND CLINICAL EVALUATION IN 12 MONTHS. PLEASE NOTE: A NORMAL MAMMOGRAM DOES NOT EXCLUDE THE POSSIBILITY OFBREAST CANCER. A CLINICALLY SUSPICIOUS PALPABLE LUMP SHOULD BE BIOPSIED. Dictated by: Bam Deshpande MD on 09/06/2023 at 08:26 Approved by: Bam Deshpande MD on 09/06/2023 at 08:27 Dictated By: Bam Deshpande M.D. Signed By:09/06/23828 DD/ 7 TD/TT: Group Product Manager: us Mando Back DO [facility] Final Result documented in this encounter Visit Diagnoses Not on filedocumented in this encounter Care Teams Survey Questionnaire Designer Relationship Specialty Start Date End Date Micky Singh MD PCP - General 08/30/23 documented as of this encounter
--- OUTSIDE RECORDS SUMMARY | 2025-06-07 09:42 | XMS_ITS | Encounter Summary ---
Author Organization [facility] Address [address] [facility] [place] [address] Care Team Providers Care Social Group Worker Name Role Phone Micky Singh MD Primary Care Provider [phone] Encounter Details Date Type Department Care Team (Late Contact Info) Description 03/16/2025 Abstract [facility] [address] [place] [address] Mando Back DO [facility] [address] [place], [place] [address] Social History Tobacco Use Types Packs/Day Years [...] EST Office Visit [facility] [address] [place] [address] Mando Back DO [address] [place], [place] [phone] documented as of this encounter Visit Diagnoses Not on filedocumented in this encounter Care Teams Social Group Worker Relationship Specialty Start Date End Date Micky Singh MD PCP - General 08/30/23 documented as of this encounter
--- OUTSIDE RECORDS SUMMARY | 2025-06-07 09:45 | XMS_ITS | CCD ---
Author Organization [facility] Care Team Providers Care Potato Bucker Name Role Phone Rudy Milan DO Primary Care Provider Terra Singh MD Unavailable AMADEO ., DR ELLISON Admitting Unavailable HOY ., [...] Unavailable NAZANIN ., DR TOM Admitting Unavailable [place], DR BRANDY Staton Consulting Unavailable NAZANIN ., DR TOM Consulting Unavailable NAZANIN ., DR TOM Consulting Unavailable NAZANIN ., DR TOM Attending Unavailable NAZANIN ., DR TOM Admitting Unavailable HOY ., DR ELLISON Primary Care Unavailable KEVIN PAUL Attending Unavailable KEVIN PAUL Admitting Unavailable KEVIN PAUL Consulting Unavailable AMADEO Meza, DR ELLISON Primary Care Unavailable DOUG LOMAX Consulting Unavailable KEVIN PAUL Attending Unavailable KEVIN PAUL Admitting Unavailable AMADEO Meza, DR ELLISON Primary Care Unavailable DR JOB CHANDLER Consulting Unavailable KEVIN PAUL Consulting Unavailable Terra Singh MD Primary Care Provider [phone] MANDO BACK Attending Unavailable CHARLOTTE ROWLEY Attending Unavailable Allergies Allergy Classification Reported Allergen(s) Allergy Type Date of Onset Reaction(s) Facility (4 sources) Amoxicillin; Translations: [AMOXICILLIN] Drug Allergy 7 Hives [facility] (4 sources) Benzalkonium; Translations: [BENZALKONIUM CHLORIDE] Drug Allergy 7 Rash [facility] (9 sources) Meperidine Drug Allergy 7 Shortness of Breath, Other, Unknown [facility] (1 source) Amoxicillin Drug Allergy 6 [facility] (1 source) Bacitracin / Neomycin / Polymyxin B Drug Allergy 6 [facility] (1 source) Meperidine Drug Allergy 6 [facility] (7 sources) Bacitracin / Polymyxin B; Translations: [BACITRACIN-POLY MYXIN B] Drug Allergy 3 Rash, Unknown [facility] (6 sources) Benzalkonium Drug Allergy 7 Rash [facility] (7 sources) Meperidine; Translations: [MEPERIDINE] Drug Allergy 7 Shortness of breath, Unknown [facility] (7 sources) Other; Translations: [OTHER] Allergy to substance 3 Other [facility] (1 source) NEOMYCIN-BACITRA CNZN-POLYMYXNB; Translations: [NEOMYCIN-BACITR ACNZN-POLYMYXNB] Propensity to adverse reactions to drug (disorder) 3 [facility] Repository Medications Current Medications Medication Drug Class(es) Dates Sig (Normalized) Sig (Original) [id number] 200 actuat albuterol 0.09 mg/actuat metered dose inhaler (9 sources) beta2-Adrenergic Agonist albuterol HFA 90 mcg/act inhaler Active albuterol HFA (P ROVENTIL HFA, VENTOLIN HFA) 90 mcg/actuation inhaler albuterol sulfate HFA 90 mcg/actuation aerosol inhaler 0 Active Comment on above: albuterol sulfate HF A 90 mcg/actuation aerosol inhaler ascorbic acid 500 mg extended release oral capsule (9 sources) Vitamin C ascorbic acid (V itamin C) 500 MG ER capsule Active Ascorbic Acid (V ITAMIN C) 500 mg cpER azithromycin 250 mg oral tablet (4 sources) Macrolide Antimicrobial Start: 09-14-2024 azithromycin (Zithromax Z-Tavo) 250 MG tablet Indications: Acute non-recurrent frontal sinusitis As directed 6 tablet 09/14/2024 Active cholecalciferol 0.05 mg oral capsule (6 sources) Vitamin D cholecalciferol (Vitamin D-3) 50 MCG (1999) capsule Vitamin D Active citalopram 20 mg oral tablet (14 sources) Serotonin Reuptake Inhibitor Start: 08-30-2024 take [...] 1.5 ml semaglutide 1.34 mg/ml pen injector (17 sources) Start: 02-17-2024 inject 0.5 mg by subcutaneous injection every week semaglutide (Ozempic) 2 MG/1.5ML solution pen-injector Indications: Diabetes mellitus due to underlying condition without complication, unspecified whether skilled nursing insulin use (CMS/HCC) , Type II diabetes mellitus with complication (CMS/HCC) inject 0.5 mg under the skin 1 [...] condition without complication, unspecified whether terminal operations supervisor insulin use (CMS/HCC) Inject 1 mg under the skin 1 (one) time per week 4 mL 1 08/31/2023 Active zinc gluconate 77 mg oral lo zenge (6 sources) Zinc 10 MG lozen ge Zinc Active Completed/Discontinued Medications Medication Drug Class(es) Dates Sig (Normalized) Sig (Original) atorvastatin 20 mg oral tablet (9 sources) HMG-CoA Reductase Inhibitor Start: 09-01-2021 take 1 tablet by mouth once daily atorvastatin (LIPITOR) 20 mg tablet atorvastatin 20 mg tablet Take 1 tablet every day by oral route. 0 09/01/2021 Active Comment on above: atorvastatin 20 mg t ablet Take 1 tablet every day by oral route. 24 hr metoprolol succinate 25 mg extended release oral tablet (2 sources) beta-Adrenergic Nathaniel Start: 12-18-2021 take 1 tablet by mouth [...] upper quadrant pain] Onset: 03-03-2017 03-03-2017 Episodic Conditions associated with dizziness or vertigo (1 source) Dizziness and giddiness; Translations: [DIZZINESS AND GIDDINESS] Onset: 02-03-2023 Episodic Congestive heart failure; nonhypertensive (1 source) Unspecified diastolic (congestive) heart failure; Translations: [UNSPECIFIED DIASTOLIC HEART FAILURE] Onset: 02-17-2022 Chronic Disorders of lipid metabolism (2 sources) Mixed hyperlipidemia; Translations: [Mixed hyperlipidemia] Onset: 01-12-2025 Chronic Hypertension with complications and secondary hypertension (1 source) Hypertensive heart disease with heart failure; Translations: [HTN HEART DISEASE W/HEART FAIL] Onset: 02-17-2022 Chronic Other acquired deformities (1 source) Contracture, left foot; Translations: [CONTRACTURE LEFT FOOT] Onset: 07-20-2022 Chronic Other acquired deformities (1 source) Contracture, right foot; Translations: [CONTRACTURE RIGHT FOOT] Onset: 07-20-2022 Chronic Other screening for suspected conditions (not mental disorders or infectious disease) (13 sources) Encounter for screening mammogram for malignant neoplasm of breast; Translations: [Encounter for screening for malignant neoplasm of cervix] Onset: 08-27-2022 Episodic Other upper respiratory infections (2 sources) Acute frontal sinusitis; Translations: [Acute frontal sinusitis, unspecified] 09-14-2024 Episodic Unclassified (3 sources) POST COVID-19 CONDITION UNSPECIFIED; Translations: [POST COVID-19 CONDITION UNSPECIFIED] Onset: 05-08-2022 Past or Other Problems Problem Classification Problem Date Documented Da te Episodic/Chronic Cardiac dysrhythmias (4 sources) Tachycardia, unspecified; Translations: [Palpitations] Onset: 12-16-2022 Episodic Immunizations and screening for infectious disease (1 [...] BREAST] Onset: 09-14-2022 Episodic Unclassified (1 source) POST COVID-19 CONDITION UNSPECIFIED; Translations: [POST COVID-19 CONDITION UNSPECIFIED] Onset: 04-30-2022 Results Test Name Value Interpretation Reference Range Facility 36on 06-04-2025 36 She just left the office and I did an EKG. She was feeling palpitations but I did not see anything on EKG. I emailed you result. If you'd like to read/sign, feel free. Otherwise I will have the paper copy for you to read/sign when you're back in the office on 06/18. [facility] 36 Patient called me to report the past [...] when HR is 80-90. I also scheduled her to see Dr. Pierre next available, which is 07/24/2025. Any recommendations until then? Please advise. Thanks. [facility] 36on 03-08-2025 36 LM for patient letting her know Dr. Rowley read her recent event monitor. I let her know it showed NSR with some sinus tachycardia, rare PAC's, no significant arrhythmias. Asked her to call the office if she has questions. [facility] Orders Onlyon 03-08-2025 Orders Only [id number] Piotr Freeman 1980 F Date Provider Department [facility] 03/08/2025 [id number], HISTORICAL BH BUCK Mendoza [facility] Family History Family Status - Relation Status Age at Mother Alive Father Sister Alive Brother [facility] Office Visiton 01-12-2025 Follow-up visit [id number] Piotr Freeman 1980 F Date Provider Department Center 01/12/2025 Batsheva-CHARLOTTE ROWLEY BUCK Mendoza [facility] Family History Family Status - Relation Status Age at Mother Alive Father Sister Alive Brother Level of Service:[id number] [place] OFFICE/OUTPATIENT ESTABLISHED MOD MDM 30 MIN [facility] CMP (CMP) (FOR REMOTE FH C USE)on 11-23-2024 Albumin [Mass/Vol] 3.9 g/dL 3.4 - 5.0 g/dL NO [facility] ALBUMIN GLOBULIN RATIO 1.1 [facility] ALP [Catalytic activity/Vol] 62 U/L 46 - 116 U/L [facility] ALT [Catalytic activity/Vol] 26 U/L 14 - 59 U/L [facility] Anion gap [Moles/Vol] 11 mmol/L [facility] AST [Catalytic activity/Vol] 16 U/L 15 - 37 [facility] Bilirubin [Mass/Vol] 0.5 mg/dL 0.2 - 1 .0 mg/dL [facility] Calcium [Mass/Vol] 9.4 mg/dL 8.5 - 10. 1 mg/dL [facility] Chloride [Moles/Vol] 102 mmol/L 98 - 10 7 mmol/L [facility] CO2 [Moles/Vol] 30.2 mmol/L 21.0 - 32.0 mmol/L [facility] Creatinine [Mass/Vol] 0.73 mg/dL 0.55 - 1.02 mg/dL [facility] GFR/1.73 sq M.predicted CKD-EPI (S/P/Bld) [Vol rate/Area] >60 >=60 mL/min/1.73m 2 [facility] Globulin (S) [Mass/Vol] 3.4 g/dL [facility] Glucose [Mass/Vol] 90 mg/dL 74 - 106 mg/dL NO [facility] Potassium [Moles/Vol] 4.2 mmol/L 3.5 - 5.1 mmol/L [facility] Protein [Mass/Vol] 7.3 g/dL 6.4 - 8.2 g/dL [facility] Sodium [Moles/Vol] 139 mmol/L 136 - 145 mmol/L [facility] TBH EGFR-NON AF URUGUAYAN >60 >=60 mL/min/1.73m 2 [facility] Urea nitrogen [Mass/Vol] 9 mg/dL 7.0 - 18.0 mg/dL [facility] Urea nitrogen/Creatinine [Mass ratio] 12.3 mg/mg [facility] IGP,APTIMA HPV,AGE GDLNon AGE GDLN ACOG TESTING Note . [facility] Comment on above: TESTS RESULT FLAG UN ITS REF RANGE LAB Clinician Provided Cytology Information Source.............Cervix;Endocervix No. of containers..01 ThinPrep Vial Age Algo ACOG Veronique... - FLAG LEGEND: L-Low Normal,H-High Normal,LL-Alert Low,HH-Alert High <-Panic Low,>-Panic High,A-Abnormal,AA-Critical Abnormal Performed at: 01 =G [address] [id number] Astrid Brock MD, HPV APTIMA Negative Negative [facility] Comment on above: This nucleic acid am plification test detects fourteen high- risk HPV types (16,18,31,33,35,39,45,51,52,56,58,59,66,68) without differentiation. Performed at: =G - [facility] [id number] Manufacturing Chief Engineer: Astrid Brock MD, Phone: [phone] Performed at: - [facility], [place] [id number] Manufacturing Chief Engineer: Astrid Brock MD, Phone: [phone] IGP, APTIMA HPV, RFX 16/18,45 Note . [facility] Comment on above: TESTS RESULT FLAG UN ITS REF RANGE LAB DIAGNOSIS: 02 NEGATIVE FOR INTRAEPITHELIAL LESION OR MALIGNANCY. FUNGAL ORGANISMS MORPHOLOGICALLY CONSISTENT WITH STONEY SPECIES ARE PRESENT. CELLULAR CHANGES ASSOCIATED WITH INFLAMMATION ARE PRESENT. Specimen adequacy: 02 Satisfactory for evaluation. Endocervical and/or squamous metaplastic cells (endocervical component) are present. Performed by: Millie Zaldivar, Cable Installer (ASCP) . 02 Note: Note 02 The [...] Low,>-Panic High,A-Abnormal,AA-Critical Abnormal Performed at: [address] [facility] [place] [address] Astrid Brock MD, BRUSH-SPATULA CERVIX [facility]IX [facility] WITH AUTO DIFFon BASOPHILS ABSOLUTE AUTO 0 [facility] Basophils/100 WBC (Bld) 0.5 % 0.2 - 2.0 % [facility] Eosinophils/100 WBC (Bld) 2 % 0.9 - 7.0 % [facility] Erythrocyte distribution width (RBC) [Ratio] 12.4 % 11.0 - 15.0 % [facility] Hematocrit (Bld) [Volume fraction] 40.3 % 36.0 - 48.0 % [facility] Hemoglobin (Bld) [Mass/Vol] 13.3 g/dL 12.0 - 16.0 g/dL [facility] IMMATURE GRANULOCYTES ABS AUTO 0.01 [facility] Immature granulocytes/100 WBC (Bld) 0.1 % 0.0 - 0.5 % [facility] Interpretation and review of laboratory results Abnormal [facility] LYMPHOCYTES ABSOLUTE AUTO 2.7 [facility] Lymphocytes/100 WBC (Bld) 32.3 % 20.5 - 60.0 % [facility] MCH (RBC) [Entitic mass] 29.7 pg 26.7 - 34.0 pg [facility] MCHC (RBC) [Mass/Vol] 33 g/dL 29.9 - 35.2 g/dL [facility] MCV (RBC) [Entitic vol] 90 fL 81.0 - 99.0 fL [facility] MONOCYTES ABSOLUTE AUTO 0.5 [facility] Monocytes/100 WBC (Bld) 6.3 % 1.7 - 12.0 % [facility] NEUTROPHILS ABSOLUTE AUTO 4.9 [facility] Neutrophils/100 WBC (Bld) 58.8 % 43.0 - 75.0 % [facility] Platelet mean volume (Bld) [Entitic vol] 9.1 fL Low 9.5 - 13.5 fL [facility] TBH EO # 0.2 [facility]H PLT 337 [facility] TB RBC 4.48 [facility] TB WBC 8.4 [facility] Cervical or vaginal smear or scraping studyon 08-31-2023 [facility] BUNon 01-28-2023 Urea nitrogen [Mass/Vol] 7.0 mg/dL Normal 7.0-18.0 [facility] Comment on above: Performed By: #### U AMIC #### [facility] [address] [place] [address] Dr. Jorge Sierra CALCIUMon 01-28-2023 Calcium [Mass/Vol] 9.4 mg/dL Normal 8.5-10.1 [facility] Comment on above: Performed By: #### U AMIC #### [facility] [address] [place] [address] Dr. Jorge Sierra CBC AUTO DIFFon 01-28-2023 BASO # 0.1 103/ul Normal 0.0-0.1 [facility] Comment on above: Performed By: #### C BC #### [facility] [address] [place] [address] Dr. Jorge Sierra Basophils/100 WBC (Bld) 0.5 % Normal 0.2-2.0 [facility] Comment on above: Performed By: #### C BC #### [facility] [address] [place] [address] Dr. Jorge Sierra EO # 0.2 103/ul Normal 0.0-0.7 [facility] Comment on above: Performed By: #### C BC #### [facility] [address] [place] [address] Dr. Jorge Sierra Eosinophils/100 WBC (Bld) 2.1 % Normal 0.9-7.0 [facility] Comment on above: Performed By: #### C BC #### [facility] [address] [place] [address] Dr. Jorge Sierra Erythrocyte distribution width (RBC) [Ratio] 13.1 % Normal 11.0-15.0 [facility] Comment on above: Performed By: #### C BC #### [facility] [address] [place] [address] Dr. Jorge Sierra Hematocrit (Bld) [Volume fraction] 39.9 % Normal 36.0-48.0 [facility] Comment on above: Performed By: #### C BC #### [facility] [address] [place] [address] Dr. Jorge Sierra Hemoglobin (Bld) [Mass/Vol] 13.4 g/dL Normal 12.0-16.0 [facility] Comment on above: Performed By: #### C BC #### [facility] [address] [place] [address] Dr. Jorge Sierra IG # 0.03 10e3/ul Normal 0.00-0.03 [facility] Comment on above: Performed By: #### C BC #### [facility] [address] [place] [address] Dr. Jorge Sierra IG % 0.3 % Normal 0.0-0.5 [facility] Comment on above: Performed By: #### C BC #### [facility] [address] [place] [address] Dr. Jorge Sierra LYMPH # 3.1 103/ul Normal 1.2-3.8 [facility] Comment on above: Performed By: #### C BC #### [facility] [address] [place] [address] Dr. Jorge Sierra Lymphocytes/100 WBC (Bld) 31.4 % Normal 20.5-60.0 [facility] Comment on above: Performed By: #### C BC #### [facility] [address] [place] [address] Dr. Jorge Sierra MANUAL DIFF REQ NO Normal [facility] Comment on above: Performed By: #### C BC #### [facility] [address] [place] [address] Dr. Jorge Sierra MCH (RBC) [Entitic mass] 30.4 pg Normal 26.7-34.0 [facility] Comment on above: Performed By: #### C BC #### [facility] [address] [place] [address] Dr. Jorge Sierra MCHC (RBC) [Mass/Vol] 33.6 g/dL Normal 29.9-35.2 [facility] Comment on above: Performed By: #### C BC #### [facility] [address] [address] [address] Jorge Sierra MCV (RBC) [Entitic vol] 90.5 fL Normal 81.0-99.0 [facility] Comment on above: Performed By: #### C BC #### [facility] [address] [address] [address] Jorge Sierra MONO # 0.5 103/ul Normal 0.3-0.8 [facility] Comment on above: Performed By: #### C BC #### [facility] [address] [address] [address] Jorge Sierra Monocytes/100 WBC (Bld) 5.3 % Normal 1.7-12.0 [facility] Comment on above: Performed By: #### C BC #### [facility] [address] [place] [address] Dr. Jorge Sierra NEUT # 5.9 103/ul Normal 1.4-6.5 [facility] Comment on above: Performed By: #### C BC #### [facility] [address] [place] [address] Dr. Jorge Sierra Neutrophils/100 WBC (Bld) 60.4 % Normal 43.0-75.0 [facility] Comment on above: Performed By: #### C BC #### [facility] [address] [place] [address] Dr. Jorge Sierra Platelet mean volume (Bld) [Entitic vol] 8.9 fL Critically low 9.5-13.5 [facility] Comment on above: Performed By: #### C BC #### [facility] [address] [place] [address] Dr. Jorge Sierra PLT 340 103/ul Normal 150-450 [facility] Comment on above: Performed By: #### C BC #### [facility] [address] [place] [address] Dr. Jorge Sierra RBC 4.41 106/ul Normal 4.20-5.40 [facility] Comment on above: Performed By: #### C BC #### [facility] [address] [address] [address] Jorge Sierra WBC 9.8 103/ul Normal 4.0-11.0 [facility] Comment on above: Performed By: #### C BC #### [facility] [address] [place] [address] Dr. Jorge Sierra CREATININEon 01-28-2023 Creatinine [Mass/Vol] 0.81 mg/dL Normal 0.55-1.02 [facility] Comment on above: Performed By: #### C BC #### [facility] [address] [place] [address] Dr. Jorge Sierra EGFR-AF URUGUAYAN >60 Normal >=60 [facility] Comment on above: Performed By: #### C BC #### [facility] [address] [place] [address] Dr. Jorge Sierra EGFR-NON AF URUGUAYAN >60 Normal >=60 [facility] Comment on above: Performed By: #### C BC #### [facility] [address] [place] [address] Dr. Jorge Sierra ELECTROLYTESon 01-28-2023 Anion gap [Moles/Vol] 11.2 mmol/L Normal [facility] Comment on above: Performed By: #### U AMIC #### [facility] [address] [place] [address] Dr. Jorge Sierra Chloride [Moles/Vol] 103 mmol/L Normal 98-107 [facility] Comment on above: Performed By: #### U AMIC #### [facility] [address] [place] [address] Dr. Jorge Sierra CO2 [Moles/Vol] 27.4 mmol/L Normal 21.0-32.0 [facility] Comment on above: Performed By: #### U AMIC #### [facility] [address] [place] [address] Dr. Jorge Sierra Potassium [Moles/Vol] 3.6 mmol/L Normal 3.5-5.1 [facility] Comment on above: Performed By: #### U AMIC #### [facility] [address] [place] [address] Dr. Jorge Sierra Sodium [Moles/Vol] 138 mmol/L Normal 136-145 [facility] Comment on above: Performed By: #### U AMIC #### [facility] [address] [place] [address] Dr. Jorge Sierra MAGNESIUMon 01-28-2023 Magnesium [Mass/Vol] 1.9 mg/dL Normal 1.8-2.4 [facility] Comment on above: Performed By: #### U AMIC #### [facility] [address] [place] [address] Dr. Jorge Sierra UA RANDOM W/MICROSCOPICon BACTERIA TRACE Abnormal NONE SEEN [facility] Comment on above: Performed By: #### U AMIC #### [facility] [address] [place] [address] Dr. Jorge Sierra Bilirubin Ql (U) Negative Normal NEGATIVE [facility] Comment on above: Performed By: #### U AMIC #### [facility] [address] [place] [address] Dr. Jorge Sierra CAST NONE SEEN Normal NONE SEEN [facility] Comment on above: Performed By: #### U AMIC #### [facility] [address] [place] [address] Dr. Jorge Sierra Clarity (U) CLEAR Normal CLEAR [facility] Comment on above: Performed By: #### U AMIC #### [facility] [address] [place] [address] Dr. Jorge Sierra Color (U) YELLOW Normal YELLOW [facility] Comment on above: Performed By: #### U AMIC #### [facility] [address] [place] [address] Dr. Jorge Sierra Crystals LM Nom (Urine sed) NONE SEEN Normal NONE SEEN [facility] Comment on above: Performed By: #### U AMIC #### [facility] [address] [place] [address] Dr. Jorge Sierra Epithelial cells LM Ql (Urine sed) MODERATE Abnormal NONE SEEN /RARE [facility] Comment on above: Performed By: #### U AMIC #### [facility] [address] [address] [address] Jorge Sierra Glucose Ql (U) Negative Normal NEGATIVE [facility] Comment on above: Performed By: #### U AMIC #### [facility] [address] [address] [address] Jorge Sierra Hemoglobin Ql (U) Negative Normal NEGATIVE [facility] Comment on above: Performed By: #### U AMIC #### [facility] [address] [address] [address] Jorge Sierra Ketones Ql (U) TRACE Abnormal NEGATIVE [facility] Comment on above: Performed By: #### U AMIC #### [facility] [address] [address] [address] Jorge Sierra LEUKOCYTES Negative Normal NEGATIVE [facility] Comment on above: Performed By: #### U AMIC #### [facility] [address] [address] [address] Jorge Sierra MUCOUS TRACE Abnormal NONE SEEN [facility] Comment on above: Performed By: #### U AMIC #### [facility] [address] [address] [address] Jorge Sierra Nitrite Ql (U) Negative Normal NEGATIVE [facility] Comment on above: Performed By: #### U AMIC #### [facility] [address] [address] [address] Jorge Sierra pH (U) 5.5 [pH] Normal 5-9 [facility] Comment on above: Performed By: #### U AMIC #### [facility] [address] [address] [address] Jorge Sierra RBC 0-2 Normal 0-2 [facility] Comment on above: Performed By: #### U AMIC #### [facility] [address] [address] [address] Jorge Sierra SPEC GRAVITY >=1.030 Abnormal 1.005-<=1.025 [facility] [facility] Comment on above: Performed By: #### U AMIC #### [facility] [address] [address] [address] Jorge Sierra UA PROTEIN TRACE Normal NEGATIVE/ TRACE [facility] Comment on above: Performed By: #### U AMIC #### [facility] [address] [address] [address] Jorge Sierra Urobilinogen Qn (U) 1.0 {Nya'U}/dL Normal 0.2 - 1. 0 [facility] Comment on above: Performed By: #### U AMIC #### [facility] [address] [address] [address] Jorge Sierra WBC NONE SEEN Normal NONE SEEN [facility] Comment on above: Performed By: #### U AMIC #### [facility] [address] [address] [address] Jorge Sierra PAP ACOG PANEL 2: 30 to 65on 09-05-2022 . . Normal [facility] Comment on above: Result Comment: Perf ormed at: BA Performed By: #### U AMIC #### [facility] [address] [address] [address] Jorge Sierra Age Gdln ACOG Testing 30-65 Normal [facility] Comment on above: Performed By: #### U AMIC #### [facility] [address] [address] [address] Jorge Sierra DIAGNOSIS: Comment Normal [facility] Comment on above: Result Comment: NEGA TIVE FOR INTRAEPITHELIAL LESION OR MALIGNANCY. FUNGAL ORGANISMS MORPHOLOGICALLY CONSISTENT WITH STONEY SPECIES ARE PRESENT. THIS SPECIMEN WAS RESCREENED PART OF OUR HORTICULTURE/FLORICULTURE TEACHER PROGRAM. Performed at: BA Performed By: #### U AMIC #### [facility] [address] [address] [address] Jorge Sierra HPV Aptima Negative Normal Negative [facility] Comment on above: Result Comment: This nucleic acid amplification test detects fourteen high-risk HPV types (16,18,31,33,35,39,45,51,52,56,58,59,66,68) without differentiation. Performed at: =G Performed By: #### U AMIC #### [facility] [address] [address] [address] Jorge Sierra HPV Genotype Reflex Comment Normal [facility] Comment on above: Result Comment: Crit eria not met, HPV Genotype not performed. Performed at: BA Performed By: #### U AMIC #### [facility] [address] [address] [address] Jorge Sierra Methodology: Comment Normal [facility] Comment on above: Result Comment: This liquid based ThinPrep(R) pap test was screened with the use of an image guided system. Performed at: WB Performed By: #### U AMIC #### [facility] [address] [address] [address] Jorge Sierra Note: Comment Normal [facility] Comment on above: Result Comment: The [...] WB Performed By: #### U AMIC #### [facility] [address] [address] [address] Jorge Sierra Performed by: Comment Normal [facility] Comment on above: Result Comment: Trey Phillips, Cable Installer Performed at: BA Performed By: #### U AMIC #### [facility] [address] [address] [address] Jorge Sierra QC reviewed by: Comment Normal [facility] Comment on above: Result Comment: Anabela Bettencourt, Cable Installer (ASCP) Performed at: BA Performed By: #### U AMIC #### [facility] [address] [address] [address] Jorge Sierra Specimen adequacy: Comment Normal [facility] Comment on above: Result Comment: Sati sfactory for evaluation. No endocervical component is identified. The absence of an endocervical component was confirmed by an additional screening evaluation. Performed at: BA Performed By: #### U AMIC #### [facility] [address] [address] [address] Jorge Sierra MG MAMM SCREEN 3D AMIRA CADon 09-02-2022 MG MAMM SCREEN 3D AMIRA CAD Patient: PIOTR FREEMAN Exam Date: 09/02/2022 : 1980 Gender:F Ordering : DR MANDO BACK . Admission #: [id number] Family : Order #: [id number] CLICK HERE TO VIEW EXAM RADIOLOGY REPORT PROCEDURE: MAMMOGRAM SCREENING 3D BILATERAL CAD COMPARISON: MG MAMM LT DIAG FU, 03/06/2021. MG MAMM SCREEN 3D AMIRA CAD, 08/27/2021. INDICATIONS: Screening mammography Calculator Name [facility] Breast Cancer Risk Assessment Tool 5 Year Breast Cancer Risk 1.40% Lifetime Breast Cancer Risk 11.30% Personal Breast Cancer No Personal Ovarian Cancer No Treatments None Family Cancers Grandmother-maternal with breast cancer at age 63. LOCATION: [facility] BREAST COMPOSITION: Heterogeneously dense,which may obscure small [...] MD on 09/02/2022 at 09:22 Normal [facility] MRI ANKLE RT WO CONon 2021 MRI [...] by: DOUG LOMAX Date: 2022-08-27 13:28 Normal [facility] XR FOOT AMIRA MIN 3 VIEWSon [...] by: JOB CHANDLER Date: 2022-06-30 16:22 Normal [facility] CBC AUTO DIFFon 05-21-2022 BASO # 0.0 103/ul Normal 0.0-0.1 [facility] Comment on above: Performed By: #### U AMIC #### [facility] [address] [address] [address] Jorge Sierra Basophils/100 WBC (Bld) 0.3 % Normal 0.2-2.0 [facility] Comment on above: Performed By: #### U AMIC #### [facility] [address] [address] [address] Jorge Sierra EO # 0.2 103/ul Normal 0.0-0.7 [facility] Comment on above: Performed By: #### U AMIC #### [facility] [address] [place] [address] Dr. Jorge Sierra Eosinophils/100 WBC (Bld) 2.2 % Normal 0.9-7.0 [facility] Comment on above: Performed By: #### U AMIC #### [facility] [address] [place] [address] Dr. Jorge Sierra Erythrocyte distribution width (RBC) [Ratio] 13.0 % Normal 11.0-15.0 [facility] Comment on above: Performed By: #### U AMIC #### [facility] [address] [place] [address] Dr. Jorge Sierra Hematocrit (Bld) [Volume fraction] 37.5 % Normal 36.0-48.0 [facility] Comment on above: Performed By: #### U AMIC #### [facility] [address] [place] [address] Dr. Jorge Sierra Hemoglobin (Bld) [Mass/Vol] 12.3 g/dL Normal 12.0-16.0 [facility] Comment on above: Performed By: #### U AMIC #### [facility] [address] [place] [address] Dr. Jorge Sierra IG # 0.04 10e3/ul Critically high 0.00-0.03 [facility] Comment on above: Performed By: #### U AMIC #### [facility] [address] [address] [address] Jorge Sierra IG % 0.4 % Normal 0.0-0.5 [facility] Comment on above: Performed By: #### U AMIC #### [facility] [address] [place] [address] Dr. Jorge Sierra LYMPH # 2.6 103/ul Normal 1.2-3.8 [facility] Comment on above: Performed By: #### U AMIC #### [facility] [address] [place] [address] Dr. Jorge Sierra Lymphocytes/100 WBC (Bld) 25.9 % Normal 20.5-60.0 [facility] Comment on above: Performed By: #### U AMIC #### [facility] [address] [place] [address] Dr. Jorge Sierra MANUAL DIFF REQ NO Normal [facility] Comment on above: Performed By: #### U AMIC #### [facility] [address] [place] [address] Dr. Jorge Sierra MCH (RBC) [Entitic mass] 30.2 pg Normal 26.7-34.0 [facility] Comment on above: Performed By: #### U AMIC #### [facility] [address] [place] [address] Dr. Jorge Sierra MCHC (RBC) [Mass/Vol] 32.8 g/dL Normal 29.9-35.2 [facility] Comment on above: Performed By: #### U AMIC #### [facility] [address] [place] [address] Dr. Jorge Sierra MCV (RBC) [Entitic vol] 92.1 fL Normal 81.0-99.0 [facility] Comment on above: Performed By: #### U AMIC #### [facility] [address] [place] [address] Dr. Jorge Sierra MONO # 0.6 103/ul Normal 0.3-0.8 [facility] Comment on above: Performed By: #### U AMIC #### [facility] [address] [place] [address] Dr. Jorge Sierra Monocytes/100 WBC (Bld) 5.7 % Normal 1.7-12.0 [facility] Comment on above: Performed By: #### U AMIC #### [facility] [address] [address] [address] Jorge Sierra NEUT # 6.6 103/ul Critically high 1.4-6.5 [facility] Comment on above: Performed By: #### U AMIC #### [facility] [address] [address] [address] Jorge Sierra Neutrophils/100 WBC (Bld) 65.5 % Normal 43.0-75.0 [facility] Comment on above: Performed By: #### U AMIC #### [facility] [address] [place] [address] Dr. Jorge Sierra Platelet mean volume (Bld) [Entitic vol] 8.7 fL Critically low 9.5-13.5 [facility] Comment on above: Performed By: #### U AMIC #### [facility] [address] [place] [address] Dr. Jorge Sierra PLT 292 103/ul Normal 150-450 [facility] Comment on above: Performed By: #### U AMIC #### [facility] [address] [address] [address] Jorge Sierra RBC 4.07 106/ul Critically low 4.20-5.40 [facility] Comment on above: Performed By: #### U AMIC #### [facility] [address] [address] [address] Jorge Sierra WBC 10.1 103/ul Normal 4.0-11.0 [facility] Comment on above: Performed By: #### U AMIC #### [facility] [address] [place] [address] Dr. Jorge Sierra GLYCOHEMOGLOBIN A1Con 2021 ADA RECOMMENDATION SEE BELOW Normal [facility] Comment on above: Result Comment: ADA RECOMMENDED LIMIT 4.0 - 6.0 ADA THERAPEUTIC TARGET < 7.0 ACTION SUGGESTED > 7.0 Performed By: #### U AMIC #### [facility] [address] [place], [place] [address] Dr. Jorge Sierra Glucose [Mass/Vol] 128 mg/dL Normal [facility] Comment on above: Performed By: #### U AMIC #### [facility] [id number] Jorge Sierra HbA1c (Bld) [Mass fraction] 6.1 % Normal 4.5-6.2 [facility] Comment on above: Performed By: #### U AMIC #### [facility] [address] [address] [address] Jorge Sierra LIPID PROFILEon 05-21-2022 CHOL-HDL RATIO NORM SEE BELOW Normal [facility] Comment on above: Result Comment: 3.3 - 4.4 LOW RISK 4.4 - 7.1 AVERAGE RISK 7.1 - 11.0 MODERATE RISK >11.0 HIGH RISK Performed By: #### U AMIC #### [facility] [address] [address] [address] Jorge Sierra Cholesterol [Mass/Vol] 184 mg/dL Normal <=200 [facility] Comment on above: Performed By: #### U AMIC #### [facility] [address] [address] [address] Jorge Sierra Cholesterol in HDL [Mass/Vol] 53 mg/dL Normal 40-60 [facility] Comment on above: Performed By: #### U AMIC #### [facility] [address] [address] [address] Jorge Sierra Cholesterol in LDL [Mass/Vol] 101.8 mg/dL Normal [facility] Comment on above: Performed By: #### U AMIC #### [facility] [address] [address] [address] Jorge Sierra Cholesterol.total/Ch olesterol in HDL [Mass ratio] 3.5 {ratio} Normal [facility] Comment on above: Performed By: #### U AMIC #### [facility] [address] [address] [address] Jorge Sierra HDL NORMAL > or = 60 mg/dl - LO W CARDIOVASCULAR RISK <40 mg/dl - HIGH CARDIOVASCULAR RISK Normal [facility] Comment on above: Performed By: #### U AMIC #### [facility] [address] [address] [address] Jorge Sierra LDL CALC NORMAL SEE BELOW Normal [facility] Comment on above: Result Comment: <100 mg/dl OPTIMAL 100 - 129 mg/dl NEAR OR ABOVE OPTIMAL 130 - 159 mg/dl BORDERLINE HIGH 160 - 189 mg/dl HIGH >190 mg/dl VERY HIGH Performed By: #### U AMIC #### [facility] [address] [address] [address] Jorge Sierra Triglyceride [Mass/Vol] 146 mg/dL Normal <=150 [facility] Comment on above: Performed By: #### U AMIC #### [facility] [address] [address] [address] Jorge Sierra VLDL CALC 29.2 mg/dL Normal [facility] Comment on above: Performed By: #### U AMIC #### [facility] [address] [address] [address] Jorge Sierra PROF 14(COMP METB)on 022 Albumin [Mass/Vol] 3.7 g/dL Normal 3.4-5.0 [facility] Comment on above: Performed By: #### U AMIC #### [facility] [address] [address] [address] Jorge Sierra Albumin/Globulin [Mass ratio] 1.1 {ratio} Normal [facility] Comment on above: Performed By: #### U AMIC #### [facility] [address] [address] [address] Jorge Sierra ALP [Catalytic activity/Vol] 70 U/L Normal 46-116 [facility] Comment on above: Performed By: #### U AMIC #### [facility] [address] [address] [address] Jorge Sierra ALT [Catalytic activity/Vol] 29 U/L Normal 14-59 [facility] Comment on above: Performed By: #### U AMIC #### [facility] [address] [address] [address] Jorge Sierra Anion gap [Moles/Vol] 13.1 mmol/L Normal [facility] Comment on above: Performed By: #### U AMIC #### [facility] [address] [address] [address] Jorge Sierra AST [Catalytic activity/Vol] 18 U/L Normal 15-37 [facility] Comment on above: Performed By: #### U AMIC #### [facility] [address] [address] [address] Jorge Sierra Bilirubin [Mass/Vol] 0.3 mg/dL Normal 0.2-1.0 [facility] Comment on above: Performed By: #### U AMIC #### [facility] [address] [place] [address] Dr. Jorge Sierra Calcium [Mass/Vol] 9.2 mg/dL Normal 8.5-10.1 [facility] Comment on above: Performed By: #### U AMIC #### [facility] [address] [place] [address] Dr. Jorge Sierra Chloride [Moles/Vol] 104 mmol/L Normal 98-107 [facility] Comment on above: Performed By: #### U AMIC #### [facility] [address] [place] [address] Dr. Jorge Sierra CO2 [Moles/Vol] 27.7 mmol/L Normal 21.0-32.0 [facility] Comment on above: Performed By: #### U AMIC #### [facility] [address] [place] [address] Dr. Jorge Sierra Creatinine [Mass/Vol] 0.80 mg/dL Normal 0.55-1.02 [facility] Comment on above: Performed By: #### U AMIC #### [facility] [address] [place] [address] Dr. Jorge Sierra EGFR-AF URUGUAYAN >60 Normal >=60 [facility] Comment on above: Performed By: #### U AMIC #### [facility] [address] [place] [address] Dr. Jorge Sierra EGFR-NON AF URUGUAYAN >60 Normal >=60 [facility] Comment on above: Performed By: #### U AMIC #### [facility] [address] [place] [address] Dr. Jorge Sierra Globulin (S) [Mass/Vol] 3.4 g/dL Normal [facility] Comment on above: Performed By: #### U AMIC #### [facility] [address] [address] [address] Jorge Sierra Glucose [Mass/Vol] 124 mg/dL Critically high 74-106 [facility] Comment on above: Performed By: #### U AMIC #### [facility] [address] [place] [address] Dr. Jorge Sierra Potassium [Moles/Vol] 4.8 mmol/L Normal 3.5-5.1 [facility] Comment on above: Performed By: #### U AMIC #### [facility] [address] [place] [address] Dr. Jorge Sierra Protein [Mass/Vol] 7.1 g/dL Normal 6.4-8.2 [facility] Comment on above: Performed By: #### U AMIC #### [facility] [address] [place] [address] Dr. Jorge Sierra Sodium [Moles/Vol] 140 mmol/L Normal 136-145 [facility] Comment on above: Performed By: #### U AMIC #### [facility] [address] [place] [address] Dr. Jorge Sierra Urea nitrogen [Mass/Vol] 10.0 mg/dL Normal 7.0-18.0 [facility] Comment on above: Performed By: #### U AMIC #### [facility] [address] [place] [address] Dr. Jorge Sierra Urea nitrogen/Creatinine [Mass ratio] 12.5 mg/mg Normal [facility] Comment on above: Performed By: #### U AMIC #### [facility] [address] [place] [address] Dr. Jorge Sierra TSHon 05-21-2022 TSH 1.454 uIU/mL Normal 0.358-3.740 [facility] Comment on above: Performed By: #### U AMIC #### [facility] [address] [place] [address] Dr. Jorge Sierra CORTISOL 24HR URINEon 2021 Cortisol,F,ug/24hr,U 18 ug/24 hr Normal 6-42 [facility] Comment on above: Performed By: #### C ORT24 #### [facility] [address] [address] [address] Jorge Sierra Cortisol,F,ug/L,U 6 ug/L Normal Undefined [facility] Comment on above: Performed By: #### C ORT24 #### [facility] [address] [place] [address] Dr. Jorge Sierra CORTISOL FREE, SERUMon 05-07 Cortisol, Free Dialysis, LCMS 0.695 ug/dL Normal [facility] Comment on above: Result Comment: Thes e tests were developed and their performance characteristics determined by [employer]. They have not been cleared or approved by the Food and Drug Administration. Reference Range: 8 AM 0.10 - 1.20 4 PM 0.042 - 0.872 Performed By: #### F RECORT #### [facility] [address] [place] [address] Dr. Jorge Bar[facility] PIOTR FREEMAN ([id number]) 1980 F Date Time Provider Department 02/13/22 BENY CHILDRESS During your visit today, we recorded the following information about you: Leon Lomax 02/13/2022 4:48 PM Signed On 02/13 fax was sent to [facility] [phone] for referral with office notes and lab [...] Status:Closed by LEON LOMAX on 02/13/22 Normal [facility] BNPon 02-11-2022 Natriuretic peptide B (Bld) [Mass/Vol] 10.0 pg/mL Normal <=450.0 [facility] Comment on above: Performed By: #### C MP, BNP, CRP, CMADM #### [facility] [address] [place] [address] Dr. Jorge Sierra CARDIAC ADAM ADMITon 022 CK [Catalytic activity/Vol] 125 U/L Normal 26-192 [facility] Comment on above: Performed By: #### C MP, BNP, CRP, CMADM #### [facility] [address] [place] [address] Dr. Jorge Sierra CK.MB [Mass/Vol] ng/mL Normal <=3.60 [facility] Comment on above: Performed By: #### C MP, BNP, CRP, CMADM #### [facility] [address] [place] [address] Dr. Jorge Sierra HSTROP <4.0 Normal 4.0-51.3 [facility] Comment on above: Result Comment: CUT- OFF POINTS HAVE BEEN ESTABLISHED BASED ON THE FOURTH UNIVERSAL DEFINITIONS OF MYOCARDIAL INFARCTION. THE UPPER REFERENCE LIMIT (URL) OF TROPONIN, DEFINED THE 99TH PERCENTILE OF cTnI DISTRIBUTION IN A REFERENCE POPULATION, HAS BEEN CONFIRMED THE DECISION THRESHOLD FOR MD DIAGNOSIS. Performed By: #### C MP, BNP, CRP, CMADM #### [facility] [address] [place] [address] Dr. Jorge Sierra EMERY 30 ng/mL Normal 9-82 [facility] Comment on above: Performed By: #### C MP, BNP, CRP, CMADM #### [facility] [address] [place] [address] Dr. Jorge Sierra CBC AUTO DIFFon 02-11-2022 BASO # 0.0 103/ul Normal 0.0-0.1 [facility] Comment on above: Performed By: #### C BC #### [facility] [address] [place] [address] Dr. Jorge Sierra Basophils/100 WBC (Bld) 0.4 % Normal 0.2-2.0 [facility] Comment on above: Performed By: #### C BC #### [facility] [address] [place] [address] Dr. Jorge Sierra EO # 0.2 103/ul Normal 0.0-0.7 [facility] Comment on above: Performed By: #### C BC #### [facility] [address] [place] [address] Dr. Jorge Sierra Eosinophils/100 WBC (Bld) 2.2 % Normal 0.9-7.0 [facility] Comment on above: Performed By: #### C BC #### [facility] [address] [place] [address] Dr. Jorge Sierra Erythrocyte distribution width (RBC) [Ratio] 12.3 % Normal 11.0-15.0 [facility] Comment on above: Performed By: #### C BC #### [facility] [address] [place] [address] Dr. Jorge Sierra Hematocrit (Bld) [Volume fraction] 39.2 % Normal 36.0-48.0 [facility] Comment on above: Performed By: #### C BC #### [facility] [address] [place] [address] Dr. Jorge Sierra Hemoglobin (Bld) [Mass/Vol] 12.9 g/dL Normal 12.0-16.0 [facility] Comment on above: Performed By: #### C BC #### [facility] [address] [place] [address] Dr. Jorge Sierra IG # 0.04 10e3/ul Critically high 0.00-0.03 [facility] Comment on above: Performed By: #### C BC #### [facility] [address] [place] [address] Dr. Jorge Sierra IG % 0.5 % Normal 0.0-0.5 [facility] Comment on above: Performed By: #### C BC #### [facility] [address] [place] [address] Dr. Jorge Sierra LYMPH # 2.2 103/ul Normal 1.2-3.8 [facility] Comment on above: Performed By: #### C BC #### [facility] [address] [place] [address] Dr. Jorge Sierra Lymphocytes/100 WBC (Bld) 27.5 % Normal 20.5-60.0 [facility] Comment on above: Performed By: #### C BC #### [facility] [address] [place] [address] Dr. Jorge Sierra MANUAL DIFF REQ NO Normal [facility] Comment on above: Performed By: #### C BC #### [facility] [address] [place] [address] Dr. Jorge Sierra MCH (RBC) [Entitic mass] 29.7 pg Normal 26.7-34.0 [facility] Comment on above: Performed By: #### C BC #### [facility] [address] [place] [address] Dr. Jorge Sierra MCHC (RBC) [Mass/Vol] 32.9 g/dL Normal 29.9-35.2 [facility] Comment on above: Performed By: #### C BC #### [facility] [address] [place] [address] Dr. Jorge Sierra MCV (RBC) [Entitic vol] 90.3 fL Normal 81.0-99.0 [facility] Comment on above: Performed By: #### C BC #### [facility] [address] [place] [address] Dr. Jorge Sierra MONO # 0.5 103/ul Normal 0.3-0.8 [facility] Comment on above: Performed By: #### C BC #### [facility] [address] [place] [address] Dr. Jorge Sierra Monocytes/100 WBC (Bld) 6.6 % Normal 1.7-12.0 [facility] Comment on above: Performed By: #### C BC #### [facility] [address] [place] [address] Dr. Jorge Sierra NEUT # 5.1 103/ul Normal 1.4-6.5 [facility] Comment on above: Performed By: #### C BC #### [facility] [address] [place] [address] Dr. Jorge Sierra Neutrophils/100 WBC (Bld) 62.8 % Normal 43.0-75.0 [facility] Comment on above: Performed By: #### C BC #### [facility] [address] [place] [address] Dr. Jorge Sierra Platelet mean volume (Bld) [Entitic vol] 8.6 fL Critically low 9.5-13.5 [facility] Comment on above: Performed By: #### C BC #### [facility] [address] [place] [address] Dr. Jorge Sierra PLT 331 103/ul Normal 150-450 [facility] Comment on above: Performed By: #### C BC #### [facility] [address] [place] [address] Dr. Jorge Sierra RBC 4.34 106/ul Normal 4.20-5.40 [facility] Comment on above: Performed By: #### C BC #### [facility] [address] [place] [address] Dr. Jorge Sierra WBC 8.1 103/ul Normal 4.0-11.0 [facility] Comment on above: Performed By: #### C BC #### [facility] [address] [place] [address] Dr. Jorge Sierra CRPon 02-11-2022 CRP [Mass/Vol] mg/L Normal <=1.0 [facility] Comment on above: Performed By: #### C MP, BNP, CRP, CMADM #### [facility] [address] [place] [address] Dr. Jorge Sierra CTA CHEST WO W [...] ANN MARIE JORDAN Date: 2022-02-11 18:56 Normal [facility] PROF 14(COMP METB)on 022 Albumin [Mass/Vol] 3.6 g/dL Normal 3.4-5.0 [facility] Comment on above: Performed By: #### C MP, BNP, CRP, CMADM #### [facility] [address] [place] [address] Dr. Jorge Sierra Albumin/Globulin [Mass ratio] 1.0 {ratio} Normal [facility] Comment on above: Performed By: #### C MP, BNP, CRP, CMADM #### [facility] [address] [address] [address] Jorge Sierra ALP [Catalytic activity/Vol] 71 U/L Normal 46-116 [facility] Comment on above: Performed By: #### C MP, BNP, CRP, CMADM #### [facility] [address] [address] [address] Jorge Sierra ALT [Catalytic activity/Vol] 28 U/L Normal 14-59 [facility] Comment on above: Performed By: #### C MP, BNP, CRP, CMADM #### [facility] [address] [address] [address] Jorge Sierra Anion gap [Moles/Vol] 9.5 mmol/L Normal [facility] Comment on above: Performed By: #### C MP, BNP, CRP, CMADM #### [facility] [address] [address] [address] Jorge Sierra AST [Catalytic activity/Vol] 29 U/L Normal 15-37 [facility] Comment on above: Performed By: #### C MP, BNP, CRP, CMADM #### [facility] [address] [address] [address] Jorge Sierra Bilirubin [Mass/Vol] 0.5 mg/dL Normal 0.2-1.0 [facility] Comment on above: Performed By: #### C MP, BNP, CRP, CMADM #### [facility] [address] [address] [address] Jorge Sierra Calcium [Mass/Vol] 9.3 mg/dL Normal 8.5-10.1 [facility] Comment on above: Performed By: #### C MP, BNP, CRP, CMADM #### [facility] [address] [address] [address] Jorge Sierra Chloride [Moles/Vol] 96 mmol/L Critically low 98-107 [facility] Comment on above: Performed By: #### C MP, BNP, CRP, CMADM #### [facility] [address] [address] [address] Jorge Sierra CO2 [Moles/Vol] 32.5 mmol/L Critically high 21.0-32.0 [facility] Comment on above: Performed By: #### C MP, BNP, CRP, CMADM #### [facility] [address] [place] [address] Dr. Jorge Sierra Creatinine [Mass/Vol] 0.73 mg/dL Normal 0.55-1.02 [facility] Comment on above: Performed By: #### C MP, BNP, CRP, CMADM #### [facility] [address] [address] [address] Jorge Sierra EGFR-AF URUGUAYAN >60 Normal >=60 [facility] Comment on above: Performed By: #### C MP, BNP, CRP, CMADM #### [facility] [address] [place] [address] Dr. Jorge Sierra EGFR-NON AF URUGUAYAN >60 Normal >=60 [facility] Comment on above: Performed By: #### C MP, BNP, CRP, CMADM #### [facility] [address] [place] [address] Dr. Jorge Sierra Globulin (S) [Mass/Vol] 3.6 g/dL Normal [facility] Comment on above: Performed By: #### C MP, BNP, CRP, CMADM #### [facility] [address] [place] [address] Dr. Jorge Sierra Glucose [Mass/Vol] 102 mg/dL Normal 74-106 [facility] Comment on above: Performed By: #### C MP, BNP, CRP, CMADM #### [facility] [address] [place] [address] Dr. Jorge Sierra Potassium [Moles/Vol] 4.0 mmol/L Normal 3.5-5.1 [facility] Comment on above: Performed By: #### C MP, BNP, CRP, CMADM #### [facility] [address] [place] [address] Dr. Jorge Sierra Protein [Mass/Vol] 7.2 g/dL Normal 6.4-8.2 [facility] Comment on above: Performed By: #### C MP, BNP, CRP, CMADM #### [facility] [address] [address] [address] Jorge Sierra Sodium [Moles/Vol] 134 mmol/L Critically low 136-145 [facility] Comment on above: Performed By: #### C MP, BNP, CRP, CMADM #### [facility] [address] [address] [address] Jorge Sierra Urea nitrogen [Mass/Vol] 13.0 mg/dL Normal 7.0-18.0 [facility] Comment on above: Performed By: #### C MP, BNP, CRP, CMADM #### [facility] [address] [place] [address] Dr. Jorge Sierra Urea nitrogen/Creatinine [Mass ratio] 17.8 mg/mg Normal [facility] Comment on above: Performed By: #### C MP, BNP, CRP, CMADM #### [facility] [address] [place] [address] Dr. Jorge Sierra SED RATE [facility] 2021 SED RATE 4 mm/hr Normal <=20 [facility] Comment on above: Performed By: #### S EDR #### [facility] [address] [place] [address] Dr. Jorge Barrera 12-31-2021 CNPN Telephone ([facility]) PIOTR FREEMAN ([id number]) 1980 F Date Time Provider Department 12/31/21 FRANCIA YONUG During your visit today, we recorded the [...] Encounter Status:Closed by FRANCIA YOUNG on 12/31/21 [facility] 11-04-2021 NATALIE Telephone ([facility]) PIOTR FREEMAN ([id number]) 1980 F Date Time Provider Department 11/04/21 [...] Encounter Status:Closed by COLT CROSS on 11/04/21 [facility] 10-20-2021 CNPN Telephone (RIQ) PIOTR FREEMAN ([id number]) 1980 F Date Time Provider Department 10/20/21 [...] Encounter Status:Closed [facility] CR[facility] Telephone (RIQ) PIOTR FREEMAN ([id number]) 1980 F Date Time Provider Department 10/06/21 [...] Status:Closed by COLT CROSS on 10/06/21 Normal [facility] Cardiovascular Lab Reporton 09-17-[address] [facility] Patient Name: Piotr Freeman [facility] MR #: [id number] Physician: Charlotte Marmolejo Department of Piero Rowley Medicine Service Date: 09/17/2021 Division of Birthdate: 1980 Cardiology Room #: Adult Cardiovascular Services [address] [place] [address] Cardiovascular Laboratory Report INDICATION: The patient is [...] signed informed consent. She was brought to crime lab technician in a fasting state. The right neck area was prepped and draped in usual fashion. A micropuncture technique and ultrasound guidance was used for access in the right internal jugular vein. A 6-Moroccan x 11 cm sheath was placed. A 6-Moroccan Chinchilla catheter was used for right heart catheterization with measurement pressures and calculation of cardiac output using the estimated Valorie method. Chinchilla catheter was removed. Modified Adrian's test was favorable on the left. Access in the left radial artery was obtained using micropuncture technique and ultrasound guidance. A 6-Moroccan x 11 cm Hydrophilic sheath was advanced. Verapamil was given through the sheath and heparin was administered intravenously. Bilateral selective coronary angiography was then performed using 6-Moroccan JL3.5 and JR4 diagnostic catheters. Catheters were [...] up in Cardiology Clinic. Electronically Signed by: Charlotte Rowley M.D. 09/18/2021 05:47 P Charlotte Rowley M.D. Date Dict: 09/17/2021/11:59 A/Charlotte Rowley M.D. Date Trans: 09/17/2021 12:37 P/genesiso [id number] cc: Terra Singh M.D. [address], [place] [address] [facility] Vital Signs Date Time Vital Sign Value Performing Clinician Faci lity 09-14-2024 09:01-0500 Body mass index (BMI) [Ratio] 26.34 kg/m2 Mando Nazanin DO Work Phone: [facility] 09-14-2024 09:01-0500 Body weight 65.32 kg Mando Nazanin DO Work Phone: [facility] 09-14-2024 09:01-0500 Diastolic blood pressure 68 mm[Hg] Mando Nazanin DO Work Phone: [facility] 09-14-2024 09:01-0500 Systolic blood pressure 118 mm[Hg] Mando Nazanin DO Work Phone: [facility] Encounters Encounter Date Encounter Type Care Provider Facility Start: 01-12-2025 End: 01-12-2025 [facility] CHARLOTTE ROWLEY [facility] Start: 11-23-2024 End: 11-23-2024 Clinisync Result Encounter Mando Nazanin DO Work Phone: [facility] Unsolicited Start: 11-23-2024 End: 11-23-2024 Clinisync Result Encounter Mando Nazanin DO Work Phone: [facility] Unsolicited Start: 09-14-2024 End: 09-14-2024 Bamboo flowsheet Mando Nazanin DO Work Phone: [facility] Start: 09-14-2024 End: 09-22-2024 Bamboo flowsheet Mando Nazanin DO Work Phone: [facility] Start: 09-14-2024 End: 09-22-2024 Clinisync Result Encounter Mando Back DO Work Phone: [facility] Unsolicited Start: 09-14-2024 End: 09-14-2024 ambulatory MANDO BACK Not Available Start: 09-14-2024 End: 09-14-2024 Patient encounter procedure Mando Fuenteso DO Work Phone: [facility] Start: 09-14-2024 End: 09-14-2024 Periodic preventive med est patient 40-64yrs Mando Fuenteso DO Work Phone: [facility] Comment on above: Well woman exam with routine gynecological exam; Acute non-recurrent frontal sinusitis Start: 08-01-2024 End: 08-01-2024 Clinisync Result Encounter Mando Back DO Work Phone: [facility] Unsolicited Start: 08-01-2024 End: 08-01-2024 Clinisync Result Encounter Mando Back DO Work Phone: [facility] Unsolicited Start: 01-28-2023 End: 01-29-[address] TERRA SINGH . Facility:[facility] Start: 09-02-2022 End: 09-03-[address] TERRA SINGH . Facility:[facility] Start: 08-27-2022 End: 08-27-[address] MANDO BACK . Facility:[facility] Start: 08-26-2022 End: 08-27-2022 ambulatory KEVIN PAUL Facility:[facility] Start: 07-17-2022 End: 08-18-2022 ambulatory KEVIN PAUL Facility:[facility] Start: 06-30-2022 End: 07-01-2022 ambulatory KEVIN PAUL Facility:[facility] Start: 05-22-2022 Encounter for genera l adult medical examination without abnormal findings DR TERRA SINGH . [facility] Start: 05-21-2022 End: 05-22-[address] TERRA [...] Date Procedure Procedure Detail Performing Clinician Start: 11-23-2024 [facility] CMP (CMP) (FOR R [facility] USE) Mando [employer] DO Work Phone: Start: 09-14-2024 IGP,APTIMA HPV,AGE GDLN Mando Nazanin DO Work Phone: Start: 09-14-2024 Microscopic observat ion [Identifier] in Cervix by Cyto stain Mando Nazanin DO Work Phone: Start: 09-08-2024 Mammography Mando FaAilola o DO Work Phone: Start: 08-01-2024 ALL CBC WITH AUTO DIFF Mando [employer] DO Work Phone: Start: 09-06-2023 Mammography Mando Fazi o DO Work Phone: Start: 08-31-2023 Microscopic observat ion [Identifier] in Cervix by Cyto stain Mando Nazanin DO Work Phone: Start: 08-31-2023 Cytp cerv/vag auto t hin layer prep mnl screen Mando [employer] DO Work Phone: Start: 08-27-2022 Microscopic observat ion [Identifier] in Cervix by Cyto stain Mando Nazanin DO Work Phone: Plan of Treatment Date Care Activity Detail Author Start: 08-31-2028 Screening for malign ant neoplasm of cervix [facility] Start: 09-14-2027 Screening for malign ant neoplasm of cervix Pap Smear [facility] Start: 08-27-2027 Screening for malign ant neoplasm of cervix [facility] Start: 09-24-2025 End: 09-24-2025 Patient encounter procedure 09/24/2025 8:30 AM EST Office Visit [facility] [address] [facility] [place] [phone] Mando Back, DO [address] [place] [address] [facility] Start: 09-17-2025 End: 09-17-2025 Patient encounter procedure 09/17/2025 9:20 AM EST Office Visit [facility] [address] [facility] [place] [address] Mando Back, DO [address] [place] [address] [facility] Start: 09-08-2025 Screening for malign ant neoplasm of breast Mammogram [facility] Start: 09-14-2024 End: 09-14-2024 Patient encounter procedure 09/14/2024 8:50 AM EST Office Visit [facility] [address] [facility] [place] [address] Mando Back, DO [address] [place] [address] [facility] Start: 09-06-2024 Screening for malign ant neoplasm of breast Mammogram [facility] Start: 05-28-2024 Influenza vaccination Influenza Vacc ine (#1) [facility] Start: 05-28-2022 Influenza vaccination INFLUENZA (Sea son Ended) [facility] Start: 05-28-2021 Influenza vaccination INFLUENZA (#1) [facility] Start: 03-30-2021 COVID-19 VACCINE (3 - Booster for Moderna series) COVID-19 VACCINE (3 - Booster for Moderna series) [facility] Start: 2019 Mammography MAMMOGRAM [facility] Start: 2009 HPV TESTING HPV TESTING [facility] Start: 2000 PAP TESTING PAP TESTING [facility] Start: 1998 Urine microalbumin profile DTAP,TDAP,TD (1 - Tdap) [facility] Start: 1997 HEPATITIS C SCREENING HEPATITIS C SC REENING [facility] Start: 1997 HIV SCREENING HIV SCREENING [facility] Start: 1991 Adult depression screening assessment DEPRESSION SCREENING [facility] Start: 1980 Screening for malign ant neoplasm of colon [facility] THIN PREP TIS PAP AN D HR HPV DNA THIN PREP TIS PAP AND HR HPV DNA Pathology and Cytology Routine Well woman exam with routine gynecological exam Ordered: 09/14/2024 [facility] Work Phone: Comment on above: Ordered: 09/14/2024 Immunizations Immunization Date Immunization Notes Care Provider Thuy daniels 07-11-2019 influenza virus vacc ine, unspecified formulation Mando Back DO Work Phone: [facility] Payers Date Payer Category Payer [facility] BCBS [id number] 2022 Unknown [id number] 2020 Unknown MMO MMO [employer] [id number] 2020-Present [phone] [address] [place] [address] PPO [id number] 2019 Unknown [id number] 1980 Unknown [id number] [id number]. 593 1980 Unknown [id number] [id number]. 593 1979 Unknown [id number] 2.16.840.1.830892.3.579.2. 593 1979 Unknown [id number] 2.16.840.1.063042.3.579.2. 593 1979 Unknown [id number] 2.16.840.1.003694.3.579.2. 593 1979 Unknown [id number] 2.16.840.1.331085.3.579.2. 593 1979 Unknown [id number] 2.16.840.1.938391.3.579.2. 593 1979 Unknown [id number] 2.16.840.1.257221.3.579.2. 593 1979 Unknown [id number] 2.16.840.1.862971.3.579.2. 593 1980 Unknown [id number] 2.16.840.1.467786.3.579.2. 593 1980 Unknown [id number] [id number]. 1259 Social History Date Type Detail Facility Start: 03-03-2017 End: 08-18-2023 Tobacco smoking status TXIS Never smoked tobacco [facility] Start: 03-03-2017 Tobacco use and exposure Smoke less tobacco non-user [facility] Start: 1980 Sex Assigned At Not on file [facility] Start: 08-31-2023 Alcoholic beverage intake Curr ent drinker of alcohol (finding) [facility] Start: 08-31-2023 History of Social function [facility] Start: 08-31-2023 Tobacco use panel [facility] Start: 08-18-2023 Alcohol Comment Occasional alcohol u se [facility] Clinical Notes 10-08-2021 to 01-12-2025 Nini Romero LPN - 09/14/2024 8:50 AM ESTTelephone Encounter - Leon Lomax - 02/13/2022 4:45 PM EDTTelephone Encounter - Francia Young MD - 12/31/2021 8:49 AM EDT Note Date & Type Note Facility 01-12-2025 Note [place] [facility] Subjective Piotr Freeman is a 44 y.o. year old female patient being seen for 1 year follow up. Patient states she still has some palpitations/tachycardia every once in awhile but feel better then before. Denies chest pain, SOB, leg edema or chest pain. C/O of occasional palpitations. 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 Social History Tobacco Use Smoking status: Never Smokeless tobacco: Never Substance Use Topics Alcohol use: Yes Comment: occasional 1 per week Drug use: Never MONA Piotr is seen in follow-up. 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 In June 2020 she was admitted to the [facility] with the COVID-19 infection. At that time [...] by ECG but nuclear perfusion was normal. Recent testing: ECG 09/01/2021: Normal sinus rhythm. Stress test 09/01/2021: No reversible ischemia by myocardial perfusion, normal myocardial perfusion imaging. Abnormal exercise test secondary to ECG changes and chest pain. Patient exercised for 5 minutes achieving 6.2 METS. During exercise and recovery there were 1 to 1[address] segment depression in 2 3 and aVF as well as V5 and V6. These returned to normal by completion of the test. Ischemic ECG changes seen in the inferolateral leads. Normal heart rate and blood pressure response to exercise. Amaral treadmill score is -1.2, moderate risk. Echocardiogram 09/01/2021: Normal ventricular function, no valvular dysfunction, normal right-sided pressures, no pericardial effusion. Blood testing 03/01/2021: Hemoglobin 13.1, platelets 286, potassium 4.6, BUN 9, creatinine 0.75, LFTs normal, cholesterol 242, HDL 67, triglycerides 116, LDL 151.8. TSH 1.124, hemoglobin A1c 5.4. Visit of 12/08/2021: Following last visit I [...] breath. No significant symptoms compared to before. Visit of 12/31/2023: She is seen in follow-up. She reports that she has been doing very well. She has continued to experience symptoms of palpitations with exertion only. No palpitations at rest. Her smart watch tells her that her heart rate when walking upstairs is close to 150 bpm. Otherwise she has no significant symptoms. She has been doing well. She has stopped metoprolol tartrate. Visit of 01/12/2025: She is seen in follow-up. She reports that she has been doing well. She denies chest pain and shortness of breath. Her heart rate has been better controlled than before. She has tried to do some aerobic exercises but not on a regular basis. She does have palpitations that happen every few days. They are not long-lasting. She also reports that sometimes her heart rate goes down to the 40s. Otherw (more content not included)... [facility] 09-14-2024 History of Presen t illness Narrative [...] Oral, Daily cholecalciferol (Vitamin D-3) 50 MCG (1999) capsule Vitamin D citalopram (CELEXA) 10 mg, [...] Date SECTION, LOW TRANSVERSE CHOLECYSTECTOMY 1998 COLONOSCOPY 2015 TUBAL LIGATION 2007 REVIEW OF SYSTEMS Review [...] nursing note reviewed. Exam conducted with a rehabilitation medicine physician present. Vitals: Estimated body mass index is [...] Mando Back DO documented in this encounter [facility] 02-13-2022 Miscellaneous Notes On 02/13 fax was sent to [facility] [phone] for referral with office notes and lab results. Leon Lomax documented in this encounter [facility] 12-31-2021 Miscellaneous Notes I spoke to the [...] determine next steps. documented in this encounter [facility] 12-22-2021 Note HNO ID: [id number] Author: Ina Davis Service: ? Author Type: ? Type: Progress Notes Filed: 12/22/2021 3:55 PM Note Text: Sleep Study Check-In Documentation Date: December 22, 2021 Name: Piotr Freeman Comments: HST was returned in working order with all sleep questionnaires Ina Whitley Pss [facility] 12-22-2021 History of Presen t illness Narrative Sleep Study Check-In Documentation Date: December 22, 2021 Name: Piotr Freeman Comments: HST was returned in working order with all sleep questionnaires Ina Whitley Pss Nom[employer]: [id number] Date: 12/16/21 [employer] Mailout Tracking Number: [id number] [employer] Return Tracking Number: [id number] November 24, 2021 Standing PSG Orders signed in the last 90 days None Future PSG Orders signed in the last 90 days Ordered Auth. provider HOME SLEEP APNEA TEST (HSAT) [[id number]] 11/18/21 Francia Young MD Assoc. diagnoses: Hypersomnolence [...] from Dr. Francia Young MD, a [facility] Staff. Visit prep complete. Comments :No The sleep study is scheduled for 12/17. Insurance: Payor: MMO / Plan: MMO SU[employer] PLUS / Product Type: PPO / Payor/Plan Subscr Sex Relation Sub. Ins. ID Effective Group Num 1. MMO - MMO SUP* PAMELA FREEMAN* 1980 Female Self [id number] 09/27/20 [address] Hernán Cronin documented in this encounter [facility] 12-16-2021 Note HNO ID: [id number] Author: Ina Davis Service: ? Author Type: ? Type: Progress Notes Filed: 12/22/2021 3:55 PM Note Text: Nomad: [id number] Date: 12/16/21 [employer] Mailout Tracking Number: [id number] [employer] Return Tracking Number: [id number] [facility] 11-24-2021 Note HNO ID: [id number] Author: Howard Ware III, PhD Service: ? Author Type: Physician Type: Progress Notes Filed: 12/22/2021 3:55 PM Note Text: November 24, 2021 Standing PSG Orders signed in the last 90 days None Future PSG Orders signed in the last 90 days Ordered Auth. provider HOME SLEEP APNEA TEST (HSAT) [[id number]] 11/18/21 Francia Young MD Assoc. diagnoses: Hypersomnolence [...] Howard Ware III, PhD 1:37 PM, 11/24/2021 [facility] 11-21-2021 Note HNO ID: [id number] Author: Hernán Cronin Service: ? Author Type: ? Type: Progress Notes Filed: 12/22/2021 3:55 PM Note Text: November 21, 2021 An order has been received for Home Sleep Apnea Test (HSAT) from Dr. Francia Young MD, a [facility] Staff. Visit prep complete. Comments :No The sleep study is scheduled for 12/17. Insurance: Payor: MMO / Plan: MMO SUPERMED PLUS / Product Type: PPO / Payor/Plan Subscr Sex Relation Sub. Ins. ID Effective Group Num 1. MMO - MMO SUP* PAMELA FREEMAN* 1980 Female Self [id number] 09/27/20 [address] Hernán Cronin [facility] 11-18-2021 Note HNO ID: [id number] Author: Francia Young MD Service: ? Author Type: Physician Type: Progress Notes Filed: 11/21/2021 11:12 AM Note Text: VIRTUAL VISIT PROGRESS NOTE November 18, 2021 This is a virtual visit using Uniregistry video visit. The patient is a 41-year-old [...] patient after the visit with Dr. Montana [facility] 10-08-2021 Note HNO ID: [id number] Author: Jerome Montana MD Service: ? Author [...] and Flovent inhalers and oral steroids at [facility] near [place], [place] CXR revealed RLL pneumonia. Her D-Dimers [...] 2021! Does 30 min of walking on MedVentive Able to climb a flight of stairs. [...] x2 - TUBAL LIGATION HX 2007 [place] at 51 with cardiac illness, lung Ca [...] visit] No CXR or PFTs available. 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 Possible Myocarditis Doubt PAH [...] time > 45 min Jerome Montana MD [facility] Evaluation note Diagnosis Well woman exam with [...] section and content) DATE CREATED AUTHOR 09/24/2021 [facility] DATE CREATED AUTHOR AUTHOR'S ORGANIZ ATION 02/15/2022 [facility] DATE CREATED AUTHOR AUTHOR'S ORGANIZ ATION 02/04/2023 [facility] DATE CREATED AUTHOR AUTHOR'S ORGANIZ ATION 09/17/2024 [facility]ical [facility] DATE CREATED AUTHOR AUTHOR'S ORGANIZ ATION 06/06/2025 [facility] Source Comments (unrecognize d section and content) In the event this informatio n is protected by the Federal Confidentiality of Alcohol and Drug Abuse Patient Records regulations: The Federal rules restrict any use of the information to criminally investigate or prosecute any alcohol or drug abuse patient.[facility]igh[facility] the event this information is protected by the Federal Confidentiality of Alcohol and Drug Abuse Patient Records regulations: The Federal rules restrict any use of the information to criminally investigate or prosecute any alcohol or drug abuse patient.[facility]ighIn the event this information is protected by the Federal Confidentiality of Alcohol and Drug Abuse Patient Records regulations: The Federal rules restrict any use of the information to criminally investigate or prosecute any alcohol or drug abuse patient.[facility] Reason for Visit (unrecogniz ed section and content) Reason Comments HSAT Check In (Adult) Reason Comments Results Reason Comments Forms Reason Comments Abnormal Pap Smear Care Teams (unrecognized sec tion and content) Potato Bucker Relationship Specialty Start Date End Date Rudy Milan DO PCP - General Internal Medicine 01/28/17 Terra Singh MD [address] [place] [address] Referring [facility] 07/30/21 Potato Bucker Relationship Specialty Start Date End Date Rudy Milan DO PCP - General Internal Medicine 01/28/17 Terra Singh MD [address] [place] [address] Referring [facility] 07/30/21 Potato Bucker Relationship Specialty Start Date End Date Terra Singh MD [address] [place] [address] PCP - General 08/30/23 Potato Bucker Relationship Specialty Start Date End Date Terra Singh MD [address] [place] [address] PCP - General 08/30/23 Potato Bucker Relationship Specialty Start Date End Date Terra Singh MD [address] [place] [address] PCP - General 08/30/23 Potato Bucker Relationship Specialty Start Date End Date Terra Singh MD [address] [place] [address] PCP - General 08/30/23 Potato Bucker Relationship Specialty Start Date End Date Terra Singh MD [address] [facility] [place] [address] PCP - General 08/30/23 FOR RECORDS PERTAINING [...] BE BASED ON THE PRIMARY CLINICAL RECORDS. [facility]. provides no warranty or guarantee of the accuracy or completeness of information in this document.
[2025-06-07 10:31] LABS: Hematocrit 41.4 % (36.0-48.0); Hemoglobin 14.2 g/dL (12.0-16.0); Immature Granulocytes Abs Auto 0.02 10^3/uL (0.00-0.03); Immature Granulocytes Pct Auto 0.2 % (0.0-0.5); Lymphocytes Absolute Auto 2.9 10^3/uL (1.2-3.8); Mean Corpuscular HGB Conc 34.3 g/dL (29.9-35.2); Mean Corpuscular Hemoglobin 30.1 pg (26.7-34.0); Mean Corpuscular Volume 87.9 fL (81.0-99.0); Platelet Count 313 10^3/uL (150-450); Red Blood Count 4.71 10^6/uL (4.20-5.40); White Blood Count 8.3 10^3/uL (4.0-11.0)
[2025-06-07 12:04] LABS: Alanine Aminotransferase 23 U/L (14-59); Albumin Globulin Ratio 1.1; Albumin Level 4.3 g/dL (3.4-5.0); Alkaline Phosphatase 57 U/L (46-116); Anion Gap 12.6; Aspartate Amino Transferase 19 U/L (15-37); Blood Urea Nitrogen 8.0 mg/dL (7.0-18.0); Calcium 9.8 mg/dL (8.5-10.1); Carbon Dioxide 28.2 mmol/L (21.0-32.0); Chloride 103 mmol/L (98-107); Cholesterol 152 mg/dL (<=200); Estimated GFR (African America >60 (>=60 mL/min/1.73m^2); Estimated GFR (Non-African Ame >60 (>=60 mL/min/1.73m^2); Globulin 3.8 g/dL; Glucose 100 mg/dL (74-106); HDL Cholesterol 74 mg/dL (40-60); Potassium 4.8 mmol/L (3.5-5.1); Sodium 139 mmol/L (136-145); Thyroid Stimulating Hormone 1.223 uIU/mL (0.358-3.740); Total Protein 8.1 g/dL (6.4-8.2); Triglycerides 54 mg/dL (<=150); VLDL CHOLESTEROL 10.8 mg/dL
== END 2025-06-07 09:37 | disposition home or self-care (01) ==
LOC: LAB 09:40
PROVIDERS: PCP Family Medicine; Visit Provider Obstetrics & Gynecology
DX: Z79.899 Other long term (current) drug therapy (principal); E08.9 Diabetes mellitus due to underlying condition without complications; E88.819 Insulin resistance, unspecified
CPT/HCPCS: 36415; 80053; 80061; 83036; 84443; 85025

== ENCOUNTER 2025-09-17 20:23 | Outpatient (REF) | payer BC, SELFPAY ==
--- OUTSIDE RECORDS SUMMARY | 2025-09-17 11:30 | XMS_ITS | Encounter Summary ---
Author Organization [facility] Address [address] [facility] [place] [address] Care Team Providers Care Theatrical Trouper Name Role Phone Micky Singh MD Primary Care Provider [phone] Reason for Visit * ReasonCommentsGynecologic Exam Encounter Details DateTypeDepartmentCare Team (Latest Contact Info)Iuforokirze18/22/2025 11:30 AM ESTProcedure Visit [facility] [address] [place] [address] Mando Back DO [address] [place] [id number] Encounter for long-term (current) use of medications; Well woman exam with routine gynecological exam; Breast cancer screening by mammogram Social History Tobacco UseTypesPacks/DayYears UsedDateSmoking Tobacco: NeverAlcohol UseStandard Drinks/WeekCommentsYes0 (1 standard drink = 0.6 oz pure alcohol)Occasional alcohol useCommentsNoSex and Gender InformationValueDate RecordedSex Assigned at BirthNot on fileLegal GsrGvtjze30/15/2023 7:17 PM EDTGender Identity Not on fileSexual OrientationNot on filedocumented as of this encounter Last Filed Vital Signs Vital SignReadingTime TakenCommentsBlood Ghjcrxxy629/6009/17/2025 12:00 PM EST Pulse--Temperature--Respiratory Rate--Oxygen Saturation--Inhaled Oxygen Concentration--Jivggg98.3 kg (130 lb 12.8 oz)09/17/2025 12:00 PM ESTHeight--Body Mass Index23.9212 12:00 PM ESTdocumented in this encounter Progress Notes * Christen Sloan, SANDY - 09/17/2025 11:30 AM EST Reason for Appointment: Patient ID: Rose Moise is a 45 y.o. female who presents for Gynecologic Exam Patient presents today for Annual Exam. MEDICATIONS Current Outpatient Medications Medication Instructions albuterol HFA 90 mcg/act inhaler ascorbic acid (Vitamin C) 500 MG ER capsule atorvastatin (Lipitor) 20 MG tablet 1 tablet, Oral, Daily cholecalciferol (Vitamin D-3) 50 MCG (1999 UT) capsule Vitamin D citalopram (CELEXA) 20 mg, Oral, Daily semaglutide (Ozempic) 2 MG/1.5ML solution pen-injector Inject 0.63mL (2.268mg) once weekly as directed. semaglutide (Ozempic) 2 MG/1.5ML solution pen-injector inject 0.5 mg under the skin 1 (one) time per week for 4 doses Zinc 10 MG lozenge Zinc ALLERGIES Allergies Allergen Reactions Meperidine Shortness of breath and Unknown Other Other Amoxicillin Rash Bacitracin-Polymyxin B Rash and Unknown PROBLEMS Active Ambulatory Problems Diagnosis Date Noted Breast cancer screening by mammogram 08/28/2024 Resolved Ambulatory Problems Diagnosis Date Noted No Resolved Ambulatory Problems Past Medical History: Diagnosis Date Depression screening Encounter for gynecological examination (general) (routine) without abnormal findings Obesity (BMI 30-39.9) Shortness of breath Sinus bradycardia-tachycardia syndrome (HCC) HISTORY PAST MEDICAL HISTORY SOCIAL HISTORY Past Medical History: Diagnosis Date Breast cancer screening by mammogram Depression screening Encounter for gynecological examination (general) (routine) without abnormal findings Obesity (BMI 30-39.9) Shortness of breath Sinus bradycardia-tachycardia syndrome (HCC) Social History Tobacco Use Smoking status: Never [...] SYSTEMS Review of Systems: Review of Systems Constitutional: Negative. HENT: Negative. Eyes: Negative. Respiratory: Negative. Cardiovascular: Negative. Gastrointestinal: Negative. Genitourinary: Negative. Musculoskeletal: Negative. Skin: Negative. Neurological: Negative. All other systems reviewed and are negative. Hematological: Negative. Endocrine: Negative. Allergic/Immunologic: Negative. OBJECTIVE Objective: Physical Exam Constitutional: Appearance: Normal [...] nursing note reviewed. Exam conducted with a prop and scenery maker present. Vitals: Estimated body mass index is 23.92 kg/m?? as calculated from the following: Height as of 08/27/22: 5' 2 . Weight as of this encounter: 130 lb 12.8 oz. BP: 104/60 Patient's last menstrual period was 09/11/2025 (exact date). ASSESSMENT & PLAN ICD-10-CM 1. Encounter for long-term (current) use of medications Z79.899 Comprehensive metabolic panel Comprehensive metabolic panel 2. Well woman exam with routine gynecological exam Z01.419 THIN PREP TIS PAP AND HR HPV DNA 3. Breast cancer screening by mammogram Z12.31 Bilateral screening mammogram Bilateral screening mammogram Orders Placed This Encounter Procedures Bilateral screening mammogram Comprehensive metabolic panel Annual Wellness Exam: Patient presents today for routine annual exam. Patient states she has no current complaints. Patients vitals were reviewed and within normal limits. Growth and development is noted to be appropriate for age. Menstrual history is noted to be regular with no concerns reported. No mental health concerns was expressed. Pap Smear: Speculum was inserted into the vagina and pap was obtained without difficulty. HPV testing was performed per age guideline. Patient was advised that pap results could take anywhere from 7 to 10 days to receive and our office will reach out to the patient with those once we have them. Patient can also view results via [employer]. I reinforced importance of condom use for STI prevention. Patient declined cultures to be performed with today's visit. Breast Exam: Upon examination, clinical breast exam was noted to be normal and screening mammogram was ordered and given to patient to have obtained. Patient was counseled on breast self-awareness, including the importance of knowing what is normal for her own breasts and promptly reporting any changes such as new lumps, skin dimpling, nipple discharge, or pain. Screening mammogram was recommended annually. Discussed signs and symptoms of breast cancer and when to seek medical attention. Answered all patient questions. Contraceptive Counseling (if applicable): Patient is currently using tubal as a form of contraceptive. Follow Up: Patient is to return to our office in one year for annual exam unless needed otherwise. Documented by Christen Sloan LPN on behalf of: Mando Back DO documented in this encounter Plan of Treatment DateTypeDepartmentCare Team (Latest Contact Info)Kstkvoyjmpc01/05/2027 8:30 AM ESTProcedure Visit [facility] [address] [place] [phone] Mando Back DO [address] [place] [address] NameTypePriorityAssociated DiagnosesOrder ScheduleComprehensive metabolic panel LabRoutine Encounter for long-term (current) use of medications Expected: 09/17/2025 (Approximate), Expires: 09/17/2026ilateral screening mammogramImagingRoutine Breast cancer screening by mammogram Expected: 09/17/2025 (Approximate), Expires: 11/18/2026THIN PREP TIS PAP AND HR HPV DNAPathology and CytologyRoutine Well woman exam with routine gynecological exam Ordered: 09/17/2025documented as of this encounter Visit Diagnoses Diagnosis Encounter for long-term (current) use of medications Encounter for long-term (current) use of other medications Well woman exam with routine gynecological exam Routine gynecological examination Breast cancer screening by mammogram documented in this encounter Care Teams Team MemberRelationshipSpecialtyStart DateEnd Micky Singh MD [address] [place] [address] PCP - Xkwwguw73/4/23documented as of this encounter
--- OUTSIDE RECORDS SUMMARY | 2025-09-17 20:27 | XMS_ITS | Encounter Summary ---
Author Organization [facility] Address [address] [facility] [place] [address] Care Team Providers Care Patent Paralegal Name Role Phone Micky Singh MD Primary Care Provider [phone] Reason for Visit * ReasonCommentsMed Refill Encounter Details DateTypeDepartmentCare Team (Latest Contact Info)Qrnhwepuxpj25/08/2025Refill [facility] [address] [place] [address] Mando Back DO [address] [place], [facility] Mood changes Social History Tobacco UseTypesPacks/DayYears UsedDateSmoking Tobacco: NeverAlcohol UseStandard Drinks/WeekCommentsYes0 (1 standard drink = 0.6 oz pure alcohol)Occasional alcohol useCommentsNoSex and Gender InformationValueDate RecordedSex Assigned at BirthNot on fileLegal YyaJvbaug61/15/2023 7:17 PM EDTGender Identity Not on fileSexual OrientationNot on filedocumented as of this encounter Plan of Treatment DateTypeDepartmentCare Team (Latest Contact Info)Mycblkbnpqa60/05/2027 8:30 AM ESTProcedure Visit [facility] [address] [place] [address] Mando Back, DO [address] [place], [facility] documented as of this encounter Visit Diagnoses Diagnosis Mood changes Unspecified episodic mood disorder documented in this encounter Care Teams Team MemberRelationshipSpecialtyStart DateEnd Date Micky Singh MD [address] [place] [address] PCP - Yeaorks33/4/23documented as of this encounter
--- OUTSIDE RECORDS SUMMARY | 2025-09-17 20:27 | XMS_ITS | Encounter Summary ---
Author Organization [facility] Address [address] [facility] [place] [address] Care Team Providers Care Cranberry Bog Supervisor Name Role Phone Micky Singh MD Primary Care Provider [phone] Encounter Details DateTypeDepartmentCare Team (Latest Contact Info)Rfytxsnhpjk46/22/2025amboo flowsheet [facility] [address] [place] [address] Mando Back DO [address] [place] [address] Dr [place], [place] [address] Social History Tobacco UseTypesPacks/DayYears UsedDateSmoking Tobacco: NeverAlcohol UseStandard Drinks/WeekCommentsYes0 (1 standard drink = 0.6 oz pure alcohol)Occasional alcohol useCommentsNoSex and Gender InformationValueDate RecordedSex Assigned at BirthNot on fileLegal DpeVqpemj78/15/2023 7:17 PM EDTGender Identity Not on fileSexual OrientationNot on filedocumented as of this encounter Plan of Treatment DateTypeDepartmentCare Team (Latest Contact Info)Gpylzriysfb85/05/2027 8:30 AM ESTProcedure Visit [facility] [address] [place] [address] Mando Back DO [address] [facility] [address] [place], [place] [address] documented as of this encounter Visit Diagnoses Not on filedocumented in this encounter Care Teams Team MemberRelationshipSpecialtyStart DateEnd Date Micky Singh MD [address] [place] [address] PCP - Jjnurkv94/4/23documented as of this encounter
--- OUTSIDE RECORDS SUMMARY | 2025-09-17 20:27 | XMS_ITS | Clinical Summary ---
Author Organization [facility] Address [address] [place] [address] Care Team Providers Care Plug Overwrap Machine Tender Name Role Phone Micky Singh MD Primary Care Provider [phone] Allergies Active AllergyReactionsCriticalityNoted DwhbOqzrxwqgMhxppfsfoywSljtOhb62/22/2025 Bacitracin-Polymyxin BRash,FlzsibnUvj67/05/2023MeperidineShortness of breath, MwizzatMzro27/07/6143JwrssZbscn46/05/2023 Medications MedicationSigDispense QuantityRefillsLast FilledStart DateEnd DateStatus cholecalciferol (Vitamin D-3) 50 MCG (1999) capsule Vitamin DActive atorvastatin (Lipitor) 20 MG tablet Take 1 tablet by mouth in the morning.Active ascorbic acid (Vitamin C) 500 MG ER capsule Active albuterol HFA 90 mcg/act inhaler Active Zinc 10 MG lozenge ZincActive semaglutide (Ozempic) 2 MG/1.5ML solution pen-injector Indications:Insulin resistanceInject 0.63mL (2.268mg) once weekly as directed. 2.52 mL 02/01/2024ctive semaglutide (Ozempic) 2 MG/1.5ML solution pen-injector Indications:Diabetes mellitus due to underlying condition without complication, unspecified whether oil heaterman insulin use (HCC),Type II diabetes mellitus with complication (HCC)inject 0.5 mg under the skin 1 (one) time per week for 4 doses 1 each ctive citalopram (CeleXA) 20 MG tablet Indications:Mood changesTAKE 1 TABLET BY MOUTH EVERY DAY 90 tablet 5Active citalopram (CeleXA) 10 MG tablet Indications:Mood changesTake 1 tablet (10 mg) by mouth in the morning. Pt combining 10mg and 20 mg for a 30mg celexa. 30 tablet 111Discontinued citalopram (CeleXA) 20 MG tablet Indications:Mood changesTAKE 1 TABLET BY MOUTH EVERY DAY 90 tablet Discontinued azithromycin (Zithromax Z-Tavo) 250 MG tablet Indications:Acute non-recurrent frontal sinusitisAs directed 6 tablet Discontinued Active Problems ProblemNoted DateDiagnosed DateBreast cancer screening by beosbbgzv20/02/2024 Encounters DateTypeDepartmentCare CjbmMcepnksflea13/22/2025 11:30 AM ESTProcedure Visit [facility] [address] [place] [address] Mando Back DO Encounter for long-term (current) use of medications; Well woman exam with routine gynecological exam; Breast cancer screening by fkzetnssy40/22/2025amboo flowsheet [facility] [address] [place] [address] Mando Back DO 09/16/20258975Ooslqv34/08/2025Refill [facility] [address] [place] [address] Mando Back DO Mood changesfrom Last 3 Months Family History Medical HistoryRelationNameCommentsMental illnessBrotherCancerMaternal GrandfatherDiabetesMaternal GrandfatherCancerMaternal GrandmotherCancerPaternal GrandmotherDiabetesPaternal GrandmotherRelationNameStatusCommentsBrotherx1 DaughterAliveMaternal GrandfatherMaternal GrandmotherPaternal GrandmotherSon 1 AliveSon 2Alive Social History Tobacco UseTypesPacks/DayYears UsedDateSmoking Tobacco: Never Tobacco Cessation:Counseling Given: Not Answered Alcohol UseStandard Drinks/WeekCommentsYes0 (1 standard drink = 0.6 oz pure alcohol)Occasional alcohol useCommentsNoSex and Gender InformationValue Date RecordedSex Assigned at BirthNot on fileLegal DupNrylnl06/15/2023 7:17 PM EDTGender IdentityNot on fileSexual OrientationNot on file Last Filed Vital Signs Vital SignReadingTime TakenCommentsBlood Qefpdxxy867/6009/17/2025 12:00 PM EST Pulse--Temperature--Respiratory Rate--Oxygen Saturation--Inhaled Oxygen Concentration--Clwbzv44.3 kg (130 lb 12.8 oz)09/17/2025 12:00 PM MFACtrkin026.5 cm (5' 2 )08/27/2022 12:00 PM ESTBody Mass Index23.9208/27/2022 12:00 PM EST Plan of Treatment DateTypeDepartmentCare Team (Latest Contact Info)Jrsfnfxmwuh16/05/2027 8:30 AM ESTProcedure Visit [facility] [address] [place] [phone] Mando Back, [address] [facility] [address] [place] [address] Health MaintenanceDue DateLast DoneCommentsCT Ntxtzroalryn1979Colonoscopy 1979Colorectal Cancer Hzsyenuic1979FIT-DNA1979FIT1979 FOBT1979 0459Uxfvmcluhidma1979COVID-19 Vaccine ( season) 502/12/2020, 10/01/2020Influenza Vaccine (#1)509/, 07/11/20197363Nhwqopsld11, 09/06/2023, 09/02/2022, Additional history existsPap Smear712/, 08/31/2023, 08/27/2022ervical Cancer Wcfunzkia74/05/2028HPV/Qsgohe8808/31/2028Pneumococcal Vaccine: Pediatrics (0 to 5 Years) and At-Risk Patients (6 to 64 Years)Aged OutNo longer eligible based on patient's age to complete this topic Procedures Procedure NamePriorityDate/TimeAssociated DiagnosisCommentsPAP SMEARRoutine 09/14/2024 12:00 AM ESTMM TOMOSYNTHESIS SCREENING BI09/08/2024 10:09 AM EST from Last 3 Months or Most Recently Relevant to Health Maintenance Results * Pap Smear (09/14/2024 12:00 AM EST)Specimen (Source)Anatomical Location / LateralityCollection Method / VolumeCollection TimeReceived TimeSwabCervical swab / Unknown Narrative Authorizing ProviderResult TypeResult StatusFazio Nurse [facility] ObLAB CYTOLOGY ORDERABLESFinal ResultPerforming OrganizationAddressCity/State/ZIP CodePhone Number EXTERNAL LAB * MM TOMOSYNTHESIS SCREENING BI (09/08/2024 10:09 AM EST)Anatomical Region LateralityModalityOtherSpecimen (Source)Anatomical Location / Laterality Collection Method / VolumeCollection TimeReceived Time09/08/2024 10:09 AM EST Narrative 09/08/2024 10:10 AM EST [facility] ?[address] ? [place] [address] ? Mammography Report ? Signed ? Patient: PIOTR FREEMAN D ?MR#: [id number] ?? : 1980 ?Acct:[id number] ?? Age/Sex: 44 / F ?ADM Date: 09/07/24 ?? Loc: MAMMO ? Attending Dr: Mando Back D.O. ? Ordering Physician: Mando Back D.O. ?Results: ? Date of Service: 09/07/24 ?Follow Up: ? Procedure(s): MM tomosynthesis screening BI ?? Accession Number(s): [id number] ? cc: Mando Back D.O. ? Patient Name: ? PIOTR FREEMAN ? MR#: [id number] ? : 1980 ? Exam Date: 09/07/2024 ?? Ordering Doctor: DR Mando Back . ? RADIOLOGY REPORT ? PROCEDURE: ? MM TOMOSYNTHESIS SCREENING BI ? COMPARISON: ? MG MAMM SCREEN 3D AMIRA CAD, 09/02/2022. ??MM TOMOSYNTHESIS ?? SCREENING BI, 09/06/2023. ? INDICATIONS: ? Screening ? Calculator Name ? NCI Breast Cancer Risk Assessment Tool ?? 5 Year Breast Cancer Risk ? 1.60% ?? Lifetime Breast Cancer Risk ? 11.00% ?? Personal Breast Cancer ?No ?? Personal Ovarian Cancer ? No ?? Treatments ? None ?? Family Cancers ? Grandmother-maternal with breast cancer at age ??63. ? LOCATION: ? [facility] ? BREAST COMPOSITION: ? The breasts are heterogeneously dense,which may ?? obscure small masses. ? FINDINGS: ? DIAGNOSTIC CATEGORY 1--NEGATIVE. NO CHANGE FROM COMPARISON ASSESSMENT. ? Scattered benign-appearing lymph nodes are present. ? RIGHT BREAST: ??No significant suspicious finding. ? LEFT BREAST: ??No significant suspicious finding. ??Micro clip marker upper ?? outer quadrant, posterior breast, stable ? RECOMMENDATIONS: ? ROUTINE MAMMOGRAM AND CLINICAL EVALUATION IN 12 MONTHS. ? PLEASE NOTE: ??A NORMAL MAMMOGRAM DOES NOT EXCLUDE THE POSSIBILITY OF BREAST ?? CANCER. ??A CLINICALLY SUSPICIOUS PALPABLE LUMP SHOULD BE BIOPSIED. ? Dictated by: Bam Deshpande MD on 09/08/2024 at 10:08 ? Approved by: Bam Deshpande MD on 09/08/2024 at 10:09 ? Dictated By: ?Bam Deshpande M.D. ? Signed By: ?09/08/24 1010 ? DD/ 1009 ? TD/TT: ? Security Delivery Specialist: Procedure Note Radiology, Radiologist, MD - 09/08/2024 [place] [address] Mammography Report Signed Patient: PIOTR FREEMAN DMR#: [id number] : 1980Acct:[id number] Age/Sex: 44 / FADM Date: 09/07/24 Loc: MAMMO Attending Dr: Mando Back D.O. Ordering Physician: Mando Back D.O.Results: Date of Service: 09/07/24Follow Up: Procedure(s): MM tomosynthesis screening BI Accession Number(s): [id number] cc: Mando Back D.O. Patient Name: PIOTR FREEMAN MR#: [id number] : 1980 Exam Date: 09/07/2024 Ordering Doctor: [...] at age 62. LOCATION: [facility] BREAST COMPOSITION: The breasts are heterogeneously dense,which [...] LUMP SHOULD BE BIOPSIED. Dictated by: Bam Deshpnade MD on 09/08/2024 at 10:08 Approved by: Bam Deshpande MD on 09/08/2024 at 10:09 Dictated By: Bam Deshpande M.D. Signed By:09/08/24 1010 DD/ 1009 TD/TT: Security Delivery Specialist: Authorizing ProviderResult TypeResult StatusCorey Nazanin DOCLINISYNC IMAGINGFinal Result from Last 3 Months or Most Recently Relevant to Health Maintenance Insurance * Guarantor: Pamela Freeman TypeRelation to PatientDate of PhoneBilling AddressPersonal/HqdihoOxsi[id number] [address] Care Teams Team MemberRelationshipSpecialtyStart DateEnd Micky Singh MD [address] [place] [address] PCP - Atpgvaw26/4/23
--- OUTSIDE RECORDS SUMMARY | 2025-09-17 20:27 | XMS_ITS | Clinical Summary ---
Author Organization [facility] Address [address] [place] [address] Care Team Providers Care Family Life Counselor Name Role Phone Micky Singh MD Primary Care Provider [phone] Allergies Active AllergyReactionsCriticalityNoted BjzpMfrgwzzcNvbjesxrlpeGcqke15/07/2017 Bacitracin-Polymyxin BRash,VyortxpRyc11/05/2023enzalkonium ChlorideRashLow 03/03/2017MeperidineShortness of breath,IdzxurmApzh51/07/2017 Rwatgcsi-Jogvokcbypt-Rlzdqhudv37/22/4690SmmuwXjtwj19/05/2023 Medications MedicationSigDispense QuantityRefillsLast FilledStart DateEnd DateStatus citalopram (CeleXA) 20 mg tablet Take 20 mg by mouth at bedtime.09/03/2022ctive metoprolol tartrate (Lopressor) 25 mg tablet Indications:Sinus tachycardia,Other chest painTake 1 tablet (25 mg) by mouth if needed in the morning and at bedtime (as needed before planned exe rcise/exertion). 60 tablet 1103Active Additional Information Patient not taking.Reported on 07/24/2025 albuterol 90 mcg/actuation inhaler Inhale 1 puff in the morning, afternoon, and at bedtime.Active cholecalciferol (Vitamin D-3) 50 MCG (1999) tablet Take 2,000 Units by mouth in the morning.Active levalbuterol (Xopenex) 1.25 mg/3 mL nebulizer solution Take 1 ampule by nebulization in the morning, afternoon, and at bedtime. 11/28/2020ctive montelukast (Singulair) 10 mg tablet Take 10 mg by mouth at bedtime.Active ondansetron ODT (Zofran-ODT) 4 mg disintegrating tablet Take 4 mg by mouth every 8 (eight) hours if needed.09/08/2024ctive semaglutide (Ozempic) 0.25 mg or 0.5 mg(2 mg/1.5 mL) pen injector Inject 1.8 mg under the skin.02/01/2024ctive atorvastatin (Lipitor) 40 mg tablet Indications:Mixed hyperlipidemiaTake 1 tablet (40 mg) by mouth in the morning. 90 tablet 5001/12/2026ctive Additional Information Patient taking differently: 20 mgoral Daily, Reported on 07/24/2025 Active Problems ProblemNoted DateDiagnosed DateAnti-pneumococcal polysaccharide antibody arjxgqodjc36/18/5116Mvekdf50/18/2025hronic cough01/12/2025Hand fkzydp0801/12/2025 Asosfctdzwrbsyrx34/18/1805Mngd-KRLWT-10 xujomgcnr62/18/2025Vitamin D deficiency 01/12/2025reast cancer screening by rdnbakxet35/02/2024Sinus tachycardia 07/25/20219737Ulzcokvizjy32/19/2020Chest pain08/15/20205383Cxpvjst61/19/2020History of severe acute respiratory syndrome coronavirus 2 (SARS-CoV-2) ztvktlj3407/18/2020 Wreqxzod64/07/2017RUQ pain03/03/2017 Encounters DateTypeDepartmentCare DdncTllomnnaoms59/28/2025 11:30 AM EDTOffice Visit [facility] [place] [address] [place] [address] Vazquez Pierre MD Palpitations (Primary Dx)from Last 3 Months Family History RelationNameStatusCommentsBrotherDeceasedFatherDeceasedMotherAliveSisterAlive Social History Tobacco UseTypesPacks/DayYears UsedDateSmoking Tobacco: NeverSmokeless Tobacco: Never Tobacco Cessation:Counseling Given: Not Answered Alcohol UseStandard Drinks/WeekCommentsYes0 (1 standard drink = 0.6 oz pure alcohol)occasional 1 per weekUT Safety & EnvironmentAnswerDate RecordedFear of Current or Ex-PartnerNot on file11/18/2023Emotionally AbusedNot on file 11/18/2023hysically AbusedNot on file11/18/2023Sexually AbusedNot on file 11/18/2023hysically or Sexually AbusedNot on file11/18/2023Comments UnknownSex and Gender InformationValueDate RecordedSex Assigned at BirthFemale 06/14/2025 9:15 AM EDTLegal CivLyggnh70/29/2022 11:50 PM EDTGender Identity Sfwomd7306/14/2025 9:15 AM EDTSexual OrientationDon't know06/14/2025 9:15 AM EDT Last Filed Vital Signs Vital SignReadingTime TakenCommentsBlood Gymvucjd484/7107/24/2025 11:52 AM EDT Brwbj605707/24/2025 11:52 AM CRBFkfvipogvdl11.9 ??C (98.4 ??F)09/16/2020 10:51 AM ESTRespiratory Vcdz810812/31/2023 9:56 AM EDTOxygen Grltldbdpg786%07/24/2025 11:52 AM EDTInhaled Oxygen Concentration--Bzpzgi63.4 kg (131 lb)07/24/2025 11:52 AM STUWnauee938.5 cm (5' 2 )07/24/2025 11:52 AM EDTBody Mass Index23.9607/24/2025 11:52 AM EDT Plan of Treatment Health MaintenanceDue DateLast DoneCommentsCT Tjysflzouqsp1979Colonoscopy 1979Colorectal Cancer Xqonaicvq1979Diabetes: Hemoglobin A1C 1979FIT-DNA1979FIT1979FOBT1979 7099Kwvcwidgezcsd1979 Meningococcal Vaccine (1 - Risk 2-dose series)1981Diabetes: Retinopathy Cspzxwihu78/20/1989Meningococcal B Vaccine (1 of 4 - Increased Risk)1989 Depression Qsqauctrs77/20/1991Diabetes: Urine Protein Nhvytnaoo25/20/1998 Hepatitis B Vaccines (1 of 3 - 19+ 3-dose series)1998Pneumococcal Vaccine: Pediatrics (0 to 5 Years) and At-Risk Patients (6 to 64 Years) (1 of 2 - PCV) 1998Zoster Vaccines (1 of 2)1998HPV/Jspiqh1705/16/2009Mammogram 2019Adult Hbckkoe87/Influenza Vaccine (#1)2025 06/23/2024, 07/11/2019, 07/21/2009Cervical Cancer Pdpsflipm91/19/2027Pap Smear , 08/27/2022HIB VaccinesAged OutNo longer eligible based on patient's age to complete this topicHPV VaccinesAged OutNo longer eligible based on patient's age to complete this topicIPV VaccinesAged OutNo longer eligible based on patient's age to complete this topicRotavirus VaccinesAged OutNo longer eligible based on patient's age to complete this topic Insurance * Guarantor: Rose Moise TypeRelation to PatientDate of PhoneBilling AddressPersonal/OpjqlhDyuy1980 [id number] [address] Care Teams Team MemberRelationshipSpecialtyStart DateEnd Date Micky Singh MD [address] [facility] [address] [address] PCP - [facility]12/16/22
--- OUTSIDE RECORDS SUMMARY | 2025-09-17 20:27 | XMS_ITS | Patient Health Record ---
Author Organization [facility] [place] Address [address] [place] [address] Care Team Providers Care Manager Of Customer Billing Name Role Phone Ministerio Singh Primary Care Provider [phone] Allergies Allergen (clinical drug ingredient) Drug/Non Drug Allergy documented on EMR Reaction Allergy Type Onset Date Status amoxicillin Amoxicillin Rash Drug Allergy ActivemeperidineDemerolSOBDrug AllergyActiveNeosporinRashDrug AllergyActive Results Component Value Reference Range Notes PROF 14(COMP METB) Reviewed date:11/23/2024 07:25:36 PM Interpretation: Performing Lab: Notes/Report: [facility] , Sodium 139 136-145 mmol/L Potassium4.23.5-5.1 mmol/NGpqnrpxe16725-152 mmol/LCarbon Ctwkejl32.221.0-32.0 mmol/LAnion Gap11.5Xdrltfx5602-145 mg/dLBlood Urea Nitrogen9.07.0-18.0 mg/dL Creatinine0.730.55-1.02 mg/dLEstimated GFR ( Sahara>60>=60 mL/min/1.73m 2Estimated GFR (Non- Beatris>60>=60 mL/min/1.73m 2BUN Creatinine Ratio12.3 Calcium9.48.5-10.1 mg/dLBilirubin Total0.50.2-1.0 mg/dLAspartate Amino Elaczblnfxf1173-22 U/LAlanine Hzrkgitgnikxmtqw6374-42 U/LAlkaline Smbywifbene40 46-116 U/LTotal Protein7.36.4-8.2 g/dLAlbumin Level3.93.4-5.0 g/dLGlobulin3.4 Albumin Globulin Ratio1.1Performing Lab:see noteML - [facility] LBCBC AUTO DIFF Reviewed date:06/07/2025 12:47:34 PM Interpretation: Performing Lab: Notes/Report: [facility] ,White Blood Count8.34.0-11.0 10 3/uLRed Blood Count4.714.20-5.40 10 6/uL Denfogzcsg10.212.0-16.0 g/vOXjscnlnmrt20.436.0-48.0 %Mean Corpuscular Smqgrm28.9 81.0-99.0 fLMean Corpuscular Myqihigytf50.126.7-34.0 pgMean Corpuscular HGB Conc 34.329.9-35.2 g/dLRed Cell Distribution Width12.311.0-15.0 %Platelet Gszyq037 150-450 10 3/uLMean Platelet Volume9.39.5-13.5 fLNeutrophils Percent Auto57.5 43.0-75.0 %Lymphocytes Percent Auto35.020.5-60.0 %Monocytes Percent Auto4.81.7- 12.0 %Eosinophils Percent Auto1.90.9-7.0 %Basophils Percent Auto0.60.2-2.0 % Immature Granulocytes Pct Auto0.20.0-0.5 %Neutrophils Absolute Auto4.81.4-6.5 10 3/uLLymphocytes Absolute Auto2.91.2-3.8 10 3/uLMonocytes Absolute Auto0.40.3-0.8 10 3/uLEosinophils Absolute Auto0.20.0-0.7 10 3/uLBasophils Absolute Auto0.10.0- 0.1 10 3/uLImmature Granulocytes Abs Auto0.020.00-0.03 10 3/uLPerforming Lab:see noteML - [facility] LBGLYCOHEMOGLOBIN A1C Reviewed date:06/07/2025 12:47:34 PM Interpretation: Performing Lab: Notes/Report: [facility] ,Glycohemoglobin A1C5.14.5-6.2 % ADA RECOMMENDED LIMIT 4.0 - 6.0 ADA THERAPEUTIC TARGET < 7.0 ACTION SUGGESTED > 7.0 Estimated Average Pkoyxbq249Ubojivhfdf Lab:see note - [facility] LB LIPID PROFILE Reviewed date:06/07/2025 12:47:34 PM Interpretation: Performing Lab: Notes/Report: [facility] ,Ryoptzwltsvgo14<=150 mg/yLZvgcjwqjiio301<=200 mg/dLHDL Cfrxryauupc7228-05 mg/dL > or =60 mg/dl - LOW CARDIOVASCULAR RISK <40 mg/dl - HIGH CARDIOVASCULAR RISK LDL Cholesterol Jilhaatckp29.0 <100 mg/dl OPTIMAL 100-129 mg/dl NEAR OR ABOVE OPTIMAL 130-159 mg/dl BORDERLINE HIGH 160-189 mg/dl HIGH >190 mg/dl VERY HIGH VLDL WIJFSJBLFAK54.8Chol HDL Ratio2.1 3.3 - 4.4 LOW RISK 4.4 - 7.1 AVERAGE RISK 7.1 - 11.0 MODERATE RISK >11.0 HIGH RISK Performing Lab:see note - [facility] LBPROF 14(COMP METB) Reviewed date:06/07/2025 12:47:34 PM Interpretation: Performing Lab: Notes/Report: [facility] ,Yevxnv948108-024 mmol/LPotassium4.83.5-5.1 mmol/GEqcucknq48058-710 mmol/LCarbon Flcztcy01.221.0-32.0 mmol/LAnion Gap12.6Vmvnksu29790-518 mg/dLBlood Urea Nitrogen8.07.0-18.0 mg/dLCreatinine0.620.55-1.02 mg/dLEstimated GFR ( Sahara>60>=60 mL/min/1.73m 2Estimated GFR (Non- Beatris>60>=60 mL/min/1.73m 2BUN Creatinine Ratio12.1Kurpslb6.88.5-10.1 mg/dLBilirubin Total0.70.2-1.0 mg/dL Aspartate Amino Wzzfyzzuqpj9725-88 U/LAlanine Ybzucgonmlrypnyp7636-68 U/L Alkaline Piddmoaamsd1794-769 U/LTotal Protein8.16.4-8.2 g/dLAlbumin Level4.33.4- 5.0 g/dLGlobulin3.8Albumin Globulin Ratio1.1Performing Lab:see noteML - [facility] LBTSH Reviewed date:06/07/2025 12:47:34 PM Interpretation: Performing Lab: Notes/Report: [facility] ,Thyroid Stimulating Hormone1.2230.358-3.740 uIU/mLPerforming Lab:see noteML - [facility] Reason For Referral No Information Medications Medication SIG (Take, Route, Frequency, Duration) Notes Start Date End Date Status Vitamin D3 50 MCG (2000 UT) 1 tablet Orally Once a day; Duration: 90 ActiveAlbuterol Sulfate HFA 108 (90 Base) MCG/ACT2 puffs as needed Inhalation every 4 hrsActiveLevalbuterol HCl 1.25 MG/3ML3 ml Inhalation every 6 hrs as nuoehc4611/28/2020ctiveSingulair 10 MG1 tablet Orally Once a dayActivePeak Flow Meter -as directed inhalation TID; Duration: 30 days11/28/2020ctivePneumovax 23 25 MCG/0.5MLas directed Intramuscular Once; Duration: 1 day12/20/2020ctive Nebulizer/Tubing/Mouthpiece -as directed Inhalation Daily as needed; Duration: 30 days12/05/2020ctiveCeleXA 10 MG1 tablet Orally Once a day; Duration: 30 day(s)Active Immunizations Vaccine Route Administration Date Status Comme nts SARS-COV-2 (COVID 19 Moderna - 100mcg/0.5mL) Unknown 10/01/2020 Administered SARS-COV-2 (COVID 19 Moderna - 100mcg/0.5mL)Twuilxm5010/29/2020dministered Social History Tobacco Use: Social History Observation Description Date Details (start date - stop date) Never Smoker NA - NA Tobacco Use/Smoking Question Answer Notes Patient is a nonsmoker Section Notes: exposure to a cat outside an d a dog inside, carpet in the home exposure to a cat outside an d a dog inside, carpet in the home Problems Problem Type SNOMED Code ICD Code Onset Dates Problem Status W/U Status Risk Notes Problem Vitamin D deficiency (76385033) Vitamin D deficiency (E55.9) ActiveconfirmedProblemChronic cough (57207021)Chronic cough (R05)Activeconfirmed 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)ActiveconfirmedProblem Immunodeficiency (829162743)Immunodeficiency (D84.9)ActiveconfirmedProblemHand eczema (789474145)Hand eczema (L30.9)ActiveconfirmedProblemAsthma (216168585) Unspecified asthma (J45.909)ActiveconfirmedProblemChronic oqbj-BLITG-63 syndrome (disorder) (6716366423)Dtzf-XWCDJ-17 condition (B94.8)Activeconfirmed Plan Of Treatment Pending Test Test Name Order Date XR Chest PA and Lateral (Routine CXR) * 11/28/2020 Insurance Providers Payer Name Payer Address Payer Phone Subscriber Number Group Number Insured Name Patient Relationship to Insured Coverage Start Date Coverage End Date [employer] ACCESS PPO PLUS LOCAL PLAN [address] [place] [address] [id number] Simon Freeman - patient is the insured Medical (General) History Medical History History ICD Code Covid-19 in June 2020: po st COVID cough, shortness of breath, chest tightness, fatigue, VARGAS, palpitations; Thorough cardiology consult (some heart damage) and pulmonary consult (with some improvement with albuterol/singulair - dailly controller inhalers did not improve symptoms) ; Immunodeficiency workup, Normal IgG, CH50>60, A & M w/ LOW Pneumococcal antibody titers - RECOMMENDED PNEUMOVAX; IgE 233 kU/L Hand eczema: worsens with frequent handwashingAcute sinusitisDyspnea - post COVIDVitamin D Insufficiency: 11/2020 Level low at 24.3 ng/mL, supplement prescribed, recheck in 3 monthsSurgical History Surgery Date(Month/Year) Lapcholeycystecomy 1998 2007 2000
--- OUTSIDE RECORDS SUMMARY | 2025-09-17 20:27 | XMS_ITS | Clinical Summary ---
Author Organization [facility] Address [address] [place] [address] Care Team Providers Care Ems Coordinator Name Role Phone Rudy Milan Sandra BARBOSA Primary Care Provider [phone] Micky Singh MD Unavailable [phone] Allergies Active AllergyReactionsCriticalityNoted ZeolDoqokfciTznlvnhnauuIbttl82/07/2017 Meperidine HclShortness of Tdgzqm3203/03/2017Benzalkonium OenjdgevMpgt19/07/2017 Medications MedicationSigDispense QuantityRefillsLast FilledStart DateEnd DateStatus albuterol HFA (PROVENTIL HFA, VENTOLIN HFA) 90 mcg/actuation inhaler albuterol sulfate HFA 90 mcg/actuation aerosol inhalerActive Ascorbic Acid (VITAMIN C) 500 mg cpER Active atorvastatin (LIPITOR) 20 mg tablet atorvastatin 20 mg tablet Take 1 tablet every day by oral route.09/01/2021ctive citalopram (CELEXA) 20 mg tablet q 24 HR.10/06/2020ctive metoprolol succinate ER (TOPROL XL) 25 mg 24 hr tablet TAKE 1 TABLET BY MOUTH TWICE A DAY 60 tablet 11012/18/2021ctive Active Problems ProblemNoted DateDiagnosed DateRUQ pain03/03/20179155Nyvjwevm84/07/2017 Social History Tobacco UseTypesPacks/DayYears UsedDateSmoking Tobacco: NeverSmokeless Tobacco: NeverCommentsUnknownSex and Gender InformationValueDate RecordedSex Assigned at BirthNot on fileLegal IaoMssniq61/04/2017 2:24 PM EDTGender Identity Not on fileSexual OrientationNot on file Last Filed Vital Signs Vital SignReadingTime TakenCommentsBlood Iwgeyhuw386/8006 8:49 AM EDT Broku8984 8:49 AM EDTTemperature--Respiratory Rate--Oxygen Saturation-- Inhaled Oxygen Concentration--Wwozmq68 kg (150 lb)03/03/2017 8:49 AM EDTHeight 157.5 cm (5' 2 )03/03/2017 8:49 AM EDTBody Mass Index27.44003/03/2017 8:49 AM EDT Plan of Treatment Health MaintenanceDue DateLast DoneCommentsAnxiety Gujgddjzy93/20/1997Depression Izfsuvgkk75/20/1997HIV Uupfscgqp63/20/1997Hepatitis C Zrxwlbeti89/20/1997 Hepatitis B Vaccine (1 of 3 - 19+ 3-dose series)1998Cervical Cancer Bglcgbvwl22/20/2000Mammogram Ualulmmau31/20/2019CT Aeuogzdosgff44/20/2024 Cologuard (FIT-DNA)05/16/20242143Dwnigjidhbn13/20/2024olorectal Cancer Screening 2024iabetes Xowaxslwl19/20/2024Fecal Occult Blood2024Lipid Lnjwnlhug71/20/4397Srbmtrnlhener43/20/2024TaP,Tdap,Td Vaccine (2 - Td or Tdap) /Covid-19 Vaccine ( season)/12/2020, 10/01/2020Influenza Vaccine (#1)/, 07/21/2009 Insurance * Guarantor: Rose Moisecoapoorva TypeRelation to PatientDate of PhoneBilling AddressPersonal/KfrujoHgnl1980 [address] [address] MemberSubscriberPlan / Payer (Effective 2020-Present)Name:Rose Moise Relation to Subscriber:SelfName:Rose Moise Payer ID:Not on file Group ID:Not on file Type:PPO Address: [place] [id number] Care Teams Team MemberRelationshipSpecialtyStart DateEnd Rudy Milan DO PCP - GeneralInternal Medicine01/28/17 Micky iSngh MD ReferringFamtly Fevoqflw22/3/21
--- OUTSIDE RECORDS SUMMARY | 2025-09-17 20:27 | XMS_ITS | Encounter Summary ---
Author Organization [facility] Address [address] [place] [facility] [place] [address] Care Team Providers Care Human Service Technician Name Role Phone Micky Singh MD Primary Care Provider [phone] Encounter Details DateTypeDepartmentCare Team (Latest Contact Info)Adwdrwcaefi25/21/2025Travel Social History Tobacco UseTypesPacks/DayYears UsedDateSmoking Tobacco: NeverAlcohol UseStandard Drinks/WeekCommentsYes0 (1 standard drink = 0.6 oz pure alcohol)Occasional alcohol useCommentsNoSex and Gender InformationValueDate RecordedSex Assigned at BirthNot on fileLegal BefEbvkni21/15/2023 7:17 PM EDTGender Identity Not on fileSexual OrientationNot on filedocumented as of this encounter Plan of Treatment DateTypeDepartmentCare Team (Latest Contact Info)Bdeyunbyvkb47/05/2027 8:30 AM ESTProcedure Visit [facility] [address] [place] [address] Mando Back DO [address] [place], [place] [phone] documented as of this encounter Visit Diagnoses Not on filedocumented in this encounter Care Teams Team MemberRelationshipSpecialtyStart DateEnd Date Micky Singh MD [address] [place] [address] PCP - Cpzpjfk76/4/23documented as of this encounter
== END 2025-09-17 20:24 | disposition home or self-care (01) ==
LOC: LAB 20:23
PROVIDERS: PCP Family Medicine; Visit Provider Obstetrics & Gynecology
DX: Z01.419 Encounter for gynecological examination (general) (routine) without abnormal findings (principal)
CPT/HCPCS: 88175

== ENCOUNTER 2025-09-25 08:56 | Outpatient (OUT) | payer BC, SELFPAY ==
--- OUTSIDE RECORDS SUMMARY | 2025-09-17 11:30 | XMS_ITS | Encounter Summary ---
Author Organization [facility] Address [address] [facility] [place] [address] Care Team Providers Care Director Speech Name Role Phone Micky Singh MD Primary Care Provider [phone] Reason for Visit * ReasonCommentsGynecologic Exam Encounter Details DateTypeDepartmentCare Team (Latest Contact Info)Pbvikcryfym01/22/2025 11:30 AM ESTProcedure Visit [facility] [address] [place] [address] Mando Back DO [address] [facility] [address] [place] [id number] Encounter for long-term (current) use of medications; Well woman exam with routine gynecological exam; Breast cancer screening by mammogram Social History Tobacco UseTypesPacks/DayYears UsedDateSmoking Tobacco: NeverAlcohol UseStandard Drinks/WeekCommentsYes0 (1 standard drink = 0.6 oz pure alcohol)Occasional alcohol useCommentsNoSex and Gender InformationValueDate RecordedSex Assigned at BirthNot on fileLegal TkqZrehee69/15/2023 7:17 PM EDTGender Identity Not on fileSexual OrientationNot on filedocumented as of this encounter Last Filed Vital Signs Vital SignReadingTime TakenCommentsBlood Upgyxptb788/6009/17/2025 12:00 PM EST Pulse--Temperature--Respiratory Rate--Oxygen Saturation--Inhaled Oxygen Concentration--Ykvnfa01.3 kg (130 lb 12.8 oz)09/17/2025 12:00 PM [...] nursing note reviewed. Exam conducted with a painter maintenance present. Vitals: Estimated body mass index is [...] them. Patient can also view results via [employer]. I reinforced importance of condom use for [...] Plan of Treatment DateTypeDepartmentCare Team (Latest Contact Info)Dfvnhwufcud62/05/2027 8:30 AM ESTProcedure Visit [facility] [address] [place] [phone] Mando Back DO [address] [place] [address] NameTypePriorityAssociated DiagnosesOrder ScheduleComprehensive metabolic panel LabRoutine Encounter [...] MemberRelationshipSpecialtyStart DateEnd Micky Singh MD [address] [place] [address] PCP - Hoiquji08/4/23documented as of this encounter
--- OUTSIDE RECORDS SUMMARY | 2025-09-25 08:59 | XMS_ITS | Encounter Summary ---
Author Organization [facility] Address [address] [facility] [place] [address] Care Team Providers Care Rheumatology Nurse Name Role Phone Micky Singh MD Primary Care Provider [phone] Encounter Details DateTypeDepartmentCare Team (Latest Contact Info)Ahzgezqkcxu77/21/2025Travel Social History Tobacco UseTypesPacks/DayYears UsedDateSmoking Tobacco: NeverAlcohol UseStandard Drinks/WeekCommentsYes0 (1 standard drink = 0.6 oz pure alcohol)Occasional alcohol useCommentsNoSex and Gender InformationValueDate RecordedSex Assigned at BirthNot on fileLegal QydKcbaih27/15/2023 7:17 PM EDTGender Identity Not on fileSexual OrientationNot on filedocumented as of this encounter Plan of Treatment DateTypeDepartmentCare Team (Latest Contact Info)Whctetftiqw37/05/2027 8:30 AM ESTProcedure Visit [facility] [address] [place] [address] Mando Back DO [address] [facility] [address] [place], [place] [phone] documented as of this encounter Visit Diagnoses Not on filedocumented in this encounter Care Teams Team MemberRelationshipSpecialtyStart DateEnd Date Micky Singh MD [address] [place] [address] PCP - Gkuhfqa24/4/23documented as of this encounter
--- OUTSIDE RECORDS SUMMARY | 2025-09-25 08:59 | XMS_ITS | Clinical Summary ---
Author Organization [facility] Address [address] [place] [address] Care Team Providers Care Concrete Curer Name Role Phone Micky Singh MD Primary Care Provider [phone] Allergies Active AllergyReactionsCriticalityNoted OairWcluccxtBrggifnvcamMfpiz35/07/2017 Bacitracin-Polymyxin BRash,YloravuWwa83/05/2023enzalkonium ChlorideRashLow 03/03/2017MeperidineShortness of breath,HtmwadqMvco46/07/2017 Crwtnejf-Eilswfyskyx-Szzkctiem07/22/2808BfaxoMvxxg09/05/2023 Medications MedicationSigDispense QuantityRefillsLast FilledStart DateEnd DateStatus citalopram [...] Active Problems ProblemNoted DateDiagnosed DateAnti-pneumococcal polysaccharide antibody rcehdshbrx17/18/0539Cwkivh00/18/2025hronic cough01/12/2025Hand hrshkv6101/12/2025 Txobsxvgfogvhrai40/18/3625Ammv-ORBLR-90 gnmoraobb10/18/2025Vitamin D deficiency 01/12/2025reast cancer screening by qekcszwsv65/02/2024Sinus tachycardia 07/25/20212751Gwnoalfecna40/19/2020Chest pain08/15/20209805Rsatjyw43/19/2020History of severe acute respiratory syndrome coronavirus 2 (SARS-CoV-2) kttckmu0607/18/2020 Gmvdchun25/07/2017RUQ pain03/03/2017 Encounters DateTypeDepartmentCare LltkZgmbtrfdlst13/28/2025 11:30 AM EDTOffice Visit [facility] [address] [place] [address] Vazquez Pierre MD Palpitations (Primary [...] Assigned at BirthFemale 06/14/2025 9:15 AM EDTLegal CbyZprnnk20/29/2022 11:50 PM EDTGender Identity Atuvgj9806/14/2025 9:15 AM EDTSexual OrientationDon't know06/14/2025 9:15 AM EDT Last Filed Vital Signs Vital SignReadingTime TakenCommentsBlood Yryfrome684/7107/24/2025 11:52 AM EDT Ftwlk257207/24/2025 11:52 AM SGHNuayipwmeub54.9 ??C (98.4 ??F)09/16/2020 10:51 AM ESTRespiratory Dqhw419812/31/2023 9:56 AM EDTOxygen Rloecenmet467%07/24/2025 11:52 AM EDTInhaled Oxygen Concentration--Sbcdcz37.4 kg (131 lb)07/24/2025 11:52 AM TAMYowovq972.5 cm (5' 2 )07/24/2025 11:52 AM EDTBody Mass Index23.9607/24/2025 11:52 AM EDT Plan of Treatment Health MaintenanceDue DateLast DoneCommentsCT Vyvnbrjlkzko1979Colonoscopy 1979Colorectal Cancer Kjcxxhngj1979Diabetes: Hemoglobin A1C 1979FIT-DNA1979FIT1979FOBT1979 9156Rcphdnsflflvs1979 Meningococcal Vaccine (1 - Risk 2-dose series)1981Diabetes: Retinopathy Vtfvurdfc85/20/1989Meningococcal B Vaccine (1 of 4 - Increased Risk)1989 Depression Vvslkynwq99/20/1991Diabetes: Urine Protein Obwwuhjrc75/20/1998 Hepatitis B Vaccines (1 of 3 - 19+ 3-dose series)1998Pneumococcal Vaccine: Pediatrics (0 to 5 Years) and At-Risk Patients (6 to 64 Years) (1 of 2 - PCV) 1998Zoster Vaccines (1 of 2)1998HPV/Wrdsdi5305/16/2009Mammogram 2019Adult Gyfuirb57Influenza Vaccine (#1)2025 06/23/2024, 07/11/2019, 07/21/2009Cervical Cancer Goezkpvdo44/19/2027Pap Smear , 08/27/2022HIB VaccinesAged OutNo longer eligible based on patient's age to complete this topicHPV VaccinesAged OutNo longer eligible based on patient's age to complete this topicIPV VaccinesAged OutNo longer eligible based on patient's age to complete this topicRotavirus VaccinesAged OutNo longer eligible based on patient's age to complete this topic Insurance * Guarantor: Rose Moise TypeRelation to PatientDate of PhoneBilling AddressPersonal/YirzokYxat[id number] [place] [address] Care Teams Team MemberRelationshipSpecialtyStart DateEnd Date Micky Singh MD [address] [facility] [address] [address] PCP - General12/16/22
--- OUTSIDE RECORDS SUMMARY | 2025-09-25 08:59 | XMS_ITS | Clinical Summary ---
Author Organization [facility] Address [address] [place] [address] Care Team Providers Care Financial Institution President Name Role Phone Rudy Milan Sandra BARBOSA Primary Care Provider [phone] Micky Singh MD Unavailable [phone] Allergies Active AllergyReactionsCriticalityNoted VmsbGvgqonlqUianetwgojnJxsqk31/07/2017 Meperidine HclShortness of Zeahir5603/03/2017Benzalkonium AcnrdhrqEmxr28/07/2017 Medications MedicationSigDispense QuantityRefillsLast FilledStart DateEnd DateStatus albuterol [...] tablet 11012/18/2021ctive Active Problems ProblemNoted DateDiagnosed DateRUQ pain03/03/20172944Tdkjfcey59/07/2017 Social History Tobacco UseTypesPacks/DayYears UsedDateSmoking Tobacco: NeverSmokeless Tobacco: NeverCommentsUnknownSex and Gender InformationValueDate RecordedSex Assigned at BirthNot on fileLegal SrvGpvqqy69/04/2017 2:24 PM EDTGender Identity Not on fileSexual OrientationNot on file Last Filed Vital Signs Vital SignReadingTime TakenCommentsBlood Rfagyvoc417/8006 8:49 AM EDT Hduoq9274 8:49 AM EDTTemperature--Respiratory Rate--Oxygen Saturation-- Inhaled Oxygen Concentration--Moidsm57 kg (150 lb)03/03/2017 8:49 AM EDTHeight 157.5 cm (5' 2 )03/03/2017 8:49 AM EDTBody Mass Index27.44003/03/2017 8:49 AM EDT Plan of Treatment Health MaintenanceDue DateLast DoneCommentsAnxiety Hkvekrbar19/20/1997Depression Sixapskcg70/20/1997HIV Duernlmbg73/20/1997Hepatitis C Iamhnkoeu26/20/1997 Hepatitis B Vaccine (1 of 3 - 19+ 3-dose series)1998Cervical Cancer Qjtixhqqw85/20/2000Mammogram Lssqlhwtd54/20/2019CT Nhjgfoqaqfcy60/20/2024 Cologuard (FIT-DNA)05/16/20247975Ocxkxaaigks39/20/2024olorectal Cancer Screening 2024iabetes Vhhndvtmr97/20/2024Fecal Occult Blood2024Lipid Wovawdres29/20/5555Varltxmedmvsx48/20/2024TaP,Tdap,Td Vaccine (2 - Td or Tdap) /Covid-19 Vaccine ( season)/12/2020, 10/01/2020Influenza Vaccine (#1)/, 07/21/2009 Insurance * Guarantor: Rose Moisecoapoorva TypeRelation to PatientDate of PhoneBilling AddressPersonal/ZqitjjJzwu1980 [address] [address] MemberSubscriberPlan / Payer (Effective 2020-Present)Name:Rose Moise Relation to Subscriber:SelfName:Rose Moise Payer ID:Not on file Group ID:Not on file Type:PPO Address: [place] [phone] Care Teams Team MemberRelationshipSpecialtyStart DateEnd Rudy Milan DO PCP - GeneralInternal Medicine01/28/17 Micky Singh MD ReferringFamoly Eeizweep73/3/21
--- OUTSIDE RECORDS SUMMARY | 2025-09-25 08:59 | XMS_ITS | Encounter Summary ---
Author Organization [facility] Address [address] [facility] [place] [address] Care Team Providers Care Powerhouse Laborer Name Role Phone Micky Singh MD Primary Care Provider [phone] Encounter Details DateTypeDepartmentCare Team (Latest Contact Info)Kmxoqhqdtga21/22/2025amboo flowsheet [facility] [address] [place] [address] Mando Back DO [address] [place] [address] Dr [place], [place] [address] Social History Tobacco UseTypesPacks/DayYears UsedDateSmoking Tobacco: NeverAlcohol UseStandard Drinks/WeekCommentsYes0 (1 standard drink = 0.6 oz pure alcohol)Occasional alcohol useCommentsNoSex and Gender InformationValueDate RecordedSex Assigned at BirthNot on fileLegal LffWixfxh00/15/2023 7:17 PM EDTGender Identity Not on fileSexual OrientationNot on filedocumented as of this encounter Plan of Treatment DateTypeDepartmentCare Team (Latest Contact Info)Akwefvzexsf69/05/2027 8:30 AM ESTProcedure Visit [facility] [address] [place] [address] Mando Back DO [address] [facility] [address] [place], [place] [address] documented as of this encounter Visit Diagnoses Not on filedocumented in this encounter Care Teams Team MemberRelationshipSpecialtyStart DateEnd Date Micky Singh MD [address] [place] [address] PCP - Xgaxffu63/4/23documented as of this encounter
--- OUTSIDE RECORDS SUMMARY | 2025-09-25 08:59 | XMS_ITS | Clinical Summary ---
Author Organization [facility] Address [address] [place] [address] Care Team Providers Care Qa Reviewer Name Role Phone Micky Singh MD Primary Care Provider [phone] Allergies Active AllergyReactionsCriticalityNoted HsxvOziltybjCpmatpzzdzxAnbcXfe54/22/2025 Bacitracin-Polymyxin BRash,ZxqbkasNty19/05/2023MeperidineShortness of breath, RrcahneGlqg91/07/2663MwazxMfueg72/05/2023 Medications MedicationSigDispense QuantityRefillsLast FilledStart DateEnd DateStatus cholecalciferol [...] underlying condition without complication, unspecified whether terminal press operator insulin use (HCC),Type II diabetes mellitus with [...] Problems ProblemNoted DateDiagnosed DateBreast cancer screening by bdiaczxwc12/02/2024 Encounters DateTypeDepartmentCare CofyNoljyaiicjw96/29/2025Orders Only [facility] [address]ART[address] [place] [phone] Hillary Darnell LPN 09/17/2025 11:30 AM ESTProcedure Visit [facility] [address] [place] [address] Mando Back DO Encounter for long-term (current) use of medications; Well woman exam with routine gynecological exam; Breast cancer screening by kourfcpgi64/22/2025linisync Result Encounter [facility] Unsolicited Mando Back, 09/17/2025amboo flowsheet [facility] [address] [place] [phone] Mando Back, 09/16/20255705Zsphyb08/08/2025Refill [facility] [address] [facility] [place] [address] Mando Back, Mood changesfrom Last 3 Months Family History Medical HistoryRelationNameCommentsMental illnessBrotherCancerMaternal GrandfatherDiabetesMaternal GrandfatherCancerMaternal GrandmotherCancerPaternal GrandmotherDiabetesPaternal GrandmotherRelationNameStatusCommentsBrotherx1 DaughterAliveMaternal GrandfatherMaternal GrandmotherPaternal GrandmotherSon 1 AliveSon 2Alive Social History Tobacco UseTypesPacks/DayYears UsedDateSmoking Tobacco: Never Tobacco Cessation:Counseling Given: Not Answered Alcohol UseStandard Drinks/WeekCommentsYes0 (1 standard drink = 0.6 oz pure alcohol)Occasional alcohol useCommentsNoSex and Gender InformationValue Date RecordedSex Assigned at BirthNot on fileLegal XapFzyuab04/15/2023 7:17 PM EDTGender IdentityNot on fileSexual OrientationNot on file Last Filed Vital Signs Vital SignReadingTime TakenCommentsBlood Aqwjjxsm985/6009/17/2025 12:00 PM EST Pulse--Temperature--Respiratory Rate--Oxygen Saturation--Inhaled Oxygen Concentration--Whijoj75.3 kg (130 lb 12.8 oz)09/17/2025 12:00 PM LQRGbrbzp522.5 cm (5' 2 )08/27/2022 12:00 PM ESTBody Mass Index23.9208/27/2022 12:00 PM EST Plan of Treatment DateTypeDepartmentCare Team (Latest Contact Info)Cobmkhmishr78/05/2027 8:30 AM ESTProcedure Visit [facility] [address] [facility] [place] [address] Mando Back DO [address] [facility] [place] [address] Health MaintenanceDue DateLast DoneCommentsCT Ttuwwiulfdsr1979Colonoscopy 1979Colorectal Cancer Cudjgbeid1979FIT-DNA1979FIT1979 FOBT1979 0234Anchocgluyhoo1979Influenza Vaccine (#1)509/, 07/11/20195939Qtbmaaubg08/13/206819/, 09/06/2023, 09/02/2022, Additional history existsHPV/Ewwezd7208/31/2028Cervical Cancer Kugamzuoa90/22/2028Pap Smear 11/18/2024, 09/14/2024, 08/31/2023, Additional history exists Pneumococcal Vaccine: Pediatrics (0 to 5 Years) and At-Risk Patients (6 to 64 Years)Aged OutNo longer eligible based on patient's age to complete this topic Procedures Procedure NamePriorityDate/TimeAssociated DiagnosisCommentsIGP,APTIMA HPV,AGE NDXXZhvhrvd35/22/2025 11:50 AM EST PAP TEST, SLHQKIWORgqyfiy43/22/2025 12:00 AM ESTMM TOMOSYNTHESIS SCREENING BI 09/08/2024 10:09 AM EST from Last 3 Months or Most Recently Relevant to Health Maintenance Results * IGP,APTIMA HPV,AGE GDLN (09/17/2025 11:50 AM EST)ComponentValueRef RangeTest MethodAnalysis TimePerformed AtPathologist SignatureAGE GDLN ACOG TESTINGNote. TBHComment: ?? TESTS ? RESULT ??FLAG ??UNITS ?REF RANGE ??LAB ?? Clinician Provided Cytology Information ?? Source.............Cervix ?? No. of containers..01 ThinPrep Vial Age Algo ACOG Veronique... ??30-65 ? 01 ?FLAG LEGEND: ?L-Low Normal,H-High Normal,LL-Alert Low,HH-Alert High <-Panic Low,>-Panic High,A-Abnormal,AA-Critical Abnormal Performed at: 01 =G ?[facility] ?? [address] [place] ??[phone] ?? Astrid Brock MD, IGP, APTIMA HPV, RFX 16/18,45Note.TBHComment: ?? TESTS ? RESULT ??FLAG ??UNITS ?REF RANGE ??LAB DIAGNOSIS: ?02 ?? NEGATIVE FOR INTRAEPITHELIAL LESION OR MALIGNANCY. Specimen adequacy: ?02 ?? Satisfactory for evaluation. ??Endocervical and/or squamous metaplastic ?? cells (endocervical component) are present. Performed by: ? 02 ?? Aranza Mancuso Business Law Instructor (ASCP) . ? 02 Note: ? Note ?02 ?? The Pap smear is a screening test designed to aid in the ?? detection of premalignant and malignant conditions of the ?? uterine cervix. ??It is not a diagnostic procedure and ?? should not be used as the sole means of detecting cervical ?? cancer. ??Both false-positive and false-negative reports do ?? occur. Test Methodology: ? Note ?02 ?? This liquid based ThinPrep(R) pap test was interpreted ?? using the [employer](R) [employer](TM) Cervical Algorithm whole ?? slide imaging system. HPV Genotype Reflex ?? Note ?02 ?? Criteria not met, HPV Genotype not performed. ?FLAG LEGEND: ?L-Low Normal,H-High Normal,LL-Alert Low,HH-Alert High <-Panic Low,>-Panic High,A-Abnormal,AA-Critical Abnormal Performed at: 02 WB ?[facility] ?? [address] [place] ??[address] ?? Astrid Brock MD, HPV APTIMANegativeNegativeTBHComment: This nucleic acid amplification test detects fourteen high- risk HPV types (16,18,31,33,35,39,45,51,52,56,58,59,66,68) without differentiation. Performed at: ??=G - [facility] [address] [place], [place] ??[id number] [employer] Administrator: Astrid Brock MD, Phone: ??[phone] Performed at: ??WB - [facility] [address] [place], [place] ??[id number] [employer] Administrator: Astrid Brock MD, Phone: ??[phone] Specimen (Source)Anatomical Location / LateralityCollection Method / Volume Collection TimeReceived Time09/17/2025 11:50 AM EST09/17/2025 9:20 PM EST Narrative [facility] - 09/21/2025 1:08 PM EST BRUSH-SPATULA CERVIX Authorizing ProviderResult TypeResult StatusCorey Nazanin DOLAB BLOOD ORDERABLES Final ResultPerforming OrganizationAddressCity/State/ZIP CodePhone Number [facility] * PAP TEST, EXTERNAL (09/17/2025 12:00 AM EST) Narrative Authorizing ProviderResult TypeResult StatusFazio Nurse Noms Bcp ObLAB CYTOLOGY ORDERABLESFinal ResultPerforming OrganizationAddressCity/State/ZIP CodePhone Number EXTERNAL LAB * MM TOMOSYNTHESIS SCREENING BI (09/08/2024 10:09 AM EST)Anatomical Region LateralityModalityOtherSpecimen (Source)Anatomical Location / Laterality Collection Method / VolumeCollection TimeReceived Time09/08/2024 10:09 AM EST Narrative 09/08/2024 10:10 AM EST [facility] ?[address] ? [place] [address] ? Mammography Report ? Signed ? Patient: PIOTR FREEMAN D ?MR#: [id number] ?? : 1980 ?Acct:[id number] ?? Age/Sex: 44 / F ?ADM Date: 09/07/24 ?? Loc: MAMMO ? Attending Dr: Mando Back D.O. ? Ordering Physician: Mando Back D.O. ?Results: ? Date of Service: 09/07/24 ?Follow Up: ? Procedure(s): MM tomosynthesis screening BI ?? Accession Number(s): [id number] ? cc: Mando Back D.O. ? Patient Name: ? PIOTR FREEMAN ? MR#: [id number] ? : 1980 ? Exam Date: 09/07/2024 [...] at age ??62. ? LOCATION: ? [facility] ? BREAST COMPOSITION: ? The breasts are [...] By: ?Bam Deshpande M.D. ? Signed By: ?12/13/24 1010 ? DD/ 1009 ? TD/TT: ? Industrial Ecologist: Procedure Note Radiology, Radiologist, MD - 09/08/2024 [place] [address] Mammography Report Signed Patient: PIOTR FREEMAN DMR#: [id number] : 1980Acct:[id number] Age/Sex: 44 / FADM Date: 09/07/24 Loc: MAMMO Attending Dr: Mando Back D.O. Ordering Physician: Mando Back D.O.Results: Date of Service: 09/07/24Follow Up: Procedure(s): MM tomosynthesis screening BI Accession Number(s): [id number] cc: Mando Back D.O. Patient Name: PIOTR FREEMAN MR#: [id number] : 1980 Exam Date: 09/07/2024 Ordering Doctor: [...] [facility] BREAST COMPOSITION: The breasts are heterogeneously [...] M.D. Signed By:09/08/24 1010 DD/ 1009 TD/TT: Industrial Ecologist: Authorizing ProviderResult TypeResult StatusCorey Nazanin DOCLINISYNC IMAGINGFinal Result from Last 3 Months or Most Recently Relevant to Health Maintenance Insurance * Guarantor: Pamela Freeman TypeRelation to PatientDate of PhoneBilling AddressPersonal/CbmabdDyre1980 [id number] [place] [phone] Care Teams Team MemberRelationshipSpecialtyStart DateEnd Micky Singh MD [address] [place] [phone] PCP - Imgbbms65/4/23
--- OUTSIDE RECORDS SUMMARY | 2025-09-25 08:59 | XMS_ITS | Encounter Summary ---
Author Organization [facility] Address [address] [facility] [place] [address] Care Team Providers Care Bun Icer Name Role Phone Micky Singh MD Primary Care Provider [phone] Encounter Details DateTypeDepartmentCare Team (Latest Contact Info)Dmspmhgauao43/22/2025linisync Result Encounter [facility] Department Unsolicited Mando Back DO [address], [facility] Social History Tobacco UseTypesPacks/DayYears UsedDateSmoking Tobacco: NeverAlcohol UseStandard Drinks/WeekCommentsYes0 (1 standard drink = 0.6 oz pure alcohol)Occasional alcohol useCommentsNoSex and Gender InformationValueDate RecordedSex Assigned at BirthNot on fileLegal FtgRyqimd83/15/2023 7:17 PM EDTGender Identity Not on fileSexual OrientationNot on filedocumented as of this encounter Plan of Treatment DateTypeDecarroll regional medical centerCare Team (Latest Contact Info)Miijdpburcp82/05/2027 8:30 AM ESTProcedure Visit [facility] [address] [place] [address] Mando Back DO [address], [place] [id number] documented as of this encounter Procedures Procedure NamePriorityDate/TimeAssociated DiagnosisCommentsIGP,APTIMA HPV,AGE NCKWAbpleud89/22/2025 11:50 AM EST documented in this encounter Results * IGP,APTIMA HPV,AGE GDLN (09/17/2025 11:50 [...] at: 01 =G ?[facility] ?? [address] [place] ??[address] ?? Astrid Brock MD, IGP, APTIMA HPV, RFX 16/18,45Note.TBHComment: ?? TESTS ? RESULT ??FLAG ??UNITS ?REF RANGE ??LAB DIAGNOSIS: ?02 ?? NEGATIVE FOR INTRAEPITHELIAL LESION OR MALIGNANCY. Specimen adequacy: ?02 ?? Satisfactory for evaluation. ??Endocervical and/or squamous metaplastic ?? cells (endocervical component) are present. Performed by: ? 02 ?? Aranza Mancuso Chronometer Tester (ASCP) . ? 02 Note: ? Note [...] pap test was interpreted ?? using the [employer](R) Genius(TM) Cervical Algorithm whole ?? slide imaging system. HPV Genotype Reflex ?? Note ?02 ?? Criteria not met, HPV Genotype not performed. ?FLAG LEGEND: ?L-Low Normal,H-High Normal,LL-Alert Low,HH-Alert High <-Panic Low,>-Panic High,A-Abnormal,AA-Critical Abnormal Performed at: 02 WB [facility] ?? [address] [place], [place] ??[address] ?? Astrid Brock MD, HPV APTIMANegativeNegativeTBHComment: This nucleic acid amplification test detects fourteen high- risk HPV types (16,18,31,33,35,39,45,51,52,56,58,59,66,68) without differentiation. Performed at: ??=G - [facility] ??[id number] Sole Painter: Astrid Brock MD, Phone: ??[phone] Performed at: ??WB - [facility] ??[id number] Sole Painter: Astrid Brock MD, Phone: ??[phone] Specimen (Source)Anatomical Location / LateralityCollection Method / Volume Collection TimeReceived Time09/17/2025 11:50 AM EST09/17/2025 9:20 PM EST Narrative [facility] - 09/21/2025 1:08 PM EST BRUSH-SPATULA CERVIX Authorizing ProviderResult TypeResult StatusCorey Nazanin DOLAB BLOOD ORDERABLES Final ResultPerforming OrganizationAddressCity/State/ZIP CodePhone Number [facility] documented in this encounter Visit Diagnoses Not on filedocumented in this encounter Care Teams Team MemberRelationshipSpecialtyStart DateEnd Date Micky Singh MD [address] [place] [address] PCP - Ssnsjtg28/4/23documented as of this encounter
--- OUTSIDE RECORDS SUMMARY | 2025-09-25 08:59 | XMS_ITS | Encounter Summary ---
Author Organization [facility] Address [address] [facility] [place] [address] Care Team Providers Care Can Line Operator Name Role Phone Micky Singh MD Primary Care Provider [phone] Encounter Details DateTypeDepartmentCare Team (Latest Contact Info)Oqlcqgcysmo02/29/2025Orders Only [facility] [address] [place] [address] Hillary Darnell LPN [address] [place] [address] Social History Tobacco UseTypesPacks/DayYears UsedDateSmoking Tobacco: NeverAlcohol UseStandard Drinks/WeekCommentsYes0 (1 standard drink = 0.6 oz pure alcohol)Occasional alcohol useCommentsNoSex and Gender InformationValueDate RecordedSex Assigned at BirthNot on fileLegal GlfWmxokp01/15/2023 7:17 PM EDTGender Identity Not on fileSexual OrientationNot on filedocumented as of this encounter Plan of Treatment DateTypeDepartmentCare Team (Latest Contact Info)Nwepqjporei08/05/2027 8:30 AM ESTProcedure Visit [facility] MARTINEZ [address] [place] [address] Mando Back DO [address] Nayana Odonnell [facility]11 documented as of this encounter Procedures Procedure NamePriorityDate/TimeAssociated DiagnosisCommentsPAP TEST, EXTERNAL Eemzzma3009/17/2025 12:00 AM ESTdocumented in this encounter Results * PAP TEST, EXTERNAL (09/17/2025 12:00 AM EST) Narrative Authorizing ProviderResult TypeResult StatusFazio Nurse [facility] CYTOLOGY ORDERABLESFinal ResultPerforming OrganizationAddressCity/State/ZIP CodePhone Number EXTERNAL LAB documented in this encounter Visit Diagnoses Not on filedocumented in this encounter Care Teams Team MemberRelationshipSpecialtyStart DateEnd Date Micky Singh MD [address] [place] [address] PCP - Bmzbfhs70/4/23documented as of this encounter
--- OUTSIDE RECORDS SUMMARY | 2025-09-25 08:59 | XMS_ITS | Patient Health Record ---
Author Organization [facility] [place] Address [address] [place] [address] Care Team Providers Care Animal Control Supervisor Name Role Phone Ministerio Singh Primary Care Provider Allergies Allergen (clinical drug ingredient) Drug/Non Drug Allergy documented on EMR Reaction Allergy Type Onset Date Status amoxicillin Amoxicillin Rash Drug Allergy ActivemeperidineDemerolSOBDrug AllergyActiveNeosporinRashDrug AllergyActive Results Component Value Reference Range Notes CBC AUTO DIFF Reviewed date:06/07/2025 12:47:34 PM Interpretation: Performing Lab: Notes/Report: [facility] , White Blood Count 8.3 4.0-11.0 10 3/uL Red Blood Count4.714.20-5.40 10 6/eOYiecroaxkl69.212.0-16.0 g/mGCobwkcpbjr40.4 36.0-48.0 %Mean Corpuscular Sfhmmv49.981.0-99.0 fLMean Corpuscular Hemoglobin 30.126.7-34.0 pgMean Corpuscular HGB Conc34.329.9-35.2 g/dLRed Cell Distribution Width12.311.0-15.0 %Platelet Xeosv675233-571 10 3/uLMean Platelet Volume9.39.5- 13.5 fLNeutrophils Percent Auto57.543.0-75.0 %Lymphocytes Percent Auto35.020.5- 60.0 %Monocytes Percent Auto4.81.7-12.0 %Eosinophils Percent Auto1.90.9-7.0 % Basophils Percent Auto0.60.2-2.0 %Immature Granulocytes Pct Auto0.20.0-0.5 % Neutrophils Absolute Auto4.81.4-6.5 10 3/uLLymphocytes Absolute Auto2.91.2-3.8 10 3/uLMonocytes Absolute Auto0.40.3-0.8 10 3/uLEosinophils Absolute Auto0.20.0- 0.7 10 3/uLBasophils Absolute Auto0.10.0-0.1 10 3/uLImmature Granulocytes Abs Auto0.020.00-0.03 10 3/uLPerforming Lab:see noteML - [facility] LB LIPID PROFILE Reviewed date:06/07/2025 12:47:34 PM Interpretation: Performing Lab: Notes/Report: [facility] ,Roucjqsqfcvtw67<=150 mg/zFPjxotmrtqwi376<=200 mg/dLHDL Cwkwhsaeqxi6900-72 mg/dL > or =60 mg/dl - LOW CARDIOVASCULAR RISK <40 mg/dl - HIGH CARDIOVASCULAR RISK LDL Cholesterol Wkdmivevgv80.0 <100 mg/dl OPTIMAL 100-129 mg/dl NEAR OR ABOVE OPTIMAL 130-159 mg/dl BORDERLINE HIGH 160-189 mg/dl HIGH >190 mg/dl VERY HIGH VLDL MFVVIZGFORE10.8Chol HDL Ratio2.1 3.3 - 4.4 LOW RISK 4.4 - 7.1 AVERAGE RISK 7.1 - 11.0 MODERATE RISK >11.0 HIGH RISK Performing Lab:see noteML - [facility] LBPROF 14(COMP METB) Reviewed date:06/07/2025 12:47:34 PM Interpretation: Performing Lab: Notes/Report: [facility] ,Pqznlq786610-219 mmol/LPotassium4.83.5-5.1 mmol/NJsndxswz75260-410 mmol/LCarbon Yltherz42.221.0-32.0 mmol/LAnion Gap12.6Zemiyij58770-163 mg/dLBlood Urea Nitrogen8.07.0-18.0 mg/dLCreatinine0.620.55-1.02 mg/dLEstimated GFR ( Sahara>60>=60 mL/min/1.73m 2Estimated GFR (Non- Beatris>60>=60 mL/min/1.73m 2BUN Creatinine Ratio12.6Xwdphei6.88.5-10.1 mg/dLBilirubin Total0.70.2-1.0 mg/dL Aspartate Amino Wyzbugifewj8361-25 U/LAlanine Rlmhfjvsujqmdxns0979-33 U/L Alkaline Zadtchnbwgi0587-995 U/LTotal Protein8.16.4-8.2 g/dLAlbumin Level4.33.4- 5.0 g/dLGlobulin3.8Albumin Globulin Ratio1.1Performing Lab:see noteML - [facility] LBTSH Reviewed date:06/07/2025 12:47:34 PM Interpretation: Performing Lab: Notes/Report: [facility] ,Thyroid Stimulating Hormone1.2230.358-3.740 uIU/mLPerforming Lab:see noteML - [facility] LBIGP,Aptima HPV,Age Gdln Reviewed date:09/21/2025 04:04:14 PM Interpretation: Performing Lab: Notes/Report: BRUSH-SPATULA CERVIX [facility] ,Age Gdln ACOG TestingNote. TESTS RESULT FLAG UNITS REF RANGE LAB Clinician Provided Cytology Information Source.............Cervix No. of containers..01 ThinPrep Vial Age Algo ACOG Veronique... 30-65 01 FLAG LEGEND: L-Low Normal,H-High Normal,LL-Alert Low,HH-Alert High <-Panic Low,>-Panic High,A-Abnormal,AA-Critical Abnormal Performed at: 01 =G [facility] [address] [place] [address] Astrid Brock MD, IGP, Aptima HPV, rfx 16/18,45Note. TESTS RESULT FLAG UNITS REF RANGE LAB DIAGNOSIS: 02 NEGATIVE FOR INTRAEPITHELIAL LESION OR MALIGNANCY. Specimen adequacy: 02 Satisfactory for evaluation. Endocervical and/or squamous metaplastic cells (endocervical component) are present. Performed by: 02 Aranza Mancuso Metal Drill Press Operator (ASCP) . 02 Note: Note 02 [...] liquid based ThinPrep(R) pap test was interpreted using the [employer].co(R) [employer](TM) Cervical Algorithm whole slide imaging system. HPV Genotype Reflex Note 02 Criteria not met, HPV Genotype not performed. FLAG LEGEND: L-Low Normal,H-High Normal,LL-Alert Low,HH-Alert High <-Panic Low,>-Panic High,A-Abnormal,AA-Critical Abnormal Performed at: 02 WB [facility] [place] [address] [facility] [place] [address] Astrid Brock MD, HPV AptimaNegativeNegative This nucleic acid amplification test detects fourteen high- risk HPV types (16,18,31,33,35,39,45,51,52,56,58,59,66,68) without differentiation. Performed at: =G - [facility] [id number] [employer]: Atsrid Brock MD, Phone: [phone] Performed at: - [address] [id number] [employer]: Astrid Brock MD, Phone: [phone] Performing Lab:see note - [facility] LBGLYCOHEMOGLOBIN A1C Reviewed date:06/07/2025 12:47:34 PM Interpretation: Performing Lab: Notes/Report: [facility] ,Glycohemoglobin A1C5.14.5-6.2 % ADA RECOMMENDED LIMIT 4.0 - 6.0 ADA THERAPEUTIC TARGET < 7.0 ACTION SUGGESTED > 7.0 Estimated Average Fyxracd649Bwrnembaqy Lab:see noteML - [facility] LB PROF 14(COMP METB) Reviewed date:11/23/2024 07:25:36 PM Interpretation: Performing Lab: Notes/Report: [facility] ,Ynvtke395522-918 mmol/LPotassium4.23.5-5.1 mmol/VZhvdtoji16129-585 mmol/LCarbon Zkakuli34.221.0-32.0 mmol/LAnion Gap11.8Aqgacuo4222-518 mg/dLBlood Urea Nitrogen 9.07.0-18.0 mg/dLCreatinine0.730.55-1.02 mg/dLEstimated GFR ( Sahara>60 >=60 mL/min/1.73m 2Estimated GFR (Non- Beatris>60>=60 mL/min/1.73m 2BUN Creatinine Ratio12.9Gkwvggm5.48.5-10.1 mg/dLBilirubin Total0.50.2-1.0 mg/dL Aspartate Amino Lmxwizaxqkr5057-03 U/LAlanine Wviesoqxjfnzxvpq7132-46 U/L Alkaline Ukyhxkmacoz0722-826 U/LTotal Protein7.36.4-8.2 g/dLAlbumin Level3.93.4- 5.0 g/dLGlobulin3.4Albumin Globulin Ratio1.1Performing Lab:see noteML - [facility] Reason For Referral No Information Medications Medication SIG (Take, Route, Frequency, Duration) Notes Start Date End Date Status Vitamin D3 50 MCG (1999) 1 tablet Orally Once a day; Duration: 90 ActiveAlbuterol Sulfate HFA 108 (90 Base) MCG/ACT2 puffs as needed Inhalation every 4 hrsActiveLevalbuterol HCl 1.25 MG/3ML3 ml Inhalation every 6 hrs as cwlpfq1511/28/2020ctiveSingulair 10 MG1 tablet Orally Once a dayActivePeak [...] 10/01/2020 Administered SARS-COV-2 (COVID 19 Moderna - 100mcg/0.5mL)Tcgnlmw0510/29/2020dministered Social History Tobacco Use: Social History Observation [...] Status Risk Notes Problem Vitamin D deficiency (39995176) Vitamin D deficiency (E55.9) ActiveconfirmedProblemChronic cough (73791365)Chronic cough (R05)Activeconfirmed ProblemAnti-pneumococcal polysaccharide antibody deficiency (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)ActiveconfirmedProblem Immunodeficiency (850223350)Immunodeficiency (D84.9)ActiveconfirmedProblemHand eczema (522692441)Hand eczema (L30.9)ActiveconfirmedProblemAsthma (107593235) Unspecified asthma (J45.909)ActiveconfirmedProblemChronic jpah-GGOVM-97 syndrome (disorder) (6576004690)Xlwd-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
--- OUTSIDE RECORDS SUMMARY | 2025-09-25 09:01 | XMS_ITS | CCD ---
Author Organization [facility] Care Team Providers Care Home Care Chaplain Name Role Phone Rudy Milan DO Primary [...] DR TOM Admitting Unavailable NAZANIN ., DR TMO Consulting Unavailable NAZANIN ., DR TOM Attending [...] Unavailable NAZANIN ., DR TOM Admitting Unavailable MISHAWAKA, DR BRANDY Staton Consulting Unavailable NAZANIN ., DR TOM Consulting Unavailable NAZANIN ., DR TOM Consulting Unavailable NAZANIN ., DR TOM Attending Unavailable NAZANIN ., DR TOM Admitting Unavailable HOY ., DR ELLISON Primary Care Unavailable KEVIN PAUL Attending Unavailable BEVERLY, KEVIN Admitting Unavailable KEVIN PAUL Consulting Unavailable AMADEO Meza, DR ELLISON Primary Care Unavailable DOUG LOMAX Consulting Unavailable KEVIN PAUL Attending Unavailable KEVIN PAUL Admitting Unavailable AMADEO ., DR ELLISON Primary Care Unavailable RAMESH, DR JOB Santamaria Consulting Unavailable KEVIN PAUL Consulting Unavailable Terra Singh MD Primary Care Provider [phone] MANDO BACK Attending Unavailable Terra Singh MD Primary Care Provider [phone] PJ WELDON Attending Unavailable CHARLOTTE JOHNSON Attending Unavailable Allergies Allergy ClassificationReported Allergen(s)Allergy TypeDate of OnsetReaction(s) Facility (4 sources)Amoxicillin; Translations: [AMOXICILLIN]Drug Wfhscdh55-20-0919Fxeqi [facility] (4 sources)Benzalkonium; Translations: [BENZALKONIUM CHLORIDE]Drug Allergy 30-88-4338[facility] (12 sources)MeperidineDrug Dcwdrvh92-82-8220Ggobxqbql of Breath, Other, Unknown [facility] (1 source)AmoxicillinDrug Qeipboi55-50-5514Pnk [facility] Repository (1 source)Bacitracin / Neomycin / Polymyxin BDrug Eeefbsw40-34-4778Plj [facility] Rep[facility] (1 source)MeperidineDrug Umpwpfy82-07-4970Efi [facility] Repository (10 sources)Bacitracin / Polymyxin B; Translations: [BACITRACIN-POLYMYXIN B]Drug Moytogp56-42-6830Zwzd, [facility] (9 sources)BenzalkoniumDrug Nxkduhy29-81-5245TmelAWMH Healthcare (10 sources)Meperidine; Translations: [MEPERIDINE]Drug Flxmayt13-36-1032 Shortness of breath, [facility] (10 sources)Other; Translations: [OTHER]Allergy to gdszshcge73-24-0160KgochMTQV Healthcare (1 source)JVXRAYZU-FNFRWVNPFWS-WMFGTWXOM; Translations: [HZXEAAYK-IWCLMZJHVPB-QWNRNXEBA]Propensity to adverse reactions to drug (disorder)72-47-9724[facility] Medications Current Medications MedicationDrug Class(es)DatesSig (Normalized)Sig (Original)[id number] 200 actuat albuterol 0.09 mg/actuat metered dose inhaler (12 sources)beta2-Adrenergic Agonistalbuterol HFA 90 mcg/act inhaler Active albuterol HFA (PROVENTIL HFA, VENTOLIN HFA) 90 mcg/actuation inhaler albuterol sulfate HFA 90 mcg/actuation aerosol inhaler 0 ActiveComment on above:albuterol sulfate HFA 90 mcg/actuation aerosol inhalerascorbic acid 500 mg extended release oral capsule (12 sources)Vitamin Cascorbic acid (Vitamin C) 500 MG ER capsule ActiveAscorbic Acid (VITAMIN C) 500 mg cpERazithromycin 250 mg oral tablet (5 sources)Macrolide AntimicrobialStart: 57-26-2592khjzbsqhavuk (Zithromax Z- Tavo) 250 MG tablet Indications: Acute non-recurrent frontal sinusitis As d irected 6 tablet 09/14/2024 Activecholecalciferol 0.05 mg oral capsule (9 sources)Vitamin Dcholecalciferol (Vitamin D-3) 50 MCG (1999) capsule Vitamin D Activecitalopram 20 mg oral tablet (18 sources)Serotonin Reuptake InhibitorStart: 69-61-4811msxx 1 tablet by mouth once dailycitalopram (CeleXA) 20 MG tablet Indications: Mood changes TAKE 1 TABLET BY MOUTH EVERY DAY 90 tablet 3 08/30/2024 ActiveStart: 33-35-7600tfsu 1 tablet by mouth once dailycitalopram (CeleXA) 20 MG tablet Indications: Mood changes TAKE 1 TABLET BY MOUTH EVERY DAY 90 tablet 1 03/09/2024 ActiveStart: 08-31-2023 End: 59-71-1206kbxo 1 tablet by mouth in the morningcitalopram (CeleXA) 10 MG tablet Indications: Mood changes Take 1 tablet (10 mg) by mouth in the morning. Pt combining 10mg and 20 mg for a 30mg celexa. 30 tablet 11 08/31/2023 Active Start: 27-63-4884dwyddgwczf (CELEXA) 20 mg tablet q 24 HR. 0 10/06/2020 Active Comment on above:q 24 HR.0.25 mg, 0.5 mg dose 1.5 ml semaglutide 1.34 mg/ml pen injector (20 sources)Start: 12-65-0437kjcsmi 0.5 mg by subcutaneous injection every week semaglutide (Ozempic) 2 MG/1.5ML solution pen-injector Indications: Diabetes mellitus due to underlying condition without complication, unspecified whether assisted insulin use (HCC) , Type II diabetes mellitus with complication (HCC) inject 0.5 mg under the skin 1 (one) time per week for 4 doses 1 each 1 02/17/2024 ActiveStart: 44-68-6180wbqejnnzcqo (Ozempic) 2 MG/1.5ML solution pen- injector Indications: Insulin resistance Inject 0.63mL (2.268mg) once weekly as directed. 2.52 mL 02/01/2024 ActiveStart: 88-52-6675grwsel 1 mg by subcutaneous injection every weeksemaglutide (Ozempic, 0.25 or 0.5 MG/DOSE,) 2 MG/1.5ML solution pen-injector Indications: Diabetes mellitus due to underlying condition without complication, unspecified whether intermediate manager insulin use(HCC) Inject 1 mg under the skin 1 (one) time per week 4 mL 1 08/31/2023 Activezinc gluconate 77 mg oral lozenge (9 sources)Zinc 10 MG lozenge Zinc Active Completed/Discontinued Medications MedicationDrug Class(es)DatesSig (Normalized)Sig (Original)atorvastatin 20 mg oral tablet (12 sources)HMG-CoA Reductase InhibitorStart: 77-87-8015pjhd 1 tablet by mouth once dailyatorvastatin (LIPITOR) 20 mg tablet atorvastatin 20 mg tablet Take 1 tablet every day by oral route. 0 09/01/2021 ActiveComment on above:atorvastatin 20 mg tablet Take 1 tablet every day by oral route.24 hr metoprolol succinate 25 mg extended release oral tablet (2 sources)beta-Adrenergic BlockerStart: 63-44-1268coup 1 tablet by mouth twice dailymetoprolol succinate ER (TOPROL XL) 25 mg 24 hr tablet TAKE 1 TABLET BY MOUTH TWICE A DAY 60 danwxj23 12/18/2021 ActiveComment on above:TAKE 1 TABLET BY MOUTH TWICE A DAY Problems Active Problems Problem ClassificationProblemDateDocumented DateEpisodic/ChronicAbdominal pain (7 sources)Right upper quadrant pain; Translations: [Right upper quadrant pain] Onset: 927801-40-0219VxrekfuvOjynzvr dysrhythmias (8 sources)Bradycardia; Translations: [Palpitations]Onset: 49-15-1934Ntqdqsng Conditions associated with dizziness or vertigo (1 source)Dizziness and giddiness; Translations: [DIZZINESS AND GIDDINESS]Onset: 79-22-9280McjorgygJiyqtflrxx heart failure; nonhypertensive (1 source)Unspecified diastolic (congestive) heart failure; Translations: [UNSPECIFIED DIASTOLIC HEART FAILURE]Onset: 72-03-1121YumxurcNbwyoyepu of lipid metabolism (2 sources)Mixed hyperlipidemia; Translations: [Mixed hyperlipidemia]Onset: 89-94-6369LsmegtwAtyvprcvvpef with complications and secondary hypertension (1 source)Hypertensive heart disease with heart failure; Translations: [HTN HEART DISEASE W/HEART FAIL]Onset: 51-08-4563NchblooEeenzim and fatigue (2 sources)Fatigue; Translations: [Fatigue]Onset: 84-73-4268EsplublaPqyoq acquired deformities (1 source)Contracture, left foot; Translations: [CONTRACTURE LEFT FOOT]Onset: 63-50-0035IszpnzzYlmrl acquired deformities (1 source)Contracture, right foot; Translations: [CONTRACTURE RIGHT FOOT]Onset: 51-75-1811UzbpohiPpnzp lower respiratory disease (2 sources)Shortness of breath; Translations: [Shortness of Breath]Onset: 79-00-7750LqpbmgpfIxspp upper respiratory infections (2 sources)Acute frontal sinusitis; Translations: [Acute frontal sinusitis, unspecified]42-68-3887EdwspdegNysjtdossfuh (3 sources)POST COVID-19 CONDITION UNSPECIFIED; Translations: [POST COVID-19 CONDITION UNSPECIFIED]Onset: 05-08-2022 Past or Other Problems Problem ClassificationProblemDateDocumented DateEpisodic/ChronicImmunizations and screening for infectious disease (1 source)Encounter for screening for human papillomavirus (HPV); Translations: [ENC SCREENING HUMAN PAPILLOMAVIRUS]Onset: 05-47-1745DdkevzucAvwre connective tissue disease (4 sources)Plantar fascial fibromatosis; Translations: [PLANTAR FASCIAL FIBROMATOSIS]Onset: 01-41-0792OcuctkjpNnyof connective tissue disease (1 source)Achilles tendinitis, right leg; Translations: [ACHILLES TENDINITIS RIGHT LEG]Onset: 06-17-2572GypzqtcxFepev connective tissue disease (4 sources)Pain in right foot; Translations: [PAIN IN RIGHT FOOT]Onset: 01-35-0175BomxhjviUzhfh connective tissue disease (1 source)Pain in left foot; Translations: [PAIN IN LEFT FOOT]Onset: 07-02-2022 EpisodicOther gastrointestinal disorders (3 sources)Diarrhea; Translations: [Diarrhea, unspecified]Onset: 03-03-2017 14-64-9326WjvjfsbqCfwrq lower respiratory disease (4 sources)Dyspnea, unspecified; Translations: [DYSPNEA UNSPECIFIED]Onset: 48-08-2761QrraprblKinmi screening for suspected conditions (not mental disorders or infectious disease) (16 sources)Encounter for screening mammogram for malignant neoplasm of breast; Translations: [Encounter for screening for malignant neoplasm of cervix]Onset: 83-59-6015HpruwnubRfeyokyb codes; unclassified (1 source)Family history of malignant neoplasm of breast; Translations: [FAMILY HX MALIG NEOPLASM OF BREAST]Onset: 61-71-9897RchlzzvyEboezwucgpmy (1 source)POST COVID-19 CONDITION UNSPECIFIED; Translations: [POST COVID-19 CONDITION UNSPECIFIED]Onset: 04-30-2022 Results Test NameValueInterpretationReference RangeFacilityOffice Visiton 07-24-2025 Follow-up [id number] Piotr Freeman 1980 F Date Provider Department Center 07/24/2025 Chauncey-PJ WELDON BUCK Mendoza [facility] Family History Family Status - Relation Status Age at Mother Alive Father Sister Alive Brother Level of Service:77032 [place] OFFICE/OUTPATIENT NEW MODERATE MDM 45 MINUTES Reason for Visit and Comments: Follow-up [724925] - Patient is here today for a follow up holter monitor for PAC'S and PVC'S which have become bothersome Bradycardia [150404] Shortness of Breath [672325] - SOB/GARCIA with palpitations Fatigue [46] - With palpitation Palpitations [747177]NormalUnNewark HospitalALL CBC WITH AUTO DIFFon 82-00-3454LXMMPFJWB ABSOLUTE AUTO0.1NOMS HealthcareBasophils/100 WBC (Bld)0.6 %0.2 - 2.0 %[facility] SpringsEosinophils/100 WBC (Bld)1.9 %0.9 - 7.0 % [facility] SpringsErythrocyte distribution width (RBC) [Ratio]12.3 %11.0 - 15.0 % [facility] SpringsHematocrit (Bld) [Volume fraction]41.4 %36.0 - 48.0 %[facility] SpringsHemoglobin (Bld) [Mass/Vol]14.2 g/dL12.0 - 16.0 g/dLSaint Mary's Hospital of [facility] Springs IMMATURE GRANULOCYTES ABS AUTO0.02NOUniversity of Missouri Children's HospitalImmature granulocytes/100 WBC (Bld)0.2 %0.0 - 0.5 %[facility] SpringsInterpretation and review of laboratory resultsAbnormalSaint [facility]'s Hospital of Blue SpringsLYMPHOCYTES ABSOLUTE AUTO2.9NOUniversity of [facility] Hospital Lymphocytes/100 WBC (Bld)35 %20.5 - 60.0 %[facility]'sH (RBC) [Entitic mass]30.1 pg26.7 - 34.[address] John'sHC (RBC) [Mass/Vol]34.3 g/dL29.9 - 35.2 g/dLMercy Hospital St. John'sV (RBC) [Entitic vol]87.9 fL81.0 - 99.0 fLSaint Mary's Hospital of Blue SpringsMONOCYTES ABSOLUTE AUTO0.4NOUniversity of Missouri Children's HospitalMonocytes/100 WBC (Bld)4.8 % 1.7 - 12.0 %[facility] SpringsNEUTROPHILS ABSOLUTE AUTO4.8NOUniversity of [facility] Hospital Neutrophils/100 WBC (Bld)57.5 %43.0 - 75.0 %[facility] SpringsPlatelet mean volume (Bld) [Entitic vol]9.3 fLLow9.5 - 13.5 fLSaint Mary's Hospital of Blue SpringsTB EO #0.2NOMS [facility] [id number] [facility] RBC4.71NOMS [facility] WBC8.3NOUniversity of Missouri Children's HospitalCLINISYNCNOMS Fycgexoood07ah 23-89-730147Kcvcnop agrees to Holter monitor and will stop at the office this afternoon for placement.[facility]36on 77-67-498998Igr just left the office and I did an EKG. She was feeling palpitations but I did not see anything on EKG. I emailed you result. If you'd like to read/sign, feel free. Otherwise I will have the paper copy for you to read/sign when you're back in the office on 06/18.[facility]36Patient called me to report the past 2 [...] I also scheduled her to see Dr. Weldon next available, which is 07/24/2025. Any recommendations until then? Please advise. Thanks.[facility]36on [id number] for patient letting her know Dr. Johnson read her recent event monitor. I let her know it showed NSR with some sinus tachycardia, rare PAC's, no significant arrhythmias. Asked her to call the office if she has questions. [facility] ClinicOrders Onlyon 96-13-7496Gqyoxg Only [id number] Piotr Freeman 1980 F Date Provider Department Center 03/08/2025 [id number], HISTORICAL BUCK [place] Family History Family Status - Relation Status Age at Mother Alive Father Sister Alive Brother DeceasedNormalUniversMercy Health Kings Mills HospitalOffice Visiton 13-63-4550Gfrcah-up [id number] Piotr Freeman 1980 F Date Provider Department Center 01/12/2025 367-CHARLOTTE JOHNSON BUCK [place] Family History Family Status - Relation Status Age at Mother Alive Father Sister Alive Brother Level of Service:23987 [place] OFFICE/OUTPATIENT ESTABLISHED MOD MDM 30 [facility] CenterCCF CMP (CMP) (FOR REMOTE [facility] USE)on 40-96-9745Ybpmdqb [Mass/Vol]3.9 g/dL3.4 - 5.0 g/dLNOMS HealthcareALBUMIN GLOBULIN RATIO1.1NOMS HealthcareALP [Catalytic activity/Vol]62 U/L46 - 116 U/L NOMS HealthcareALT [Catalytic activity/Vol]26 U/L14 - 59 U/LNOMS HealthcareAnion gap [Moles/Vol]11 mmol/LNOMS HealthcareAST [Catalytic activity/Vol]16 U/L15 - 37 U/LNOMS HealthcareBilirubin [Mass/Vol]0.5 mg/dL0.2 - 1.0 mg/dLNOMS Healthcare Calcium [Mass/Vol]9.4 mg/dL8.5 - 10.1 mg/dLNOMS HealthcareChloride [Moles/Vol] 102 mmol/L98 - 107 mmol/LNOMS HealthcareCO2 [Moles/Vol]30.2 mmol/L21.0 - 32.0 mmol/LNOMS HealthcareCreatinine [Mass/Vol]0.73 mg/dL0.55 - 1.02 mg/dLNONC HealthcareGFR/1.73 sq M.predicted CKD-EPI (S/P/Bld) [Vol rate/Area]>60>=60 mL/min/1.73m 2NOMS HealthcareGlobulin (S) [Mass/Vol]3.4 g/dLNOMS Healthcare Glucose [Mass/Vol]90 mg/dL74 - 106 mg/dLNONC HealthcarePotassium [Moles/Vol]4.2 mmol/L3.5 - 5.1 mmol/LNOMS HealthcareProtein [Mass/Vol]7.3 g/dL6.4 - 8.2 g/dL [facility] HealthcareSodium [Moles/Vol]139 mmol/L136 - 145 mmol/LNOMS HealthcareTBH EGFR-NON AF SAMOAN>60>=60 mL/min/1.73m 2NOMS HealthcareUrea nitrogen [Mass/Vol]9 mg/dL7.0 - 18.0 mg/dLNONC HealthcareUrea nitrogen/Creatinine [Mass ratio]12.3 mg/mgNOMS HealthcareCLINISYNCNOKLAHOMA ER & [facility]ITAL [facility] HealthcareIGP,APTIMA HPV,AGE GDLNon 18-51-4751EJG GDLN ACOG TESTINGNote.[facility] HealthcareComment on above:TESTS RESULT FLAG UNITS REF RANGE LAB Clinician Provided Cytology Information Source.............Cervix;Endocervix No. of containers..01 ThinPrep Vial Age Jew[employer] MEYER Veronique... 30 FLAG LEGEND: L-Low Normal,H-High Normal,LL-Alert Low,HH-Alert High <-Panic Low,>-Panic High,A-Abnormal,AA-Critical Abnormal Performed at: 01 =G [address] [place] [address] Astrid Brock MD, HPV APTIMANegativeNegativeNOMS HealthcareComment on above:This nucleic acid amplification test detects fourteen high- risk HPV types (16,18,31,33,35,39,45,51,52,56,58,59,66,68) without differentiation. Performed at: = - [facility] [id number] Tractor Sweeper Driver: Astrid Brock MD, Phone: [phone] Performed at: - [address] [id number] Tractor Sweeper Driver: Astrid Brock MD, Phone: [phone] IGP, APTIMA HPV, RFX 16/18,45Note.NOMS HealthcareComment on above:TESTS RESULT FLAG UNITS REF RANGE LAB DIAGNOSIS: 02 NEGATIVE FOR INTRAEPITHELIAL LESION OR MALIGNANCY. FUNGAL ORGANISMS MORPHOLOGICALLY CONSISTENT WITH STONEY SPECIES ARE PRESENT. CELLULAR CHANGES ASSOCIATED WITH INFLAMMATION ARE PRESENT. Specimen adequacy: 02 Satisfactory for evaluation. Endocervical and/or squamous metaplastic cells (endocervical component) are present. Performed by: Millie Zaldivar, Fruit Dryer ([facility]) . 02 Note: Note 02 The Pap [...] <-Panic Low,>-Panic High,A-Abnormal,AA-Critical Abnormal Performed at: [address] [address] Astrid Brock MD, BRUSH-SPATULA CERVIX ENDOCERVIX [facility] TOMOSYNTHESIS SCREENING BIon 23-22-6365Flw[address] [address] Mammography Report Signed Patient: PIOTR FREEMAN MR#: [id number] : 1980 Acct:[id number] Age/Sex: 44 / F ADM Date: 09/07/24 Loc: MAMMO Attending Dr: Mando Back D.O. Ordering Physician: Mando Back D.O. Results: Date of Service: 09/07/24 Follow Up: Procedure(s): MM tomosynthesis screening BI Accession Number(s): [id number] cc: Mando Back D.O. Patient Name: PIOTR FREEMAN MR#: [id number] : 1980 Exam Date: 09/07/2024 Ordering Doctor: [...] breast cancer at age 62. LOCATION: [facility] BREAST COMPOSITION: The breasts are heterogeneously dense,which [...] BIOPSIED. Dictated by: Brandy Deshpande MD on 09/08/2024 at 10:08 Approved by: Brandy Deshpande MD on 09/08/2024 at 10:09 Dictated By: Brandy Deshpande M.D. Signed By: 09/08/24 1010 DD/ 1009 TD/TT: Die Casting Supervisor:TBHRadiology, RadiologistMD - 09/08/2024 [place] [address] Mammography Report Signed Patient: PIOTR FREEMAN MR#: [id number] : 1980 Acct:[id number] Age/Sex: 44 / F ADM Date: 09/07/24 Loc: MAMMO Attending Dr: Mando Back D.O. Ordering Physician: Mando Back D.O. Results: Date of Service: 09/07/24 Follow Up: Procedure(s): MM tomosynthesis screening BI Accession Number(s): [id number] cc: Mando Back D.O. Patient Name: PIOTR FREEMAN MR#: [id number] : 1980 Exam Date: 09/07/2024 Ordering Doctor: [...] breast cancer at age 62. LOCATION: [facility] BREAST COMPOSITION: The breasts are heterogeneously dense,which [...] BIOPSIED. Dictated by: Brandy Deshpande MD on 09/08/2024 at 10:08 Approved by: Brandy Deshpande MD on 09/08/2024 at 10:09 Dictated By: Brandy Deshpande M.D. Signed By: 09/08/24 1010 DD/ 1009 TD/TT: Die Casting Supervisor: BRANDEE HealthcareRadiology Study observation (narrative)[facility]OM [facility] TOMOSYNTHESIS SCREENING BIOrdered By: Radiologist Radiology on 83-63-9651UC[facility] Folloze Work Phone: aLL CBC WITH AUTO DIFFon 45-54-4452KKTDQVVXW ABSOLUTE UOZW4PWVB HealthcareBasophils/100 WBC (Bld)0.5 %0.2 - 2.0 %[facility] Eosinophils/100 WBC (Bld)2 %0.9 - 7.0 %NOM HealthcareErythrocyte distribution width (RBC) [Ratio]12.4 %11.0 - 15.0 %NOM HealthcareHematocrit (Bld) [Volume fraction]40.3 %36.0 - 48.0 %NOM HealthcareHemoglobin (Bld) [Mass/Vol]13.3 g/dL 12.0 - 16.0 g/dLNONC HealthcareIMMATURE GRANULOCYTES ABS AUTO0.01NOMS Healthcare Immature granulocytes/100 WBC (Bld)0.1 %0.0 - 0.5 %NOM HealthcareInterpretation and review of laboratory resultsAbnormalNONC HealthcareLYMPHOCYTES ABSOLUTE AUTO2.7NOMS HealthcareLymphocytes/100 WBC (Bld)32.3 %20.5 - 60.0 %[facility] SpringsMCH (RBC) [Entitic mass]29.7 pg26.7 - 34.0 pgNOUniversity of Missouri Children's HospitalMCHC (RBC) [Mass/Vol]33 g/dL29.9 - 35.2 g/dLSaint Mary's Hospital of Blue SpringsMCV (RBC) [Entitic vol]90 fL81.0 - 99.0 fLNONC HealthcareMONOCYTES ABSOLUTE AUTO0.5NOMS HealthcareMonocytes/100 WBC (Bld)6.3 %1.7 - 12.0 %NOM HealthcareNEUTROPHILS ABSOLUTE AUTO4.9NOMS HealthcareNeutrophils/100 WBC (Bld)58.8 %43.0 - 75.0 %NOM HealthcarePlatelet mean volume (Bld) [Entitic vol]9.1 fLLow9.5 - 13.5 fLNOUniversity of Missouri Children's HospitalTBH EO #0.2 NOM HealthcareTB [id number] [facility] CenterTB RBC4.48NOMS [facility] CenterTB WBC8.4NONC HealthcareCLINISYNCNOMS [facility] Medical CenterMM TOMOSYNTHESIS SCREENING BIon 94-88-2530[address] [address] Mammography Report Signed Patient: PIOTR FREEMAN MR#: [id number] : 1980 Acct:[id number] Age/Sex: 43 / F ADM Date: 09/06/23 Loc: MAMMO Attending Dr: Mando Back D.O. Ordering Physician: Mando Back D.O. Results: Date of Service: 09/06/23 Follow Up: Procedure(s): MM tomosynthesis screening BI Accession Number(s): [id number] cc: Mando Back D.O.; Terra Singh M.D. Patient Name: PIOTR FREEMAN MR#: [id number] : 1980 Exam Date: 09/06/2023 Ordering Doctor: [...] breast cancer at age 62. LOCATION: [facility] BREAST COMPOSITION: Heterogeneously dense,which may obscure small [...] BIOPSIED. Dictated by: Brandy Deshpande MD on 09/06/2023 at 08:26 Approved by: Brandy Deshpande MD on 09/06/2023 at 08:27 Dictated By: Brandy Deshpande M.D. Signed By: 09/06/23 0829 DD/ TD/TT: Die Casting Supervisor:TBHRadiology, RadiologistMD - 09/06/2023 [place] [address] Mammography Report Signed Patient: PIOTR FREEMAN MR#: [id number] : 1980 Acct:[id number] Age/Sex: 43 / F ADM Date: 09/06/23 Loc: MAMMO Attending Dr: Mando Back D.O. Ordering Physician: Mando Back D.O. Results: Date of Service: 09/06/23 Follow Up: Procedure(s): MM tomosynthesis screening BI Accession Number(s): [id number] cc: Mando Back D.O.; Terra Singh M.D. Patient Name: PIOTR FREEMAN MR#: [id number] : 1980 Exam Date: 09/06/2023 Ordering Doctor: [...] breast cancer at age 62. LOCATION: [facility] BREAST COMPOSITION: Heterogeneously dense,which may obscure small [...] BIOPSIED. Dictated by: Brandy Deshpande MD on 09/06/2023 at 08:26 Approved by: Brandy Deshpnade MD on 09/06/2023 at 08:27 Dictated By: Brandy Deshpande M.D. Signed By: 09/06/23828 DD/ 7 TD/TT: Die Casting Supervisor: BRANDEE HealthcareRadiology Study observation (narrative)[facility] TOMOSYNTHESIS SCREENING BIOrdered By: Radiologist Radiology on 12-55-2065JTMF Healthcare Work Phone: cytology Cervical or vaginal smear or scraping studyon 56-53-2593WZYU HealthcareBUNon 59-40-2059Wqoa nitrogen [Mass/Vol]7.0 mg/dLNormal 7.0-18.0The [facility] ColumbusComment on above:Performed By: #### UAMIC #### [facility] [address] [place] [address] Dr. Jorge SierraCALCIUMon 59-97-4421Hgjiyyp [Mass/Vol]9.4 mg/dLNormal8.5-10.1The [facility] ColumbusComment on above:Performed By: #### UAMIC #### [facility] [address] [place] [address] Dr. Jorge RobbinsC AUTO DIFFon 62-36-4846HOHQ #0.1 103/ulNormal0.0-0.1The [facility] ColumbusComment on above:Performed By: #### CBC #### [facility] [address] [place] [address] Dr. Jorge SierraBasophils/100 WBC (Bld)0.5 %Normal0.2-2.0The [facility] Comment on above:Performed By: #### CBC #### [facility] [address] [place] [address] Dr. Jorge Garibay #0.2 103/ulNormal0.0-0.7The [facility] ColumbusComment on above: Performed By: #### CBC #### [facility] [address] [place] [address] Dr. Jorge Ortegaosinophils/100 WBC (Bld)2.1 %Normal0.9-7.0The [facility] Comment on above:Performed By: #### CBC #### [facility] [address] [place] [address] Dr. Jorge Ortegarythrocyte distribution width (RBC) [Ratio]13.1 %Ybjwqd05.0-15.0 [facility] ColumbusComment on above:Performed By: #### CBC #### [facility] [address] [place] [address] Dr. Jorge SierraHematocrit (Bld) [Volume fraction]39.9 %Fxuqmm85.0-48.0The [facility] ColumbusComment on above:Performed By: #### CBC #### [facility] [address] [place] [address] Dr. Jorge SierraHemoglobin (Bld) [Mass/Vol]13.4 g/uQGwhirb06.0-16.0The [facility] ColumbusComment on above:Performed By: #### CBC #### [facility] [address] [place] [address] Dr. Jorge Garg #0.03 10e3/ulNormal0.00-0.03The [facility] [facility] - ColumbusComment on above:Performed By: #### CBC #### [facility] [address] [place] [address] Dr. Jorge Garg %0.3 %Normal0.0-0.5The [facility] - ColumbusComment on above: Performed By: #### CBC #### [facility] [address] [place] [address] Dr. Jorge Ndiaye #3.1 103/ulNormal1.2-3.8The [facility] ColumbusComment on above:Performed By: #### CBC #### [facility] [address] [place] [address] Dr. Jorge Castrejonhocytes/100 WBC (Bld)31.4 %Ngycgn12.5-60.0The [facility] ColumbusComment on above:Performed By: #### CBC #### [facility] [address] [place] [address] Dr. Jorge ElderUAL DIFF REQNONormalThe [facility] ColumbusComment on above: Performed By: #### CBC #### [facility] [address] [place] [address] Dr. Jorge Gonzalez (RBC) [Entitic mass]30.4 ibVdpenc28.7-34.0The [facility] ColumbusComment on above:Performed By: #### CBC #### [facility] [address] [place] [address] Dr. Jorge Gonzalez (RBC) [Mass/Vol]33.6 g/iSPrfgby72.9-35.2The [facility] ColumbusComment on above:Performed By: #### CBC #### [facility] [address] [place] [address] Dr. Jorge Sosa (RBC) [Entitic vol]90.5 vODjvjcw71.0-99.0The [facility] ColumbusComment on above:Performed By: #### CBC #### [facility] [address] [place] [address] Dr. Jorge Rubi #0.5 103/ulNormal0.3-0.8The [facility] ColumbusComment on above:Performed By: #### CBC #### [facility] [address] [place] [address] Dr. Jorge Owensocytes/100 WBC (Bld)5.3 %Normal1.7-12.0The [facility] Comment on above:Performed By: #### CBC #### [facility] [address] [place] [address] Dr. Jorge Ramos #5.9 103/ulNormal1.4-6.5The [facility] ColumbusComment on above:Performed By: #### CBC #### [facility] [address] [place] [address] Dr. Jorge Valadezutrophils/100 WBC (Bld)60.4 %Tbgaoa23.0-75.0The [facility] ColumbusComment on above:Performed By: #### CBC #### [facility] [address] [place] [address] Dr. Jorge Steelelet mean volume (Bld) [Entitic vol]8.9 fLCritically low 9.5-13.5The [facility] ColumbusComment on above:Performed By: #### CBC #### [facility] [address] [place] [address] Dr. Jorge SierraPLT340 103/ksCuumeb270-797Lpt [facility] ColumbusComment on above: Performed By: #### CBC #### [facility] [address] [place] [address] Dr. Jorge SierraRBC4.41 106/ulNormal4.20-5.40[facility] Health SystemComment on above:Performed By: #### CBC #### [facility] [address] [place] [address] Dr. Jorge SierraWBC9.8 103/ulNormal4.0-11.0[facility] SystemComment on above: Performed By: #### CBC #### [facility] [address] [place] [address] Dr. Jorge SierraCREATININEon 72-24-5738Cfukuszhxh [Mass/Vol]0.81 mg/dLNormal 0.55-1.02The [facility] ColumbusComment on above:Performed By: #### CBC #### [facility] [address] [place] [address] Dr. Patel ChangEGFR-AF SAMOAN>60Normal>=60The [facility] ColumbusComment on above:Performed By: #### CBC #### [facility] [address] [place] [address] Dr. Jorge OrtegaGFR-NON AF SAMOAN>60Normal>=60The [facility] ColumbusComment on above:Performed By: #### CBC #### [facility] [address] [place] [address] Dr. Jorge OrtegaLECTROLYTESon 23-28-0478Uggax gap [Moles/Vol]11.2 mmol/LNormal The [facility] ColumbusComment on above:Performed By: #### UAMIC #### [facility] [address] [place] [address] Dr. Jorge SierraChloride [Moles/Vol]103 mmol/QUblyxf79-400Zly [facility] Comment on above:Performed By: #### UAMIC #### [facility] [address] [place] [address] Dr. Jorge SierraCO2 [Moles/Vol]27.4 mmol/KEdbmpg60.0-32.0The [facility] Comment on above:Performed By: #### UAMIC #### [facility] [address] [place] [address] Dr. Jorge SierraPotassium [Moles/Vol]3.6 mmol/LNormal3.5-5.1[facility] Comment on above:Performed By: #### UAMIC #### [facility] [address] [place] [address] Dr. Jorge Huangdium [Moles/Vol]138 mmol/ZPdyttz347-912AvzAvita Health System Comment on above:Performed By: #### UAMIC #### [facility] [address] [place] [address] Dr. Jorge RodriguezGNESIUMon 31-86-8803Dzlxtbvgn [Mass/Vol]1.9 mg/dLNormal1.8-2.4 The [facility] ColumbusComment on above:Performed By: #### UAMIC #### [facility] [address] [place] [address] Dr. Jorge Martin RANDOM W/MICROSCOPICon [id number]kedfpQDWM SEENAvita Health SystemComment on above:Performed By: #### UAMIC #### [facility] [address] [place] [address] Dr. Jorge Mark Ql (U)NegativeNormalNEGATIVEAvita Health System Comment on above:Performed By: #### UAMIC #### [facility] [address] [place] [address] Dr. Jorge Stewart SEENNormalNONE SEENAvita Health SystemComvibra hospital [facility] [place] on above:Performed By: #### UAMIC #### [facility] [address] [place] [address] Dr. Jorge Christianosn (U)CLEARNormalCLEARAvita Health SystemComment on above: Performed By: #### UAMIC #### [facility] [address] [place] [address] Dr. Jorge Montano (U)YELLOWNormalYELLOWAvita Health SystemComment on above: Performed By: #### UAMIC #### [facility] [address] [place] [address] Dr. Jorge Malagon LM Nom (Urine sed)NONE SEENNormalNONE SEENAvita Health SystemComment on above:Performed By: #### UAMIC #### [facility] [address] [address] [address] Patel ChangEpithelial cells LM Ql (Urine sed)MODERATEAbnormalNONE SEEN /RARE The [facility] ColumbusComment on above:Performed By: #### UAMIC #### [facility] [address] [address] [address] Jorge SierraGlucose Ql (U)NegativeNormalNEGATIVEAvita Health SystemComment on above:Performed By: #### UAMIC #### [facility] [address] [address] [address] Jorge SierraHemoglobin Ql (U)NegativeNormalNEGATIVECommunity [facility] on above:Performed By: #### UAMIC #### [facility] [address] [place] [address] Dr. Jorge SierraKetones Ql (U)TRACEAbnormalNEGATIVEAvita Health SystemComment on above:Performed By: #### UAMIC #### [facility] [address] [address] [address] Jorge SierraLEUKOCYTESNegativeNormalNEGATIVEAvita Health SystemComvibra hospital [facility] [place] [place] on above:Performed By: #### UAMIC #### [facility] [address] [address] [address] Jorge SierraMUCOUSTRACEAbnormalNONE SEENAvita Health SystemComment on above:Performed By: #### UAMIC #### [facility] [address] [address] [address] Jorge SierraNitrite Ql (U)NegativeNormalNEGATIVEAvita Health SystemComment on above:Performed By: #### UAMIC #### [facility] [address] [address] [address] Jorge SierrapH (U)5.5 [pH]Normal5-9[facility] Hospitalment on above: Performed By: #### UAMIC #### [facility] [address] [address] [address] Jorge SierraVmfsiDCO0-7Wephes3-8Ghb Bellevue HospitalComment on above:Performed By: #### UAMIC #### [facility] [address] [place] [address] Dr. Jorge SierraSPEC GRAVITY>=1.018Akbwwaut9.005-<=1.025[facility] Comment on above:Performed By: #### UAMIC #### [facility] [address] [place] [address] Dr. Jorge Martin PROTEINTRACENormalNEGATIVE/ TRACEThe [facility] ColumbusComment on above:Performed By: #### UAMIC #### [facility] [address] [place] [address] Dr. Jorge Linbildaquan Qn (U)1.0 {Nya'U}/dLNormal0.2 - 1.0[facility] Health SystemComment on above:Performed By: #### UAMIC #### [facility] [address] [place] [address] Dr. Jorge ClineBCNONSandra SEENNormalNONE SEENAvita Health SystemComment on above: Performed By: #### UAMIC #### [facility] [address] [place] [address] Dr. Jorge Munson ACOG PANEL 2: 30 to 65on 09-05-2022..NormalAvita Health SystemComvibra hospital of [facility] [place] on above:Result Comment: Performed at: BAPerformed By: #### UAMIC #### [facility] [address] [place] [address] Dr. Jorge Pearce Gdln ACOG Cujxgmy89-15PaqkzcBvjFulton County Health CenterComvibra hospital [facility] [place] [place] on above:Performed By: #### UAMIC #### [facility] [address] [place] [address] Dr. Jorge SierraDIAGNOSIS:CommentCincinnati VA Medical Center on above: Result Comment: NEGATIVE FOR INTRAEPITHELIAL LESION OR MALIGNANCY. FUNGAL ORGANISMS MORPHOLOGICALLY CONSISTENT WITH STONEY SPECIES ARE PRESENT. THIS SPECIMEN WAS RESCREENED PART OF OUR [employer] PROGRAM. Performed at: BAPerformed By: #### UAMIC #### [facility] [address] [place] [address] Dr. Jorge Pruitt AptimaNegativeNormalNegativeThe [facility] on above:Result Comment: This nucleic acid amplification test detects fourteen high-risk HPV types (16,18,31,33,35,39,45,51,52,56,58,59,66,68) without differentiation. Performed at: =GPerformed By: #### UAMIC #### [facility] [address] [place] [address] Dr. Jorge SierraHPShemar Genotype ReflexCommentNoACMC Healthcare System on above:Result Comment: Criteria not met, HPV Genotype not performed. Performed at: BAPerformed By: #### UAMIC #### [facility] [address] [place] [address] Dr. Jorge SierraMethodology:CommentCincinnati VA Medical Center on above: Result Comment: This liquid based ThinPrep(R) pap test was screened with the use of an image guided system. Performed at: WBPerformed By: #### UAMIC #### [place] [address] [address] Jorge SierraNote:CommentCincinnati VA Medical Center on above:Result Comment: The Pap smear is a screening test designed to aid in the detection of premalignant and malignant conditions of the uterine cervix. It is not a diagnostic procedure and should not be used as the sole means of detecting cervical cancer. Both false-positive and false-negative reports do occur. . Performed at: WBPerformed By: #### UAMIC #### [facility] [address] [place] [address] Dr. Jorge SierraPerformed by:CommentCincinnati VA Medical Center on above: Result Comment: Re [place], Fruit [employer]er Performed at: BAPerformed By: #### UAMIC #### [facility] [address] [place] [address] Dr. Jorge SierraQC reviewed by:[facility] on above:Result Comment: Buck Bettencourt, Fruit [employer]er (ASCP) Performed at: BAPerformed By: #### UAMIC #### [facility] [address] [place], [place] [address] Dr. Jorge SierraSpecimen adequacy:CommentMercy Health West HospitalComment on above:Result Comment: Satisfactory for evaluation. No endocervical component is identified. The absence of an endocervical component was confirmed by an additional screening evaluation. Performed at: [facility] Centerformed By: #### UAMIC #### [facility] [address] [place], [place] [address] Dr. Jorge SierraMG MAMM SCREEN 3D AMIRA CADon [id number] MAMM SCREEN 3D AMIRA CAD Patient: PIOTR FREEMAN Exam Date: 09/02/2022 : 1980 Gender:F Ordering : DR MANDO BACK . Admission #: [id number] Family : Order #: [id number] CLICK HERE TO VIEW EXAM RADIOLOGY REPORT [...] breast cancer at age 62. LOCATION: [facility] BREAST COMPOSITION: Heterogeneously dense,which may obscure small [...] by: Brandy Deshpande MD on 09/02/2022 at 09:22NoFulton County Health CenterMRI ANKLE RT WO CONon [id number] ANKLE RT WO CONEXAM: MRI ANKLE RT WO CON REASON FOR EXAM: Plantar fascial fibromatosis. [...] Electronically authenticated by: DOUG LOMAX Date: 2022-08-27 13:28Mer[facility] West HospitalXR FOOT AMIRA MIN 3 VIEWSon [id number] FOOT AMIRA MIN 3 VIEWS EXAMINATION: XR [...] Electronically authenticated by: JOB CHANDLER Date: 2022-06-30 16:22[facility] AUTO DIFFon [id number] #0.0 103/ulNormal0.0-0.1The [facility] ColumbusComment on above:Performed By: #### UAMIC #### [facility] [address] [place] [address] Dr. Jorge SierraBasophils/100 WBC (Bld)0.3 %Normal0.2-2.0[facility] Comment on above:Performed By: #### UAMIC #### [facility] [address] [place] [address] Dr. Jorge Garibay #0.2 103/ulNormal0.0-0.7The [facility] ColumbusComment on above: Performed By: #### UAMIC #### [facility] [address] [place] [address] Dr. Jorge Ortegaosinophils/100 WBC (Bld)2.2 %Normal0.9-7.0The [facility] Comment on above:Performed By: #### UAMIC #### [facility] [address] [address] [address] Jorge Ortegarythrocyte distribution width (RBC) [Ratio]13.0 %Ccbwms92.0-15.0 The [facility] ColumbusComment on above:Performed By: #### UAMIC #### [facility] [address] [place] [address] Dr. Jorge SierraHematocrit (Bld) [Volume fraction]37.5 %Szjbqi22.0-48.0The [facility] ColumbusComment on above:Performed By: #### UAMIC #### [facility] [address] [address] [address] Jorge SierraHemoglobin (Bld) [Mass/Vol]12.3 g/nMFmlrum60.0-16.0The [facility] ColumbusComment on above:Performed By: #### UAMIC #### [facility] [address] [address] [address] Jorge Garg #0.04 10e3/ulCritically high0.00-0.03The [facility] Comment on above:Performed By: #### UAMIC #### [facility] [address] [place] [address] Dr. Jorge Garg %0.4 %Normal0.0-0.5The [facility] ColumbusComment on above: Performed By: #### UAMIC #### [facility] [address] [place] [address] Dr. Jorge Ndiaye #2.6 103/ulNormal1.2-3.8The [facility] ColumbusComment on above:Performed By: #### UAMIC #### [facility] [address] [place] [address] Dr. Jorge Castrejonhocytes/100 WBC (Bld)25.9 %Ieuojq16.5-60.0The [facility] ColumbusComment on above:Performed By: #### UAMIC #### [facility] [address] [place] [address] Dr. Jorge ElderUAL DIFF REQNONormalThe [facility] ColumbusComment on above: Performed By: #### UAMIC #### [facility] [address] [place] [address] Dr. Jorge Collins (RBC) [Entitic mass]30.2 xfHpkvxe43.7-34.0The [facility] ColumbusComment on above:Performed By: #### UAMIC #### [facility] [address] [place] [address] Dr. Jorge Gonzalez (RBC) [Mass/Vol]32.8 g/oGJpqpaa96.9-35.2The [facility] ColumbusComment on above:Performed By: #### UAMIC #### [facility] [address] [place] [address] Dr. Jorge Sosa (RBC) [Entitic vol]92.1 vTCpsfoo44.0-99.0The [facility] ColumbusComment on above:Performed By: #### UAMIC #### [facility] [address] [place] [address] Dr. Jorge Rubi #0.6 103/ulNormal0.3-0.8The [facility] ColumbusComment on above:Performed By: #### UAMIC #### [facility] [address] [place] [address] Dr. Jorge Owensocytes/100 WBC (Bld)5.7 %Normal1.7-12.0The [facility] Comment on above:Performed By: #### UAMIC #### [facility] [address] [place] [address] Dr. Jorge Ramos #6.6 103/ulCritically high1.4-6.5The [facility] Comment on above:Performed By: #### UAMIC #### [facility] [address] [place] [address] Dr. Jorge Valadezutrophils/100 WBC (Bld)65.5 %Bwftuf02.0-75.0The [facility] ColumbusComment on above:Performed By: #### UAMIC #### [facility] [address] [place] [address] Dr. Jorge Steelelet mean volume (Bld) [Entitic vol]8.7 fLCritically low 9.5-13.5The [facility] ColumbusComment on above:Performed By: #### UAMIC #### [facility] [address] [place] [address] Dr. Jorge BañuelosT292 103/ebKgweqa375-900Jhh [facility] ColumbusComment on above: Performed By: #### UAMIC #### [facility] [address] [place] [address] Dr. Jorge RaineyC4.07 106/ulCritically low4.20-5.40The [facility] ColumbusComment on above:Performed By: #### UAMIC #### [facility] [address] [place] [address] Dr. Jorge SierraWBC10.1 103/ulNormal4.0-11.0The [facility] ColumbusComment on above:Performed By: #### UAMIC #### [facility] [address] [place] [address] Dr. Jorge SierraGLYCOHEMOGLOBIN A1Con [id number] RECOMMENDATIONSEE BELOWMuscotah The [facility] ColumbusComment on above:Result Comment: ADA RECOMMENDED LIMIT 4.0 - 6.0 ADA THERAPEUTIC TARGET < 7.0 ACTION SUGGESTED > 7.0Performed By: #### UAMIC #### [facility] [address] [place] [address] Dr. Jorge SierraGlucose [Mass/Vol]128 mg/dLNoFulton County Health CenterComment on above:Performed By: #### UAMIC #### [facility] [address] [place] [address] Dr. Jorge SierraHbA1c (Bld) [Mass fraction]6.1 %Normal4.5-6.2The [facility] ColumbusComment on above:Performed By: #### UAMIC #### [facility] [address] [place] [address] Dr. Jorge SierraLIPID PROFILEon [id number]-HDL RATIO NORMSEE Riverview Health InstituteComment on above:Result Comment: 3.3 - 4.4 LOW RISK 4.4 - 7.1 AVERAGE RISK 7.1 - 11.0 MODERATE RISK >11.0 HIGH RISKPerformed By: #### UAMIC #### [facility] [address] [place] [address] Dr. Jorge SierraCholesterol [Mass/Vol]184 mg/dLNormal<=200The [facility] Comment on above:Performed By: #### UAMIC #### [facility] [address] [place] [address] Dr. Yilan ChangCholesterol in HDL [Mass/Vol]53 mg/oLRxlgku40-49DjjAvita Health SystemComment on above:Performed By: #### UAMIC #### [facility] [address] [address] [address] Jorge SierraCholesterol in LDL [Mass/Vol]101.8 mg/dLMercy Health West HospitalComment on above:Performed By: #### UAMIC #### [facility] [address] [place] [address] Dr. Jorge Mclean.total/Cholesterol in HDL [Mass ratio]3.5 {ratio} NormalThe [facility] ColumbusComment on above:Performed By: #### UAMIC #### [facility] [address] [place] [address] Dr. Jorge Baez NORMAL> or = 60 mg/dl - LOW CARDIOVASCULAR RISK <40 mg/dl - HIGH CARDIOVASCULAR RISKMercy Health West HospitalComment on above:Performed By: #### UAMIC #### [facility] [address] [place] [address] Dr. Jorge Morin CALC NORMALSEE BELOWMercy Health West HospitalComment on above:Result Comment: <100 mg/dl OPTIMAL 100 - 129 mg/dl NEAR OR ABOVE OPTIMAL 130 - 159 mg/dl BORDERLINE HIGH 160 - 189 mg/dl HIGH >190 mg/dl VERY HIGH Performed By: #### UAMIC #### [facility] [address] [place] [address] Dr. Jorge SierraTriglyceride [Mass/Vol]146 mg/dLNormal<=150The [facility] Comment on above:Performed By: #### UAMIC #### [facility] [address] [place] [address] Dr. Jorge SierraVLDL CALC29.2 mg/dLNoFulton County Health CenterComment on above: Performed By: #### UAMIC #### [facility] [address] [place] [address] Dr. Jorge SierraPROF 14(COMP METB)on [id number] [Mass/Vol]3.7 g/dLNormal 3.4-5.0The [facility] ColumbusComment on above:Performed By: #### UAMIC #### [facility] [address] [place] [address] Dr. Jorge SierraAlbumin/Globulin [Mass ratio]1.1 {ratio}NormalThe [facility] ColumbusComment on above:Performed By: #### UAMIC #### [facility] [address] [place] [address] Dr. Jorge Nails [Catalytic activity/Vol]70 U/LKbwsas69-023Eww [facility] ColumbusComment on above:Performed By: #### UAMIC #### [facility] [address] [place] [address] Dr. Jorge Bustamante [Catalytic activity/Vol]29 U/UJfotvc53-19Rxc [facility] ColumbusComment on above:Performed By: #### UAMIC #### [facility] [address] [place] [address] Dr. Jorge Santos gap [Moles/Vol]13.1 mmol/LNormalThe [facility] Comment on above:Performed By: #### UAMIC #### [facility] [address] [place] [address] Dr. Jorge Lopez [Catalytic activity/Vol]18 U/HCqskuw67-26Fcr [facility] ColumbusComment on above:Performed By: #### UAMIC #### [facility] [address] [place] [address] Dr. Jorge SierraBilirubin [Mass/Vol]0.3 mg/dLNormal0.2-1.0The [facility] Comment on above:Performed By: #### UAMIC #### [facility] [address] [place] [address] Dr. Jorge SierraCalcium [Mass/Vol]9.2 mg/dLNormal8.5-10.1The [facility] Comment on above:Performed By: #### UAMIC #### [facility] [address] [place] [address] Dr. Jorge SierraChloride [Moles/Vol]104 mmol/MMubbxq94-879Xdc [facility] Comment on above:Performed By: #### UAMIC #### [facility] [address] [address] [address] Jorge SierraCO2 [Moles/Vol]27.7 mmol/SVmtmsz55.0-32.0The [facility] Comment on above:Performed By: #### UAMIC #### [facility] [address] [address] [address] Jorge SierraCreatinine [Mass/Vol]0.80 mg/dLNormal0.55-1.02[facility] SystemComment on above:Performed By: #### UAMIC #### [facility] [address] [address] [address] Jorge OrtegaGFR-AF SAMOAN>60Normal>=60The [facility] ColumbusComment on above:Performed By: #### UAMIC #### [facility] [address] [address] [address] Jorge OrtegaGFR-NON AF SAMOAN>60Normal>=60The [facility] ColumbusComment on above:Performed By: #### UAMIC #### [facility] [address] [address] [address] Jorge SierraGlobulin (S) [Mass/Vol]3.4 g/dLNormalThe [facility] ColumbusComment on above:Performed By: #### UAMIC #### [facility] [address] [address] [address] Jorge SierraGlucose [Mass/Vol]124 mg/dLCritically htaz40-184Zbl [facility] ColumbusComment on above:Performed By: #### UAMIC #### [facility] [address] [address] [address] Jorge SierraPotassium [Moles/Vol]4.8 mmol/LNormal3.5-5.1The [facility] Comment on above:Performed By: #### UAMIC #### [facility] [address] [address] [address] Jorge SierraProtein [Mass/Vol]7.1 g/dLNormal6.4-8.2The [facility] Comment on above:Performed By: #### UAMIC #### [facility] [address] [place] [address] Dr. Jorge SierraSodium [Moles/Vol]140 mmol/SRxzjjp750-643Zsc [facility] Comment on above:Performed By: #### UAMIC #### [facility] [address] [place] [address] Dr. Jorge SierraUrea nitrogen [Mass/Vol]10.0 mg/dLNormal7.0-18.0The [facility] ColumbusComment on above:Performed By: #### UAMIC #### [facility] [address] [place] [address] Dr. Jorge SierraUrea nitrogen/Creatinine [Mass ratio]12.5 mg/mgNoFulton County Health CenterComment on above:Performed By: #### UAMIC #### [facility] [address] [place] [address] Dr. Jorge DuttaHorita 59-67-1330LHV9.454 uIU/mLNormal0.358-3.740Av[facility] Health SystemComment on above:Performed By: #### UAMIC #### [facility] [address] [place] [address] Dr. Jorge HernandezRTISOL 24HR URINEon 85-51-1924Ahxohnex,F,ug/24hr,U18 ug/24 hr Normal6-42[facility] Health SystemComment on above:Performed By: #### CORT24 #### [facility] [address] [place] [address] Dr. Jorge SierraCortisol,F,ug/L,U6 ug/LNormalUndefinedAvita Health System Comment on above:Performed By: #### CORT24 #### [facility] [address] [place] [address] Dr. Jorge HernandezRTISOL FREE, SERUMon 18-28-5202Dgtkoyyz, Free Dialysis, LCMS 0.695 ug/dLNoFulton County Health CenterComment on above:Result Comment: These tests were developed and their performance characteristics determined by [facility]. They have not been cleared or approved by the Food and Drug Administration. Reference Range: 8 AM 0.10 - 1.20 4 PM 0.042 - 0.872Performed By: #### LANIALLEN #### [facility] [address] [place] [address] Dr. Jorge Solomon 19-71-1549ICYBVbahukkim (ESPKEM) PIOTR FREEMAN ([id number]) 1980 F Date Time Provider Department 02/13/22 GRZEGORZ WEEKS During your visit today, we recorded the following information about you: Leon Lomax 02/13/2022 4:48 PM Signed On 02/13 [address] sent to [facility] [place] [phone] for referral with office notes and lab [...] 03/03/2017 Encounter Status:Closed by LEON LOMAX on 02/13/22[facility] FoundationBNPon 86-23-8684Vjnsluhekko peptide B (Bld) [Mass/Vol]10.0 pg/mLNormal <=450.0The [facility] Hospitalment on above:Performed By: #### CMP, BNP, CRP, CMADM #### [facility] [address] [address] [address] Jorge Colon ADAM ADMITon 80-10-9792FQ [Catalytic activity/Vol]125 U/L Vvuqiw39-644Qho [facility] on above:Performed By: #### CMP, BNP, CRP, CMADM #### [facility] [address] [place] [address] Dr. Jorge Gannon.MB [Mass/Vol]ng/mLNormal<=3.60The [facility] on above:Performed By: #### CMP, BNP, CRP, CMADM #### [facility] [address] [place] [address] Dr. Jorge Hogan<4.6Sobaeb6.0-51.3The [facility] on above: Result Comment: CUT-OFF POINTS HAVE BEEN ESTABLISHED BASED ON THE FOURTH UNIVERSAL DEFINITIONS OF MYOCARDIAL INFARCTION. THE UPPER REFERENCE LIMIT (URL) OF TROPONIN, DEFINED THE 99TH PERCENTILE OF cTnI DISTRIBUTION IN A REFERENCE POPULATION, HAS BEEN CONFIRMED THE DECISION THRESHOLD FOR [place] DIAGNOSIS.Performed By: #### CMP, BNP, CRP, CMADM #### [facility] [address] [place] [address] Dr. Jorge ReinosoO30 ng/mLNormal9-82The [facility] on above: Performed By: #### CMP, BNP, CRP, CMADM #### [facility] [address] [place] [address] Dr. Jorge Ruvalcaba AUTO DIFFon 07-36-7883ITPS #0.0 103/ulNormal0.0-0.1The [facility] HospitalComment on above:Performed By: #### CBC #### [facility] [address] [place] [address] Dr. Jorge SierraBasophils/100 WBC (Bld)0.4 %Normal0.2-2.0The [facility] Comment on above:Performed By: #### CBC #### [facility] [address] [place] [address] Dr. Jorge Garibay #0.2 103/ulNormal0.0-0.7The [facility] ColumbusComment on above: Performed By: #### CBC #### [facility] [address] [place] [address] Dr. Jorge Ortegaosinophils/100 WBC (Bld)2.2 %Normal0.9-7.0[facility] Comment on above:Performed By: #### CBC #### [facility] [address] [place] [address] Dr. Jorge Ortegarythrocyte distribution width (RBC) [Ratio]12.3 %Zxkkod27.0-15.0 The [facility] ColumbusComment on above:Performed By: #### CBC #### [facility] [address] [place] [address] Dr. Jorge SierraHematocrit (Bld) [Volume fraction]39.2 %Zayetk44.0-48.0The [facility] ColumbusComment on above:Performed By: #### CBC #### [facility] [address] [place] [address] Dr. Jorge SierraHemoglobin (Bld) [Mass/Vol]12.9 g/uPYrxkpr75.0-16.0The [facility] ColumbusComment on above:Performed By: #### CBC #### [facility] [address] [place] [address] Dr. Jorge Garg #0.04 10e3/ulCritically high0.00-0.03[facility] Comment on above:Performed By: #### CBC #### [facility] [address] [place] [address] Dr. Yilan ChangIG %0.5 %Normal0.0-0.5The [facility] ColumbusComment on above: Performed By: #### CBC #### [facility] [address] [place] [address] Dr. Jorge Ndiaye #2.2 103/ulNormal1.2-3.8The [facility] ColumbusComment on above:Performed By: #### CBC #### [facility] [address] [place] [address] Dr. Jorge Castrejonhocytes/100 WBC (Bld)27.5 %Nlsxha45.5-60.0The [facility] ColumbusComment on above:Performed By: #### CBC #### [facility] [address] [place] [address] Dr. Jorge Wilson DIFF REQNONormalThe [facility] ColumbusComment on above: Performed By: #### CBC #### [facility] [address] [place] [address] Dr. Jorge Collins (RBC) [Entitic mass]29.7 yzDgclto89.7-34.0The [facility] ColumbusComment on above:Performed By: #### CBC #### [facility] [address] [place] [address] Dr. Jorge Gonzalez (RBC) [Mass/Vol]32.9 g/bQRxnify51.9-35.2The [facility] ColumbusComment on above:Performed By: #### CBC #### [facility] [address] [place] [address] Dr. Jorge Sosa (RBC) [Entitic vol]90.3 aQXetynh04.0-99.0The [facility] ColumbusComment on above:Performed By: #### CBC #### [facility] [address] [place] [address] Dr. Jorge Rubi #0.5 103/ulNormal0.3-0.8The [facility] ColumbusComment on above:Performed By: #### CBC #### [facility] [address] [place] [address] Dr. Yilan ChangMonocytes/100 WBC (Bld)6.6 %Normal1.7-12.0The [facility] Comment on above:Performed By: #### CBC #### [facility] [address] [place] [address] Dr. Jorge Ramos #5.1 103/ulNormal1.4-6.5The [facility] ColumbusComment on above:Performed By: #### CBC #### [facility] [address] [place] [address] Dr. Jorge Valadezutrophils/100 WBC (Bld)62.8 %Uthryt86.0-75.0The [facility] ColumbusComment on above:Performed By: #### CBC #### [facility] [address] [place] [address] Dr. Jorge Whitney mean volume (Bld) [Entitic vol]8.6 fLCritically low 9.5-13.5The [facility] ColumbusComment on above:Performed By: #### CBC #### [facility] [address] [place] [address] Dr. Jorge BañuelosT331 103/fxSlwpjx515-956Cpc [facility] ColumbusComment on above: Performed By: #### CBC #### [facility] [address] [place] [address] Dr. Jorge RaineyC4.34 106/ulNormal4.20-5.40The [facility] ColumbusComment on above:Performed By: #### CBC #### [facility] [address] [place] [address] Dr. Jorge SierraWBC8.1 103/ulNormal4.0-11.0The [facility] ColumbusComment on above: Performed By: #### CBC #### [facility] [address] [place] [address] Dr. Jorge Vela 20-14-1699DVR [Mass/Vol]mg/LNormal<=1.0The [facility] ColumbusComment on above:Performed By: #### CMP, BNP, CRP, CMADM #### [facility] [address] [place] [address] Dr. Jorge Rose CHEST WO W CONon 58-32-0900KNQ CHEST WO W CONCTA OF THE CHEST HISTORY: Dyspnea COMPARISON: None. [...] authenticated by: ANN MARIE JORDAN Date: 2022-02-11 18:56[facility] HospitalPROF 14(COMP METB)on 79-33-5187Afmtvcv [Mass/Vol]3.6 g/dL Normal3.4-5.0The [facility] on above:Performed By: #### CMP, BNP, CRP, CMADM #### [facility] [address] [place] [address] Dr. Jorge SierraAlbumin/Globulin [Mass ratio]1.0 {ratio}NormalSt. Rita's Hospital on above:Performed By: #### CMP, BNP, CRP, CMADM #### [facility] [address] [place] [address] Dr. Jorge Nails [Catalytic activity/Vol]71 U/ZSlnbgc50-059Ltd [facility] on above:Performed By: #### CMP, BNP, CRP, CMADM #### [facility] [address] [address] [address] Jorge Bustamante [Catalytic activity/Vol]28 U/RZwjqoc15-69Vdh [facility] on above:Performed By: #### CMP, BNP, CRP, CMADM #### [facility] [address] [address] [address] Jorge Santos gap [Moles/Vol]9.5 mmol/LNormalThe [facility] on above:Performed By: #### CMP, BNP, CRP, CMADM #### [facility] [address] [address] [address] Jorge SierraAST [Catalytic activity/Vol]29 U/LSdpgde38-43Ubj [facility] ColumbusComment on above:Performed By: #### CMP, BNP, CRP, CMADM #### [facility] [address] [place] [address] Dr. Jorge SierraBilirubin [Mass/Vol]0.5 mg/dLNormal0.2-1.0The [facility] Comment on above:Performed By: #### CMP, BNP, CRP, CMADM #### [facility] [address] [place] [address] Dr. Jorge SierraCalcium [Mass/Vol]9.3 mg/dLNormal8.5-10.1The [facility] Comment on above:Performed By: #### CMP, BNP, CRP, CMADM #### [facility] [address] [place] [address] Dr. Jorge SierraChloride [Moles/Vol]96 mmol/LCritically ngh46-861Liu [facility] ColumbusComment on above:Performed By: #### CMP, BNP, CRP, CMADM #### [facility] [address] [place] [address] Dr. Jorge SierraCO2 [Moles/Vol]32.5 mmol/LCritically high21.0-32.0The [facility] ColumbusComment on above:Performed By: #### CMP, BNP, CRP, CMADM #### [facility] [address] [place] [address] Dr. Jorge SierraCreatinine [Mass/Vol]0.73 mg/dLNormal0.55-1.02The [facility] ColumbusComment on above:Performed By: #### CMP, BNP, CRP, CMADM #### [facility] [address] [place] [address] Dr. Patel ChangEGFR-AF SAMOAN>60Normal>=60The [facility] ColumbusComment on above:Performed By: #### CMP, BNP, CRP, CMADM #### [facility] [address] [address] [address] Jorge OrtegaGFR-NON AF SAMOAN>60Normal>=60The [facility] ColumbusComment on above:Performed By: #### CMP, BNP, CRP, CMADM #### [facility] [address] [address] [address] Jorge SierraGlobulin (S) [Mass/Vol]3.6 g/dLNormalThe [facility] ColumbusComment on above:Performed By: #### CMP, BNP, CRP, CMADM #### [facility] [address] [address] [address] Jorge SierraGlucose [Mass/Vol]102 mg/nOTxjyjq13-195Hsc [facility] Comment on above:Performed By: #### CMP, BNP, CRP, CMADM #### [facility] [address] [place] [address] Dr. Jorge SierraPotassium [Moles/Vol]4.0 mmol/LNormal3.5-5.1The [facility] Comment on above:Performed By: #### CMP, BNP, CRP, CMADM #### [facility] [address] [address] [address] Jorge SierraProtein [Mass/Vol]7.2 g/dLNormal6.4-8.2The [facility] Comment on above:Performed By: #### CMP, BNP, CRP, CMADM #### [facility] [address] [address] [address] Jorge SierraSodium [Moles/Vol]134 mmol/LCritically lpo182-758Goh [facility] ColumbusComment on above:Performed By: #### CMP, BNP, CRP, CMADM #### [facility] [address] [place] [address] Dr. Jorge SierraUrea nitrogen [Mass/Vol]13.0 mg/dLNormal7.0-18.0The [facility] ColumbusComment on above:Performed By: #### CMP, BNP, CRP, CMADM #### [facility] [address] [place] [address] Dr. Jorge SierraUrea nitrogen/Creatinine [Mass ratio]17.8 mg/mgNormalThe [facility] ColumbusComment on above:Performed By: #### CMP, BNP, CRP, CMADM #### [facility] [address] [address] [address] Jorge Ching RATE WESTERGRENon 14-16-2981WAG RATE4 mm/hrNormal<=20The [facility] ColumbusComment on above:Performed By: #### SEDR #### [facility] [address] [address] [address] Jorge SierraCNPNon 44-64-7902XMQPIjzchjexd (PULMHI) PIOTR FREEMAN ([id number]) 1980 F Date Time Provider Department 12/31/21 FRANCIA YOUNGMarcos During your visit today, we recorded the [...] 03/03/2017 Encounter Status:Closed by FRANCIA YOUNG on 12/31/21NoSelect [facility] - CantonAlison 20-21-1740OKDAYvxumgmwx (PULMMN) PIOTR FREEMAN ([id number]) 1980 F Date Time Provider Department 11/04/21 JEROME MABRY During your visit today, we recorded the [...] Reason for Visit: Received Outside Medical Records [[id number]] Prescriptions as of 11/04/2021 - COLESTIPOL HCL [...] 03/03/2017 Encounter Status:Closed by COLT CROSS [facility]21[facility] 16-74-5715APWDKubzebfqc (RIQ) PIOTR FREEMAN ([id number]) 1980 F Date Time Provider Department 10/20/21 JEROME MABRY During your visit today, we recorded the [...] Reason for Visit: Received Outside Medical Records [[id number]] Prescriptions as of 10/20/2021 - COLESTIPOL HCL [...] 03/03/2017 Encounter Status:Closed by COLT CROSS on 10/20/21[facility] [id number] (RIQ) PIOTR FREEMAN ([id number]) 1980 F Date Time Provider Department 10/06/21 JEROME MABRY During your visit today, we recorded the [...] 03/03/2017 Encounter Status:Closed by COLT CROSS on 10/06/21[facility] FoundationCardiovascular Lab Reporton 37-81-0184Gywwcljpccsrhx Lab Report [facility] Patient Name: [facility] MR #: [id number] Physician: Charlotte Burnett of [facility] Date: 09/17/2021 Division of Birthdate: 1980 Cardiology Room #: [facility]ovascular Services [address] [place] [address] Cardiovascular Laboratory Report INDICATION: The patient is [...] signed informed consent. She was brought to cleaner laboratory equipment in a fasting state. The right neck area was prepped and draped in usual fashion. A micropuncture technique and ultrasound guidance was used for access in the right internal jugular vein. A 6-Bahraini x 11 cm sheath was placed. A 6-Bahraini Chinchilla catheter was used for right heart catheterization with measurement pressures and calculation of cardiac output using the estimated Valorie method. Chinchilla catheter was removed. Modified Adrian's test was favorable on the left. Access in the left radial artery was obtained using micropuncture technique and ultrasound guidance. A 6-Bahraini x 11 cm Hydrophilic sheath was advanced. Verapamil was given through the sheath and heparin was administered intravenously. Bilateral selective coronary angiography was then performed using 6-Bahraini JL3.5 and JR4 diagnostic catheters. Catheters were [...] in Cardiology Clinic. Electronically Signed by: Charlotte Johnson M.D. 09/18/2021 05:47 P Charlotte Johnson M.D. Date Dict: 09/17/2021/11:59 A/Charlotte Johnson M.D. Date Trans: 09/17/2021 12:37 P/jayro DN_JN:[id number] cc: Terra Singh M.D. [address] [place] [id number] Clinic [facility] Vital Signs Date TimeVital SignValuePerforming MlheyowpeOtibvpss13-00-4118 09:01-0500Body mass index (BMI) [Ratio]26.34 kg/b4Kfxau Nazanin DO Work Phone: NONC Gznnuxners37-37-9330 09:01-0500Body cyzzaq51.32 kgCorey Nazanin DO Work Phone: NOUniversity of [facility] Children's HospitalMbfdkgokei58-87-2205 09:01-0500Diastolic blood eejnqhqb79 mm[Hg]Mando Nazanin DO Work Phone: noUniversity of [facility] Children's HospitalPxbirvhgqg98-19-4317 09:01-0500Systolic blood mm[Hg]Mando Nazanin DO Work Phone: [facility] Encounters Encounter DateEncounter TypeCare ProviderFacilityStart: 07-24-2025 End: 77-84-8236itfpcmkhyrHCWJCorey Hospitaltart: 06-07-2025 End: 06-87-5351Ubykfybfv Result EncounterCorey Nazanin DO Work Phone: n[facility] External Department UnsolicitedStart: 06-07-2025 End: 92-33-6353Pkmwdsvji Result EncounterCorey Nazanin DO Work Phone: n[facility] External Department UnsolicitedStart: 01-12-2025 End: 80-93-1810fjuxdhgrvvLQEYKK [facility] Start: 11-23-2024 End: 51-53-9654Xkqrlnbzo Result EncounterCorey Nazanin DO Work Phone: n[facility] External Department UnsolicitedStart: 11-23-2024 End: 29-43-3567Szfzjnnkj Result EncounterCorey Nazanin DO Work Phone: n[facility] External Department UnsolicitedStart: 09-14-2024 End: 28-98-0016Ijhmha flowsheetCorey Nazanin DO Work Phone: [facility] BCP OBStart: 09-14-2024 End: 80-25-2157Eirngt flowsheetCorey Nazanin DO Work Phone: [facility] BCP OBStart: 09-14-2024 End: 96-56-1325Yhhjtiuii Result EncounterCorey Nazanin DO Work Phone: [facility] External Department UnsolicitedStart: 09-14-2024 End: 59-82-0447gginwzhnphJPRNC FAZIONot AvailableStart: 09-14-2024 End: 76-26-3807Wpihhjb encounter procedureCorey Nazanin DO Work Phone: noms HealthcareStart: 09-14-2024 End: 71-18-8133Pkjtsnfk preventive med est patient 40-64yrsCorey Nazanin DO Work Phone: [facility] BCP OBComment on above:Well woman exam with routine gynecological exam; Acute non-recurrent frontal sinusitisStart: 09-08-2024 End: 52-79-7063Ypdmxafsj Result EncounterCorey Nazanin DO Work Phone: noms External Department UnsolicitedStart: 09-08-2024 End: 19-01-0668Wktthtewi Result EncounterCorey Nazanin DO Work Phone: noms External Department UnsolicitedStart: 08-01-2024 End: 95-22-0113Bvcvjrwci Result EncounterCorey Nazanin DO Work Phone: noms External Department UnsolicitedStart: 08-01-2024 End: 88-56-9939Nrtgpkfie Result EncounterCorey Nazanin DO Work Phone: noms External Department UnsolicitedStart: 09-06-2023 End: 58-41-2359Bxluuoatx Result EncounterCorey Nazanin DO Work Phone: noms External Department UnsolicitedStart: 09-06-2023 End: 09-47-9295Icdlvtkzm Result EncounterCorey Nazanin DO Work Phone: noms External Department UnsolicitedStart: 01-28-2023 End: 18-79-1287npucjoxzkcJW TERRA HOY .Facility:V8Ualsb: 09-02-2022 End: 42-56-5698dffedsvaqeDD TERRA HOY .Facility:A5Apokk: 08-27-2022 End: 54-04-9811nyqmvapwhzSM MANDO NAZANIN .Facility:S3Xlrvy: 08-26-2022 End: 83-97-5891rfkycattxzVKVFPQJN CULLENFacility:F8Wkpvt: 07-17-2022 End: 23-68-2739fxcitgttyrWPIVJONJ CULLENFacility:R3Hzpjc: 06-30-2022 End: 48-15-9421hgdzsnjblhDRVYLCWN CULLENFacility:A3Vyibe: 74-86-0071Nkgpbednb for general adult medical examination without abnormal findingsDR TERRA HOY . [facility] HospitalStart: 05-21-2022 End: 29-31-9434waolrshuovFH TERRA HOY .Facility:F0Uleku: 05-21-2022 End: 37-30-5463Tmkgkbetf for general adult medical examination without abnormal findingsDR TERRA HOY .Facility:V8Qscbd: 04-30-2022 End: 22-97-9962tajuumuoulLI MANDO NAZANIN .Facility:F1Eeemg: 04-29-2022 End: 90-74-9849gnekqdnvavQG MANDO NAZANIN .Facility:W6Vtwdc: 49-67-2613Ictfrqovk encounterDashawn Weeks MD Work Phone: EndocrinologyComment on above:FormsStart: 02-11-2022 End: 54-41-2616mcvfrvjoodFX TERRA HOY .Facility:Y1Gmjnz: 19-36-8310Soqkwdvri encounterFrancia Young MD Work Phone: Pulmonary MedicineComment on above:ResultsStart: 12-06-6133Fzywd [facility] Main Work Phone: NeurologyComment on above:HSAT Check In (Adult) Procedures DateProcedureProcedure DetailPerforming ClinicianStart: 97-53-0049Wbasmn-up visitFollow-upPAUL CHACKOStart: 05-70-0600TVX CBC WITH AUTO DIFFCorey Nazanin DO Work Phone: Start: 35-99-1216NHC CMP (CMP) (FOR REMOTE [facility] USE) Mando Nazanin DO Work Phone: Start: 96-92-6843EAV,APTIMA HPV,AGE GDLNCorey Nazanin DO Work Phone: Start: 72-52-9696Gubcnofecgz observation [Identifier] in Cervix by Cyto stainCorey Nazanin DO Work Phone: Start: 89-95-6060CD TOMOSYNTHESIS SCREENING BICorey Nazanin DO Work Phone: Start: 17-56-1617PjyaqyazoptRflnc Nazanin DO Work Phone: Start: 95-60-4940JZH CBC WITH AUTO DIFFCorey Nazanin DO Work Phone: Start: 34-54-9279FN TOMOSYNTHESIS SCREENING BICorey Nazanin DO Work Phone: Start: 72-55-8928OukmjkdhsgjQxdrq Nazanin DO Work Phone: Start: 16-83-8048Fyerypfxxpu observation [Identifier] in Cervix by Cyto stainCorey Nazanin DO Work Phone: Start: 07-01-8697Uiba cerv/vag auto thin layer prep mnl screenCorey Nazanin DO Work Phone: Start: 00-86-9166Xrmekigwuuf observation [Identifier] in Cervix by Cyto stainCorey Nazanin DO Work Phone: Plan of Treatment DateCare ActivityDetailAuthorStart: 81-94-3538Ttbkbpfoj for malignant neoplasm of cervixNOMS HealthcareStart: 28-03-8061Htiaghvpe for malignant neoplasm of cervixPap SmearNOMS HealthcareStart: 17-50-3376Dmderlklw for malignant neoplasm of cervixNOMS HealthcareStart: 09-24-2025 End: 91-45-0435Kgaosds encounter ovjoiwovz54/29/2025 8:30 AM EST Office Visit [facility] [address] [place] [address] [place] [address] Mando Back, DO [address] [place] [address] [facility] OBStart: 09-17-2025 End: 43-11-1881Ubsvcyl encounter procedureNOADVENTIST [facility] OBStart: 10-75-2588Oilbglnwd for malignant neoplasm of breastMammogramNOMS HealthcareStart: 05-28-2025 Influenza vaccinationInfluenza Vaccine (#1)[facility] HealthcareStart: 09-14-2024 End: 96-00-7234Ivyssmx encounter wljoyjhtx28/19/2024 8:50 AM EST Office Visit [facility] [address] [id number] Mando Back, DO [address] [place] [address] [facility] OBStart: 23-02-7797Dnionazhy for malignant neoplasm of breastMammogramNOMS HealthcareStart: 36-22-2174Qtjftbfbr vaccination Influenza Vaccine (#1)[facility]Start: 14-54-0276Jklpyasou vaccination INFLUENZA (Season Ended)[facility]: 75-81-4845Jsjgibpyz vaccination INFLUENZA (#1)[facility] Centertart: 34-25-5658NCDRU-19 VACCINE (3 - Booster for Moderna series)COVID-19 VACCINE (3 - Booster for Moderna series)[facility] Centertart: 80-80-9852FvdqeuhdynmBINJDWMBQJodtzxebz ClinicStart: 79-35-2248AOQ TESTINGHPV TESTINGUniversity Hospitals Parma Medical Centertart: 04-34-2875UPK TESTINGPAP TESTING [facility] Centertart: 51-21-5756Gzuxu microalbumin profileDTAP,TDAP,TD (1 - Tdap)[facility] Centertart: 96-84-6508JEHZXCTLC C SCREENINGHEPATITIS C SCREENING [facility]ertart: 56-87-1310YPI SCREENINGHIV SCREENINGChillicothe Hospital Start: 19-07-0316Qbmgv depression screening assessmentDEPRESSION SCREENING [facility]ertart: 31-47-4549Ymuqjvoao for malignant neoplasm of colonSaint [facility] Hospital of Blue SpringsTHIN PREP TIS PAP AND HR HPV DNATHIN PREP TIS PAP AND HR HPV DNA Pathology and Cytology Routine Well woman exam with routine gynecological exam Ordered: 09/14/2024[facility] Work Phone: comment on above:Ordered: 09/14/2024 Immunizations Immunization DateImmunizationNotesCare EjvkhqbpDvfuqgjs55-20-5134sacqnrqbn virus vaccine, unspecified formulationCorey Nazanin DO Work Phone: [facility] SpringsYkipgyslvn22-93-9668yikzocfpg virus vaccine, unspecified formulationCorey Nazanin DO Work Phone: [facility] Payers DatePayer CategoryPayerPolicy [id number] [id number] 56-56-0555XftbswqRZK MMO SUPERMED PLUS [id number] 2020-Present [phone] [address] [place] [address] [id number] [id number] ..840.1.225572.3.579.[id number] .840.1.055300.3.579.[id number] 2.16.840.1.355327.3.579.[id number] 2.16.840.1.844320.3.579.[id number] 2.16.840.1.218569.3.579.[id number] 2.16.840.1.303349.3.579.[id number] 2.16.840.1.962058.3.579.[id number] 2.16.840.1.359412.3.579.2.12193-94-7732Rrhhuqw9168615 2.840.1.499431.3.579.2.23606-28-6015Mogbrrc7112639 2.16840.1.436495.3.579.2.91038-50-1845Jmowyko1114683 2.16840.1.329918.3.579.2.1259 Social History DateTypeDetailFacilityStart: 03-03-2017 End: 09-52-5381Vdbdyhf smoking status NHISNever smoked tobaccoChillicothe Hospital Start: 26-47-1331Grnkoyx use and exposureSmokeless tobacco non-userUniversity Hospitals Parma Medical Centertart: 95-69-0480Bsm Assigned At BirthNot on fileUniversity Hospitals Parma Medical Centertart: 08-31-2023 End: 24-95-6268Lapxuodni beverage intakeCurrent drinker of alcohol (finding)[facility] HealthcareStart: 08-31-2023 End: 67-90-9975Hvgasyj of Social functionNOMS HealthcareStart: 08-31-2023 End: 97-22-8251Wfqephk use panelNONC HealthcareStart: 91-99-3215Lsdsyye Comment Occasional alcohol useNOMS HealthcareStart: 02-22-0664WrhTqujngUDSA Healthcare Start: 08-20-2023 End: 22-05-5794Ujhdcguz to SARS-CoV-2 (event)Not [facility] Clinical Notes 10-08-2021 to 07-24-2025 Note Date & DjgnBdbvJjfcotie70-81-1772 NoteUT Electrophysiology Consult Note [place] [facility] Reason for visit: Palpitations HPI: Piotr Freeman is a 45 y.o. year old with past medical history of COVID infection who was previously evaluated by cardiology team consist of Kaitlin Estrada as well as Dr. Charlotte stewart for underlying concerns of shortness of breath and chest pain. She was initially evaluated with an echocardiogram which was nonrevealing. Initial workup with a Holter monitor revealed sinus tachycardia but no other arrhythmias. She even had a stress test which was negative for any ischemia but given there was some EKG concern for ischemia she was taken for cardiac cath that was performed on 09/17/2021 which showed normal coronary arteries. Patient exercised for 5 minutes achieving 6.2 METS. During exercise and recovery there were 1 to [address] segment depression in 2 3 and aVF as well as V5 and V6. These returned to normal by completion of the test. Ischemic ECG changes seen in the inferolateral leads. Normal heart rate and blood pressure response to exercise. Subsequently well cardiac catheter beta-blockers and aspirin was also stopped And she was noted to have elevated heart rate only with exercise. She was seen on a yearly basis by Dr. SUNG vaughan and she endorsed occasional palpitations. His working diagnosis was possibly of inappropriate sinus tachycardia and she was offered an event monitor for further evaluation. Event monitor performed for 4 weeks from 01/12/2025 to 02/11/2025 revealed evidence of sinus rhythm with sinus tachycardia and rare PACs no other arrhythmias were noted. Patient had events correlated with long RP tachycardia that occurred with activity consistent withLikely sinus tachycardia. She subsequently had another Holter monitor that was placed for 3 days which also revealed the same rhythm was sinus rhythm with PACs and PVCs and no SVT. Patient was noted that she had symptoms that occur both at rest and with activity. I tend to believe that her symptoms associated with rest are likely due to PACs or PVCs and those once with activity tend to correlate more so with the possible inappropriate sinus tachycardia. Her symptoms all began after the episode of COVID. She states that she could not tolerate beta-nathaniel and now has been off those medications PMH: Medical History[1] PSH: Surgical History[2] SH: Social Drivers of Health Tobacco Use: Low Risk (07/24/2025) Patient History Smoking Tobacco Use: Never Smokeless Tobacco Use: Never Passive Exposure: Not on file Alcohol Use: Not on file Financial Resource Strain: Not on file Food Insecurity: Not on file Transportation Needs: Not on file Physical Activity: Not on file Stress: Not on file Social Connections: Not on file Intimate Partner Violence: Unknown (11/18/2023) [place] Safety & Environment Fear of Current or Ex-Partner: Not on file Emotionally Abused: Not on file Physically Abused: Not on file Sexually Abused: Not on file Physically or Sexually Abused: Not on file Depression: Not on file Housing Stability: Not on file Utilities: Not on file Health Literacy: Not on file Allergies: Allergies[3] Weight: 59.4kg Visit Vitals BP 101/71 (BP Location: Left arm, Patient Position: Sitting) Pulse 75 Ht 1.575 m (5' 2 ) Wt 59.4 kg (131 lb) SpO2 100% BMI 23.96 kg/m??? Smoking Status Never BSA 1.61 m??? Meds: Medications Ordered Prior to Encounter[4] ROS: Review of Systems Constitutional: Positive for malaise/fatigue. Cardiovascular: Positive for dyspnea on exertion, irregular heartbeat and palpitations. Respiratory: Positive for shortness of breath. Physical Exam: Constitutional General Appearance: well-nourished, well-developed, appears stated age Level of Distress: comfortable Eyes ALEX Neck Neck: supple, trachea midline Carotid Arteries: bilateral normal upstroke, no bruits Jugular Veins: normal jugular venous pressure Thyroid: not enlarged Lungs Respiratory Effort: unlabored Chest Exam: normal curvature, no thoracic deformity Auscultation: clear, no wheezing, no rales, no rhonchi Cardiovascular Chest wall: Rate And Rhythm: regular Heart Sounds: normal S1, normal s2, no gallop Systolic Murmur: not heard Diastolic Murmur: not heard Extremities: no cyanosis, no edema, no peripheral signs of emboli Peripheral Pulses Radial Pulse: normal Abdomen Inspection and Palpation: soft, non distended, no bruit, non tender Neurologic Gait: normal gait Labs: @LABRESULTS@ No results found for: CHOLESTEROL TOTAL , HDL , LDL CALC , LDL DIRECT , TRIGLYCERIDES , TSH , T3 TOTAL , T4 TOTAL , THYROID PEROXIDASE AB , BNP EKG: No results found for this or any previous visit (from the past 4464 hours). Echo: 09/01/2021 Stress test: 09/01/2021 Coronary angiogram: @CATH@ Diagnostic Imaging: No images are attached to the encounter (more content not included)...[facility]04-18-2025 NoteUT Cardiology - [facility] Subjective Piotr Freeman is a 44 [...] deficiency Asthma Chronic cough Hand eczema Immunodeficiency Wyoz-LPXCG-56 condition Vitamin D deficiency No family history on file. Social History Tobacco Use Smoking status: Never Smokeless tobacco: Never Substance Use Topics Alcohol use: Yes Comment: occasional 1 per week Drug use: Never MONA Piotr is seen in follow-up. 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 In June 2020 she was admitted to the [facility] with the COVID-19 infection. At that time [...] to the 40s. Otherw (more content not included)...[facility] 09-14-2024 History of Present illness Narrative* Nini Romero, SANDY - 09/14/2024 8:50 AM EST Reason for Appointment: Patient ID: Piotr Freeman [...] nursing note reviewed. Exam conducted with a salesperson hearing aids present. Vitals: Estimated body mass index is [...] of: Mando Back DO documented in this encounterSaint Mary's Hospital of [facility] SpringsKdkkoatbhb03-86-1562 Miscellaneous Notes* Telephone Encounter - Leon Lomax - 02/13/2022 4:45 PM EDT On 02/13 [address] to [facility] [phone] for referral with office notesand lab results. Leon Lomax documented in this encounterChillicothe Hospital04-06-2022 Miscellaneous Notes* Telephone Encounter - Francia Young MD - 12/31/2021 8:49 AM EDT I spoke to the patient by telephone [...] to determine next steps. documented in this encounterChillicothe Hospital03-28-2022 NoteHNO ID: [id number] Author: Ina Whitley Pss Service: ? Author Type: ? Type: Progress Notes Filed: 12/22/2021 3:55 PM Note Text: Sleep Study Check-In Documentation Date: December 22, 2021 Name: Piotr Freeman Comments: HST was returned in working order with all sleep questionnaires Ina Whitley PssSelect [facility] History of Present illness Narrative* Ina Gutierrez Pss - 12/22/2021 3:55 PM EDT Sleep Study Check-In Documentation Date: December 22, 2021 Name: Piotr Lynda Freeman Comments: HST was returned in working order with all sleep questionnaires Ina Whitley Pss * Ina Gutierrez Pss - 12/16/2021 8:24 AM EDT Nomad: [id number] Date: 12/16/21 [employer] Mailout Tracking Number: [id number] [employer] Return Tracking Number: [id number] * Howard Ware III, PhD - 11/24/2021 1:23 PM EST November 24, 2021 Standing PSG Orders signed in the last 90 days None Future PSG Orders signed in the last 90 days Ordered Auth. provider HOME SLEEP APNEA TEST (HSAT) [[id number]] 11/18/21 Francia Young MD Assoc. diagnoses: Hypersomnolence [...] the newest values recorded on each date aredisplayed. Sleep Studies HOME SLEEP APNEA TEST (HSAT) Future Expected: Expires: 11/18/22 BMI Readings from Last 2 Encounters: 03/03/17 : 27.44 kg/m PAST MEDICAL HISTORY Diagnosis Date Cholelithiasis The medical record was reviewed to determine if the proposed sleep study conforms to the AASM Practice Parameters for the Indications for Polysomnography and Related Procedures, or if the sleep studyis indicated for other reasons. Indications for study: VLADIMIR suspected without comorbid medical or sleep disorders Sleep study to be performed: Home Sleep Apnea Test (HSAT) Special instructions: None-follow laboratory protocol Abhishek Ling [facility] Staff Note: I have read the above protocol, edited as needed, and agree to the plan. Howard Ware III, PhD 1:37 PM, 11/24/2021 * Hernán Cronin - 11/21/2021 3:03 PM EST November 21, 2021 An order has been received for Home Sleep Apnea Test (HSAT) from Dr. Francia Young MD, a B[facility] Staff. Visit prep complete. Comments :No The sleep study is scheduled for 12/17. Insurance: Payor: MMO / Plan: MMO SUPERMED PLUS / Product Type: PPO / Payor/Plan Subscr Sex Relation Sub. Ins. ID Effective Group Num 1. MMO - MMO SUP* LYDIAPAMELA* 1980 Female Self [id number] 09/27/20 [address] Hernán Cronin documented in this encounterChillicothe Hospital03-22-2022 NoteHNO ID: [id number] Author: Ina Davis Service: ? Author Type: ? Type: Progress Notes Filed: 12/22/2021 3:55 PM Note Text: Nomad: [id number] Date: 12/16/21 [employer] Mailout Tracking Number: [id number] [employer] Return Tracking Number: [id number]02-28-2022 NoteHNO ID: [id number] Author: Howard Ware III, PhD Service: ? Author Type: Physician Type: Progress Notes Filed: 12/22/2021 3:55 PM Note Text: November 24, 2021 Standing PSG Orders signed in the last 90 days None Future PSG Orders signed in the last 90 days Ordered Auth. provider HOME SLEEP APNEA TEST (HSAT) [[id number]] 11/18/21 Francia Young MD Assoc. diagnoses: Hypersomnolence [...] instructions: None-follow laboratory protocol Abhishek Ling [facility] Staff Note: I have read the above protocol, edited as needed, and agree to the plan. Howard Ware III, PhD 1:37 PM, 11/24/2021[facility]02-25-2022 NoteHNO ID: [id number] Author: Hernán Cronin Service: ? Author Type: ? Type: Progress Notes Filed: 12/22/2021 3:55 PM Note Text: November 21, 2021 An order has been received for Home Sleep Apnea Test (HSAT) from Dr. Francia Young MD, a B. [facility] Staff. Visit prep complete. Comments :No The sleep study is scheduled for 12/17. Insurance: Payor: MMO / Plan: MMO SUPERMED PLUS / Product Type: PPO / Payor/Plan Subscr Sex Relation Sub. Ins. ID Effective Group Num 1. MMO - MMO SUP* PAMELA FREEMAN* 1980 Female Self [id number] 09/27/20 [address] [facility]22 NoteHNO ID: [id number] Author: Francia Young MD Service: ? Author Type: Physician Type: Progress Notes Filed: 11/21/2021 11:12 AM Note Text: VIRTUAL VISIT PROGRESS NOTE November 18, 2021 This is a virtual visit using [employer] video visit. The patient is a 41-year-old female who is a non-smoker. The patient has been previously seen in the pulmonary department by Dr. Jerome Mabry. She was diagnosed with COVID-19 infection in [...] the patient [facility] NoteHNO ID: [id number] Author: Jerome Mabry MD Service: ? Author Type: Physician Type: [...] and Flovent inhalers and oral steroids at [facility] near [place], [place] CXR revealed RLL pneumonia. Her D-Dimers [...] 2021! Does 30 min of walking on [employer] Able to climb a flight of stairs. [...] visit] No CXR or PFTs available. 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 Possible Myocarditis Doubt PAH [...] Reassured Total time > 45 min Jerome Mabry [facility] Diagnosis Well woman exam with routine gynecological [...] and content) DATE CREATED AUTHOR 09/24/2021 [facility] DATE CREATED AUTHOR AUTHOR'S ORGANIZ ATION 02/15/2022 [facility] DATE CREATED AUTHOR AUTHOR'S ORGANIZ ATION 02/04/2023 [facility] DATE CREATED AUTHOR AUTHOR'S ORGANIZ ATION 09/17/2024 [facility] DATE CREATED AUTHOR AUTHOR'S ORGANIZ ATION 07/25/2025 [facility] Source Comments (unrecognize d section and content) In the event this informatio n is protected by the Federal Confidentiality of Alcohol and Drug Abuse Patient Records regulations: The Federal rules restrict any use of the information to criminally investigate or prosecute any alcohol or drug abuse patient.Chillicothe HospitalIn the event this information is protected by the Federal Confidentiality of Alcohol and Drug Abuse Patient Records regulations: The Federal rules restrict any use of the information to criminally investigate or prosecute any alcohol or drug abuse patient.Chillicothe HospitalIn the event this information is protected by the Federal Confidentiality of Alcohol and Drug Abuse Patient Records regulations: The Federal rules restrict any use of the information to criminally investigate or prosecute any alcohol or drug abuse patient.[facility] Reason for Visit (unrecogniz ed section and content) ReasonCommentsHSAT Check In (Adult)ReasonCommentsResultsReasonCommentsForms ReasonCommentsAbnormal Pap Smear Care Teams (unrecognized sec tion and content) Team MemberRelationshipSpecialtyStart DateEnd Date Rudy Milan, DO PCP - GeneralInternal Medicine01/28/17 Terra Singh MD [address] [place] [address] ReferringFamily Xbiouylu48/3/21Team MemberRelationshipSpecialtyStart DateEnd Date Rudy Milan, DO PCP - GeneralInternal Medicine01/28/17 Terra Singh MD [address] [place] [address] ReferringFamily Fhjtswxk90/3/21Team MemberRelationshipSpecialtyStart DateEnd Date Terra Singh MD [address] [place] [address] PCP - Djbrgld91/4/23Team MemberRelationshipSpecialtyStart DateEnd Date Terra Singh MD [address] [place] [address] PCP - Hiypqjk31/4/23Team MemberRelationshipSpecialtyStart DateEnd Date Terra Singh MD [address] [facility] [place] [address] PCP [facility]08/30/23Team MemberRelationshipSpecialtyStart DateEnd Date Terra Singh MD [address] [facility] [place] [address] [facility]08/30/23Team MemberRelationshipSpecialtyStart DateEnd Date Terra Singh MD [address] [facility] [place] [address] [facility]08/30/23Team MemberRelationshipSpecialtyStart DateEnd Date Terra Singh MD PCP - Qarkvdy32/4/23Team MemberRelationshipSpecialtyStart DateEnd Date Terra Singh MD [facility]08/30/23Team MemberRelationshipSpecialtyStart DateEnd Date Terra Singh MD PCP - Xvsybft11/4/23 FOR RECORDS PERTAINING TO PATIENTS WHO ARE [...] BE BASED ON THE PRIMARY CLINICAL RECORDS. [facility] HospitalM[facility]. provides no warranty or guarantee of the accuracy or completeness of information in this document.
--- NOTE | 2025-09-25 09:03 | MM_ITS ---
Patient Name: PIOTR FREEMAN MR#: [id number] : 1980 Exam Date: 09/25/2025 Ordering Doctor: DR NEGRO CARSON . RADIOLOGY REPORT PROCEDURE: MM TOMOSYNTHESIS SCREENING BI COMPARISON: MM TOMOSYNTHESIS SCREENING BI, 09/07/2024. MM TOMOSYNTHESIS SCREENING BI, 09/06/2023. MG MAMM SCREEN 3D AMIRA CAD, 09/02/2022. MG MAMM SCREEN AMIRA W CAD, 08/03/2018. INDICATIONS: Screening Calculator Name NCI Breast Cancer Risk Assessment Tool 5 Year Breast Cancer Risk 1.50% Lifetime Breast Cancer Risk 10.70% Personal Breast Cancer No Personal Ovarian Cancer No Treatments None Family Cancers Grandmother-maternal with breast cancer at age ~63. LOCATION: [facility] BREAST COMPOSITION: The breasts are heterogeneously dense, which may obscure small masses. FINDINGS: RIGHT BREAST: No significant suspicious finding. LEFT BREAST: No significant suspicious finding. DIAGNOSTIC CATEGORY 1--NEGATIVE. RECOMMENDATIONS: ROUTINE MAMMOGRAM AND CLINICAL EVALUATION IN 12 MONTHS. Dictated by: Rory Neal DO on 09/25/2025 at 11:54 Approved by: Rory Neal DO on 09/25/2025 at 11:55
== END 2025-09-25 08:57 | disposition home or self-care (01) ==
LOC: MAMMO 08:56
PROVIDERS: PCP Family Medicine; Visit Provider Obstetrics & Gynecology
DX: Z12.31 Encounter for screening mammogram for malignant neoplasm of breast (principal); Z80.3 Family history of malignant neoplasm of breast
CPT/HCPCS: 77063; 77067